=== PATIENT | female | born 1945 | race Caucasian/White ===

== ENCOUNTER → 2016-04-29 | Outpatient (CLI) | payer BC ==
[~2016-04-29] MED LIST: ACETTAB19 PO; ALBU18002 PO; AMPH10CA3 PO; BUPRTAB51 PO; CALC500C3 PO; CETI10TA10 PO; CLB/200 PO; CYAN10005 PO; CYM20 PO; ECON0.05 TD; FERR325T5 PO; GLUCOSE PO; LEVO88TA PO; MAXAIR INH; MECL1TAB40 PO; METH10CA PO; OMEP20CA9 PO; OMEP20TA PO; PRED-301 PO; VALA500T60 PO; [UNRECOGNIZED DRUG - CODE] PO; [UNRECOGNIZED DRUG - CODE] VAGRING; [UNRECOGNIZED DRUG - OTHER] PO; [UNRECOGNIZED DRUG - OTHER] PO; tumeric PO
[2016-04-29 15:01] LABS: URINE APPEARANCE CLEAR (CLEAR); URINE BILIRUBIN NEG (NEG); URINE COLOR YELLOW; URINE NITRITE NEG (NEG); URINE SPECIFIC GRAVITY 1.006 (1.000-1.030); UROBILINOGEN NEG (NEG)
[2016-04-29 15:09] LABS: MANUAL MICROSCOPIC REQUIRED? NO; REVIEW REQ? NO
== END | disposition home or self-care (01) ==
LOC: C.LABSPEC 13:49
PROVIDERS: ATTEND Obstetrics & Gynecology
DX: R39.9 Unspecified symptoms and signs involving the genitourinary system (principal)

== ENCOUNTER 2016-05-13 06:34 | Emergency (ER) | payer BC ==
[~2016-05-13] VITALS: Ht 152.4 cm; Wt 62.4 kg
[~2016-05-13 06:34] MED LIST changes: -ACETTAB19 PO; -ALBU18002 PO; -CLB/200 PO; -CYAN10005 PO; -CYM20 PO; -FERR325T5 PO; -MECL1TAB40 PO; -OMEP20CA9 PO; -[UNRECOGNIZED DRUG - CODE] PO; -[UNRECOGNIZED DRUG - CODE] VAGRING; -[UNRECOGNIZED DRUG - OTHER] PO; -tumeric PO
[2016-05-13 06:41] VITALS: TEMP 36.4; O2SAT 98; Ht 152.4 cm; Wt 62.4 kg
[2016-05-13] MEDS ORDERED: SODIUM CHLORIDE 0.9% 1000ML 1,000 ML IV STA (07:12)
--- NOTE | 2016-05-13 07:28 | EMERGENCY ROOM VISIT NOTE ---
History Report prepared by Brissa: Soniya Gray Under the Supervision of: Dr. Radha Reagan M.D. First contact with patient: 07:03 Chief Complaint: SYNCOPE Stated Complaint: SYNCOPE/ANXIETY Nursing Triage Summary: pt was at [facility]. pt became frustrated when she couldn't find her ticket to board. and sat down. upon exiting the airport pt was climbing the stairs to board her plane when she became winded and then next thing she remembers is waking up in a seat with something cold on her face. pt is blind, has a service dog and is a seasoned traveler. she lives in [place] and has a home in [facility] where she was traveling to. 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 rates 7-9 normally. pt states she has no hx of anxiety. and did not eat this morning. which may have caused her episode. pt states she feels her normal self, except for "a little winded". pt did have flu over [place]. History of Present Illness The patient is a 71 year old female who presents to the Emergency Room with complaints of a sudden syncopal episode that occurred just prior to arrival. She currently rates her discomfort as a 7/10 in severity. The patient states that this morning she was getting ready to fly to [place] for the rest of winter. She states that while at the airport she misplaced her boarding pass and ID card. The patient states that she typically has numbness in her hands and additionally does not see very well. She states that with all of this she became very anxious and flustered. The patient states that she became short of breath when she walked up the stairs to the airplane and additionally noted heart palpitations. She states that she remembers sitting down in a seat on the airplane and then was asked to sit in the seat behind her. The patient states that she came around and someone was calling EMS. She states that she ate one piece of toast this morning because she is prediabetic. 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 She notes a family history of strokes, but denies any weakness to either side today. Source of History: patient Onset: prior to arrival Position: other (global) Symptom Intensity: 7/10 Quality: other (syncopal episode) Timing: other (sudden) Associated Symptoms: + SOB, + numbness (hands), No weakness Note: Associated Symptoms: heart palpitations, anxious, flustered Review of Systems See HPI for pertinent positives & negatives. A total of 10 systems reviewed and were otherwise negative. Past Medical & Surgical Medical Problems: (1) Polycythemia vera Family History Stroke Social History Smoking Status: Never Smoker Marital Status: Housing Status: lives alone Occupation Status: retired Current/Historical Medications Scheduled Bupropion (Wellbutrin-Xl), 300 MG PO QAM Calcium Carbonate (Tums), 1 T PO prn Cetirizine Hcl (Zyrtec), 10 MG PO DAILY Ferrous Sulfate (Ferrous Sulfate), 325 MG PO DAILY Levothyroxine Sodium (Synthroid), 88 MCG PO DAILY Methyltestosterone (Android), 1 CAPSULE PO DAILY Omeprazole (Omeprazole), 40 MG PO QPM Omeprazole (Prilosec), 20 MG PO QAM Prednisone (Prednisone), 5 MG PO DAILY [Citrimax], 1 TAB PO DAILY Scheduled PRN Amphetamine-Dextroamphetamine 10MG (Adderall Xr 10MG), 10 MG PO DAILY PRN for Documentation Glucose-Vitamin C (Glucose Instant Energy 4-6 gm-mg), 1 TAB PO for LOW BLOODSUGAR Valacyclovir (Valtrex), 500 MG PO BID PRN for prn Miscellaneous Medications Albuterol Sulfate (Proair Respiclick) Allergies Coded Allergies: Shellfish (Verified Allergy, Severe, VERY SICK FOR SEVERAL DAYS/HIVES IN HER MOUTH, 05/13/16) Nickel (Verified Allergy, Intermediate, RASH, 05/13/16) PT STATES Cephalexin (Verified Allergy, Unknown, UNKNOWN, 05/13/16) Pineapple (Verified Allergy, Unknown, HIVES IN HER MOUTH, 05/13/16) Prochlorperazine (Verified Allergy, Unknown, MOTOR SEIZURES-ARMS SPASTIC, 05/13/16) ALL "ZINES' PER PT Soy Protein (Verified Allergy, Unknown, "SOY" ALLERGY, 05/13/16) Klemme (Verified Allergy, Unknown, HIVES IN HER MOUTH, 05/13/16) Tomato (Verified Allergy, Unknown, HIVES IN MOUTH, 05/13/16) [place] (Verified Allergy, Unknown, HIVES IN HER MOUTH, 05/13/16) Physical Exam Vital Signs Date Time Temp Pulse Resp B/P Pulse Ox O2 Delivery O2 Flow Rate FiO2 05/13/16 09:45 82 16 159/86 94 05/13/16 08:15 85 16 145/79 89 172/92 92 177/97 05/13/16 07:30 89 16 158/89 94 Room Air 05/13/16 06:46 87 05/13/16 06:41 36.4 85 24 178/67 97 Room Air 05/13/16 06:41 98 Room Air Physical Exam Vital signs reviewed. General: Well-appearing female, in no significant distress. Sunglasses on HEENT: No scleral icterus, PERRLA, neck supple. Atraumatic. Cardiovascular: Regular rate and rhythm, no extra sounds. Pulmonary: Clear to auscultation bilaterally, normal work of breathing. Abdomen: Soft, nontender, nondistended, positive bowel sounds. Musculoskeletal: Chronic deformity of her feet bilaterally, no peripheral edema. Neurologic: Patient awake alert and oriented x 3, full strength in all 4 extremities. Cranial nerves 2 through 12 grossly intact. Skin: Warm, dry, no rash Medical Decision & Procedures ER Provider Diagnostic Interpretation: X-ray results as stated below per my interpretation and radiologist interpretation. Other radiology results as stated below per my review and radiologist interpretation: HEAD CT NONCONTRAST CT DOSE: 537.48 mGy.cm HISTORY: FARLEY, syncope TECHNIQUE: Multiaxial CT images of the head were performed without the use of intravenous contrast. Comparison: None. Findings: The paranasal sinuses and mastoid air cells are clear. The calvarium and skull base are intact. The ventricles and sulci are within normal limits. There is no mass, hematoma, midline shift, or acute infarct. Impression: No acute intracranial abnormality. Electronically signed by: Emmanuel Borrego M.D. 05/13/2016 7:59 AM Dictated Date/Time: 05/13/2016 7:53 AM CHEST ONE VIEW PORTABLE CLINICAL HISTORY: Syncope dyspnea COMPARISON STUDY: 03/11/2016 FINDINGS: The bones soft tissues and hemidiaphragms are normal. The cardiomediastinal silhouette is normal. The lungs are clear. The pulmonary vasculature is normal. IMPRESSION: Negative chest. Electronically signed by: Emmanuel Borrego M.D. 05/13/2016 7:50 AM Dictated Date/Time: 05/13/2016 7:[address] ANGIOGRAM OF THE CHEST CLINICAL HISTORY: Syncope. Anxiety. Positive d-dimer. Possible acute pulmonary embolism. COMPARISON STUDY: Chest CT dated 12-26 TECHNIQUE: Following the IV administration of mL of Optiray-320, CT angiogram of the thorax was performed from the thoracic inlet to the lung bases utilizing the pulmonary embolus protocol. Images are reviewed in the axial, sagittal, and coronal planes. IV contrast was administered without complication. MIP imaging was performed. CT DOSE: 175.82 mGy.cm FINDINGS: There is stable right lobe hepatic hypodensities. No pathologically enlarged axillary mediastinal or hilar lymph nodes were visualized. There is no evidence of thoracic aortic dilatation. There is a 90+ percent stenosis involving the proximal left subclavian artery. There were no pulmonary artery filling defects to indicate acute pulmonary embolism. No pleural effusions are visualized. There are bibasal or dependent atelectatic changes. There is no lobar consolidation. IMPRESSION: 1. No CT evidence of acute pulmonary embolism 2. No evidence of pathologic adenopathy 3. Dependent atelectatic changes 4. High-grade stenosis involving the left subclavian artery Electronically signed by: Allen Gonsalez M.D. 05/13/2016 8:46 AM Dictated Date/Time: 05/13/2016 8:39 AM Laboratory Results 05/13/16 07:25 Red Blood Count 5.67, Mean Corpuscular Volume 82.2, Mean Corpuscular Hemoglobin 27.2, Mean Corpuscular Hemoglobin Concent 33.0, Mean Platelet Volume 10.2, Neutrophils (%) (Auto) 89.8, Lymphocytes (%) (Auto) 5.0, Monocytes (%) (Auto) 4.3, Eosinophils (%) (Auto) 0.2, Basophils (%) (Auto) 0.2, Neutrophils # (Auto) 10.13, Lymphocytes # (Auto) 0.56, Monocytes # (Auto) 0.48, Eosinophils # (Auto) 0.02, Basophils # (Auto) 0.02 05/13/16 07:25 Test 05/13/16 07:25 05/13/16 07:33 White Blood Count 11.27 K/uL (4.8-10.8) Red Blood Count 5.67 M/uL (4.2-5.4) Hemoglobin 15.4 g/dL (12.0-16.0) Hematocrit 46.6 % (37-47) Mean Corpuscular Volume 82.2 fL (80-100) Mean Corpuscular Hemoglobin 27.2 pg (25-34) Mean Corpuscular Hemoglobin Concent 33.0 g/dl (32-36) Platelet Count 221 K/uL (130-400) Mean Platelet Volume 10.2 fL (7.4-10.4) Neutrophils (%) (Auto) 89.8 % Lymphocytes (%) (Auto) 5.0 % Monocytes (%) (Auto) 4.3 % Eosinophils (%) (Auto) 0.2 % Basophils (%) (Auto) 0.2 % Neutrophils # (Auto) 10.13 K/uL (1.4-6.5) Lymphocytes # (Auto) 0.56 K/uL (1.2-3.4) Monocytes # (Auto) 0.48 K/uL (0.11-0.59) Eosinophils # (Auto) 0.02 K/uL (0-0.5) Basophils # (Auto) 0.02 K/uL (0-0.2) RDW Standard Deviation 66.3 fL (36.4-46.3) RDW Coefficient of Variation 22.8 % (11.5-14.5) Immature Granulocyte % (Auto) 0.5 % Immature Granulocyte # (Auto) 0.06 K/uL (0.00-0.02) Hyposegmented Neutrophils 1+ Anisocytosis PRESENT Prothrombin Time 10.5 SECONDS (9.0-12.0) Prothromb Time International Ratio 1.0 (0.9-1.1) Activated Partial Thromboplast Time 26.3 SECONDS (21.0-31.0) Partial Thromboplastin Ratio 1.0 Anion Gap 12.0 mmol/L (3-11) Est Creatinine Clear Calc Drug Dose 81.1 ml/min Estimated GFR () 110.6 Estimated GFR (Non- 95.4 BUN/Creatinine Ratio 52.9 (10-20) Calcium Level 9.0 mg/dl (8.5-10.1) Magnesium Level 1.9 mg/dl (1.8-2.4) Total Bilirubin 0.4 mg/dl (0.2-1) Direct Bilirubin < 0.1 mg/dl (0-0.2) Aspartate Amino Transf (AST/SGOT) 22 U/L (15-37) Alanine Aminotransferase (ALT/SGPT) 33 U/L (12-78) Alkaline Phosphatase 53 U/L (45-117) Total Protein 7.6 gm/dl (6.4-8.2) Albumin 4.0 gm/dl (3.4-5.0) Bedside D-Dimer > 450 ng/mlFEU (0-450) Bedside Troponin I 0.020 ng/ml (0-0.045) Laboratory results per my review. Medications Administered Medications (Trade) Dose Ordered Sig/Sun Route Start Time Stop Time Status Last Admin Dose Admin Sodium Chloride (Nss 1000ml) 1,000 ml @ 150 mls/hr [id number] STAT IV 05/13/16 07:12 05/13/16 10:08 DC 05/13/16 08:57 150 MLS/HR ECG Indication: syncope Rate (beats per minute): 92 Rhythm: sinus rhythm Findings: LBBB (incomplete), PAC, PVC, other (Biatrial enlargement, poor quality baseline) ED Course 0709: Past medical records reviewed. The patient was evaluated in room A10. A complete history and physical examination was performed. 0712: Ordered Sodium Chloride 1000 ml @ 150 mls/hr IV. 0814: I reevaluated the patient and she is resting comfortably at this time. 0902: I reevaluated the patient and she is resting comfortably. I discussed the exam findings with her and I discussed the treatment plan. She verbalized complete understanding and agreement. She is ready to go home. Medical Decision Differential diagnosis: Etiologies such as vasovagal event, infection, hypoglycemia, electrolyte abnormalities, cardiac sources, intracerebral event, toxicologic, neurologic, as well as others were entertained. This patient was evaluated and appeared to be in no significant distress. IV access was obtained and laboratory work was drawn. Patient was placed on the surveillance system monitor and found to be in a normal sinus rhythm. EKG reveals PAC and PVCs. Patient has a left bundle branch block. Laboratory work reveals no significant abnormalities. D-dimer is elevated. CT scan of the chest was performed and reveals no evidence of PE. Patient does have a subclavian stenosis of the left side. I do not believe that this contributed to the patient's symptoms. Patient was informed of the findings. She will be evaluated by her primary care physician within the next several days. She will return to the ER for worsening of symptoms or any medical concerns. Impression Primary Impression: Syncope Additional Impression: Stenosis of left subclavian artery Scribe Attestation The scribe's documentation has been prepared under my direction and personally reviewed by me in its entirety. I confirm that the note above accurately reflects all work, treatment, procedures, and medical decision making performed by me. Departure Information Dispostion Home / Self-Care Referrals Angel Mills M.D. (PCP) Forms HOME CARE DOCUMENTATION FORM, IMPORTANT VISIT INFORMATION Patient Instructions My [facility] Additional Instructions Diagnosis: Syncope Drink plenty of clear fluids. Continue medications as prescribed. Follow-up with your physician this week for reevaluation. Return to the ER for worsening of symptoms or any medical concerns. Problem Qualifiers Primary Impression: Syncope Encounter type: initial encounter
[2016-05-13 07:35] LABS: BASO % 0.2 %; BASO ABS # 0.02 K/uL (0-0.2); EOS % 0.2 %; HEMATOCRIT 46.6 % (37-47); IG% 0.5 %; LYMPH ABS # 0.56 K/uL (1.2-3.4); MEAN CELL VOLUME 82.2 fL (80-100); MEAN CORPUSCULAR HEMOGLOBIN 27.2 pg (25-34); MEAN PLATELET VOLUME 10.2 fL (7.4-10.4); MONO % 4.3 %; NEUT % 89.8 %; PLATELET COUNT 221 K/uL (130-400); RED BLOOD COUNT 5.67 M/uL (4.2-5.4); WHITE BLOOD COUNT 11.27 K/uL (4.8-10.8)
[2016-05-13 07:43] LABS: PROTHROMBIN TIME (PATIENT) 10.5 SECONDS (9.0-12.0)
[2016-05-13 07:50] LABS: BLOOD UREA NITROGEN 27 mg/dl (7-18); BUN/CREATININE RATIO 52.9 (10-20); CARBON DIOXIDE 23 mmol/L (21-32); CHLORIDE 107 mmol/L (98-107); CREATININE 0.51 mg/dl (0.60-1.20); GLUCOSE 114 mg/dl (70-99); MAGNESIUM 1.9 mg/dl (1.8-2.4); POTASSIUM 3.7 mmol/L (3.5-5.1); SODIUM 142 mmol/L (136-145)
--- NOTE | 2016-05-13 07:51 | DIAGNOSTIC IMAGING REPORT ---
CHEST ONE VIEW PORTABLE CLINICAL HISTORY: Syncope dyspnea COMPARISON STUDY: 03/11/2016 FINDINGS: The bones soft tissues and hemidiaphragms are normal. The cardiomediastinal silhouette is normal. The lungs are clear. The pulmonary vasculature is normal. IMPRESSION: Negative chest. Electronically signed by: Emmanuel Borrego M.D. 05/13/2016 7:50 AM Dictated Date/Time: 05/13/2016 7:46 AM
[2016-05-13 07:54] LABS: ALKALINE PHOSPHATASE 53 U/L (45-117); ALT/SGPT 33 U/L (12-78); AST/SGOT 22 U/L (15-37)
[2016-05-13 07:59] LABS: ANISOCYTOSIS PRESENT; COMPLETE YES; HYPOSEGMENTED POLYS 1+
--- NOTE | 2016-05-13 08:01 | DIAGNOSTIC IMAGING REPORT ---
HEAD CT NONCONTRAST CT DOSE: 537.48 mGy.cm HISTORY: FARLEY, syncope TECHNIQUE: Multiaxial CT images of the head were performed without the use of intravenous contrast. Comparison: None. Findings: The paranasal sinuses and mastoid air cells are clear. The calvarium and skull base are intact. The ventricles and sulci are within normal limits. There is no mass, hematoma, midline shift, or acute infarct. Impression: No acute intracranial abnormality. Electronically signed by: Emmanuel Borrego M.D. 05/13/2016 7:59 AM Dictated Date/Time: 05/13/2016 7:53 AM
[2016-05-13] MEDS ORDERED: [UNRECOGNIZED DRUG - OTHER] PO (08:08)
[2016-05-13] MEDS ORDERED: ALBU18002 PO (08:08)
[2016-05-13] MEDS ORDERED: [UNRECOGNIZED DRUG - CODE] PO (08:08)
[2016-05-13] MEDS ORDERED: OMEP20CA9 PO (08:08)
[2016-05-13] MEDS ORDERED: FERR325T5 PO (08:08)
[2016-05-13] MEDS ORDERED: OPTIRAY 320 IV PRN (08:15)
--- NOTE | 2016-05-13 08:48 | DIAGNOSTIC IMAGING REPORT ---
CT ANGIOGRAM OF THE CHEST CLINICAL HISTORY: Syncope. Anxiety. Positive d-dimer. Possible acute pulmonary embolism. COMPARISON STUDY: Chest CT dated 12-26 TECHNIQUE: Following the IV administration of mL of Optiray-320, CT angiogram of the thorax was performed from the thoracic inlet to the lung bases utilizing the pulmonary embolus protocol. Images are reviewed in the axial, sagittal, and coronal planes. IV contrast was administered without complication. MIP imaging was performed. CT DOSE: 175.82 mGy.cm FINDINGS: There is stable right lobe hepatic hypodensities. No pathologically enlarged axillary mediastinal or hilar lymph nodes were visualized. There is no evidence of thoracic aortic dilatation. There is a 90+ percent stenosis involving the proximal left subclavian artery. There were no pulmonary artery filling defects to indicate acute pulmonary embolism. No pleural effusions are visualized. There are bibasal or dependent atelectatic changes. There is no lobar consolidation. IMPRESSION: 1. No CT evidence of acute pulmonary embolism 2. No evidence of pathologic adenopathy 3. Dependent atelectatic changes 4. High-grade stenosis involving the left subclavian artery Electronically signed by: Allen Gonsalez M.D. 05/13/2016 8:46 AM Dictated Date/Time: 05/13/2016 8:39 AM
[2016-05-13 09:45] VITALS: BP 159/86; PULSE 82; O2SAT 94
[2016-09-12] MEDS ORDERED: CYAN10005 PO (11:09)
[2016-09-12] MEDS ORDERED: MECL1TAB40 PO (11:09)
[2016-09-12] MEDS ORDERED: tumeric PO (11:09)
[2016-09-12] MEDS ORDERED: CLB/200 PO (11:09)
[2016-09-12] MEDS ORDERED: ACETTAB19 PO (11:09)
[2016-09-12] MEDS ORDERED: [UNRECOGNIZED DRUG - CODE] VAGRING (11:11)
== END 2016-05-13 09:45 | disposition home or self-care (01) ==
LOC: EDBD 06:34 → C.EDB 06:36
DX: R55 Syncope and collapse (principal); I77.1 Stricture of artery; Z82.3 Family history of stroke

== ENCOUNTER → 2016-08-22 | Outpatient (CLI) | payer BC ==
[~2016-08-22] MED LIST changes: +ACETTAB19 PO; +ALBU18002 PO; +BUPR-83 PO; +CALC500C70 PO; +CLB/200 PO; +CYAN10005 PO; +CYM20 PO; +DMX250 PO; +DULO60CA44 PO; -ECON0.05 TD; +FERR1TAB13 PO; +FERR325T5 PO; -GLUCOSE PO; +Juice Plus; +LYSI1TAB12 PO; -MAXAIR INH; +MECL1TAB40 PO; +MOME0.1O TOP; +MULT1CHW63; +MULT1PAK42; +OMEP20CA9 PO; +Vitamin B; +[UNRECOGNIZED DRUG - CODE] PO; +[UNRECOGNIZED DRUG - CODE] VAGRING; +[UNRECOGNIZED DRUG - OTHER] PO; -[UNRECOGNIZED DRUG - OTHER] PO; +tumeric PO
[2016-08-22 12:40] LABS: BASO % 0.2 %; BASO ABS # 0.02 K/uL (0-0.2); COMPLETE YES; HEMATOCRIT 46.3 % (37-47); IG% 1.2 %; LYMPH % 11.1 %; MEAN CELL VOLUME 96.1 fL (80-100); MEAN CORPUSCULAR HEMOGLOBIN 32.6 pg (25-34); MEAN CORPUSCULAR HGB CONC 33.9 g/dl (32-36); MEAN PLATELET VOLUME 11.1 fL (7.4-10.4); MONO % 8.7 %; NEUT % 76.8 %; PLATELET COUNT 202 K/uL (130-400); RED BLOOD COUNT 4.82 M/uL (4.2-5.4); WHITE BLOOD COUNT 8.14 K/uL (4.8-10.8)
[2016-08-22 16:10] LABS: ALT/SGPT 31 U/L (12-78); AST/SGOT 20 U/L (15-37); BLOOD UREA NITROGEN 22 mg/dl (7-18); BUN/CREATININE RATIO 40.6 (10-20); CALCIUM 8.7 mg/dl (8.5-10.1); CARBON DIOXIDE 31 mmol/L (21-32); CHLORIDE 106 mmol/L (98-107); CREATININE 0.54 mg/dl (0.60-1.20); GLUCOSE 79 mg/dl (70-99); POTASSIUM 4.1 mmol/L (3.5-5.1); SODIUM 141 mmol/L (136-145)
[2016-08-22 16:21] LABS: ALB/GLOB RATIO 1.2 (0.9-2); ALKALINE PHOSPHATASE 42 U/L (45-117); THYROID STIMULATING HORMONE 0.392 uIu/ml (0.300-4.500)
--- NOTE | 2016-08-28 08:03 | CODING QUERY MEDICAL NECESSITY ---
CQSUPPORTING DIAGNOSIS NEEDED A supporting diagnosis is required for the test/procedure performed on this patient in order for us to be reimbursed by the patient's insurance. Please provide a supporting diagnosis for the following test/procedure listed below next to the test name along with your signature. *If there is no additional diagnosis for this patient that would support the following test/procedure please document that below next to the test/procedure. Test(s)/Procedure(s) that require a supporting diagnosis: DOS 08/22/16 COMPLETE BLOOD COUNTS Provider Signature: Date: Thank you Pricilla Buchanan [facility] Information Management Once completed, please kindly fax back to [phone] For questions please call [phone]
== END | disposition home or self-care (01) ==
LOC: C.LAB1850 10:50
PROVIDERS: ATTEND Internal Medicine Pulmonary Disease
DX: I73.9 Peripheral vascular disease, unspecified (principal); M35.9 Systemic involvement of connective tissue, unspecified

== ENCOUNTER → 2016-10-16 | Outpatient (CLI) | payer BC ==
[~2016-10-16] MED LIST changes: -BUPR-83 PO; -CALC500C70 PO; -DMX250 PO; -DULO60CA44 PO; -FERR1TAB13 PO; -FERR325T5 PO; -Juice Plus; -LYSI1TAB12 PO; -MOME0.1O TOP; -MULT1CHW63; -MULT1PAK42; -Vitamin B
== END | disposition home or self-care (01) ==
LOC: C.PAPS 11:38
PROVIDERS: ATTEND Obstetrics & Gynecology
DX: Z01.419 Encounter for gynecological examination (general) (routine) without abnormal findings (principal)

== ENCOUNTER 2017-01-05 18:55 | Observation (INO) | payer BC ==
[~2017-01-05] VITALS: Ht 152.4 cm; Wt 58.6 kg
[~2017-01-05 18:55] MED LIST changes: -CYM20 PO
[2017-01-05] MEDS ORDERED: ONDANSETRON INJ 2 MG/ML 2 ML VIAL IV STA (19:01)
[2017-01-05] MEDS ORDERED: SODIUM CHLORIDE 0.9% 1000ML 1,000 ML IV STA (19:01)
[2017-01-05] MEDS ORDERED: CYM20 PO (19:02)
--- NOTE | 2017-01-05 19:16 | EMERGENCY ROOM VISIT NOTE ---
History Report prepared by Brissa: Carlton Newsome Under the Supervision of: Dr. Jose Wynn D.O. First contact with patient: 18:52 Stated Complaint: SVT, UNRESPONSIVE History of Present Illness The patient is a 71 year old female who presents to the Emergency Room with complaints of syncope that that occurred 1 hour ago. Per the patient's friend, 1 hour ago she was outside relaxing on her porch with her friends when she became very diaphoretic. She was not drinking alcohol. They asked it her if she was okay and she slowly became "out of it." She then passed out for 3 minutes. During this time, they called EMS. When EMS arrived she was awake and alert. En route, the patient was found to be in SVT of a rate over 200. She was given Adenosine to no effect, so she needed to be cardioverted. She received 5 mg of Versed and is now in sinus rhythm. However, she is currently still "out of it." She denies any chest pain, shortness of breath, or abdominal pain. She is still diaphoretic. Source of History: patient Onset: 1 hour ago Position: other (Global) Symptom Intensity: 3 minutes Quality: other (Syncope) Timing: resolved Associated Symptoms: + diaphoresis, No chest pain, No SOB, No abdominal pain Note: She was in SVT that resolved to SR after Cardioversion. Review of Systems See HPI for pertinent positives & negatives. A total of 10 systems reviewed and were otherwise negative. Past Medical & Surgical Medical Problems: (1) Polycythemia vera Family History Stroke Social History Smoking Status: Never Smoker Marital Status: Housing Status: lives alone Occupation Status: retired Current/Historical Medications Scheduled Acetaminophen-Aspirin Buffered (Excedrin Back & Body), 2 TABS PO Q4 Bupropion (Wellbutrin-Xl), 300 MG PO QAM Calcium Carbonate (Tums), 1 T PO prn Celecoxib (CeleBREX), 200 MG PO DAILY Cetirizine Hcl (Zyrtec), 10 MG PO DAILY Cyanocobalamin (Vitamin B-12), 1,000 MCG PO DAILY Duloxetine HCl (Duloxetine HCl), 20 MG PO TID Estradiol Acetate Vaginal (Femring), 1 APPLN VAGRING UD Levothyroxine Sodium (Synthroid), 88 MCG PO DAILY Meclizine HCl (Meclizine HCl), 1 TAB PO TID Methyltestosterone (Android), 1 CAPSULE PO DAILY Omeprazole (Omeprazole), 40 MG PO QPM Omeprazole (Prilosec), 20 MG PO QAM Prednisone (Prednisone), 5 MG PO DAILY [Citrimax], 1 TAB PO DAILY [tumeric], 1 CAP PO DAILY Scheduled PRN Amphetamine-Dextroamphetamine 10MG (Adderall Xr 10MG), 10 MG PO DAILY PRN for Documentation Glucose-Vitamin C (Glucose Instant Energy 4-6 gm-mg), 1 TAB PO for LOW BLOODSUGAR Valacyclovir (Valtrex), 500 MG PO BID PRN for prn Miscellaneous Medications Albuterol Sulfate (Proair Respiclick) Allergies Coded Allergies: Shellfish (Verified Allergy, Severe, VERY SICK FOR SEVERAL DAYS/HIVES IN HER MOUTH, 01/05/17) Nickel (Verified Allergy, Intermediate, RASH, 01/05/17) PT STATES Cephalexin (Verified Allergy, Unknown, UNKNOWN, 01/05/17) Chlorpromazine (Unverified Allergy, Unknown, JAW LOCKS, 01/05/17) Pineapple (Verified Allergy, Unknown, HIVES IN HER MOUTH, 01/05/17) Prochlorperazine (Verified Allergy, Unknown, MOTOR SEIZURES-ARMS SPASTIC, 01/05/17) ALL "ZINES' PER PT Soy Protein (Verified Allergy, Unknown, "SOY" ALLERGY, 01/05/17) [place] (Verified Allergy, Unknown, HIVES IN HER MOUTH, 01/05/17) Tomato (Verified Allergy, Unknown, HIVES IN MOUTH, 01/05/17) [place] (Verified Allergy, Unknown, HIVES IN HER MOUTH, 01/05/17) Physical Exam Vital Signs Date Time Temp Pulse Resp B/P (MAP) Pulse Ox O2 Delivery O2 Flow Rate FiO2 01/05/17 20:05 86 24 99 Room Air 01/05/17 20:01 122/86 01/05/17 19:55 91 16 100 01/05/17 19:52 123/65 01/05/17 19:45 89 14 100 01/05/17 19:41 121/73 01/05/17 19:39 120/69 01/05/17 19:35 85 25 97 01/05/17 19:31 131/75 01/05/17 19:25 90 21 93 01/05/17 19:22 116/74 01/05/17 19:10 90 01/05/17 19:05 94 18 94 Room Air 01/05/17 19:01 115/77 01/05/17 19:00 37.1 85 17 121/68 95 Room Air Physical Exam GENERAL: Patient is awake, but somewhat listless. Slow to respond to questions. Follows commands. EYES: The conjunctivae are clear. The pupils are round and reactive. EARS, NOSE, MOUTH AND THROAT: The nose is without any evidence of any deformity. Mucous membranes are moist tongue is midline NECK: The neck is nontender and supple. RESPIRATORY: Normal respiratory effort is noted there is no evidence of wheezing rhonchi or rales CARDIOVASCULAR: Regular rate with an irregular rhythm. Ectopy noted to auscultation. No murmurs appreciated. GASTROINTESTINAL: The abdomen is soft. Bowel sounds are present in all quadrants. Abdomen is nontender MUSCULOSKELETAL/EXTREMITIES: There is no evidence of gross deformity full range of motion is noted in the hips and shoulders SKIN: Cool and diaphoretic. No pedal edema. NEUROLOGIC: Oriented x3, no pronator drift. Medical Decision & Procedures ER Provider Diagnostic Interpretation: Radiology results as stated below per my review and radiologist interpretation: CHEST ONE VIEW PORTABLE CLINICAL HISTORY: EVALUATE RESPIRATORY DISTRESS.DYSPNEA COMPARISON STUDY: 05/13/2016 FINDINGS: The cardiac and mediastinal contours are normal. There is no evidence of focal pulmonary consolidation. There is no evidence of failure. No pleural effusions are visualized.[ There is a thoracolumbar scoliosis. Postsurgical changes involve the left shoulder. IMPRESSION: No active disease in the chest. Electronically signed by: Allen Gonsalez M.D. 01/05/2017 7:25 PM Dictated Date/Time: 01/05/2017 7:24 PM HEAD WITHOUT CONTRAST (CT) CT DOSE: 537.48 mGy.cm HISTORY: Altered mental status altered TECHNIQUE: Multiaxial CT images of the head were performed without the use of intravenous contrast. A dose lowering technique was utilized adhering to the principles of ALARA. Comparison: 05/13/2016 Findings: The paranasal sinuses and mastoid air cells are clear. The calvarium and skull base are intact. The ventricles and sulci are within normal limits. There is no mass, hematoma, midline shift, or acute infarct. Impression: No acute intracranial abnormality. The above report was generated using voice recognition software. It may contain grammatical, syntax or spelling errors. Electronically signed by: Emmanuel Borrego M.D. 01/05/2017 7:18 PM Dictated Date/Time: 01/05/2017 7:16 PM Laboratory Results 01/05/17 19:26 Red Blood Count 5.36, Mean Corpuscular Volume 95.3, Mean Corpuscular Hemoglobin 33.4, Mean Corpuscular Hemoglobin Concent 35.0, Mean Platelet Volume 9.8, Neutrophils (%) (Auto) 69.7, Lymphocytes (%) (Auto) 15.6, Monocytes (%) (Auto) 12.5, Eosinophils (%) (Auto) 1.3, Basophils (%) (Auto) 0.2, Neutrophils # (Auto ) 5.69, Lymphocytes # (Auto) 1.28, Monocytes # (Auto) 1.02, Eosinophils # (Auto ) 0.11, Basophils # (Auto) 0.02 01/05/17 19:26 Test 01/05/17 19:01 01/05/17 19:26 01/05/17 19:50 01/05/17 20:19 White Blood Count 8.18 K/uL (4.8-10.8) Red Blood Count 5.36 M/uL (4.2-5.4) Hemoglobin 17.9 g/dL (12.0-16.0) Hematocrit 51.1 % (37-47) Mean Corpuscular Volume 95.3 fL (80-100) Mean Corpuscular Hemoglobin 33.4 pg (25-34) Mean Corpuscular Hemoglobin Concent 35.0 g/dl (32-36) Platelet Count 208 K/uL (130-400) Mean Platelet Volume 9.8 fL (7.4-10.4) Neutrophils (%) (Auto) 69.7 % Lymphocytes (%) (Auto) 15.6 % Monocytes (%) (Auto) 12.5 % Eosinophils (%) (Auto) 1.3 % Basophils (%) (Auto) 0.2 % Neutrophils # (Auto) 5.69 K/uL (1.4-6.5) Lymphocytes # (Auto) 1.28 K/uL (1.2-3.4) Monocytes # (Auto) 1.02 K/uL (0.11-0.59) Eosinophils # (Auto) 0.11 K/uL (0-0.5) Basophils # (Auto) 0.02 K/uL (0-0.2) RDW Standard Deviation 42.1 fL (36.4-46.3) RDW Coefficient of Variation 12.1 % (11.5-14.5) Immature Granulocyte % (Auto) 0.7 % Immature Granulocyte # (Auto) 0.06 K/uL (0.00-0.02) Prothrombin Time 10.7 SECONDS (9.0-12.0) Prothromb Time International Ratio 1.0 (0.9-1.1) Activated Partial Thromboplast Time 28.5 SECONDS (21.0-31.0) Partial Thromboplastin Ratio 1.1 Venous Blood pH 7.43 (7.36-7.41) Venous Blood Partial Pressure CO2 42 mmHg (38.0-50.0) Venous Blood Partial Pressure O2 32 mmHg Venous Blood HCO3 27 mmol/L Venous Blood Oxygen Saturation 60.0 % Venous Blood Base Excess 2.0 mEq/L Anion Gap 10.0 mmol/L (3-11) Est Creatinine Clear Calc Drug Dose 57.1 ml/min Estimated GFR () 94.7 Estimated GFR (Non- 81.7 BUN/Creatinine Ratio 40.5 (10-20) Calcium Level 9.4 mg/dl (8.5-10.1) Total Bilirubin 0.7 mg/dl (0.2-1) Alanine Aminotransferase (ALT/SGPT) 54 U/L (12-78) Alkaline Phosphatase 64 U/L (45-117) Creatine Kinase MB 2.1 ng/ml (0.5-3.6) Creatine Kinase MB Ratio (0-3.0) Troponin I 0.051 ng/ml (0-0.045) Pro-B-Type Natriuretic Peptide 1021 pg/ml (0-900) Total Protein 7.8 gm/dl (6.4-8.2) Albumin 3.9 gm/dl (3.4-5.0) Globulin 3.9 gm/dl (2.5-4.0) Albumin/Globulin Ratio 1.0 (0.9-2) Ethyl Alcohol mg/dL < 3.0 mg/dl (0-3) Urine Color YELLOW Urine Appearance CLEAR (CLEAR) Urine pH 7.0 (4.5-7.5) Urine Specific Luana 1.010 (1.000-1.030) Urine Protein 1+ (NEG) Urine Glucose (UA) NEG (NEG) Urine Ketones TRACE (NEG) Urine Occult Blood NEG (NEG) Urine Nitrite NEG (NEG) Urine Bilirubin NEG (NEG) Urine Urobilinogen NEG (NEG) Urine Leukocyte Esterase NEG (NEG) Urine WBC (Auto) 1-5 /hpf (0-5) Urine RBC (Auto) 0-4 /hpf (0-4) Urine Hyaline Casts (Auto) 0 /lpf (0-5) Urine Epithelial Cells (Auto) 20-30 /lpf (0-5) Urine Bacteria (Auto) NEG (NEG) Laboratory results per my review. Medications Administered Medications (Trade) Dose Ordered Sig/Sun Route Start Time Stop Time Status Last Admin Dose Admin Sodium Chloride 1,000 ml @ 999 mls/hr Q1H1M STAT IV 01/05/17 19:01 01/05/17 20:01 DC 01/05/17 20:04 999 MLS/HR Ondansetron HCl (Zofran Inj) 4 mg NOW STAT IV 01/05/17 19:01 01/05/17 19:03 DC 01/05/17 20:08 4 MG ECG Indication: syncope Rate (beats per minute): 86 Rhythm: sinus rhythm Findings: PVC, ST depression (inferior and lateral) Comparison ECG Date: 13 May 2016 Change: no significant change ED Course 1852: The patient was evaluated in room A1. A complete history and physical examination were performed. 1900: Ordered Zofran Inj 4 mg IV, NSS 1,000 ml @ 999 mls/hr IV 1906: I spoke with Dr. Gerber of Cardiology at this time. We discussed the patient's case. We will continue to evaluate the patient in the ER and try a Beta Emma if she can tolerate it. 2018: Upon reevaluation, the patient looks great. She is feeling better. 2030: Upon reevaluation, the patient is resting. I discussed results and treatment plan with her. She verbalizes agreement and understanding. I spoke with Dr. Mcgee of the [facility]. The patient will be evaluated for further management and care. Medical Decision Differential diagnosis: Etiologies such as vasovagal event, infection, hypoglycemia, electrolyte abnormalities, cardiac sources, intracerebral event, toxicologic, neurologic, as well as others were entertained. Nursing notes reviewed. Additional history is obtained from the patient's friends. Additional history is obtained from the prehospital personnel. The patient is a 71-year-old female who presented to the emergency department after having a syncopal episode. The patient had a syncopal episode while she was talking with friends. She was very diaphoretic. The patient was found have a narrow complex tachycardia and hypotension. She was treated with Adenosine for 2 doses but did not resolve the neural complex tachycardia. Because of her ongoing symptoms and her hypotension she was treated with Versed and then electrocardioversion. This resolved the neural, looks tachycardia. She was treated with IV fluids in the emergency department. Initially she was somewhat confused but this slowly improved I think this was secondary to the Versed. The patient was reevaluated multiple times. I discussed her condition with the on- call [facility] groover and striper operator as well as the on-call [facility] hospitalist. She may require further studies to determine the next course of action. The patient was feeling much better on subsequent reevaluation. I did receive a medical command phone call on this patient. Medication Reconcilliation Current Medication List: was personally reviewed by me Blood Pressure Screening Patient's blood pressure: Normal blood pressure Blood pressure disposition: Did not require urgent referral Consults Time Called: 1904 Consulting Physician: Dr. Gerber - Cardiology Returned Call: 1906 We discussed the patient's case. He recommended evaluating the patient further in the ER and trying a Beta Emma if she can tolerate it. Additional Consults: Time Called: 2024 Consulted Physician: Dr. Mcgee - [facility] Returned Call: [phone] Additional Comments: I discussed the patient's case with him. The patient will be evaluated for further management. Impression Primary Impression: Syncope Additional Impressions: SVT (supraventricular tachycardia) Hypotension Abnormal ECG Scribe Attestation The scribe's documentation has been prepared under my direction and personally reviewed by me in its entirety. I confirm that the note above accurately reflects all work, treatment, procedures, and medical decision making performed by me. Departure Information Dispostion Being Evaluated By Hospitalist Referrals Angel Mills M.D. (PCP) Problem Qualifiers Primary Impression: Syncope Syncope type: unspecified Qualified Codes: R55 - Syncope and collapse Additional Impressions: Hypotension Hypotension type: unspecified hypotension type Qualified Codes: I95.9 - Hypotension, unspecified
--- NOTE | 2017-01-05 19:19 | DIAGNOSTIC IMAGING REPORT ---
HEAD WITHOUT CONTRAST (CT) CT DOSE: 537.48 mGy.cm HISTORY: Altered mental status altered TECHNIQUE: Multiaxial CT images of the head were performed without the use of intravenous contrast. A dose lowering technique was utilized adhering to the principles of ALARA. Comparison: 05/13/2016 Findings: The paranasal sinuses and mastoid air cells are clear. The calvarium and skull base are intact. The ventricles and sulci are within normal limits. There is no mass, hematoma, midline shift, or acute infarct. Impression: No acute intracranial abnormality. The above report was generated using voice recognition software. It may contain grammatical, syntax or spelling errors. Electronically signed by: Emmanuel Borrego M.D. 01/05/2017 7:18 PM Dictated Date/Time: 01/05/2017 7:16 PM
--- NOTE | 2017-01-05 19:26 | DIAGNOSTIC IMAGING REPORT ---
CHEST ONE VIEW PORTABLE CLINICAL HISTORY: EVALUATE RESPIRATORY DISTRESS.DYSPNEA COMPARISON STUDY: 05/13/2016 FINDINGS: The cardiac and mediastinal contours are normal. There is no evidence of focal pulmonary consolidation. There is no evidence of failure. No pleural effusions are visualized.[ There is a thoracolumbar scoliosis. Postsurgical changes involve the left shoulder. IMPRESSION: No active disease in the chest. Electronically signed by: Allen Gonsalez M.D. 01/05/2017 7:25 PM Dictated Date/Time: 01/05/2017 7:24 PM
[2017-01-05 19:41] LABS: BASO % 0.2 %; BASO ABS # 0.02 K/uL (0-0.2); COMPLETE YES; EOS % 1.3 %; HEMATOCRIT 51.1 % (37-47); IG% 0.7 %; LYMPH % 15.6 %; LYMPH ABS # 1.28 K/uL (1.2-3.4); MEAN CELL VOLUME 95.3 fL (80-100); MEAN CORPUSCULAR HEMOGLOBIN 33.4 pg (25-34); MEAN PLATELET VOLUME 9.8 fL (7.4-10.4); MONO % 12.5 %; NEUT % 69.7 %; PLATELET COUNT 208 K/uL (130-400); RED BLOOD COUNT 5.36 M/uL (4.2-5.4); WHITE BLOOD COUNT 8.18 K/uL (4.8-10.8)
[2017-01-05 19:50] LABS: PARTIAL THROMBOPLASTIN RATIO 1.1; PROTHROMBIN TIME (PATIENT) 10.7 SECONDS (9.0-12.0)
[2017-01-05 20:07] LABS: URINE APPEARANCE CLEAR (CLEAR); URINE BILIRUBIN NEG (NEG); URINE COLOR YELLOW; URINE EPITHELIAL CELL AUTO 20-30 /lpf (0-5); URINE NITRITE NEG (NEG); UROBILINOGEN NEG (NEG)
[2017-01-05 20:08] LABS: MANUAL MICROSCOPIC REQUIRED? NO; REVIEW REQ? YES
[2017-01-05 20:16] LABS: ALKALINE PHOSPHATASE 64 U/L (45-117); ALT/SGPT 54 U/L (12-78); BLOOD UREA NITROGEN 30 mg/dl (7-18); BUN/CREATININE RATIO 40.5 (10-20); CALCIUM 9.4 mg/dl (8.5-10.1); CARBON DIOXIDE 24 mmol/L (21-32); CHLORIDE 103 mmol/L (98-107); CREATININE 0.73 mg/dl (0.60-1.20); GLUCOSE 150 mg/dl (70-99); SODIUM 137 mmol/L (136-145)
[2017-01-05] MEDS ORDERED: MoRPHine SULFATE 2 MG/ML CARP IV PRN (20:30)
[2017-01-05] MEDS ORDERED: ALUMINUM/MAGNESIUM/SIMETH (MAALOX MAX) 30 ML UDC PO PRN (20:30)
[2017-01-05] MEDS ORDERED: MAGNESIUM HYDROXIDE SUSP 30 ML UDC PO PRN (20:30)
[2017-01-05] MEDS ORDERED: POLYETHYLENE (MIRALAX) 17 GM PACK PO PRN (20:30)
[2017-01-05 20:55] VITALS: O2SAT 97
[2017-01-05 20:56] LABS: POTASSIUM 3.7 mmol/L (3.5-5.1)
--- NOTE | 2017-01-05 21:13 | History and Physical ---
History & Physical Date & Time of Service: Jan 05, 2017 at 20:47 Chief Complaint: Svt, Unresponsive Primary Care Physician: Angel Mills M.D. History of Present Illness Source: patient 71 y/o F Hx MCTD - CREST syndrome, PCV, peripheral vascular disease, legally blind. Pt was out to dinner and became lightheaded. She stopped responding to friends and then suffered a syncopal episode. She regained consciousness 3 minutes later although she remained lightheaded. EMS were summoned. A rhythm monitor revealed a narrow complex tachycardia at > 200. She was provided with 2 doses of Adenosine which did not slow her heart rate down. Five mg of Versed were administered and she was shocked with 100j. She reverted to a sinus rhythm but was initially unresponsive for a few minutes. The pt was diaphoretic and hypotensive on arrival to the ER. She responded well to a fluid bolus, gradually regained her orientation and is asymptomatic at the time of admission. Initial EKG in the ER shows a sinus rhythm with PVCs and a prolonged QT. 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 - the pt takes Adderall occasionally as this helps her focus her vision 5) Peripheral vascular disease - B/L lower extremity stents Surgical 1) Hysterectomy 2) Appendectomy 3) Lower extremity stenting Family History Stroke CAD, HTN, DM, CVA Social History Occasional ETOH Smoking Status: Never Smoker Marital Status: Occupational Status: retired Immunizations History of Influenza Vaccine: Yes History of Tetanus Vaccine?: Unknown History of Pneumococcal: Yes History of Hepatitis B Vaccine: No Multi-Drug Resistant Organisms History of MDRO: No Allergies Coded Allergies: Shellfish (Verified Allergy, Severe, VERY SICK FOR SEVERAL DAYS/HIVES IN HER MOUTH, 05/13/16) Nickel (Verified Allergy, Intermediate, RASH, 05/13/16) PT STATES Cephalexin (Verified Allergy, Unknown, UNKNOWN, 05/13/16) Pineapple (Verified Allergy, Unknown, HIVES IN HER MOUTH, 05/13/16) Prochlorperazine (Verified Allergy, Unknown, MOTOR SEIZURES-ARMS SPASTIC, 05/13/16) ALL "ZINES' PER PT Soy Protein (Verified Allergy, Unknown, "SOY" ALLERGY, 05/13/16) Combs (Verified Allergy, Unknown, HIVES IN HER MOUTH, 05/13/16) Tomato (Verified Allergy, Unknown, HIVES IN MOUTH, 05/13/16) [place] (Verified Allergy, Unknown, HIVES IN HER MOUTH, 05/13/16) Home Medications Scheduled Bupropion (Wellbutrin-Xl), 300 MG PO QAM Calcium Carbonate (Tums), 1 T PO prn Cetirizine Hcl (Zyrtec), 10 MG PO DAILY Cyanocobalamin (Vitamin B-12), 1,000 MCG PO DAILY Duloxetine HCl (Duloxetine HCl), 20 MG PO TID Estradiol Acetate Vaginal (Femring), 1 APPLN VAGRING UD Levothyroxine Sodium (Synthroid), 88 MCG PO DAILY Methyltestosterone (Android), 1 CAPSULE PO DAILY Omeprazole (Prilosec), 20 MG PO QAM Prednisone (Prednisone), 5 MG PO DAILY Scheduled PRN Albuterol Sulfate (Proair Respiclick), 2 PUFFS PO DAILY PRN for Shortness of Breath Amphetamine-Dextroamphetamine 10MG (Adderall Xr 10MG), 10 MG PO DAILY PRN for Documentation Glucose-Vitamin C (Glucose Instant Energy 4-6 gm-mg), 1 TAB PO for LOW BLOODSUGAR Meclizine HCl (Meclizine HCl), 1 TAB PO TID PRN for Dizziness or Vertigo Valacyclovir (Valtrex), 500 MG PO BID PRN for prn Review of Systems Constitutional: + sweats, No fever, No chills Eyes: + problem reported (Legally blind), No worsening of vision ENT: No hearing loss, No nasal symptoms Respiratory: No cough, No sputum, No wheezing Cardiovascular: No chest pain, No orthopnea, No PND Abdomen: No pain, No nausea, No vomiting Musculoskeletal: No joint pain Genitourinary - Female: No dysuria, No urinary frequency, No urinary urgency Neurologic: + problem reported (Syncope - unresponsive episode as above), No memory loss, No paralysis, No weakness Psychiatric: No depression symptoms Endocrine: No fatigue Hematologic / Lymphatic: No abnormal bleeding/bruising Integumentary: No rash Allergic / Immunologic: No environmental allergies Physical Exam Vital Signs Date Time Temp Pulse Resp B/P (MAP) Pulse Ox O2 Delivery O2 Flow Rate FiO2 01/05/17 20:05 86 24 99 Room Air 01/05/17 20:01 122/86 01/05/17 19:55 91 16 100 01/05/17 19:52 123/65 01/05/17 19:45 89 14 100 01/05/17 19:41 121/73 01/05/17 19:39 120/69 01/05/17 19:35 85 25 97 01/05/17 19:31 131/75 01/05/17 19:25 90 21 93 01/05/17 19:22 116/74 01/05/17 19:10 90 01/05/17 19:05 94 18 94 Room Air 01/05/17 19:01 115/77 01/05/17 19:00 37.1 85 17 121/68 95 Room Air General Appearance: WD/WN, no apparent distress Head: normocephalic Eyes: normal inspection ENT: normal ENT inspection, pharynx normal Neck: supple, no JVD Respiratory/Chest: chest non-tender, lungs clear, normal breath sounds Cardiovascular: regular rate, rhythm, no edema, no gallop Abdomen/GI: normal bowel sounds, non tender, soft Back: normal inspection, no CVA tenderness Extremities/Musculoskelatal: no calf tenderness, normal capillary refill, + pertinent finding (L foot deformity ) Neurologic/Psych: exam proctor II-XII nml as tested, no motor/sensory deficits, alert, normal mood/affect, oriented x 3 Skin: normal color, warm/dry Diagnostics Laboratory Results Results Past 24 Hours Test 01/05/17 19:01 01/05/17 19:26 01/05/17 19:50 01/05/17 20:37 Range/Units White Blood Count 8.18 4.8-10.8 K/uL Red Blood Count 5.36 4.2-5.4 M/uL Hemoglobin 17.9 12.0-16.0 g/dL Hematocrit 51.1 37-47 % Mean Corpuscular Volume 95.3 80-100 fL Mean Corpuscular Hemoglobin 33.4 25-34 pg Mean Corpuscular Hemoglobin Concent 35.0 32-36 g/dl Platelet Count 208 130-400 K/uL Mean Platelet Volume 9.8 7.4-10.4 fL Neutrophils (%) (Auto) 69.7 % Lymphocytes (%) (Auto) 15.6 % Monocytes (%) (Auto) 12.5 % Eosinophils (%) (Auto) 1.3 % Basophils (%) (Auto) 0.2 % Neutrophils # (Auto) 5.69 1.4-6.5 K/uL Lymphocytes # (Auto) 1.28 1.2-3.4 K/uL Monocytes # (Auto) 1.02 0.11-0.59 K/uL Eosinophils # (Auto) 0.11 0-0.5 K/uL Basophils # (Auto) 0.02 0-0.2 K/uL RDW Standard Deviation 42.1 36.4-46.3 fL RDW Coefficient of Variation 12.1 11.5-14.5 % Immature Granulocyte % (Auto) 0.7 % Immature Granulocyte # (Auto) 0.06 0.00-0.02 K/uL Prothrombin Time 10.7 9.0-12.0 SECONDS Prothromb Time International Ratio 1.0 0.9-1.1 Activated Partial Thromboplast Time 28.5 21.0-31.0 SECONDS Partial Thromboplastin Ratio 1.1 Venous Blood pH 7.43 7.36-7.41 Venous Blood Partial Pressure CO2 42 38.0-50.0 mmHg Venous Blood Partial Pressure O2 32 mmHg Venous Blood HCO3 27 mmol/L Venous Blood Oxygen Saturation 60.0 % Venous Blood Base Excess 2.0 mEq/L Sodium Level 137 136-145 mmol/L Potassium Level 3.5-5.1 mmol/L Chloride Level 103 98-107 mmol/L Carbon Dioxide Level 24 21-32 mmol/L Anion Gap 10.0 3-11 mmol/L Blood Urea Nitrogen 30 7-18 mg/dl Creatinine 0.73 0.60-1.20 mg/dl Est Creatinine Clear Calc Drug Dose 57.1 ml/min Estimated GFR () 94.7 Estimated GFR (Non- 81.7 BUN/Creatinine Ratio 40.5 10-20 Random Glucose 150 70-99 mg/dl Calcium Level 9.4 8.5-10.1 mg/dl Total Bilirubin 0.7 0.2-1 mg/dl Aspartate Amino Transf (AST/SGOT) 15-37 U/L Alanine Aminotransferase (ALT/SGPT) 54 12-78 U/L Alkaline Phosphatase 64 45-117 U/L Total Creatine Kinase 26-192 U/L Creatine Kinase MB 2.1 0.5-3.6 ng/ml Creatine Kinase MB Ratio 0-3.0 Troponin I 0.051 0-0.045 ng/ml Pro-B-Type Natriuretic Peptide 1021 0-900 pg/ml Total Protein 7.8 6.4-8.2 gm/dl Albumin 3.9 3.4-5.0 gm/dl Globulin 3.9 2.5-4.0 gm/dl Albumin/Globulin Ratio 1.0 0.9-2 Ethyl Alcohol mg/dL < 3.0 0-3 mg/dl Urine Color YELLOW Urine Appearance CLEAR CLEAR Urine pH 7.0 4.5-7.5 Urine Specific [place] 1.010 1.000-1.030 Urine Protein 1+ NEG Urine Glucose (UA) NEG NEG Urine Ketones TRACE NEG Urine Occult Blood NEG NEG Urine Nitrite NEG NEG Urine Bilirubin NEG NEG Urine Urobilinogen NEG NEG Urine Leukocyte Esterase NEG NEG Urine WBC (Auto) 1-5 0-5 /hpf Urine RBC (Auto) 0-4 0-4 /hpf Urine Hyaline Casts (Auto) 0 0-5 /lpf Urine Epithelial Cells (Auto) 20-30 0-5 /lpf Urine Bacteria (Auto) NEG NEG EKG Sinus , PVCs, QT prolongation Impression Assessment and Plan 71 y/o F Hx MCTD - CREST syndrome, PCV, peripheral vascular disease, hypothyroidism, legally blind. Pt was out to dinner and became lightheaded. She stopped responding to friends and then suffered a syncopal episode. She regained consciousness 3 minutes later although she remained lightheaded. EMS were summoned. A rhythm monitor revealed a narrow complex tachycardia at > 200. She was provided with 2 doses of Adenosine which did not slow her heart rate down. Five mg of Versed were administered and she was shocked with 100j. She reverted to a sinus rhythm but was initially unresponsive for a few minutes. The pt was diaphoretic and hypotensive on arrival to the ER. She responded well to a fluid bolus, gradually regained her orientation and is asymptomatic at the time of admission. Initial EKG in the ER shows a sinus rhythm with PVCs and a prolonged QT. 1) Syncope - tachyarrhythmia - The pt has no reported cardiovascular history or history of arrhythmias. She takes Adderall occasionally and did take one earlier in the day. She recently increased her dose of Duloxetine which may cause tachycardia but does not mention SVT as a side effect. Of her regular medication, Bupropion and Cetirizine can lead to a prolonged QT and will both be held. It is unclear why she was unresponsive and diaphoretic after being shocked as she was reportedly in a sinus rhythm. It is possible that this was due to having received 5mg of versed prior. Her labs and initial BP are consistent with volume depletion. We will monitor on telemetry overnight and consult cardiology as she may require EPS evaluation. Her troponin is elevated and will be trended although this is likely due to the shock. We will reduce her Duloxetine dose and would recommend that she avoid Adderall until further evaluation. 2) MCTD/CREST - Cont Prednisone - can f/u as outpt 3) Hypothyroidism - cont Synthroid Full code - Heparin prophylaxis Total time for this admit including review of labs, meds, imaging - discussion with pt and ER attending - 38 min Level of Care Telemetry Resuscitation Status FULL RESUSCITATION VTE Prophylaxis VTE Risk Assessment Done? Y/N: Yes Risk Level: Moderate Given or contraindicated: Unfractionated heparin SQ
[2017-01-05] MEDS ORDERED: IV FLUIDS COMPLETED PRN (21:45)
[2017-01-05] MEDS ORDERED: SODIUM CHLORIDE 0.9% 1000ML 1,000 ML IV SCH (22:00)
[2017-01-05 22:43] VITALS: BP 142/83; PULSE 72; TEMP 37; Ht 152.4 cm; Wt 58.6 kg
[2017-01-05] MEDS: HEPARIN SOD 5000 UNIT/0.5 ML CARP SQ SCH (22:57)
[2017-01-05] MEDS: MECLIZINE HCL 12.5 MG TAB PO SCH (22:58)
[2017-01-05] MEDS: DULOXETINE HCL 20 MG CAP PO SCH (22:59)
[2017-01-05] MEDS: PANTOprazole SOD 40 MG TAB PO SCH (22:59)
[2017-01-05] MEDS: ACETAMINOPHEN 325 MG TAB PO PRN (23:08)
[2017-01-05 23:20] VITALS: BP 127/82; PULSE 60; TEMP 36.7; O2SAT 96
[2017-01-05] MEDS ORDERED: NSS + 20MEQ KCL 1000ML 1,000 ML IV SCH (23:30)
[2017-01-05] MEDS ORDERED: MAGNESIUM SULFATE 1GM / D5W 1 GM in PREMIXED IN D5W 100 ML IV SCH (23:30)
[2017-01-05 23:39] LABS: BENZODIAZEPINE, URINE POS (NEG); COCAINE,URINE NEG (NEG); PHENCYCLIDINE, URINE NEG (NEG)
[2017-01-06 03:40] VITALS: BP 108/58; PULSE 56; TEMP 36.4; O2SAT 96
[2017-01-06] MEDS: HEPARIN SOD 5000 UNIT/0.5 ML CARP SQ SCH ×2 (05:23→14:43)
[2017-01-06] MEDS: ACETAMINOPHEN 325 MG TAB PO PRN (05:25)
[2017-01-06 06:27] LABS: CALCIUM 8.2 mg/dl (8.5-10.1); CREATININE 0.49 mg/dl (0.60-1.20); POTASSIUM 4.1 mmol/L (3.5-5.1)
[2017-01-06] MEDS ORDERED: LEVOTHYROXINE 88 MCG TAB PO SCH (06:30)
[2017-01-06 07:53] VITALS: BP 120/57; PULSE 54; TEMP 36.4; O2SAT 98
[2017-01-06] MEDS ORDERED: INFLUENZA ADMINISTRATION CHARGE ONE (08:00)
[2017-01-06] MEDS ORDERED: INFLUENZA VACCINE HIGH DOSE 65+ 0.5 ML SYR IM. ONE (08:00)
[2017-01-06] MEDS: PANTOprazole SOD 40 MG TAB PO SCH (08:05)
[2017-01-06] MEDS: DULOXETINE HCL 20 MG CAP PO SCH (08:05)
[2017-01-06] MEDS: MECLIZINE HCL 12.5 MG TAB PO SCH ×2 (08:05→13:59)
[2017-01-06] MEDS ORDERED: BuPROPion XL 300 MG TABCR PO SCH (09:00)
[2017-01-06] MEDS ORDERED: NON-FORMULARY MEDICATION (Omeprazole (Prilosec) 20 MG) PO SCH (09:00)
--- NOTE | 2017-01-06 09:46 | ECHOCARDIOGRAM REPORT ---
*NOTICE TO RECEIVING [employer] This information is strictly Confidential and protected under [place] law. [place] law prohibits you from making any further disclosure of this information unless further disclosure is expressly permitted by the written consent of the person to whom it pertains or is authorized by law. A general authorization for the release of medical or other information is not sufficient for this purpose. Hospital accepts no responsibility if the information is made available to any other person, INCLUDING THE PATIENT. Interpretation Summary * Name: PERCY RODRÍGUEZ Study Date: 01/06/2017 07:08 AM BP: 108/58 mmHg * Patient Location: [facility]\S\N280\S\1 HR: 53 * : 1945 (M/d/yyyy) Gender: Female Height: 60 in * Age: 71 yrs Ethnicity: [place] Weight: 139 lb * Ordering Physician: Joseph Mcgee * Referring Physician: Self, Referred * Performed By: Yudelka Garcia RCS * * Reason For Study: SVT / SYNCOPE * BSA: 1.6 m2 * -- Conclusions -- * Left ventricular systolic function is normal. * No regional wall motion abnormalities noted. * Ejection Fraction = 55-60%. * There is mild concentric left ventricular hypertrophy. * There is mild mitral regurgitation. * There is mild tricuspid regurgitation. Procedure Details * A complete two-dimensional transthoracic echocardiogram was performed (2D, M-mode, Doppler and color flow Doppler). Left Ventricle * The left ventricle is normal in size. * There is mild concentric left ventricular hypertrophy. * Left ventricular systolic function is normal. * Ejection Fraction = 55-60%. * No regional wall motion abnormalities noted. Right Ventricle * The right ventricle is grossly normal size. * The right ventricular systolic function is normal as assessed by tricuspid annular plane systolic excursion (TAPSE) (normal >1.5 cm). Atria * The left atrium is mildly dilated. * Right atrial size is normal. * No ASD detected; PFO is not assessed. Mitral Valve * The mitral valve leaflets appear thickened, but open well. * There is no evidence of mitral valve prolapse. * There is no mitral valve stenosis. * There is mild mitral regurgitation. Tricuspid Valve * The tricuspid valve is not well visualized, but is grossly normal. * Tricuspid stenosis is absent. * There is mild tricuspid regurgitation. Aortic Valve * The aortic valve is normal in structure and function. * No hemodynamically significant valvular aortic stenosis. * No aortic regurgitation is present. Pulmonic Valve * The pulmonary valve is not well seen, but the Doppler examination is normal without significant regurgitation or stenosis. * Mild pulmonic valvular regurgitation. Great Vessels * The aortic root is normal size. * The pulmonary is not well visualized. Pericardium/Pleural * There is no pericardial effusion. Great Vessels * Normal inferior vena cava size and collapsability with sniff indicates a normal right atrial pressure of 3 mmHg MMode 2D Measurements and Calculations IVSd 1.2 cm IVSs 1.7 cm LVIDd 3.9 cm LVIDs 3.1 cm LVPWd 1.3 cm LVPWs 1.1 cm IVS/LVPW 0.91 FS 21.2 % EDV(Teich) 67.8 ml ESV(Teich) 38.2 ml EF(Teich) 43.6 % EDV(cubed) 61.4 ml ESV(cubed) 30.1 ml EF(cubed) 51.0 % % IVS thick 40.6 % % LVPW thick -16.17 % LV mass(C)d 169.0 grams LV mass(C)dI 105.7 grams/m\S\2 LV mass(C)s 142.0 grams LV mass(C)sI 88.8 grams/m\S\2 SV(Teich) 29.6 ml SI(Teich) 18.5 ml/m\S\2 SV(cubed) 31.4 ml SI(cubed) 19.6 ml/m\S\2 Ao root diam 2.5 cm Ao root area 4.9 cm\S\2 ACS 2.1 cm LA dimension 3.6 cm LA/Ao 1.5 LVOT diam 2.1 cm LVOT area 3.3 cm\S\2 LVAd ap4 34.0 cm\S\2 LVLd ap4 7.7 cm EDV(MOD-sp4) 120.3 ml EDV(sp4-el) 126.6 ml LVAs ap4 21.7 cm\S\2 LVLs ap4 6.7 cm ESV(MOD-sp4) 59.8 ml ESV(sp4-el) 60.2 ml EF(MOD-sp4) 50.3 % EF(sp4-el) 52.4 % LVAd ap2 30.4 cm\S\2 LVLd ap2 8.0 cm EDV(MOD-sp2) 96.5 ml EDV(sp2-el) 98.5 ml LVAs ap2 22.5 cm\S\2 LVLs ap2 7.5 cm ESV(MOD-sp2) 56.3 ml ESV(sp2-el) 57.6 ml EF(MOD-sp2) 41.7 % EF(sp2-el) 41.5 % LVLd %diff 3.1 % EDV(MOD-bp) 110.0 ml LVLs %diff 11.0 % ESV(MOD-bp) 60.8 ml EF(MOD-bp) 44.7 % SV(MOD-sp4) 60.5 ml SI(MOD-sp4) 37.9 ml/m\S\2 SV(MOD-sp2) 40.3 ml SI(MOD-sp2) 25.2 ml/m\S\2 SV(MOD-bp) 49.2 ml SI(MOD-bp) 30.8 ml/m\S\2 SV(sp4-el) 66.4 ml SI(sp4-el) 41.5 ml/m\S\2 SV(sp2-el) 40.8 ml SI(sp2-el) 25.5 ml/m\S\2 Doppler Measurements and Calculations MV E max khloe 67.4 cm/sec MV A max khloe 67.4 cm/sec MV E/A 1.0 MV P1/2t max khloe 84.6 cm/sec MV P1/2t 75.3 msec MVA(P1/2t) 2.9 cm\S\2 MV dec slope 328.7 cm/sec\S\2 MV dec time 0.32 sec Ao V2 max 110.4 cm/sec Ao max PG 4.9 mmHg Ao max PG (full) 2.2 mmHg GWYN(V,A) 2.5 cm\S\2 GWYN(V,D) 2.5 cm\S\2 LV V1 max PG 2.7 mmHg LV V1 max 82.5 cm/sec PA V2 max 70.7 cm/sec PA max PG 2.0 mmHg PI max khloe 183.8 cm/sec PI max PG 13.5 mmHg PI dec slope 146.9 cm/sec\S\2 PI P1/2t 366.5 msec TR max khloe 231.7 cm/sec
--- NOTE | 2017-01-06 10:53 | Cardiology Consultation ---
Cardiology Consultation Date of Consultation: Jan 06, 2017. Requesting Physician: Dr. Mcgee Attending Physician: Dr. Hubbard Reason for Consultation: SVT Pt evaluation today including: conversation w/ patient, physical exam, chart review, lab review, review of studies, review of inpatient medication list, conversation w/ attending History of Present Illness Mrs. 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 She was admitted to [facility] on 01/05/17 after a syncopal event at home. The patient has no history of coronary artery disease. She has been evaluated in the cardiology clinic int he past for exertional dyspnea and atypical chest pain. She underwent pharmacologic nuclear stress test on 04/25/16 which demonstrated no evidence of myocardial infarction or stress induced ischemia, normal wall motion and normal LV systolic function (EF 51%). Yesterday around 6 pm she was sitting on her patio eating dinner with two friends. She suddenly developed tachypalpitations which she describes as her heart "racing." She had associated lightheadedness, diaphoresis and dyspnea. She says her left shoulder/arm was somewhat painful but that is not uncommon for her and she attributes it to her arthritis. She had no chest pain. According to her friends she lost consciousness for a period of 3-5 minutes. Her friends called 911 and in the ambulance she was noted to be in a supraventricular tachycardia with a rate >200 bpm. She was given adenosine 6 mg followed by 12 mg without conversion. She was then successfully cardioverted with 100J. Upon arrival to the emergency department she was in sinus rhythm and was hypotensive. She was confused. She was given fluids and eventually became oriented. She did not have evidence of any further arrhythmias. Her troponin I was elevated on admission and peaked at 1.340 before trending down. She was seen at the bedside today. She is currently feeling well and has no acute complains aside from her chronic arthritis pain. She denies any further episodes of tachycardia, dyspnea, presyncope or syncope. She reports having a similar syncopal episode in April 2016. She was getting on an airplane when she suddenly developed tachypalpitations, lightheadedness, and dyspnea. She recalls sitting in her airplane seat and then she apparently lost consciousness for a few minute period. Until yesterday she did not have any recurrent syncopal episodes. She has had 3-4 episodes in which she has tachypalpitations and presyncope. These symptoms occur at random, often when she is walking around her home. She typically squats down or lies down and her symptoms resolve spontaneously within 10-15 minutes. She has no history of arrhythmia and has never undergone a workup for these symptoms in the past. She is legally blind but is able to live fairly independently with assistance and a guide dog. She exercises with a physical meteorologist at [employer] on a regular basis and also enjoys walking. She denies exertional chest pain or dyspnea. She denies orthopnea, PND or peripheral edema. She denies abnormal bleeding including melena, hematochezia or hematuria. The remainder of her review of systems is unremarkable. Past Medical/Surgical History Poor vision, blindness Allergic rhinitis Asthma Cystocele Hyperlipidemia Gastroesophageal reflux Hypertension Hypothyroidism Peripheral vascular disease with claudication Mixed connective tissue disease Pyelonephritis Retinopathy Surgical history Appendectomy Cataract Hysterectomy Left shoulder arthroplasty Family History Stroke Father with MS at 58. Mother with stroke in 80s. Social History Smoking Status: Never Smoker History of Alcohol Use: No She lives alone and has assistance. She is a . She has two sons. She is retired, previously worked at the [employer]. No history of tobacco use. Occasional alcohol use. No illegal drug use. Review of Systems Constitutional: + see HPI Respiratory: + see HPI Cardiac: + see HPI Abdomen: + see HPI Female : + see HPI Neurologic: + see HPI Heme: + see HPI Endo: + see HPI Skin: + see HPI She has been having more overall pain since discontinuing her anti- inflammatories and being started on Cymbalta. This was performed in order to facilitate her knee injections. All Other Systems: Reviewed and Negative Allergies Coded Allergies: Shellfish (Verified Allergy, Severe, VERY SICK FOR SEVERAL DAYS/HIVES IN HER MOUTH, 01/05/17) Nickel (Verified Allergy, Intermediate, RASH, 01/05/17) PT STATES Cephalexin (Verified Allergy, Unknown, UNKNOWN, 01/05/17) Chlorpromazine (Unverified Allergy, Unknown, JAW LOCKS, 01/05/17) Pineapple (Verified Allergy, Unknown, HIVES IN HER MOUTH, 01/05/17) Prochlorperazine (Verified Allergy, Unknown, MOTOR SEIZURES-ARMS SPASTIC, 01/05/17) ALL "ZINES' PER PT Soy Protein (Verified Allergy, Unknown, "SOY" ALLERGY, 01/05/17) [place] (Verified Allergy, Unknown, HIVES IN HER MOUTH, 01/05/17) Tomato (Verified Allergy, Unknown, HIVES IN MOUTH, 01/05/17) [place] (Verified Allergy, Unknown, HIVES IN HER MOUTH, 01/05/17) Medications Current Inpatient Medications Medications (Trade) Dose Ordered Sig/Sun Route Start Time Stop Time Status Last Admin Dose Admin Bupropion HCl (Wellbutrin-Xl Tab) 300 mg QAM PO 01/06/17 09:00 02/05/17 08:59 01/06/17 08:05 300 MG Duloxetine HCl (Cymbalta Cap) 20 mg TID PO 01/05/17 21:00 02/04/17 20:59 01/06/17 08:05 20 MG Levothyroxine Sodium (Synthroid Tab) 88 mcg DAILYBB PO 01/06/17 06:30 02/05/17 06:59 01/06/17 05:26 88 MCG Prednisone (PredniSONE TAB) 5 mg DAILY PO 01/06/17 09:00 02/05/17 08:59 01/06/17 08:05 5 MG Valacyclovir HCl (Valtrex Tab) 500 mg BID PRN PO 01/05/17 20:30 01/15/17 20:29 Meclizine HCl (Antivert Tab) 12.5 mg TID PO 01/05/17 21:00 02/04/17 20:59 01/06/17 08:05 12.5 MG Pantoprazole Sodium (Protonix Tab) 40 mg BID PO 01/05/17 21:00 02/04/17 20:59 01/06/17 08:05 40 MG Heparin Sodium (Porcine) (Heparin Sq 5000 Unit/0.5ml) 5,000 unit Q8 SQ 01/05/17 22:00 02/04/17 21:59 01/06/17 05:23 5,000 UNIT Acetaminophen (Tylenol Tab) 650 mg Q4H PRN PO 01/05/17 20:30 02/04/17 20:29 01/06/17 05:25 650 MG Al Hydrox/Mg Hydrox/Simethicone (Maalox Max Susp) 15 ml Q4H PRN PO 01/05/17 20:30 02/04/17 20:29 Magnesium Hydroxide (Milk Of Magnesia Susp) 30 ml Q12H PRN PO 01/05/17 20:30 02/04/17 20:29 Morphine Sulfate (MoRPHine SULFATE INJ) 2 mg Q30M PRN IV 01/05/17 20:30 01/19/17 20:29 Polyethylene (Miralax Powder Packet) 17 gm DAILY PRN PO 01/05/17 20:30 02/04/17 20:29 Miscellaneous (Iv Fluids Completed) 1 ea PRN PRN N/A 01/05/17 21:45 01/05/18 21:44 Physical Exam Vital Signs Past 12 Hours Date Time Temp Pulse Resp B/P (MAP) Pulse Ox O2 Delivery O2 Flow Rate FiO2 01/06/17 07:53 36.4 54 18 120/57 (78) 98 Room Air 01/06/17 04:00 Room Air 01/06/17 03:40 36.4 56 16 108/58 (75) 96 Room Air 01/06/17 00:00 Room Air 01/05/17 23:20 36.7 60 18 127/82 (97) 96 Room Air 01/05/17 22:43 37.0 72 16 142/83 Room Air General: No acute distress. Alert and oriented. HEENT: Head is normal. Decreased vision. Sclera anicteric. Ears, nose and throat unremarkable. Neck: Supple without JVD or carotid bruit. Lungs: Clear to auscultation bilaterally without rales, rhonchi or wheezes. Cardiac: Regular rhythm with bradycardic rate. S1 and S2 normal. No appreciable murmur, gallop or rub. Abdomen: Soft and nontender. Bowel sounds present. No mass. No abdominal bruit. Extremities: Without cyanosis or clubbing. Changes of chronic venous stasis lower extremities. Skin: No rash. Normal turgor. Neurologic: No focal deficits. Psychiatric: Affect seems appropriate. Data Laboratory Results: Last 24 Hours Test 01/05/17 19:26 01/05/17 19:50 01/05/17 20:37 01/05/17 23:09 White Blood Count 8.18 K/uL Red Blood Count 5.36 M/uL Hemoglobin 17.9 g/dL Hematocrit 51.1 % Mean Corpuscular Volume 95.3 fL Mean Corpuscular Hemoglobin 33.4 pg Mean Corpuscular Hemoglobin Concent 35.0 g/dl Platelet Count 208 K/uL Mean Platelet Volume 9.8 fL Neutrophils (%) (Auto) 69.7 % Lymphocytes (%) (Auto) 15.6 % Monocytes (%) (Auto) 12.5 % Eosinophils (%) (Auto) 1.3 % Basophils (%) (Auto) 0.2 % Neutrophils # (Auto) 5.69 K/uL Lymphocytes # (Auto) 1.28 K/uL Monocytes # (Auto) 1.02 K/uL Eosinophils # (Auto) 0.11 K/uL Basophils # (Auto) 0.02 K/uL RDW Standard Deviation 42.1 fL RDW Coefficient of Variation 12.1 % Immature Granulocyte % (Auto) 0.7 % Immature Granulocyte # (Auto) 0.06 K/uL Prothrombin Time 10.7 SECONDS Prothromb Time International Ratio 1.0 Activated Partial Thromboplast Time 28.5 SECONDS Partial Thromboplastin Ratio 1.1 Venous Blood pH 7.43 Venous Blood Partial Pressure CO2 42 mmHg Venous Blood Partial Pressure O2 32 mmHg Venous Blood HCO3 27 mmol/L Venous Blood Oxygen Saturation 60.0 % Venous Blood Base Excess 2.0 mEq/L Sodium Level 137 mmol/L Potassium Level mmol/L 3.7 mmol/L Chloride Level 103 mmol/L Carbon Dioxide Level 24 mmol/L Anion Gap 10.0 mmol/L Blood Urea Nitrogen 30 mg/dl Creatinine 0.73 mg/dl Est Creatinine Clear Calc Drug Dose 57.1 ml/min Estimated GFR () 94.7 Estimated GFR (Non- 81.7 BUN/Creatinine Ratio 40.5 Random Glucose 150 mg/dl Calcium Level 9.4 mg/dl Total Bilirubin 0.7 mg/dl Aspartate Amino Transf (AST/SGOT) U/L 27 U/L Alanine Aminotransferase (ALT/SGPT) 54 U/L Alkaline Phosphatase 64 U/L Total Creatine Kinase U/L 50 U/L Creatine Kinase MB 2.1 ng/ml Creatine Kinase MB Ratio Troponin I 0.051 ng/ml 1.340 ng/ml Pro-B-Type Natriuretic Peptide 1021 pg/ml Total Protein 7.8 gm/dl Albumin 3.9 gm/dl Globulin 3.9 gm/dl Albumin/Globulin Ratio 1.0 Ethyl Alcohol mg/dL < 3.0 mg/dl Urine Color YELLOW Urine Appearance CLEAR Urine pH 7.0 Urine Specific [place] 1.010 Urine Protein 1+ Urine Glucose (UA) NEG Urine Ketones TRACE Urine Occult Blood NEG Urine Nitrite NEG Urine Bilirubin NEG Urine Urobilinogen NEG Urine Leukocyte Esterase NEG Urine WBC (Auto) 1-5 /hpf Urine RBC (Auto) 0-4 /hpf Urine Hyaline Casts (Auto) 0 /lpf Urine Epithelial Cells (Auto) 20-30 /lpf Urine Bacteria (Auto) NEG Urine Opiates Screen NEG Urine Methadone, Qualitative NEG Urine Barbiturates NEG Urine Phencyclidine (PCP) Level NEG Ur Amphetamine/Methamphetamine NEG MDMA (Ecstasy) Screen POS Urine Benzodiazepines Screen POS Urine Cocaine Metabolite NEG Urine Marijuana (THC) NEG Magnesium Level 1.6 mg/dl Test 01/06/17 05:35 Sodium Level 141 mmol/L Potassium Level 4.1 mmol/L Chloride Level 107 mmol/L Carbon Dioxide Level 28 mmol/L Anion Gap 6.0 mmol/L Blood Urea Nitrogen 19 mg/dl Creatinine 0.49 mg/dl Est Creatinine Clear Calc Drug Dose 81.9 ml/min Estimated GFR () 112.0 Estimated GFR (Non- 96.7 BUN/Creatinine Ratio 38.0 Random Glucose 74 mg/dl Calcium Level 8.2 mg/dl Troponin I 1.050 ng/ml Chest xray 01/05/17: No active disease in the chest. Head CT 01/05/17: No acute intracranial abnormality. ECG 01/05/17: Sinus rhythm with PVCS and fusion complexes at 86 bpm. Right atrial enlargement. Non specific intraventricular conduction delay. Non specific ST/T wave abnormality. ECG 01/06/17: Sinus bradycardia at 56 bpm Telemetry shows sinus bradycardia with PACs, no arrhythmia. Echocardiogram: Mild concentric LVH. Normal LV systolic function (EF 55-60%). No wall motion abnormalities. Mild MR. Mild TR. Assessment & Plan Patient was discussed with Dr. Hubbard. 1. Supraventricular tachycardia: Patient had a syncopal episode yesterday evening and was found to be in SVT with a rate >200 by EMS. She was given 2 doses of adenosine without conversion. She was then successfully cardioverted to sinus rhythm. Review of rhythm strip from the event demonstrates a narrow complex tachycardia, likely a reentry tachycardia. She has no prior history of SVT but did have a previous episode of syncope in April 2016 and 3-4 episodes of tachypalpitations and presyncope since. Her echocardiogram demonstrates normal LV systolic function and normal wall motion. The patient could be treated with beta liliya therapy in an attempt to decrease the frequency of her symptoms. However, given her episodes of syncope we recommend electrophysiology study with possible ablation which can be done as an outpatient. 2. Elevated troponin: No history of coronary artery disease and no anginal type symptoms. A nuclear stress test in April 2016 was negative for ischemia and echo during this admission shows normal LV systolic function and normal wall motion. Her troponin peaked at 1.340 and is trending down. This was likely secondary to her tachycardia. No further ischemic evaluation indicated at this time. Attending note: I saw and examined Mrs. mike Dobson with the house staff. I agree with history and physical exam as listed above. Briefly, she had an episode of what appears to be a narrow complex tachycardia yesterday resulting in syncope. This is likely due to the high heart rate. She had a similar episode in April also likely related to the same arrhythmia. She does have brief and self-limited episodes at other times. These are also infrequent. She has a structurally normal heart on echocardiogram and no evidence of coronary disease based on her perfusion study performed in April. As such, this is likely a benign phenomenon which may produce additional episodes of syncope but is not life threatening. We discussed options for treatment including medical therapy. She has a relative contraindication of resting bradycardia. I did not recommend use of antiarrhythmic medications for an otherwise benign phenomenon. I did suggest catheter based therapy. She seems willing to undergo electrophysiologic testing and possible ablation but had some concerns regarding the timing of her procedure. She is advised to refrain from anti inflammatories for period of time and is concerned about having a flare of her connective tissue disease after any procedure. I agree to check with her orthopedic surgeon to find an appropriate time frame with which we can accomplish her EP study and ablation.
[2017-01-06 11:22] VITALS: BP 160/69; PULSE 59; TEMP 36.5; O2SAT 99
--- NOTE | 2017-01-06 14:40 | Discharge Instructions ---
Discharge Instructions Date of Service Jan 06, 2017. Admission Reason for Admission: Svt,Syncope Discharge Discharge Diagnosis / Problem: SVT Discharge Goals Goal(s): Improve function Activity Recommendations Activity Limitations: resume your previous activity . Instructions / Follow-Up Instructions / Follow-Up F/U with Dr. Hubbard for outpatient Ablation Hold off NSAIDs for a total of 8-10 weeks due to PRP knee injections. Current Hospital Diet Patient's current hospital diet: Regular Diet Discharge Diet Recommended Diet: Regular Diet Pending Studies Studies pending at discharge: no Medical Emergencies . Who to Call and When: Medical Emergencies: If at any time you feel your situation is an emergency, please call 911 immediately. . Non-Emergent Contact Non-Emergency issues call your: Primary Care Provider Call Non-Emergent contact if: you have any medication questions (If patient feels lightheaded, or has palpitations) . . "Provider Documentation" section prepared by Vinh Dillon. . VTE Core Measure Inpt VTE Proph given/why not?: Unfractionated heparin SQ
--- NOTE | 2017-01-06 14:45 | Discharge Summary ---
Discharge Summary Date of Service Jan 06, 2017. Discharge Summary Admission Date: Jan 05, 2017 at 20:32 Discharge Date: Jan 06, 2017 Discharge Disposition: Home with services Principal Diagnosis: Narrow complex tachycardia resulting in syncope Immunizations: Have You Had Influenza Vaccine: Yes History of Tetanus Vaccine?: Unknown History of Pneumococcal: Yes History of Hepatitis B Vaccine: No Consultations: Cardiology Consultation Date of Consultation: Jan 06, 2017. Requesting Physician: Dr. Mcgee Attending Physician: Dr. Hubbard Reason for Consultation: SVT Pt evaluation today including: conversation w/ patient, physical exam, chart review, lab review, review of studies, review of inpatient medication list, conversation w/ attending History of Present Illness Mrs. 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 She was admitted to [facility] on 01/05/17 after a syncopal event at home. The patient has no history of coronary artery disease. She has been evaluated in the cardiology clinic int he past for exertional dyspnea and atypical chest pain. She underwent pharmacologic nuclear stress test on 04/25/16 which demonstrated no evidence of myocardial infarction or stress induced ischemia, normal wall motion and normal LV systolic function (EF 51%). Yesterday around 6 pm she was sitting on her patio eating dinner with two friends. She suddenly developed tachypalpitations which she describes as her heart "racing." She had associated lightheadedness, diaphoresis and dyspnea. She says her left shoulder/arm was somewhat painful but that is not uncommon for her and she attributes it to her arthritis. She had no chest pain. According to her friends she lost consciousness for a period of 3-5 minutes. Her friends called 911 and in the ambulance she was noted to be in a supraventricular tachycardia with a rate >200 bpm. She was given adenosine 6 mg followed by 12 mg without conversion. She was then successfully cardioverted with 100J. Upon arrival to the emergency department she was in sinus rhythm and was hypotensive. She was confused. She was given fluids and eventually became oriented. She did not have evidence of any further arrhythmias. Her troponin I was elevated on admission and peaked at 1.340 before trending down. She was seen at the bedside today. She is currently feeling well and has no acute complains aside from her chronic arthritis pain. She denies any further episodes of tachycardia, dyspnea, presyncope or syncope. She reports having a similar syncopal episode in April 2016. She was getting on an airplane when she suddenly developed tachypalpitations, lightheadedness, and dyspnea. She recalls sitting in her airplane seat and then she apparently lost consciousness for a few minute period. Until yesterday she did not have any recurrent syncopal episodes. She has had 3-4 episodes in which she has tachypalpitations and presyncope. These symptoms occur at random, often when she is walking around her home. She typically squats down or lies down and her symptoms resolve spontaneously within 10-15 minutes. She has no history of arrhythmia and has never undergone a workup for these symptoms in the past. She is legally blind but is able to live fairly independently with assistance and a guide dog. 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 She denies exertional chest pain or dyspnea. She denies orthopnea, PND or peripheral edema. She denies abnormal bleeding including melena, hematochezia or hematuria. The remainder of her review of systems is unremarkable. Past Medical/Surgical History Poor vision, blindness Allergic rhinitis Asthma Cystocele Hyperlipidemia Gastroesophageal reflux Hypertension Hypothyroidism Peripheral vascular disease with claudication Mixed connective tissue disease Pyelonephritis Retinopathy Surgical history Appendectomy Cataract Hysterectomy Left shoulder arthroplasty Family History Stroke Father with [place] at 58. Mother with stroke in 80s. Social History Smoking Status: Never Smoker History of Alcohol Use: No She lives alone and has assistance. She is a . She has two sons. She is retired, previously worked at the [employer] loss [employer]. No history of tobacco use. Occasional alcohol use. No illegal drug use. Review of Systems Constitutional: + see HPI Respiratory: + see HPI Cardiac: + see HPI Abdomen: + see HPI Female : + see HPI Neurologic: + see HPI Heme: + see HPI Endo: + see HPI Skin: + see HPI She has been having more overall pain since discontinuing her anti- inflammatories and being started on Cymbalta. This was performed in order to facilitate her knee injections. All Other Systems: Reviewed and Negative Allergies Coded Allergies: Shellfish (Verified Allergy, Severe, VERY SICK FOR SEVERAL DAYS/HIVES IN HER MOUTH, 9/25/17) Nickel (Verified Allergy, Intermediate, RASH, 01/05/17) PT STATES Cephalexin (Verified Allergy, Unknown, UNKNOWN, 01/05/17) Chlorpromazine (Unverified Allergy, Unknown, JAW LOCKS, 01/05/17) Pineapple (Verified Allergy, Unknown, HIVES IN HER MOUTH, 01/05/17) Prochlorperazine (Verified Allergy, Unknown, MOTOR SEIZURES-ARMS SPASTIC, 01/05/17) ALL "ZINES' PER PT Soy Protein (Verified Allergy, Unknown, "SOY" ALLERGY, 01/05/17) [place] (Verified Allergy, Unknown, HIVES IN HER MOUTH, 01/05/17) Tomato (Verified Allergy, Unknown, HIVES IN MOUTH, 01/05/17) [place] (Verified Allergy, Unknown, HIVES IN HER MOUTH, 01/05/17) Medications Current Inpatient Medications Medications (Trade) Dose Ordered Sig/Sun Route Start Time Stop Time Status Last Admin Dose Admin Bupropion HCl (Wellbutrin-Xl Tab) 300 mg QAM PO 01/06/17 09:00 02/05/17 08:59 01/06/17 08:05 300 MG Duloxetine HCl (Cymbalta Cap) 20 mg TID PO 01/05/17 21:00 02/04/17 20:59 01/06/17 08:05 20 MG Levothyroxine Sodium (Synthroid Tab) 88 mcg DAILYBB PO 01/06/17 06:30 02/05/17 06:59 01/06/17 05:26 88 MCG Prednisone (PredniSONE TAB) 5 mg DAILY PO 01/06/17 09:00 02/05/17 08:59 01/06/17 08:05 5 MG Valacyclovir HCl (Valtrex Tab) 500 mg BID PRN PO 01/05/17 20:30 01/15/17 20:29 Meclizine HCl (Antivert Tab) 12.5 mg TID PO 01/05/17 21:00 02/04/17 20:59 01/06/17 08:05 12.5 MG Pantoprazole Sodium (Protonix Tab) 40 mg BID PO 01/05/17 21:00 02/04/17 20:59 01/06/17 08:05 40 MG Heparin Sodium (Porcine) (Heparin Sq 5000 Unit/0.5ml) 5,000 unit Q8 SQ 01/05/17 22:00 02/04/17 21:59 01/06/17 05:23 5,000 UNIT Acetaminophen (Tylenol Tab) 650 mg Q4H PRN PO 01/05/17 20:30 02/04/17 20:29 01/06/17 05:25 650 MG Al Hydrox/Mg Hydrox/Simethicone (Maalox Max Susp) 15 ml Q4H PRN PO 01/05/17 20:30 02/04/17 20:29 Magnesium Hydroxide (Milk Of Magnesia Susp) 30 ml Q12H PRN PO 01/05/17 20:30 02/04/17 20:29 Morphine Sulfate (MoRPHine SULFATE INJ) 2 mg Q30M PRN IV 01/05/17 20:30 01/19/17 20:29 Polyethylene (Miralax Powder Packet) 17 gm DAILY PRN PO 01/05/17 20:30 02/04/17 20:29 Miscellaneous (Iv Fluids Completed) 1 ea PRN PRN N/A 01/05/17 21:45 01/05/18 21:44 Physical Exam Vital Signs Past 12 Hours Date Time Temp Pulse Resp B/P (MAP) Pulse Ox O2 Delivery O2 Flow Rate FiO2 01/06/17 07:53 36.4 54 18 120/57 (78) 98 Room Air 01/06/17 04:00 Room Air 01/06/17 03:40 36.4 56 16 108/58 (75) 96 Room Air 01/06/17 00:00 Room Air 01/05/17 23:20 36.7 60 18 127/82 (97) 96 Room Air 01/05/17 22:43 37.0 72 16 142/83 Room Air General: No acute distress. Alert and oriented. HEENT: Head is normal. Decreased vision. Sclera anicteric. Ears, nose and throat unremarkable. Neck: Supple without JVD or carotid bruit. Lungs: Clear to auscultation bilaterally without rales, rhonchi or wheezes. Cardiac: Regular rhythm with bradycardic rate. S1 and S2 normal. No appreciable murmur, gallop or rub. Abdomen: Soft and nontender. Bowel sounds present. No mass. No abdominal bruit. Extremities: Without cyanosis or clubbing. Changes of chronic venous stasis lower extremities. Skin: No rash. Normal turgor. Neurologic: No focal deficits. Psychiatric: Affect seems appropriate. Data Laboratory Results: Last 24 Hours Test 01/05/17 19:26 01/05/17 19:50 01/05/17 20:37 01/05/17 23:09 White Blood Count 8.18 K/uL Red Blood Count 5.36 M/uL Hemoglobin 17.9 g/dL Hematocrit 51.1 % Mean Corpuscular Volume 95.3 fL Mean Corpuscular Hemoglobin 33.4 pg Mean Corpuscular Hemoglobin Concent 35.0 g/dl Platelet Count 208 K/uL Mean Platelet Volume 9.8 fL Neutrophils (%) (Auto) 69.7 % Lymphocytes (%) (Auto) 15.6 % Monocytes (%) (Auto) 12.5 % Eosinophils (%) (Auto) 1.3 % Basophils (%) (Auto) 0.2 % Neutrophils # (Auto) 5.69 K/uL Lymphocytes # (Auto) 1.28 K/uL Monocytes # (Auto) 1.02 K/uL Eosinophils # (Auto) 0.11 K/uL Basophils # (Auto) 0.02 K/uL RDW Standard Deviation 42.1 fL RDW Coefficient of Variation 12.1 % Immature Granulocyte % (Auto) 0.7 % Immature Granulocyte # (Auto) 0.06 K/uL Prothrombin Time 10.7 SECONDS Prothromb Time International Ratio 1.0 Activated Partial Thromboplast Time 28.5 SECONDS Partial Thromboplastin Ratio 1.1 Venous Blood pH 7.43 Venous Blood Partial Pressure CO2 42 mmHg Venous Blood Partial Pressure O2 32 mmHg Venous Blood HCO3 27 mmol/L Venous Blood Oxygen Saturation 60.0 % Venous Blood Base Excess 2.0 mEq/L Sodium Level 137 mmol/L Potassium Level mmol/L 3.7 mmol/L Chloride Level 103 mmol/L Carbon Dioxide Level 24 mmol/L Anion Gap 10.0 mmol/L Blood Urea Nitrogen 30 mg/dl Creatinine 0.73 mg/dl Est Creatinine Clear Calc Drug Dose 57.1 ml/min Estimated GFR () 94.7 Estimated GFR (Non- 81.7 BUN/Creatinine Ratio 40.5 Random Glucose 150 mg/dl Calcium Level 9.4 mg/dl Total Bilirubin 0.7 mg/dl Aspartate Amino Transf (AST/SGOT) U/L 27 U/L Alanine Aminotransferase (ALT/SGPT) 54 U/L Alkaline Phosphatase 64 U/L Total Creatine Kinase U/L 50 U/L Creatine Kinase MB 2.1 ng/ml Creatine Kinase MB Ratio Troponin I 0.051 ng/ml 1.340 ng/ml Pro-B-Type Natriuretic Peptide 1021 pg/ml Total Protein 7.8 gm/dl Albumin 3.9 gm/dl Globulin 3.9 gm/dl Albumin/Globulin Ratio 1.0 Ethyl Alcohol mg/dL < 3.0 mg/dl Urine Color YELLOW Urine Appearance CLEAR Urine pH 7.0 Urine Specific [place] 1.010 Urine Protein 1+ Urine Glucose (UA) NEG Urine Ketones TRACE Urine Occult Blood NEG Urine Nitrite NEG Urine Bilirubin NEG Urine Urobilinogen NEG Urine Leukocyte Esterase NEG Urine WBC (Auto) 1-5 /hpf Urine RBC (Auto) 0-4 /hpf Urine Hyaline Casts (Auto) 0 /lpf Urine Epithelial Cells (Auto) 20-30 /lpf Urine Bacteria (Auto) NEG Urine Opiates Screen NEG Urine Methadone, Qualitative NEG Urine Barbiturates NEG Urine Phencyclidine (PCP) Level NEG Ur Amphetamine/Methamphetamine NEG MDMA (Ecstasy) Screen POS Urine Benzodiazepines Screen POS Urine Cocaine Metabolite NEG Urine Marijuana (THC) NEG Magnesium Level 1.6 mg/dl Test 01/06/17 05:35 Sodium Level 141 mmol/L Potassium Level 4.1 mmol/L Chloride Level 107 mmol/L Carbon Dioxide Level 28 mmol/L Anion Gap 6.0 mmol/L Blood Urea Nitrogen 19 mg/dl Creatinine 0.49 mg/dl Est Creatinine Clear Calc Drug Dose 81.9 ml/min Estimated GFR () 112.0 Estimated GFR (Non- 96.7 BUN/Creatinine Ratio 38.0 Random Glucose 74 mg/dl Calcium Level 8.2 mg/dl Troponin I 1.050 ng/ml Chest xray 01/05/17: No active disease in the chest. Head CT 01/05/17: No acute intracranial abnormality. ECG 01/05/17: Sinus rhythm with PVCS and fusion complexes at 86 bpm. Right atrial enlargement. Non specific intraventricular conduction delay. Non specific ST/T wave abnormality. ECG 01/06/17: Sinus bradycardia at 56 bpm Telemetry shows sinus bradycardia with PACs, no arrhythmia. Echocardiogram: Mild concentric LVH. Normal LV systolic function (EF 55-60%). No wall motion abnormalities. Mild MR. Mild TR. Assessment & Plan Patient was discussed with Dr. Hubbard. 1. Supraventricular tachycardia: Patient had a syncopal episode yesterday evening and was found to be in SVT with a rate >200 by EMS. She was given 2 doses of adenosine without conversion. She was then successfully cardioverted to sinus rhythm. Review of rhythm strip from the event demonstrates a narrow complex tachycardia, likely a reentry tachycardia. She has no prior history of SVT but did have a previous episode of syncope in April 2016 and 3-4 episodes of tachypalpitations and presyncope since. Her echocardiogram demonstrates normal LV systolic function and normal wall motion. The patient could be treated with beta liliya therapy in an attempt to decrease the frequency of her symptoms. However, given her episodes of syncope we recommend electrophysiology study with possible ablation which can be done as an outpatient. 2. Elevated troponin: No history of coronary artery disease and no anginal type symptoms. A nuclear stress test in April 2016 was negative for ischemia and echo during this admission shows normal LV systolic function and normal wall motion. Her troponin peaked at 1.340 and is trending down. This was likely secondary to her tachycardia. No further ischemic evaluation indicated at this time. Attending note: I saw and examined Mrs. mike Dobson with the house staff. I agree with history and physical exam as listed above. Briefly, she had an episode of what appears to be a narrow complex tachycardia yesterday resulting in syncope. This is likely due to the high heart rate. She had a similar episode in April also likely related to the same arrhythmia. She does have brief and self-limited episodes at other times. These are also infrequent. She has a structurally normal heart on echocardiogram and no evidence of coronary disease based on her perfusion study performed in April. As such, this is likely a benign phenomenon which may produce additional episodes of syncope but is not life threatening. We discussed options for treatment including medical therapy. She has a relative contraindication of resting bradycardia. I did not recommend use of antiarrhythmic medications for an otherwise benign phenomenon. I did suggest catheter based therapy. She seems willing to undergo electrophysiologic testing and possible ablation but had some concerns regarding the timing of her procedure. She is advised to refrain from anti inflammatories for period of time and is concerned about having a flare of her connective tissue disease after any procedure. I agree to check with her orthopedic surgeon to find an appropriate time frame with which we can accomplish her EP study and ablation. Medication Reconciliation Continued Medications: Albuterol Sulfate (Proair Respiclick) 108 Mcg/Act Aer 2 PUFFS PO DAILY PRN for Shortness of Breath Amphetamine-Dextroamphetamine 10MG (Adderall Xr 10MG) 1 Cap Cap 10 MG PO DAILY PRN for Documentation, CAP Bupropion (Wellbutrin-Xl) 300 Mg Tabcr 300 MG PO QAM, TAB Calcium Carbonate (Tums) 500 Mg Chew 1 T PO prn Cetirizine Hcl (Zyrtec) 10 Mg Tab 10 MG PO DAILY, TAB Cyanocobalamin (Vitamin B-12) 1,000 Mcg Tab 1000 MCG PO DAILY, TAB Duloxetine HCl (Duloxetine HCl) 20 Mg Cap 20 MG PO TID Estradiol Acetate Vaginal (Femring) 0.1 Mg/24 Hr Mis 1 APPLN VAGRING UD Glucose-Vitamin C (Glucose Instant Energy 4-6 gm-mg) 1 Chw Chw 1 TAB PO PRN for LOW BLOODSUGAR Levothyroxine Sodium (Synthroid) 88 Mcg Tab 88 MCG PO DAILY, TAB Meclizine HCl (Meclizine HCl) 12.5 Mg Tab 1 TAB PO TID PRN for Dizziness or Vertigo for 10 Days, #30 TAB Methyltestosterone (Android) 10 Mg Cap 1 CAPSULE PO DAILY Omeprazole (Prilosec) 20 Mg Cap 20 MG PO QAM Prednisone (Prednisone) 5 Mg Tab 5 MG PO DAILY, TAB Valacyclovir (Valtrex) 500 Mg Tab 500 MG PO BID PRN for prn, TAB Discharge Exam Review of Systems: Constitutional: No fever, No chills Eyes: No discharge ENT: No nasal symptoms, No sore throat, No tinnitus Respiratory: No shortness of breath, No dyspnea on exertion, No dyspnea at rest Cardiovascular: No edema, No claudication Abdomen: No pain, No nausea, No vomiting Psychiatric: No depression symptoms, No anhedonism Integumentary: No rash, No itch Physical Exam: General Appearance: WD/WN, no apparent distress Eyes: normal inspection, EOMI ENT: normal ENT inspection, hearing grossly normal Neck: supple, no adenopathy, thyroid normal, no JVD Respiratory/Chest: chest non-tender, lungs clear, normal breath sounds, no respiratory distress Cardiovascular: regular rate, rhythm, no edema, no gallop, no JVD Abdomen / GI: normal bowel sounds, non tender, soft Extremities: + pertinent finding (chronic venous changes) Skin: no rash Lymphatic: no adenopathy Hospital Course 71 y/o F Hx MCTD - CREST syndrome, PCV, peripheral vascular disease, hypothyroidism, legally blind. Pt was out to dinner and became lightheaded. She stopped responding to friends and then suffered a syncopal episode. She regained consciousness 3 minutes later although she remained lightheaded. EMS were summoned. A rhythm monitor revealed a narrow complex tachycardia at > 200. She was provided with 2 doses of Adenosine which did not slow her heart rate down. Five mg of Versed were administered and she was shocked with 100j. She reverted to a sinus rhythm but was initially unresponsive for a few minutes. The pt was diaphoretic and hypotensive on arrival to the ER. She responded well to a fluid bolus, gradually regained her orientation and is asymptomatic at the time of admission. Initial EKG in the ER shows a sinus rhythm with PVCs and a prolonged QT. 1) Syncope - tachyarrhythmia - The pt has no reported cardiovascular history or history of arrhythmias. She takes Adderall occasionally and did take one earlier in the day. She recently increased her dose of Duloxetine which may cause tachycardia but does not mention SVT as a side effect. Of her regular medication, Bupropion and Cetirizine can lead to a prolonged QT and will both be held. It is unclear why she was unresponsive and diaphoretic after being shocked as she was reportedly in a sinus rhythm. It is possible that this was due to having received 5mg of versed prior. Her labs and initial BP are consistent with volume depletion. We will monitor on telemetry overnight and consult cardiology as she may require EPS evaluation. Her troponin is elevated and will be trended although this is likely due to the shock. We will reduce her Duloxetine dose and would recommend that she avoid Adderall until further evaluation. Hospital Course. Mayito was admitted in the hospital for one overnight stay. Cardiology was consulted and it was deemed patient likely had a narrow complex SVT. Patient will need to f/u with Cardio as an outpatient for an ablation as noted in their consult (copied above on this note). Patient though will talk with ortho as she had a recent procedure done, to see if ortho allows the ablation. Patient will be discharged home as she already has home services. Total Time Spent: Greater than 30 minutes This includes examination of the patient, discharge planning, medication reconciliation, and communication with other providers. Discharge Instructions Please refer to the electronic Patient Visit Report (Discharge Instructions) for additional information. Follow-Up Will f/u with cardio as an outpatient for an ablation. Additional Copies To Angel Mills M.D.
[2017-01-06 15:05] VITALS: BP 160/69; PULSE 59; TEMP 36.5; O2SAT 99
[2017-01-11 11:40] LABS: HYDROXYETHYLFLURAZEPAM CONF NEGATIVE NG/ML (CUTOFF=50); HYDROXYMIDAZOLAM 1310 NG/ML (CUTOFF=50); HYDROXYTRIAZOLAM CONF NEGATIVE NG/ML (CUTOFF=50); TEMAZEPAM CONF NEGATIVE NG/ML (CUTOFF=50)
== END 2017-01-06 16:08 | disposition home or self-care (01) ==
LOC: EDBD 18:55 → C.EDA 18:58 → C.MED 20:32 → ENRESERV 20:59
PROVIDERS: ADMIT Internal Medicine; ATTEND Internal Medicine Sports Medicine
DX: R55 Syncope and collapse (principal); I95.9 Hypotension, unspecified; D45 Polycythemia vera; E03.9 Hypothyroidism, unspecified; I73.9 Peripheral vascular disease, unspecified; H54.8 Legal blindness, as defined in USA; M34.1 CR(E)ST syndrome; Z90.710 Acquired absence of both cervix and uterus; Z90.89 Acquired absence of other organs; Z79.899 Other long term (current) drug therapy; Z82.49 Family history of ischemic heart disease and other diseases of the circulatory system; Z83.3 Family history of diabetes mellitus; Z82.3 Family history of stroke

== ENCOUNTER → 2017-03-12 | Day surgery (SDC) | payer BC ==
[2017-03-02 15:37] LABS: HEMATOCRIT 49.3 % (37-47); MEAN CELL VOLUME 96.5 fL (80-100); MEAN CORPUSCULAR HEMOGLOBIN 33.9 pg (25-34); MEAN CORPUSCULAR HGB CONC 35.1 g/dl (32-36); MEAN PLATELET VOLUME 10.7 fL (7.4-10.4); PLATELET COUNT 244 K/uL (130-400); RED BLOOD COUNT 5.11 M/uL (4.2-5.4); WHITE BLOOD COUNT 10.14 K/uL (4.8-10.8)
[2017-03-02 15:43] LABS: PARTIAL THROMBOPLASTIN RATIO 1.1; PROTHROMBIN TIME (PATIENT) 10.5 SECONDS (9.0-12.0)
[2017-03-02 16:40] LABS: BLOOD UREA NITROGEN 27 mg/dl (7-18); BUN/CREATININE RATIO 47.6 (10-20); CALCIUM 8.7 mg/dl (8.5-10.1); CARBON DIOXIDE 28 mmol/L (21-32); CHLORIDE 102 mmol/L (98-107); CREATININE 0.57 mg/dl (0.60-1.20); GLUCOSE 88 mg/dl (70-99); POTASSIUM 3.7 mmol/L (3.5-5.1); SODIUM 140 mmol/L (136-145)
[~2017-03-12] VITALS: Ht 152.4 cm; Wt 55.0 kg
[~2017-03-12] MED LIST changes: -ACETTAB19 PO; +BUPR-83 PO; +CALC500C70 PO; +CYM20 PO; +DMX250 PO; +DULO60CA44 PO; +FERR1TAB13 PO; +Juice Plus; +LIDOCAINE HCL 2% 2 ML VIAL (20MG/ML) ONE; +LYSI1TAB12 PO; +MOME0.1O TOP; +MULT1CHW63; +MULT1PAK42; -OMEP20TA PO; +PROPOFOL IV EMULSION 10 MG/ML 20 ML VIAL IV ONE; +Vitamin B; -[UNRECOGNIZED DRUG - OTHER] PO; -tumeric PO
[2017-03-12 07:10] VITALS: BP 163/119; PULSE 145; TEMP 36.8; O2SAT 97; Ht 152.4 cm; Wt 55.0 kg
--- NOTE | 2017-03-12 08:16 | History & Physical Bridge Note ---
H&P Re-Evaluation Bridge Note: I have examined the patient, reviewed the History & Physical and in the interval since the performance of the History & Physical I have noted the following changes of clinical significance:Patient presented in atrial fibrillation. Discussed options and decided on MADELINE and cardioversion as an alternative to EPS and ablation
== END | disposition home or self-care (01) ==
LOC: C.EP 06:28
PROVIDERS: ATTEND Internal Medicine Clinical Cardiac Electrophysiology
DX: I48.91 Unspecified atrial fibrillation (principal); D75.1 Secondary polycythemia; J30.9 Allergic rhinitis, unspecified; J45.909 Unspecified asthma, uncomplicated; R07.89 Other chest pain; N81.11 Cystocele, midline; E78.5 Hyperlipidemia, unspecified; R70.0 Elevated erythrocyte sedimentation rate; H54.8 Legal blindness, as defined in USA; Z79.52 Long term (current) use of systemic steroids; R42 Dizziness and giddiness; R55 Syncope and collapse; I73.00 Raynaud's syndrome without gangrene; I73.9 Peripheral vascular disease, unspecified; M85.80 Other specified disorders of bone density and structure, unspecified site; Z79.899 Other long term (current) drug therapy; Z83.3 Family history of diabetes mellitus; Z82.49 Family history of ischemic heart disease and other diseases of the circulatory system; Z83.6 Family history of other diseases of the respiratory system

== ENCOUNTER → 2017-03-31 | Outpatient (CLI) | payer BC ==
[~2017-03-31] MED LIST changes: -ALBU18002 PO; -AMPH10CA3 PO; -BUPRTAB51 PO; -CALC500C3 PO; -CETI10TA10 PO; -CLB/200 PO; -CYAN10005 PO; -CYM20 PO; -DMX250 PO; -DULO60CA44 PO; -FERR1TAB13 PO; -LIDOCAINE HCL 2% 2 ML VIAL (20MG/ML) ONE; -LYSI1TAB12 PO; -MECL1TAB40 PO; -MOME0.1O TOP; -PROPOFOL IV EMULSION 10 MG/ML 20 ML VIAL IV ONE; -VALA500T60 PO; -[UNRECOGNIZED DRUG - CODE] PO; -[UNRECOGNIZED DRUG - CODE] VAGRING
== END | disposition home or self-care (01) ==
LOC: C.LAB1850 09:58
PROVIDERS: ATTEND Internal Medicine
DX: M35.1 Other overlap syndromes (principal); I73.00 Raynaud's syndrome without gangrene

== ENCOUNTER 2017-04-28 06:27 | Inpatient (IN) | payer BC, OTHER ==
[2017-04-08 11:09] VITALS: BMI 24.0
--- NOTE | 2017-04-08 12:05 | PAT Medication Instructions ---
Service Date Apr 08, 2017. Current Home Medication List Acetaminophen/Diphenhydramine (Tylenol Pm), 2 TAB PO HS Albuterol Sulfate (Proair Respiclick), 2 PUFFS INH PRN Amphetamine-Dextroamphetamine 10MG (Adderall 10MG), 5-10 MG PO UD PRN for RN Ebrfbpa-Gqwzjbholvbxi-Cognjrls (Excedrin Extra Strength), 4-8 TAB PO DAILY Budesonide/Formoterol Fumarate (Symbicort 80/4.5 Inhaler), 2 PUFFS INH PRN Bupropion (Wellbutrin), 300 MG PO QAM Calcium Carbonate (Tums), 2 TAB PO PRN Celecoxib (CeleBREX), 200 MG PO PRN Cetirizine (Zyrtec), 10 MG PO HS Cyanocobalamin (Vitamin B12), 1,000 MCG PO QAM Diphenhydramine Hcl (Benadryl Allergy), 1 CAP PO PRN Econazole Nitrate (Econazole Nitrate Crm 1% 30 Gm), 1 DOSE TOP PRN Estradiol Acetate Vaginal (Femring), 1 DOSE VAGRING UD Levothyroxine Sodium (Synthroid), 88 MCG PO QAM Lysine (Lysine), 500 MG PO QAM Meclizine HCl (Meclizine HCl), 1 TAB PO TID PRN for PRN Methyltestosterone (Methyltestosterone), 2.5 MG PO QAM Mometasone Furoate (Elocon), 1 APPLN TOP PRN Multiple Vitamins W/ Minerals (Emergen-C Immune), 1 DOSE PO QAM Multiple Vitamins W/ Minerals (Airborne Immune System), 1 DOSE PO QAM Omeprazole (Prilosec), 20 MG PO QAM Prednisone (Prednisone), 10 MG PO QAM Valacyclovir (Valtrex), 500 MG PO BID PRN for PRN [Citramax], 1 TAB PO QAM [Juice Plus], 12 TAB PO DAILY Medication Instructions For Your Scheduled Surgery - Hold the following medications 2 weeks prior to surgery: [Juice Plus], 12 TAB PO DAILY - Continue as directed: Estradiol Acetate Vaginal (Femring), 1 DOSE VAGRING UD - Instructions 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 surgeon 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: Oypsuff-Fltdnoedqjuna-Daekztes (Excedrin Extra Strength), 4-8 TAB PO DAILY (at least to hold 24 hours prior to surgery) Celecoxib (CeleBREX), 200 MG PO PRN - Hold the following medications 24 hours prior to surgery: Mometasone Furoate (Elocon), 1 APPLN TOP PRN Econazole Nitrate (Econazole Nitrate Crm 1% 30 Gm), 1 DOSE TOP PRN - Hold the following medications the morning of surgery: Calcium Carbonate (Tums), 2 TAB PO PRN Cyanocobalamin (Vitamin B12), 1,000 MCG PO QAM Diphenhydramine Hcl (Benadryl Allergy), 1 CAP PO PRN [Citramax], 1 TAB PO QAM Amphetamine-Dextroamphetamine 10MG (Adderall 10MG), 5-10 MG PO UD PRN Multiple Vitamins W/ Minerals (Emergen-C Immune), 1 DOSE PO QAM Multiple Vitamins W/ Minerals (Airborne Immune System), 1 DOSE PO QAM Lysine (Lysine), 500 MG PO QAM - Take the following medications the morning of surgery with a sip of water OTHERWISE NOTHING TO EAT OR DRINK AFTER MIDNIGHT: Bupropion (Wellbutrin), 300 MG PO QAM Valacyclovir (Valtrex), 500 MG PO BID PRN for PRN Prednisone (Prednisone) Omeprazole (Prilosec), 20 MG PO QAM Albuterol Sulfate (Proair Respiclick), 2 PUFFS INH PRN (use if needed; BRING TO HOSPITAL) Budesonide/Formoterol Fumarate (Symbicort 80/4.5 Inhaler), 2 PUFFS INH PRN Levothyroxine Sodium (Synthroid), 88 MCG PO QAM Methyltestosterone (Methyltestosterone), 2.5 MG PO QAM Meclizine HCl (Meclizine HCl), 1 TAB PO TID PRN for PRN - Take the following medications as scheduled the night before surgery: Acetaminophen/Diphenhydramine (Tylenol Pm), 2 TAB PO HS Cetirizine (Zyrtec), 10 MG PO HS Valacyclovir (Valtrex), 500 MG PO BID PRN for PRN Albuterol Sulfate (Proair Respiclick), 2 PUFFS INH PRN Budesonide/Formoterol Fumarate (Symbicort 80/4.5 Inhaler), 2 PUFFS INH PRN Meclizine HCl (Meclizine HCl), 1 TAB PO TID PRN for PRN If you have any questions please call us at [phone] or [phone] or [phone]
[2017-04-08 12:42] LABS: BASO % 0.4 %; BASO ABS # 0.03 K/uL (0-0.2); EOS % 0.6 %; EOS ABS # 0.05 K/uL (0-0.5); HEMATOCRIT 47.4 % (37-47); HEMOGLOBIN 16.4 g/dL (12.0-16.0); IG# 0.09 K/uL (0.00-0.02); LYMPH % 9.3 %; LYMPH ABS # 0.76 K/uL (1.2-3.4); MEAN CELL VOLUME 96.3 fL (80-100); MEAN CORPUSCULAR HEMOGLOBIN 33.3 pg (25-34); MEAN CORPUSCULAR HGB CONC 34.6 g/dl (32-36); MEAN PLATELET VOLUME 10.1 fL (7.4-10.4); MONO % 6.8 %; MONO ABS # 0.56 K/uL (0.11-0.59); NEUT % 81.8 %; NEUT ABS # 6.71 K/uL (1.4-6.5); PLATELET COUNT 215 K/uL (130-400); RED CELL DISTRIBUTION WIDTH CV 12.8 % (11.5-14.5); RED CELL DISTRIBUTION WIDTH SD 44.4 fL (36.4-46.3)
[2017-04-08 12:51] LABS: PTT PATIENT 27.1 SECONDS (21.0-31.0)
[2017-04-08 13:13] LABS: HEMOGLOBIN A1C 5.8 % (4.5-5.6)
--- NOTE | 2017-04-08 13:15 | DIAGNOSTIC IMAGING REPORT ---
CHEST 2 VIEWS ROUTINE CLINICAL HISTORY: PAT preoperative evaluation COMPARISON STUDY: 01/05/2017 FINDINGS: Mild emphysematous change. No focal infiltrate. Scoliosis of the thoracic spine. Prior left shoulder arthroplasty. IMPRESSION: Chronic change. No acute process. The above report was generated using voice recognition software. It may contain grammatical, syntax or spelling errors. Electronically signed by: Emmanuel Borrego M.D. 04/08/2017 1:14 PM Dictated Date/Time: 04/08/2017 1:12 PM
[2017-04-08 14:20] LABS: ALBUMIN 3.8 gm/dl (3.4-5.0); CREATININE 0.59 mg/dl (0.60-1.20)
--- NOTE | 2017-04-16 12:43 | HISTORY & PHYSICAL EXAMINATION ---
DATE OF ADMISSION: 04/28/2017 CHIEF COMPLAINT: Bilateral knee pain. HISTORY OF PRESENT ILLNESS: Ms. Dobson is a 71-year-old female with a 1-year history of bilateral knee pain. She rates her pain at 9/10. She has pain with her daily activities. She has limited standing and walking tolerance. Pain is worse with weightbearing. The patient has had injections, home exercise program, and NSAIDS without relief. She has failed conservative treatment and is scheduled for bilateral total knee arthroplasty. PAST MEDICAL HISTORY: Questionable history of AFib, prediabetes, legally blind, CREST syndrome, mixed connective tissue disorder, and Raynaud's disease. She denies heart disease or DVT. PAST SURGICAL HISTORY: Femoral artery stent placement and scleral buccal. SOCIAL HISTORY: The patient rarely drinks alcohol. She denies tobacco use. She lives in a split-level home. She is and retired. FAMILY HISTORY: Negative for DVT. Positive for cerebral hemorrhaging. MEDICATIONS: Wellbutrin 300 mg q.i.d., Synthroid 88 mcg q.i.d., valacyclovir p.r.n., prednisone 5 mg q.i.d., Zithromax, Excedrin, vitamin C, vitamin B, and vitamin D. ALLERGIES: KEFLEX AND COMPAZINE. REVIEW OF SYSTEMS: See HPI. Ten other systems reviewed, all negative. PHYSICAL EXAMINATION: VITAL SIGNS: Height 5 feet 0 inch, weight 130 pounds, and BMI 25. GENERAL: This is a well-developed and well-nourished female, who is alert and oriented x3. Mood and affect are appropriate. HEENT: Normocephalic and atraumatic. Mucous membranes are moist and intact. NECK: Supple without lymphadenopathy. HEART: Regular rate and rhythm without murmurs, rubs or gallops. LUNGS: Clear to auscultation without wheezes or rhonchi. ABDOMEN: Soft and nontender. Bowel sounds are equal and active. EXTREMITIES: No ecchymosis, redness or warmth. She has neutral alignment. Range of motion is from 3-115 degrees with +1 to 2 laxity on the right. She has noted scleroderma on her lower extremities. She has open skin tear on the left side that is healing nicely. Left knee shows neutral alignment. Range of motion is from 3-115 degrees with +1 to 2 laxity. She is neurovascularly intact. X-RAY EXAMINATION: AP and lateral views show joint space narrowing and osteophyte formation. IMPRESSION: Degenerative joint disease, bilateral knees. PLAN: The patient will be admitted for a bilateral total knee arthroplasty. She is going to Dr. Evans for an Excedrin weaning protocol. The patient will require steroid prep and is requesting to be a first case. She is likely going to go to [facility] upon discharge and then outpatient physical therapy. PCP is Dr. Mills at [facility].
[~2017-04-28] VITALS: Ht 152.4 cm; Wt 56.8 kg
[2017-04-28] VITALS (9 sets, daily range): BP systolic 114–190; BP diastolic 65–86; PULSE 63–75; TEMP 35.6–36.7; O2SAT 95–99; Ht 152.4 cm; Wt 56.8 kg
[~2017-04-28 06:27] MED LIST changes: +ACETAMINOPHEN 500 MG TAB PO SCH; +ALBU18002 INH; +AMPH10TA2 PO; +ASPI-391 PO; +CALC500C3 PO; -CALC500C70 PO; +CETI10TA84 PO; +CLB/200 PO; +CLINDAMYCIN 600 MG/54 ML D5W 54 ML IV SCH; +CYAN100020 PO; +CeleBREX 200 MG CAP PO SCH; +DEXAMETHASONE 4 MG TAB PO SCH; +DIPH-437 PO; +DIPH25CA65 PO; +ESTR0.056 VAGRING; +FAMOTIDINE 20 MG TAB PO SCH; +GABAPENTIN 300 MG CAP PO SCH; -Juice Plus; +Juice Plus PO; +LACTATED RINGER'S 1000ML 1,000 ML IV SCH; +LACTATED RINGER'S 1000ML 500 ML IV SCH; +LYSI500C2 PO; +MECL1TAB40 PO; -METH10CA PO; +METH1CAP34 PO; +METOCLOPRAMIDE HCL 10 MG TAB PO SCH; +MOME0.1O TOP; -MULT1CHW63; +MULT1CHW63 PO; -MULT1PAK42; +MULT1PAK42 PO; +ROPIVACAINE 5MG/ML 30 ML 150 MG, BUPIVACAINE 0.5% MPF INJ 30 ML, EpINEphrine HCL INJ 0.... INFIL SCH; +SPCCR30 TOP; +SYMIN/8045 INH; +VALA500T60 PO; -Vitamin B; +[UNRECOGNIZED DRUG - OTHER] PO
[2017-04-28] MEDS ORDERED: BUPIVACAINE 0.5 % 5 MG/1 ML PF 10ML VIAL ONE (06:28)
[2017-04-28] MEDS ORDERED: BUPIVACAINE 0.25% 30 ML VIAL ONE (06:28)
[2017-04-28] MEDS ORDERED: MIDAZOLAM HCL 1 MG/ML 2ML VIAL ONE (07:05)
[2017-04-28] MEDS ORDERED: ORTHO JOINT ANESTHETIC ONE (07:13)
[2017-04-28] MEDS ORDERED: POVIDONE-IODINE OP SOLN 30 ML BTL ONE (07:14)
[2017-04-28] MEDS ORDERED: BACITRACIN 50000 UNIT VIAL ONE (07:14)
--- NOTE | 2017-04-28 07:15 | History & Physical Bridge Note ---
H&P Re-Evaluation Bridge Note: I have examined the patient, reviewed the History & Physical and in the interval since the performance of the History & Physical I have noted the following changes of clinical significance: plan to do left total knee only
[2017-04-28] MEDS ORDERED: CARB0.5D OPB (07:31)
[2017-04-28] MEDS: TRANEXAMIC ACID INJ 1,000 MG in SYRINGE 0 ML IV SCH ×2 (08:17→11:56)
[2017-04-28] MEDS ORDERED: PROPOFOL IV EMULSION 10 MG/ML 20 ML VIAL IV ONE (09:05)
[2017-04-28] MEDS ORDERED: HYDROCORTISONE SOD SUCCINATE 100 MG/2 ML VIAL ONE (09:05)
[2017-04-28] MEDS ORDERED: ATROPINE SULFATE 0.1 MG/ML 5ML SYR IV PRN (09:15)
[2017-04-28] MEDS ORDERED: KETOROLAC TROMETHAMINE 30 MG/ML VIAL IV. PRN (09:15)
[2017-04-28] MEDS ORDERED: HYDROmorphone INJ 2 MG/ML SYR/VIAL IV PRN (09:15)
[2017-04-28] MEDS ORDERED: ONDANSETRON INJ 2 MG/ML 2 ML VIAL IV PRN (09:15)
[2017-04-28] MEDS ORDERED: PHENYLEPHRINE 100MCG/ML 5ML SYR IV PRN (09:15)
[2017-04-28] MEDS ORDERED: EpHEDrine SULFATE INJ 50 MG/ML AMP IV PRN (09:15)
--- NOTE | 2017-04-28 09:43 | [facility] Operative Report ---
Operative Report Operative Date Apr 28, 2017. Pre-Operative Diagnosis Degenerative Joint Disease, Left Knee Post-Operative Diagnosis Degenerative Joint Disease, Left Knee Procedure(s) Performed Left Total Knee Arthroplasty utilizing [employer]hew journey 2 patient matched total knee arthroplasty size 4 femur to tibia Poly-[address] Cherry American Studies Professor Surgeon(s) Michael Landers PA-C Estimated Blood Loss 30 cc Findings Patient presents with severe end-stage DJD patellofemoral DJD [id number] the bone changes sclerosis of subchondral sclerotic changes marginal osteophytes and cystic changes she's been arthroscopy conservative therapy including physical therapy anti-inflammatories relative rest activity modification injections and presents a for left total knee arthroplasty patient has placed stent in the lower thigh area preoperatively this was reviewed with Dr. Squires personally the decision was made we will placed a tourniquet but it was not used to for the surgery Specimens A: Left knee bone and tissue Complication(s) None Disposition Recovery Room / PACU Indications Patient presents with severe end-stage DJD left knee for left total knee arthroplasty she's failed attempts at conservative management including injections anti-inflammatories relative rest activity modifications injections presents for a left total knee arthroplasty Description of Procedure After proper prepping and draping of the left lower extremity anterior midline incision was made over the region of the extensor extensor mechanism after meticulous hemostasis was obtained and maintained in subcutaneous tissues a medial parapatellar incision was made The patella was subluxed lateralward the medial lateral gutter were cleaned from any hypertrophic synovitis and scar tissue of the distal femoral block was placed and the distal femoral osteotomy cut was made subsequently the chamfers anterior and posterior osteotomy cuts were made utilizing the 4-in-1 block the tibia was subsequently subluxed anteriorward medial and ateral meniscal remnants were excised in their entirety remnants of the anterior and posterior cruciate ligaments were excised in their entirety excellent exposure of the proximal tibia was obtained the tibial osteotomy guide was placed on the proximal tibial osteotomy cut was made once again the knee was irrigated with copious amounts of sterile saline solution the patella was subsequently everted lateralward thickened scar tissue around the patella was removed the patella was subsequently cut utilizing a freehand technique and was drilled prepared for final preparation and placement of patella socially flexion-extension gaps were checked and the equal and symmetric trials were placed to the appropriate femoral and tibial trials with poly-spacer being placed for equal flexion and extension gaps and full range of motion including extension to 0 and flexion to 140 the trial components after having been taken to recovery range of motion was subsequently removed meticulous hemostasis was obtained and maintained subsequently a knee block injection of joint cocktail including ropivacaine 0.5% 150 mg. Bupivacaine 0.5 % epinephrine 1-200,030 mL's toradol 30 mg dexamethasone 4 mg ketamine 10 mg clonidine 100 micrograms normal saline solution 30 mg was infiltrated into the soft tissues of the posterior knee medial lateral gutters and periosteal synovium special attention was paid to protect neurovascular structures at all times subsequently trial components having been removed the knee was irrigated with sterile saline solution. debris was removed the proximal tibia was subsequently prepared and was made ready for the placement of the tibial component tibial component was also cemented and tamped into position the femoral component was subsequently placed and cemented in the position the patellar component was subsequently cemented in position because hemostasis once again obtained and maintained wound having been thoroughly irrigated with debridement and debridement lavage was performed as well as a medial parapatellar incision closed with #1 Vicryl in interrupted fashion subcutaneous was closed with #2 Vicryl skin was closed with skin clips. PA-C was necessary for prepping and drapping as well as wound closure of deep fascia Sub cutaneous tissue and skin and was necessary for the case. A sterile compressive dressing was placed patient was taken to recovery in stable condition of report dictated by Dilip please note no tourniquet was used during the course of the procedure I attest to the content of the Intraoperative Record and any orders documented therein. Any exceptions are noted below. I attest to the content of the Intraoperative Record and any orders documented therein. Any exceptions are noted below.
[2017-04-28] MEDS ORDERED: ESTRADIOL ACETATE VAGRING SCH (10:30)
[2017-04-28] MEDS ORDERED: MoRPHine SULFATE 2 MG/ML CARP IV PRN (10:30)
[2017-04-28] MEDS ORDERED: ALBUTEROL HFA 8 GM INHALER INH PRN (10:30)
[2017-04-28] MEDS ORDERED: MAGNESIUM HYDROXIDE SUSP 30 ML UDC PO PRN (10:30)
[2017-04-28] MEDS ORDERED: ALUMINUM/MAGNESIUM/SIMETH (MAALOX MAX) 30 ML UDC PO PRN (10:30)
[2017-04-28] MEDS ORDERED: MoRPHine SULFATE 4 MG/ML 1 ML CARP\\VIAL IV PRN (10:30)
[2017-04-28] MEDS ORDERED: BUDESONIDE/FORMOTEROL FUMARATE 80/4.5 60 PUFFS/INHALER INH PRN (10:30)
--- NOTE | 2017-04-28 11:10 | DIAGNOSTIC IMAGING REPORT ---
LEFT KNEE 2 VIEWS History: Left total knee arthroplasty. Degenerative arthritis. Postop. FINDINGS: The patient is status post a left total knee arthroplasty. The hardware is intact. No fracture or dislocation. Skin ugo and surgical drains are in place. A femoral arterial stent is noted. IMPRESSION: Left total knee arthroplasty. No evidence for hardware complication. Electronically signed by: Issac Moreno M.D. 04/28/2017 11:09 AM Dictated Date/Time: 04/28/2017 11:08 AM
--- NOTE | 2017-04-28 11:28 | Anesthesiology Progress Note ---
Anesthesia Post Op Note Date & Time Apr 28, 2017 at 11:28 Vital Signs Pain Intensity: 0 Vital Signs Past 12 Hours Date Time Temp Pulse Resp B/P (MAP) Pulse Ox O2 Delivery O2 Flow Rate FiO2 04/28/17 11:00 63 16 116/61 99 Nasal Cannula 3 04/28/17 10:45 36.3 63 16 135/63 99 Nasal Cannula 3 04/28/17 10:35 61 16 129/66 100 Nasal Cannula 3 04/28/17 10:25 60 16 133/67 100 Oxymask 3 04/28/17 10:16 36.0 63 16 136/61 100 Oxymask 5 04/28/17 06:50 36.7 63 20 190/86 Notes Mental Status: alert / awake / arousable, participated in evaluation Pt Amnestic to Procedure: Yes Nausea / Vomiting: adequately controlled Pain: adequately controlled Airway Patency, RR, SpO2: stable & adequate BP & HR: stable & adequate Hydration State: stable & adequate Anesthetic Complications: no major complications apparent
[2017-04-28] MEDS: D5W AND 1/2NSS + 20MEQ KCL 1,000 ML IV SCH ×2 (11:56→21:06)
[2017-04-28] MEDS: FERROUS GLUCONATE 324 MG TAB PO SCH ×2 (13:29→17:37)
[2017-04-28] MEDS: ARTIFICIAL TEARS OP SOLN OPB SCH ×3 (13:31→21:00)
[2017-04-28] MEDS ORDERED: GLUCAGON FOR INJ 1 MG VIAL SQ PRN (16:15)
[2017-04-28] MEDS ORDERED: DEXTROSE 50% 50 ML SYR IV PRN (16:15)
[2017-04-28] MEDS ORDERED: GLUCOSE 40% GEL 15 GM TUBE PO PRN (16:15)
[2017-04-28] MEDS ORDERED: GLUCOSE 10 TABS/TUBE PO PRN (16:15)
--- NOTE | 2017-04-28 16:34 | Medical Consult ---
Consultation Date of Consultation: Apr 28, 2017. Attending Physician: Avinash Cherry D.O. Reason for Consultation: Medical management History of Present Illness This is a 72 y/o female with a history of HTN, HLD, h/o SVT, polycythemia, prediabetes, CREST syndrome, Raynaud's, mixed connective tissue disorder, legally blind, asthma, hypothyroidism, vertigo and GERD who presents s/p left TKA with Dr. Cherry on 04/28 for medical management. The patient reports feeling well postoperatively. She states surgery often causes flares of her connective tissue disorder, but she is feeling well now. She is eating without issue. She states she she has been incontinent of urine postop, but this is her baseline. She has not yet passed gas or had a bowel movement. She still has numbness/tingling in her lower extremities, L>R, but this is improving. She denies knee pain. The patient denies fevers, chills, sweats, chest pain, palpitations, claudication, cough, wheezing, shortness of breath, nausea, vomiting, abdominal pain, dysuria, hematuria, urinary retention, paralysis, weakness. Past Medical/Surgical History Medical Problems: (1) Abnormal ECG Status: Acute (2) Hypotension Status: Acute (3) SVT (supraventricular tachycardia) Status: Acute (4) Syncope Status: Acute HTN HLD Polycythemia Prediabetes CREST Raynaud's Mixed connective tissue disorder Hypothyroidism Asthma Vertigo GERD Family History Acute myocardial infarction Coronary artery disease Diabetes mellitus Stroke Social History Smoking Status: Never Smoker Smokeless Tobacco Use: No Alcohol Use: occasionally (twice/month) Marital Status: Housing Status: lives alone (with home health) Occupation Status: retired Allergies Coded Allergies: Shellfish (Verified Allergy, Severe, VERY SICK FOR SEVERAL DAYS/HIVES IN HER MOUTH, 04/08/17) WAS PREMED WITH STEROIDS BEFORE IODINATED DYES USED IN THE PAST NO PROBLEMS Nickel (Verified Allergy, Intermediate, RASH, 04/08/17) PT STATES Cephalexin (Verified Allergy, Unknown, NAUSEA AND VOMITING, 04/08/17) Chlorpromazine (Unverified Allergy, Unknown, JAW LOCKS, 04/08/17) Pineapple (Verified Allergy, Unknown, HIVES IN HER MOUTH, 04/08/17) Procaine (Verified Allergy, Unknown, 'makes muscle weakness worse', ) Prochlorperazine (Verified Allergy, Unknown, MOTOR SEIZURES-ARMS SPASTIC, 04/08/17) ALL "ZINES' PER PT Soy Protein (Verified Allergy, Unknown, "SOY" ALLERGY-GI UPSET ABD PAIN, 04/08/17) Nancy (Verified Allergy, Unknown, HIVES IN HER MOUTH, 04/08/17) Tomato (Verified Allergy, Unknown, HIVES IN MOUTH, 04/08/17) Mcallen (Verified Allergy, Unknown, HIVES IN HER MOUTH, 04/08/17) Current Inpatient Medications Current Inpatient Medications Medications (Trade) Dose Ordered Sig/Sun Route Start Time Stop Time Status Last Admin Dose Admin Lactated Ringer's 1,000 ml @ 60 mls/hr [id number] IV 04/28/17 06:00 04/28/17 22:39 Clindamycin Phosphate 54 ml @ 100 mls/hr PREOP IV 04/28/17 06:00 04/28/17 18:00 04/28/17 08:52 100 MLS/HR Acetaminophen (Tylenol Tab) 1,000 mg PREOP PO 04/28/17 06:00 04/28/17 18:00 04/28/17 07:36 1,000 MG Celecoxib (CeleBREX CAP) 200 mg PREOP PO 04/28/17 06:00 04/28/17 18:00 04/28/17 07:33 200 MG Dexamethasone (Decadron Tab) 8 mg PREOP PO 04/28/17 06:00 04/28/17 18:00 04/28/17 07:34 8 MG Famotidine (Pepcid Tab) 20 mg PREOP PO 04/28/17 06:00 04/28/17 18:00 04/28/17 07:35 20 MG Gabapentin (Neurontin Cap) 300 mg PREOP PO 04/28/17 06:00 04/28/17 18:00 04/28/17 07:34 300 MG Metoclopramide HCl (Reglan Tab) 10 mg PREOP PO 04/28/17 06:00 04/28/17 18:00 04/28/17 07:36 10 MG Budesonide/ Formoterol Fumarate (Symbicort 80/ 4.5 Inh) 2 puffs DAILY PRN INH 04/28/17 10:30 05/28/17 10:29 Bupropion HCl (Wellbutrin-Xl Tab) 300 mg QAM PO 04/29/17 09:00 05/29/17 08:59 Cetirizine HCl (zyrTEC TAB) 10 mg HS PO 04/28/17 21:00 05/28/17 20:59 Levothyroxine Sodium (Synthroid Tab) 88 mcg DAILYBB PO 04/29/17 06:00 05/29/17 05:59 Prednisone (PredniSONE TAB) 10 mg QAM PO 04/29/17 09:00 05/29/17 08:59 Albuterol (Ventolin Hfa Inhaler) 2 puffs DAILY PRN INH 04/28/17 10:30 05/28/17 10:29 Artificial Tears (Artificial Tears) 1 drops QID OPB 04/28/17 13:00 05/28/17 12:59 Non-Formulary Medication (Estradiol Acetate Vaginal (Femring)) 1 dose UD VAGRING 04/28/17 10:30 05/28/17 10:29 Miscellaneous Information (Order Awaiting Action) 1 ea QS N/A 04/28/17 13:00 05/28/17 12:59 Morphine Sulfate (MoRPHine SULFATE INJ) 2 mg Q4HWA PRN IV 04/28/17 10:30 05/12/17 10:29 Morphine Sulfate (MoRPHine SULFATE INJ) 4 mg Q4HWA PRN IV 04/28/17 10:30 05/12/17 10:29 Potassium Chloride/Dextrose/ Sod Cl 1,000 ml @ 100 mls/hr Q10H IV 04/28/17 11:30 04/29/17 11:29 04/28/17 11:56 100 MLS/HR Clindamycin Phosphate 600 mg/ Dextrose 54 ml @ 100 mls/hr Q8H IV 04/28/17 16:00 04/29/17 00:33 Celecoxib (CeleBREX CAP) 200 mg BID PO 04/28/17 21:00 05/28/17 20:59 Oxycodone HCl (Roxicodone Immediate Rel Tab) 1 TABLET FOR PAIN RATING... Q4H PRN PO 04/28/17 10:30 05/12/17 10:29 Acetaminophen (Tylenol Tab) 1,000 mg Q8 PO 04/28/17 22:00 05/28/17 21:59 Magnesium Hydroxide (Milk Of Magnesia Susp) 30 ml Q6H PRN PO 04/28/17 10:30 05/28/17 10:29 Senna (Senokot Tab) 17.2 mg HS PO 04/28/17 21:00 05/28/17 20:59 Docusate Sodium (coLACE CAP) 100 mg BID PO 04/28/17 21:00 05/28/17 20:59 Al Hydrox/Mg Hydrox/Simethicone (Maalox Max Susp) 15 ml Q4H PRN PO 04/28/17 10:30 05/28/17 10:29 Multivitamins (Multivitamin Tab) 1 tab QAM PO 04/29/17 09:00 05/29/17 08:59 Ferrous Gluconate (Ferrous Gluconate Tab) 324 mg TIDM PO 04/28/17 12:30 05/28/17 12:29 04/28/17 13:29 324 MG Pantoprazole Sodium (Protonix Tab) 40 mg QAM PO 04/29/17 09:00 05/29/17 08:59 Tramadol HCl (Ultram Tab) 1 tablet for pain rating... Q4H PRN PO 04/28/17 10:30 05/28/17 10:29 Aspirin (Ecotrin Tab) 81 mg BID PO 04/28/17 21:00 05/28/17 20:59 Review of Systems See HPI for pertinent positives and negatives. All other systems reviewed and negative. Physical Exam Date Time Temp Pulse Resp B/P (MAP) Pulse Ox O2 Delivery O2 Flow Rate FiO2 04/28/17 16:11 36.4 75 16 133/76 (95) 96 Room Air 04/28/17 14:15 68 18 118/65 (82) 97 Room Air 04/28/17 13:10 68 15 114/65 (81) 96 Room Air 04/28/17 12:28 67 16 125/72 (89) 96 Room Air 04/28/17 11:40 64 16 115/70 (85) 99 2.0 04/28/17 11:25 Nasal Cannula 04/28/17 11:15 36.4 67 16 131/72 (91) 95 Nasal Cannula 04/28/17 11:00 63 16 116/61 99 Nasal Cannula 3 04/28/17 10:45 36.3 63 16 135/63 99 Nasal Cannula 3 04/28/17 10:35 61 16 129/66 100 Nasal Cannula 3 04/28/17 10:25 60 16 133/67 100 Oxymask 3 04/28/17 10:16 36.0 63 16 136/61 100 Oxymask 5 04/28/17 06:50 36.7 63 20 190/86 General appearance: Well-developed, well-nourished, no apparent distress Head: Normocephalic, atraumatic Eyes: Normal inspection, PERRL, EOMI ENT: Normal ENT inspection, hearing grossly normal, pharynx normal Neck: Supple, no JVD, trachea midline Respiratory/Chest: Lungs clear to auscultation, normal breath sounds, no respiratory distress Cardiovascular: Regular rate & rhythm, no gallop, no murmur Abdomen/GI: +Mildly distended. Normal bowel sounds, non-tender Extremities/Musculoskeletal: +LLE wrapped in zechariah bandage, drain in place. Decreased sensation in LLE compared to RLE. No calf tenderness, no pedal edema Neurological/Psych: Alert, normal mood/affect, oriented x 3 Skin: Normal color, warm/dry, no rash Laboratory Results Last 24 Hours Test 04/28/17 07:10 04/28/17 10:24 Bedside Glucose 100 mg/dl 117 mg/dl Assessment & Plan 72 y/o female with a history of HTN, HLD, h/o SVT, polycythemia, prediabetes, CREST syndrome, Raynaud's, mixed connective tissue disorder, legally blind, asthma, hypothyroidism, vertigo and GERD who presents s/p left TKA with Dr. Cherry on 04/28 for medical management. S/p L TKA--POD #0 -Pain management, DVT prophylaxis, and PT/OT as per primary team -No pain, AVSS HTN, HLD, h/o SVT--stable, NSR -Per outpt records recent h/o symptomatic SVT w/syncope with questionable paroxysmal a-fib vs benign micro reentrant rhythm. Not on anticoagulation, to discuss this with cardiology in 1 month outpt -Not currently on medications for HTN, HLD Prediabetes--HgbA1c 5.8 on 04/08/17 -Insulin sliding scale due to intraoperative steroids, chronic steroid use -Check BSGs q ac and qhs Mixed connective tissue disorder -Continue Prednisone 10 mg PO qd -Received Solu-Cortef 100 mg IV intraoperatively. Hold off on stress dose steroids for now, but continue to monitor BP, etc. May need more hydrocortisone but BP currently stable Asthma, allergies -Continue Zyrtec, albuterol and Symbicort prn (pt states hasn't used in months) Hypothyroidism -Continue Synthroid 88 mcg PO qd Vertigo -Meclizine prn GERD -Prilosec converted to Protonix Thank you for this consultation. We will continue to follow. Reviewed: Pt Seen/Exam by Me History Physician President [employer] Supervision Note: I interviewed and examined the patient. Discussed with DAILY Denise and agree with findings and plan as documented in the note. Any exceptions or clarifications are listed here: Doing well post-op L TKA. No palpitations, no CP. Does feel like her usual aches and pains from her MCTD are flaring up this evening. Vitals reviewed NAD RRR no mgr, occasional extra beats CTAB no wcr Abd +BS soft NT ND Ext no calf tenderness, LLE in ZECHARIAH wrap 72 yo female with MCTD, chronic steroid use, GERD, SVT with syncope, hypothyroidism, CREST, Raynaud's, prediabetes, here with Left TKA -continue SSI, ADA diet for hyperglycemia related to steroids in setting of preexisting prediabetes -pain control ASA bid for DVT proph -no evidence of SVT on exam -continue prednisone usual daily dose but pt reports she can increase to 15mg daily if her pain increases -pt requests a prn dose of PPI in the evening just in case GERD symptoms worsen Documented By: Shania Farr
[2017-04-28] MEDS: CLINDAMYCIN IV 600 MG in DEXTROSE 5% 50ML 50 ML IV SCH ×2 (16:35→23:32)
[2017-04-28] MEDS ORDERED: MECLIZINE HCL 12.5 MG TAB PO PRN (16:45)
[2017-04-28 16:52] LABS: HEMATOCRIT 44.3 % (37-47); HEMOGLOBIN 15.4 g/dL (12.0-16.0); MEAN CELL VOLUME 95.9 fL (80-100); MEAN CORPUSCULAR HEMOGLOBIN 33.3 pg (25-34); MEAN CORPUSCULAR HGB CONC 34.8 g/dl (32-36); MEAN PLATELET VOLUME 9.9 fL (7.4-10.4); PLATELET COUNT 192 K/uL (130-400); RED CELL DISTRIBUTION WIDTH CV 12.6 % (11.5-14.5); RED CELL DISTRIBUTION WIDTH SD 43.8 fL (36.4-46.3); WHITE BLOOD COUNT 6.84 K/uL (4.8-10.8)
[2017-04-28 17:09] LABS: CALCIUM 8.8 mg/dl (8.5-10.1); CREATININE 0.59 mg/dl (0.60-1.20); POTASSIUM 3.8 mmol/L (3.5-5.1)
[2017-04-28] MEDS: TRAMADOL HCL 50 MG TAB PO PRN ×2 (17:37→21:46)
[2017-04-28] MEDS: INSULIN ASPART 100 UNITS/ML 3 ML PEN SC SCH ×2 (18:00→21:10)
[2017-04-28] MEDS: DOCUSATE SODIUM 100 MG CAP PO SCH (21:02)
[2017-04-28] MEDS: SENNA 8.6 MG TAB PO SCH (21:02)
[2017-04-28] MEDS: ASPIRIN 81 MG ECTAB PO SCH (21:03)
[2017-04-28] MEDS: CeleBREX 200 MG CAP PO SCH (21:04)
[2017-04-28] MEDS: CETIRIZINE HCL 10 MG TAB PO SCH (21:05)
[2017-04-28] MEDS: ACETAMINOPHEN 500 MG TAB PO SCH (21:45)
[2017-04-29] VITALS (7 sets, daily range): BP systolic 127–151; BP diastolic 70–81; PULSE 55–65; TEMP 36.4–36.9; O2SAT 95–97
[2017-04-29] MEDS: TRAMADOL HCL 50 MG TAB PO PRN ×5 (04:05→21:31)
[2017-04-29] MEDS: LEVOTHYROXINE 88 MCG TAB PO SCH (06:09)
[2017-04-29] MEDS: ACETAMINOPHEN 500 MG TAB PO SCH ×3 (06:10→21:32)
[2017-04-29] MEDS: D5W AND 1/2NSS + 20MEQ KCL 1,000 ML IV SCH (06:33)
[2017-04-29 07:11] LABS: HEMATOCRIT 40.6 % (37-47); MEAN CELL VOLUME 96.2 fL (80-100); MEAN CORPUSCULAR HEMOGLOBIN 33.2 pg (25-34); MEAN CORPUSCULAR HGB CONC 34.5 g/dl (32-36); MEAN PLATELET VOLUME 10.2 fL (7.4-10.4); PLATELET COUNT 196 K/uL (130-400); RED CELL DISTRIBUTION WIDTH CV 12.8 % (11.5-14.5); RED CELL DISTRIBUTION WIDTH SD 44.5 fL (36.4-46.3); WHITE BLOOD COUNT 13.83 K/uL (4.8-10.8)
[2017-04-29 07:48] LABS: CALCIUM 8.4 mg/dl (8.5-10.1); CREATININE 0.55 mg/dl (0.60-1.20); POTASSIUM 3.8 mmol/L (3.5-5.1)
--- NOTE | 2017-04-29 07:56 | Orthopedic Progress Note ---
Orthopedic Progress Note Date of Service Apr 29, 2017. Subjective Post OP Day: 1 Reports: feeling well, Denies: complaints Objective calves soft nontender, N/V intact, dressing C/D/I, A&O x3, toes mobile, hemovac drainage (55ml latest shift) Date Time Temp Pulse Resp B/P (MAP) Pulse Ox O2 Delivery O2 Flow Rate FiO2 04/29/17 07:45 36.4 55 16 145/70 (95) 97 Room Air 04/29/17 03:46 36.4 58 16 147/76 (99) 96 Room Air 04/29/17 00:04 36.4 58 16 127/73 (91) 96 Room Air 04/28/17 23:51 Room Air 04/28/17 19:24 35.6 74 16 160/80 (106) 97 Room Air 04/28/17 16:11 36.4 75 16 133/76 (95) 96 Room Air 04/28/17 14:15 68 18 118/65 (82) 97 Room Air 04/28/17 13:10 68 15 114/65 (81) 96 Room Air 04/28/17 12:28 67 16 125/72 (89) 96 Room Air 04/28/17 11:40 64 16 115/70 (85) 99 2.0 04/28/17 11:25 Nasal Cannula 04/28/17 11:20 Nasal Cannula 04/28/17 11:15 36.4 67 16 131/72 (91) 95 Nasal Cannula 04/28/17 11:00 63 16 116/61 99 Nasal Cannula 3 04/28/17 10:45 36.3 63 16 135/63 99 Nasal Cannula 3 04/28/17 10:35 61 16 129/66 100 Nasal Cannula 3 04/28/17 10:25 60 16 133/67 100 Oxymask 3 04/28/17 10:16 36.0 63 16 136/61 100 Oxymask 5 Laboratory Results 24 Hours: Test 04/28/17 16:38 04/29/17 06:35 Hematocrit 44.3 % 40.6 % Hemoglobin 15.4 g/dL 14.0 g/dL Assessment & Plan Assessment: POD 1 s/p Left TKA Plan: PT/OT today Inhouse Planning Pain Management: Celebrex, Ultram, Morphine, PO Tylenol, Oxy IR DVT Prophylaxis: TEDs, SCDs, ASA
[2017-04-29] MEDS: INSULIN ASPART 100 UNITS/ML 3 ML PEN SC SCH (08:00)
--- NOTE | 2017-04-29 08:22 | Anesthesiology Progress Note ---
Anesthesia Post Op Note Date & Time Apr 29, 2017 at 08:21 Vital Signs Pain Intensity: 8.0 Vital Signs Past 12 Hours Date Time Temp Pulse Resp B/P (MAP) Pulse Ox O2 Delivery O2 Flow Rate FiO2 04/29/17 07:45 36.4 55 16 145/70 (95) 97 Room Air 04/29/17 03:46 36.4 58 16 147/76 (99) 96 Room Air 04/29/17 00:04 36.4 58 16 127/73 (91) 96 Room Air 04/28/17 23:51 Room Air Notes Mental Status: alert / awake / arousable, participated in evaluation Pt Amnestic to Procedure: Yes Nausea / Vomiting: adequately controlled Pain: improving with treatment Airway Patency, RR, SpO2: stable & adequate BP & HR: stable & adequate Hydration State: stable & adequate Neuraxial Anesthesia: sensory block resolved Anesthetic Complications: no major complications apparent
[2017-04-29] MEDS: FERROUS GLUCONATE 324 MG TAB PO SCH ×3 (08:58→17:33)
[2017-04-29] MEDS: CeleBREX 200 MG CAP PO SCH ×2 (08:59→20:29)
[2017-04-29] MEDS: ASPIRIN 81 MG ECTAB PO SCH ×2 (08:59→20:28)
[2017-04-29] MEDS: ARTIFICIAL TEARS OP SOLN OPB SCH ×4 (08:59→20:26)
[2017-04-29] MEDS: DOCUSATE SODIUM 100 MG CAP PO SCH ×2 (08:59→20:28)
[2017-04-29] MEDS: MULTIVITAMIN TAB PO SCH (09:00)
[2017-04-29] MEDS: PANTOprazole SOD 40 MG TAB PO SCH (09:00)
[2017-04-29] MEDS: BuPROPion XL 300 MG TABCR PO SCH (09:01)
--- NOTE | 2017-04-29 11:50 | Hospitalist Progress Note ---
Hospitalist Progress Note Date of Service Apr 29, 2017. (Galilea Lewis ., PA-C) Subjective Pt evaluation today including: conversation w/ patient, conversation w/ family , physical exam, lab review, review of studies, review of inpatient medication list Voiding: no voiding problems Patient sitting in bedside chair. Eating and drinking OK. +flatus postop, no BM. Pain is well controlled. Did well w/ PT this AM. Hoping to be discharged home when stable. Patient questioning need to insulin. Hyperglycemic likely secondary to IV steroids- will discontinue BSGs and ISS. Patient denies any fever, chills, sweats, lightheadedness, dizziness, vision changes, CP, palpitations, edema, SOB, wheezing, cough, abdominal pain, nausea, vomiting, diarrhea, urinary symptoms, melena, numbness/tingling, weakness, muscle/joint pain, anxiety/depression, active bleeding, or new skin discoloration/changes. (Galilea Lewis ., PA-C) Medications Current Inpatient Medications Medications (Trade) Dose Ordered Sig/Sun Route Start Time Stop Time Status Last Admin Dose Admin Budesonide/ Formoterol Fumarate (Symbicort 80/ 4.5 Inh) 2 puffs DAILY PRN INH 04/28/17 10:30 05/28/17 10:29 Bupropion HCl (Wellbutrin-Xl Tab) 300 mg QAM PO 04/29/17 09:00 05/29/17 08:59 04/29/17 09:01 300 MG Cetirizine HCl (zyrTEC TAB) 10 mg HS PO 04/28/17 21:00 05/28/17 20:59 04/28/17 21:05 10 MG Levothyroxine Sodium (Synthroid Tab) 88 mcg DAILYBB PO 04/29/17 06:00 05/29/17 05:59 04/29/17 06:09 88 MCG Prednisone (PredniSONE TAB) 10 mg QAM PO 04/29/17 09:00 05/29/17 08:59 04/29/17 09:00 10 MG Albuterol (Ventolin Hfa Inhaler) 2 puffs DAILY PRN INH 04/28/17 10:30 05/28/17 10:29 Artificial Tears (Artificial Tears) 1 drops QID OPB 04/28/17 13:00 05/28/17 12:59 Non-Formulary Medication (Estradiol Acetate Vaginal (Femring)) 1 dose UD VAGRING 04/28/17 10:30 05/28/17 10:29 Morphine Sulfate (MoRPHine SULFATE INJ) 2 mg Q4HWA PRN IV 04/28/17 10:30 05/12/17 10:29 Morphine Sulfate (MoRPHine SULFATE INJ) 4 mg Q4HWA PRN IV 04/28/17 10:30 05/12/17 10:29 Celecoxib (CeleBREX CAP) 200 mg BID PO 04/28/17 21:00 05/28/17 20:59 04/29/17 08:59 200 MG Oxycodone HCl (Roxicodone Immediate Rel Tab) 1 TABLET FOR PAIN RATING... Q4H PRN PO 04/28/17 10:30 05/12/17 10:29 Acetaminophen (Tylenol Tab) 1,000 mg Q8 PO 04/28/17 22:00 05/28/17 21:59 04/29/17 06:10 1,000 MG Magnesium Hydroxide (Milk Of Magnesia Susp) 30 ml Q6H PRN PO 04/28/17 10:30 05/28/17 10:29 Senna (Senokot Tab) 17.2 mg HS PO 04/28/17 21:00 05/28/17 20:59 04/28/17 21:02 17.2 MG Docusate Sodium (coLACE CAP) 100 mg BID PO 04/28/17 21:00 05/28/17 20:59 04/29/17 08:59 100 MG Al Hydrox/Mg Hydrox/Simethicone (Maalox Max Susp) 15 ml Q4H PRN PO 04/28/17 10:30 05/28/17 10:29 Multivitamins (Multivitamin Tab) 1 tab QAM PO 04/29/17 09:00 05/29/17 08:59 04/29/17 09:00 1 TAB Ferrous Gluconate (Ferrous Gluconate Tab) 324 mg TIDM PO 04/28/17 12:30 05/28/17 12:29 04/29/17 08:58 324 MG Pantoprazole Sodium (Protonix Tab) 40 mg QAM PO 04/29/17 09:00 05/29/17 08:59 04/29/17 09:00 40 MG Tramadol HCl (Ultram Tab) 1 tablet for pain rating... Q4H PRN PO 04/28/17 10:30 05/28/17 10:29 04/29/17 09:04 100 MG Aspirin (Ecotrin Tab) 81 mg BID PO 04/28/17 21:00 05/28/17 20:59 04/29/17 08:59 81 MG Glucose (Glucose 40% Gel) 15-30 GRAMS 15 GRAMS... UD PRN PO 04/28/17 16:15 05/28/17 16:14 Glucose (Glucose Chew Tab) 4-8 Tablets 4 Tabl... UD PRN PO 04/28/17 16:15 05/28/17 16:14 Dextrose (Dextrose 50% 50ML Syringe) 25-50ML OF 50% DW IV FOR... UD PRN IV 04/28/17 16:15 05/28/17 16:14 Glucagon (Glucagon Inj) 1 mg UD PRN SQ 04/28/17 16:15 05/28/17 16:14 Meclizine HCl (Antivert Tab) 12.5 mg TID PRN PO 04/28/17 16:45 05/28/17 16:44 Non-Formulary Medication (Non-Formulary Patient'S Own Med) 1 ea DAILY PO 04/30/17 09:00 05/30/17 08:59 UNV (Galilea Lewis, JAGC) Objective Vital Signs Date Time Temp Pulse Resp B/P (MAP) Pulse Ox O2 Delivery O2 Flow Rate FiO2 04/29/17 09:16 97 Room Air 04/29/17 08:00 Room Air 04/29/17 07:45 36.4 55 16 145/70 (95) 97 Room Air 04/29/17 03:46 36.4 58 16 147/76 (99) 96 Room Air 04/29/17 00:04 36.4 58 16 127/73 (91) 96 Room Air 04/28/17 23:51 Room Air 04/28/17 19:24 35.6 74 16 160/80 (106) 97 Room Air 04/28/17 16:11 36.4 75 16 133/76 (95) 96 Room Air 04/28/17 14:15 68 18 118/65 (82) 97 Room Air 04/28/17 13:10 68 15 114/65 (81) 96 Room Air 04/28/17 12:28 67 16 125/72 (89) 96 Room Air (Galilea Lewis PA-C) Physical Exam General Appearance: no apparent distress Eyes: normal inspection, PERRL ENT: hearing grossly normal Neck: supple Respiratory/Chest: lungs clear, no respiratory distress, no accessory muscle use Cardiovascular: regular rate, rhythm Abdomen: normal bowel sounds, non tender, soft Extremities: no pedal edema, no calf tenderness, + pertinent finding (LLE in ZECHARIAH wrap; hemovac w/ bloody output ) Neurologic/Psychiatric: alert, normal mood/affect, oriented x 3 Skin: normal color, warm/dry, no rash (Galilea Lewis PA-C) Laboratory Results Last 24 Hours Test 04/28/17 16:38 04/28/17 17:26 04/28/17 20:48 04/29/17 06:35 White Blood Count 6.84 K/uL 13.83 K/uL Red Blood Count 4.62 M/uL 4.22 M/uL Hemoglobin 15.4 g/dL 14.0 g/dL Hematocrit 44.3 % 40.6 % Mean Corpuscular Volume 95.9 fL 96.2 fL Mean Corpuscular Hemoglobin 33.3 pg 33.2 pg Mean Corpuscular Hemoglobin Concent 34.8 g/dl 34.5 g/dl RDW Standard Deviation 43.8 fL 44.5 fL RDW Coefficient of Variation 12.6 % 12.8 % Platelet Count 192 K/uL 196 K/uL Mean Platelet Volume 9.9 fL 10.2 fL Sodium Level 139 mmol/L 139 mmol/L Potassium Level 3.8 mmol/L 3.8 mmol/L Chloride Level 105 mmol/L 108 mmol/L Carbon Dioxide Level 26 mmol/L 25 mmol/L Anion Gap 8.0 mmol/L 6.0 mmol/L Blood Urea Nitrogen 18 mg/dl 13 mg/dl Creatinine 0.59 mg/dl 0.55 mg/dl Est Creatinine Clear Calc Drug Dose 66.1 ml/min 70.9 ml/min Estimated GFR () 104.6 107.1 Estimated GFR (Non- 90.3 92.4 BUN/Creatinine Ratio 30.9 22.7 Random Glucose 214 mg/dl 152 mg/dl Calcium Level 8.8 mg/dl 8.4 mg/dl Bedside Glucose 202 mg/dl 209 mg/dl Test 04/29/17 08:01 Bedside Glucose 131 mg/dl (Galilea Lewis PA-C) Assessment and Plan 72 y/o female with a history of HTN, HLD, h/o SVT, polycythemia, prediabetes, CREST syndrome, Raynaud's, mixed connective tissue disorder, legally blind, asthma, hypothyroidism, vertigo and GERD who presents s/p left TKA with Dr. Cherry on 04/28 for medical management. s/p L TKA by Dr. Cherry on 04/28: - Surgical management, pain management, DVT prophylaxis, and PT/OT as per primary team - Bowel regimen ordered - Encouraged incentive spirometer - CBC and PRP- STABLE HTN, HLD, h/o symptomatic SVT, ?paroxysmal a.fib- STABLE: - Outpatient f/u w/ cardiology in 1 month to discuss anticoagulation - Not currently on medications for HTN, HLD- BPs are STABLE Prediabetes- HgbA1c 5.8% on 04/08/17: Hyperglycemic, secondary to IV steroids- BSG ACHS and ISS- will discontinue today Mixed connective tissue disorder: Continue Prednisone 10 mg PO qd Asthma, allergies: Continue Zyrtec, albuterol and Symbicort PRN Hypothyroidism: Continue Synthroid 88 mcg daily Vertigo: Meclizine PRN GERD: Prilosec converted to Protonix while inpatient DVT prophylaxis: ASA 81 mg BID as per surgical team Code Status: LEVEL I, FULL Dispo: As per primary team (Galilea Lewis PA-C) Supervising Note Dr. Dillon I performed a history and physical examination on the patient. I reviewed above note and agree with it. I discussed plan with APC and patient. During my face to face encounter with the patient, I answered all of the patient's questions. (Vinh Dillon M.D.)
[2017-04-29] MEDS: CETIRIZINE HCL 10 MG TAB PO SCH (20:29)
[2017-04-29] MEDS: SENNA 8.6 MG TAB PO SCH (20:29)
[2017-04-30] MEDS: TRAMADOL HCL 50 MG TAB PO PRN ×3 (01:13→08:51)
[2017-04-30] MEDS: LEVOTHYROXINE 88 MCG TAB PO SCH (05:20)
[2017-04-30] MEDS: ACETAMINOPHEN 500 MG TAB PO SCH ×3 (05:20→22:34)
[2017-04-30 06:49] LABS: HEMATOCRIT 38.7 % (37-47); MEAN CELL VOLUME 98.2 fL (80-100); MEAN CORPUSCULAR HGB CONC 33.6 g/dl (32-36); MEAN PLATELET VOLUME 10.2 fL (7.4-10.4); PLATELET COUNT 197 K/uL (130-400); RED CELL DISTRIBUTION WIDTH CV 13.1 % (11.5-14.5); WHITE BLOOD COUNT 9.27 K/uL (4.8-10.8)
[2017-04-30 06:58] VITALS: BP 162/78; PULSE 58; TEMP 36.4; O2SAT 98
--- NOTE | 2017-04-30 06:59 | Orthopedic Progress Note ---
Orthopedic Progress Note Date of Service Apr 30, 2017. Subjective Post OP Day: 2 Reports: feeling well, pain controlled w PO medications, Denies: complaints, chest pain, SOB, nausea / vomiting, light headedness, calf pain Objective calves soft nontender, N/V intact, capillary refill less than 2 sec., incision C /D/I, A&O x3, toes mobile Date Time Temp Pulse Resp B/P (MAP) Pulse Ox O2 Delivery O2 Flow Rate FiO2 04/29/17 23:43 36.4 58 15 151/81 (104) 95 Room Air 04/29/17 23:42 Room Air 04/29/17 16:40 Room Air 04/29/17 15:28 36.9 65 16 135/73 (93) 96 Room Air 04/29/17 12:37 36.9 62 16 144/80 (101) 97 Room Air 04/29/17 09:16 97 Room Air 04/29/17 08:00 Room Air 04/29/17 07:45 36.4 55 16 145/70 (95) 97 Room Air Laboratory Results 24 Hours: Test 04/30/17 06:17 Hematocrit 38.7 % Hemoglobin 13.0 g/dL Assessment & Plan Assessment: POD 2 s/p Left TKA Plan: PT/OT today awaiting placement, requesting [facility] legally blind Discharge Planning Discharge Planning: uncertain DVT Prophylaxis: TEDs, SCDs, ASA
[2017-04-30 07:15] VITALS: BP 135/77; PULSE 63; TEMP 36.3; O2SAT 97
[2017-04-30] MEDS: CeleBREX 200 MG CAP PO SCH ×2 (08:51→20:52)
[2017-04-30] MEDS: ASPIRIN 81 MG ECTAB PO SCH ×2 (08:51→20:53)
[2017-04-30] MEDS: BuPROPion XL 300 MG TABCR PO SCH (08:51)
[2017-04-30] MEDS: DOCUSATE SODIUM 100 MG CAP PO SCH ×2 (08:52→20:53)
[2017-04-30] MEDS: PANTOprazole SOD 40 MG TAB PO SCH (08:52)
[2017-04-30] MEDS: FERROUS GLUCONATE 324 MG TAB PO SCH ×3 (08:52→18:32)
[2017-04-30] MEDS: METHYLTESTOSTERONE PO SCH (08:53)
[2017-04-30] MEDS: MULTIVITAMIN TAB PO SCH (08:54)
[2017-04-30] MEDS: ARTIFICIAL TEARS OP SOLN OPB SCH ×4 (08:56→20:53)
[2017-04-30] MEDS ORDERED: MULTIVITAMIN TAB PO SCH (09:00)
[2017-04-30] MEDS ORDERED: OXYCODONE HCL 10 MG TABCR (OXYCONTIN) PO SCH (09:00)
--- NOTE | 2017-04-30 10:54 | Hospitalist Progress Note ---
Hospitalist Progress Note Date of Service Apr 30, 2017. (Galilea Lewis ., PA-C) Subjective Pt evaluation today including: conversation w/ patient, conversation w/ family (son at bedside ), physical exam, lab review, review of inpatient medication list Voiding: no voiding problems Patient sitting in bedside chair. Eating and drinking OK. +BM postop. Diffuse pain postop due to connective tissue disorder- requesting 15 mg x3 days , then resume 10 mg daily. L knee pain is well controlled. Hoping for rehab at discharge. Patient denies any fever, chills, sweats, lightheadedness, dizziness, vision changes, CP, palpitations, edema, SOB, wheezing, cough, abdominal pain, nausea, vomiting, diarrhea, urinary symptoms, melena, numbness/tingling, weakness, anxiety/depression, active bleeding, or new skin discoloration/changes. (Galilea Lewis ., PA-C) Medications Current Inpatient Medications Medications (Trade) Dose Ordered Sig/Sun Route Start Time Stop Time Status Last Admin Dose Admin Budesonide/ Formoterol Fumarate (Symbicort 80/ 4.5 Inh) 2 puffs DAILY PRN INH 04/28/17 10:30 05/28/17 10:29 Bupropion HCl (Wellbutrin-Xl Tab) 300 mg QAM PO 04/29/17 09:00 05/29/17 08:59 04/30/17 08:51 300 MG Cetirizine HCl (zyrTEC TAB) 10 mg HS PO 04/28/17 21:00 05/28/17 20:59 04/29/17 20:29 10 MG Levothyroxine Sodium (Synthroid Tab) 88 mcg DAILYBB PO 04/29/17 06:00 05/29/17 05:59 04/30/17 05:20 88 MCG Prednisone (PredniSONE TAB) 10 mg QAM PO 04/29/17 09:00 05/29/17 08:59 04/30/17 08:52 10 MG Albuterol (Ventolin Hfa Inhaler) 2 puffs DAILY PRN INH 04/28/17 10:30 05/28/17 10:29 Artificial Tears (Artificial Tears) 1 drops QID OPB 04/28/17 13:00 05/28/17 12:59 Non-Formulary Medication (Estradiol Acetate Vaginal (Femring)) 1 dose UD VAGRING 04/28/17 10:30 05/28/17 10:29 Morphine Sulfate (MoRPHine SULFATE INJ) 2 mg Q4HWA PRN IV 04/28/17 10:30 05/12/17 10:29 Morphine Sulfate (MoRPHine SULFATE INJ) 4 mg Q4HWA PRN IV 04/28/17 10:30 05/12/17 10:29 Celecoxib (CeleBREX CAP) 200 mg BID PO 04/28/17 21:00 05/28/17 20:59 04/30/17 08:51 200 MG Oxycodone HCl (Roxicodone Immediate Rel Tab) 1 TABLET FOR PAIN RATING... Q4H PRN PO 04/28/17 10:30 05/12/17 10:29 Acetaminophen (Tylenol Tab) 1,000 mg Q8 PO 04/28/17 22:00 05/28/17 21:59 04/30/17 05:20 1,000 MG Magnesium Hydroxide (Milk Of Magnesia Susp) 30 ml Q6H PRN PO 04/28/17 10:30 05/28/17 10:29 Senna (Senokot Tab) 17.2 mg HS PO 04/28/17 21:00 05/28/17 20:59 04/29/17 20:29 17.2 MG Docusate Sodium (coLACE CAP) 100 mg BID PO 04/28/17 21:00 05/28/17 20:59 04/30/17 08:52 100 MG Al Hydrox/Mg Hydrox/Simethicone (Maalox Max Susp) 15 ml Q4H PRN PO 04/28/17 10:30 05/28/17 10:29 Multivitamins (Multivitamin Tab) 1 tab QAM PO 04/29/17 09:00 05/29/17 08:59 04/30/17 08:54 1 TAB Ferrous Gluconate (Ferrous Gluconate Tab) 324 mg TIDM PO 04/28/17 12:30 05/28/17 12:29 04/30/17 08:52 324 MG Pantoprazole Sodium (Protonix Tab) 40 mg QAM PO 04/29/17 09:00 05/29/17 08:59 04/30/17 08:52 40 MG Tramadol HCl (Ultram Tab) 1 tablet for pain rating... Q4H PRN PO 04/28/17 10:30 05/28/17 10:29 04/30/17 08:51 100 MG Aspirin (Ecotrin Tab) 81 mg BID PO 04/28/17 21:00 05/28/17 20:59 04/30/17 08:51 81 MG Glucose (Glucose 40% Gel) 15-30 GRAMS 15 GRAMS... UD PRN PO 04/28/17 16:15 05/28/17 16:14 Glucose (Glucose Chew Tab) 4-8 Tablets 4 Tabl... UD PRN PO 04/28/17 16:15 05/28/17 16:14 Dextrose (Dextrose 50% 50ML Syringe) 25-50ML OF 50% DW IV FOR... UD PRN IV 04/28/17 16:15 05/28/17 16:14 Glucagon (Glucagon Inj) 1 mg UD PRN SQ 04/28/17 16:15 05/28/17 16:14 Meclizine HCl (Antivert Tab) 12.5 mg TID PRN PO 04/28/17 16:45 05/28/17 16:44 Non-Formulary Medication (Non-Formulary Patient'S Own Med) 1 ea DAILY PO 04/30/17 09:00 05/30/17 08:59 04/30/17 08:53 1 EA (Galilea Lewis PA-C) Objective Vital Signs Date Time Temp Pulse Resp B/P (MAP) Pulse Ox O2 Delivery O2 Flow Rate FiO2 04/30/17 08:21 Room Air 04/30/17 07:15 36.3 63 15 135/77 (96) 97 Room Air 04/30/17 06:58 36.4 58 14 162/78 (106) 98 Room Air 04/29/17 23:43 36.4 58 15 151/81 (104) 95 Room Air 04/29/17 23:42 Room Air 04/29/17 16:40 Room Air 04/29/17 15:28 36.9 65 16 135/73 (93) 96 Room Air 04/29/17 12:37 36.9 62 16 144/80 (101) 97 Room Air 04/29/17 09:16 97 Room Air (Galilea Lewis PA-C) Physical Exam General Appearance: no apparent distress Eyes: normal inspection, PERRL ENT: hearing grossly normal Neck: supple Respiratory/Chest: lungs clear, no respiratory distress, no accessory muscle use Cardiovascular: regular rate, rhythm Abdomen: normal bowel sounds, non tender, soft Extremities: no pedal edema, no calf tenderness Neurologic/Psychiatric: alert, normal mood/affect, oriented x 3 Skin: normal color, warm/dry, no rash (Galilea Lewis ., PA-C) Laboratory Results Last 24 Hours Test 04/29/17 12:12 04/29/17 17:13 04/30/17 06:17 04/30/17 06:31 Bedside Glucose 124 mg/dl 131 mg/dl 80 mg/dl White Blood Count 9.27 K/uL Red Blood Count 3.94 M/uL Hemoglobin 13.0 g/dL Hematocrit 38.7 % Mean Corpuscular Volume 98.2 fL Mean Corpuscular Hemoglobin 33.0 pg Mean Corpuscular Hemoglobin Concent 33.6 g/dl RDW Standard Deviation 47.0 fL RDW Coefficient of Variation 13.1 % Platelet Count 197 K/uL Mean Platelet Volume 10.2 fL (Galilea Lewis ., PA-C) Assessment and Plan 72 y/o female with a history of HTN, HLD, h/o SVT, polycythemia, prediabetes, CREST syndrome, Raynaud's, mixed connective tissue disorder, legally blind, asthma, hypothyroidism, vertigo and GERD who presents s/p left TKA with Dr. Cherry on 04/28 for medical management. s/p L TKA by Dr. Cherry on 04/28: - Surgical management, pain management, DVT prophylaxis, and PT/OT as per primary team - Bowel regimen ordered - Encouraged incentive spirometer - CBC and PRP- STABLE HTN, HLD, h/o symptomatic SVT, ?paroxysmal a.fib- STABLE: - Outpatient f/u w/ cardiology in 1 month to discuss anticoagulation - Not currently on medications for HTN, HLD- BPs are STABLE Prediabetes- HgbA1c 5.8% on 04/08/17: Hyperglycemic, secondary to IV steroids- treated w/ BSG ACHS and ISS Mixed connective tissue disorder: - Prednisone 10 mg PO qd- increase to 15 mg x3 days (04/30, 05/01, 05/02) due to diffuse pain postop, then resume 10 mg daily on 05/03 Asthma, allergies: Continue Zyrtec, albuterol and Symbicort PRN Hypothyroidism: Continue Synthroid 88 mcg daily Vertigo: Meclizine PRN GERD: Prilosec converted to Protonix while inpatient DVT prophylaxis: ASA 81 mg BID as per surgical team Code Status: LEVEL I, FULL Dispo: As per primary team - Patient is medically stable for discharge, medical team will sign-off. Please feel free to contact w/ any new questions/concerns. (Galilea Lewis, PA-C) Supervising Note Dr. Dillon I performed a history and physical examination on the patient. I reviewed above note and agree with it. I discussed plan with APC and patient. During my face to face encounter with the patient, I answered all of the patient's questions. Will sign off case. (Vinh Dillon M.D.)
[2017-04-30] MEDS: OXYCODONE HCL IR 5 MG TAB (IMMEDIATE RELEASE) PO PRN ×5 (13:22→23:09)
[2017-04-30] MEDS ORDERED: NURSING VERBAL MED ORDER ONE (14:30)
[2017-04-30] MEDS ORDERED: CLB/200 PO (14:38)
[2017-04-30] MEDS ORDERED: ASPEC81 PO (14:38)
[2017-04-30] MEDS ORDERED: CLC100 PO (14:38)
[2017-04-30] MEDS ORDERED: RXC5 PO (14:38)
[2017-04-30] MEDS ORDERED: SENN-61 PO (14:38)
[2017-04-30] MEDS ORDERED: ACET-24 PO (14:38)
--- NOTE | 2017-04-30 14:44 | Discharge Instructions ---
Discharge Instructions Date of Service Apr 30, 2017. Admission Reason for Admission: Bilateral Knee Osteoarthritis Discharge Discharge Diagnosis / Problem: Left Knee Djd Discharge Goals Goal(s): Decrease discomfort, Improve function, Increase independence Activity Recommendations Activity Level: Assistance Required Therapies: Physical Therapy (TKA Protocol), Occupational Therapy (ADL's and transfers) Weightbearing Status: Left weightbearing (as tolerated) . Additional Information Patient informed of condition: Yes Advance Directives: Yes DNR: No Level of Care: Skilled Communicable Disease: No Prognosis: Stable Parsons Catheter: No Instructions / Follow-Up Instructions / Follow-Up ACTIVITY RECOMMENDATIONS: SELF CARE INSTRUCTIONS AFTER TOTAL KNEE REPLACEMENT A. You may need to continue a physical therapy program after discharge from the hospital. There are several options available to you. Your doctor will assist you in selecting the best one for you. 1. An out-patient facility 2 to 3 times a week for therapy or home therapy. 2. Continue working on all exercises taught to you in the hospital. Your goals should be to increase bending of your knee to 90 degrees and beyond and to fully straighten your knee. B. You may progress at your own pace from walking with a walker or crutches to a cane; then to no assistive devices. C. Make walking a part of your daily routine. Be up as much as comfortable with rest periods throughout the day. Rest with leg elevation is very important. Use the ice wrap frequently for the first 3-4 weeks. D. There are no restrictions on activities. You may ride in a car, shop, participate in commander internal affairs and all social activities. E. Wear the long elastic stockings (DARÍO hose) 20 hours a day for 2 weeks after surgery. They can be removed several times a day for laundering and for a bath. F. You may shower, no tub baths until cleared by your doctor. SPECIAL CARE INSTRUCTIONS: VERY IMPORTANT TO READ AND REVIEW A. There are a few signs you need to watch for after you are home. Call [facility] if you notice any of the followin. Increased severe knee pain. Some pain is expected especially when you exercise. 2. Increased swelling in your leg or knee; pain or swelling of the calf muscle in either lower leg. 3. Any fluid drainage from the incision. 4. Shortness of breath or chest pain. B. Please call [facility] at if you have any concerns or questions about your operation or recovery. The doctor or his nurse will return your call promptly. C. You must take antibiotics before dental work, bladder, bowel or other surgery. Your doctor will provide you with a permanent care to carry describing this precaution. IMPORTANT: * REMEMBER TO TAKE ASPIRIN, 81 MG, TWICE DAILY FOR 4 WEEKS UNLESS OTHERWISE DIRECTED. THIS IS YOUR BLOOD THINNER. * HIGH RISK PATIENTS MAY BE PRESCRIBED A STRONGER BLOOD THINNER. THIS WILL BE PROVIDED AT DISCHARGE. * CALL IF INCREASED PAIN, REDNESS, DRAINAGE OR FEVER GREATER THAT 101. * WEAR DARÍO HOSE 20 HOURS PER DAY FOR 2 WEEKS. * CHANGE DRESSING DAILY. USE ZECHARIAH WRAP ONLY TO COVER DRESSING. NO TAPE PLEASE. IF WOUND REMAINS DRY, YOU MAY CHANGE THE DRESSING EVERY OTHER DAY. . FOLLOW UP VISIT: If appointment is not already scheduled: FOLLOW UP WITH DR FERRER OR STEPHAN MORENO PA-C ON 05/04/17 AT 2:30PM FOR A WOUND CHECK. IF YOU HAVE ANY QUESTIONS, YOU MAY CALL THE OFFICE AT [phone] Current Hospital Diet Patient's current hospital diet: AHA Diet (Heart Healthy), Diabetes Type 2 Diet Discharge Diet Recommended Diet: AHA Diet (Heart Healthy), Diabetes Type 2 Diet Procedures Procedures Performed: Left Total Knee Arthroplasty utilizing [employer] journey 2 patient matched total knee arthroplasty size 4 femur to tibia Poly-29 oval patella Pending Studies Studies pending at discharge: no Physician Orders On Transfer Dressing Changes: DAILY. SEE INSTRUCTIONS ABOVE Vital Signs: ROUTINE Laboratory Results Hemoglobin A1c Test 04/08/17 12:01 Range/Units Estimated Average Glucose 120 mg/dl Hemoglobin A1c 5.8 H 4.5-5.6 % Medical Emergencies . Who to Call and When: Medical Emergencies: If at any time you feel your situation is an emergency, please call 911 immediately. . Non-Emergent Contact Non-Emergency issues call your: Surgeon Call Non-Emergent contact if: temperature is above 101.5, your pain is not controlled, your pain is worsening, wound has increased drainage, wound has increased redness . . "Provider Documentation" section prepared by Michael Landers. . Core Measure Problem Core Measures: None [place] Drug Monitoring Program Search Results: patient reviewed within database, no issues identified
[2017-04-30 16:04] VITALS: BP 119/68; PULSE 68; TEMP 36.7; O2SAT 95
[2017-04-30] MEDS: ONDANSETRON 4 MG TAB PO PRN (16:24)
[2017-04-30] MEDS: CETIRIZINE HCL 10 MG TAB PO SCH (20:53)
[2017-04-30] MEDS: SENNA 8.6 MG TAB PO SCH (20:54)
[2017-04-30 23:21] VITALS: BP 152/77; PULSE 57; TEMP 36.5; O2SAT 99
[2017-05-01] MEDS: OXYCODONE HCL IR 5 MG TAB (IMMEDIATE RELEASE) PO PRN ×3 (03:32→11:20)
[2017-05-01] MEDS: LEVOTHYROXINE 88 MCG TAB PO SCH (05:30)
[2017-05-01] MEDS: ACETAMINOPHEN 500 MG TAB PO SCH ×2 (05:31→14:49)
[2017-05-01 05:44] LABS: HEMATOCRIT 36.2 % (37-47); HEMOGLOBIN 12.5 g/dL (12.0-16.0); MEAN CELL VOLUME 98.9 fL (80-100); MEAN CORPUSCULAR HEMOGLOBIN 34.2 pg (25-34); MEAN CORPUSCULAR HGB CONC 34.5 g/dl (32-36); MEAN PLATELET VOLUME 10.1 fL (7.4-10.4); PLATELET COUNT 186 K/uL (130-400); RED CELL DISTRIBUTION WIDTH CV 13.1 % (11.5-14.5); RED CELL DISTRIBUTION WIDTH SD 47.3 fL (36.4-46.3); WHITE BLOOD COUNT 9.19 K/uL (4.8-10.8)
[2017-05-01 06:30] VITALS: BP 157/79; PULSE 61; TEMP 36.4; O2SAT 100
[2017-05-01] MEDS: ONDANSETRON 4 MG TAB PO PRN (07:28)
[2017-05-01] MEDS ORDERED: ULT50X PO (08:28)
--- NOTE | 2017-05-01 08:39 | Orthopedic Progress Note ---
Orthopedic Progress Note Date of Service May 01, 2017. Subjective Post OP Day: 3 Reports: feeling well, complaints (having some pain in the knee this AM), Denies : chest pain, SOB, nausea / vomiting, light headedness, calf pain Objective calves soft nontender, N/V intact, incision C/D/I, A&O x3, toes mobile Mild erythema around the knee but NT to palpation. Having some skin irritation from the tape. Bruising noted. Pt has very sensitive skin likely due to Prednisone use. Date Time Temp Pulse Resp B/P (MAP) Pulse Ox O2 Delivery O2 Flow Rate FiO2 05/01/17 06:30 36.4 61 14 157/79 (105) 100 Room Air 04/30/17 23:21 36.5 57 16 152/77 (102) 99 Room Air 04/30/17 19:15 Room Air 04/30/17 16:04 36.7 68 17 119/68 (85) 95 Room Air Laboratory Results 24 Hours: Test 05/01/17 05:17 Hematocrit 36.2 % Hemoglobin 12.5 g/dL Assessment & Plan Assessment: POD 3 s/p Left TKA Plan: PT/OT today awaiting [facility] Discussed with nursing to use carmel wrap instead of paper tape to cover dressings Inhouse Planning Pain Management: Celebrex, Ultram, Morphine, PO Tylenol, Oxy IR DVT Prophylaxis: TEDs, SCDs, ASA Discharge Planning Discharge Planning: uncertain DVT Prophylaxis: TEDs, SCDs, ASA
[2017-05-01] MEDS: ARTIFICIAL TEARS OP SOLN OPB SCH ×2 (09:00→12:21)
[2017-05-01] MEDS: CeleBREX 200 MG CAP PO SCH (09:12)
[2017-05-01] MEDS: ASPIRIN 81 MG ECTAB PO SCH (09:12)
[2017-05-01] MEDS: DOCUSATE SODIUM 100 MG CAP PO SCH (09:12)
[2017-05-01] MEDS: MULTIVITAMIN TAB PO SCH (09:12)
[2017-05-01] MEDS: FERROUS GLUCONATE 324 MG TAB PO SCH ×2 (09:12→12:21)
[2017-05-01] MEDS: BuPROPion XL 300 MG TABCR PO SCH (09:13)
[2017-05-01] MEDS: PANTOprazole SOD 40 MG TAB PO SCH (09:13)
[2017-05-01] MEDS: METHYLTESTOSTERONE PO SCH (09:14)
[2017-05-01 12:40] VITALS: BP 157/79; PULSE 61; TEMP 36.4; O2SAT 100
[2017-05-01] MEDS ORDERED: ZFR4 PO (14:37)
[2017-05-01] MEDS: TRAMADOL HCL 50 MG TAB PO PRN (14:50)
--- NOTE | 2017-05-04 19:40 | DISCHARGE SUMMARY ---
DISCHARGE DIAGNOSIS: Degenerative joint disease left knee. SECONDARY DIAGNOSES: Questionable history of atrial fibrillation in the past, prediabetes, history of being legally blind, CREST syndrome, mixed connective tissue disorder, Raynaud's disease. CONSULTS: Yoli Denise PA-C/Shania Farr MD. COMPLICATIONS: None. PROCEDURES: Left total knee arthroplasty performed by Dr. Cherry on 04/28/2017. BRIEF HISTORY: As dictated in the history and physical. HOSPITAL SUMMARY: The patient was admitted on the above-noted date and had the above-noted surgery performed which she tolerated well. On her first postoperative day, she was feeling well and had no complaints. Calves were soft and nontender, neurovascularly intact. Dressings clean, dry and intact. Toes were mobile. Vital signs were stable. She was afebrile. Hemoglobin was 14.0 and she was started on physical therapy protocol and continued on DVT prophylaxis and pain management. By her second postoperative day, she was feeling well and had no complaints. Calves were soft and nontender, neurovascularly intact. Incision was clean, dry and intact. Toes were mobile. Vital signs were stable. She was afebrile. Hemoglobin was 13.0 and the patient was requesting [facility] which case management was consulted and we are awaiting authorization. She was remaining medically stable as well and was continued to be seen by [facility] hospitalist service. By her third postoperative day, she was having some pain in the knee that morning and she had no other complaints. Calves were soft and nontender, neurovascularly intact. Incision was clean, dry and intact. Toes were mobile. She had some mild erythema around the knee but was nontender on palpation and having some skin irritation from the tape and bruising was noted. Her skin was very sensitive due to prednisone use over the years. Hemoglobin was 12.5. Vital signs were stable. Her request to be at [facility] was denied by insurance and the [facility] was approved. She was otherwise remaining stable medically and orthopedically and was transferred to the [facility] on 05/01/2017 for further physical therapy and care. For further review, please see chart. LABORATORY AND X-RAY DATA: As per chart. DISCHARGE INSTRUCTIONS: The patient was discharged to the [facility] on 05/01/2017. DIET: Heart healthy and diabetic. ACTIVITY: Weightbearing as tolerated left lower extremity, TKA protocol for physical therapy and occupational therapy, ADLs and transfers. Follow TK instructions and special care instructions as noted and follow up with Dr. Cherry or DAILY [place], on 05/04/2017 at 2:30 p.m. for wound check. DISCHARGE MEDICATIONS: Acetaminophen 1000 mg p.o. q. 8 hours for 21 days, aspirin 81 mg p.o. b.i.d. for 30 days, docusate sodium 100 mg p.o. b.i.d., Zofran 4 mg p.o. q. 8 hours p.r.n. nausea, oxycodone 5-10 mg p.o. q. 4 hours p.r.n., Senokot 17.2 mg p.o. at bedtime, tramadol 50-100 mg p.o. q. 4 hours p.r.n. Resume home meds as listed. Change Celebrex to 200 mg p.o. b.i.d. for 30 days and stop taking Tylenol PM and Excedrin extra strength.
== END 2017-05-01 15:11 | DRG 470 ==
LOC: C.ACU 06:27 → C.3E 10:26 → ENRESERV 10:44
PROVIDERS: ADMIT Orthopaedic Surgery; ATTEND Orthopaedic Surgery
PROC: 0SRD0J9 Replacement of Left Knee Joint with Synthetic Substitute, Cemented, Open Approach (ICD-10-PCS; principal; 2017-04-28 08:30)
DX: M17.12 Unilateral primary osteoarthritis, left knee (principal); M35.1 Other overlap syndromes; M34.1 CR(E)ST syndrome; R73.03 Prediabetes; R73.9 Hyperglycemia, unspecified; T38.0X5A Adverse effect of glucocorticoids and synthetic analogues, initial encounter; I10 Essential (primary) hypertension; E78.5 Hyperlipidemia, unspecified; I48.0 Paroxysmal atrial fibrillation; J45.909 Unspecified asthma, uncomplicated; E03.9 Hypothyroidism, unspecified; R42 Dizziness and giddiness; K21.9 Gastro-esophageal reflux disease without esophagitis; H54.8 Legal blindness, as defined in USA; Z86.79 Personal history of other diseases of the circulatory system; Z95.820 Peripheral vascular angioplasty status with implants and grafts; Z79.1 Long term (current) use of non-steroidal anti-inflammatories (NSAID); Z79.52 Long term (current) use of systemic steroids; Z79.890 Hormone replacement therapy; Z79.899 Other long term (current) drug therapy; Z88.1 Allergy status to other antibiotic agents; Z82.49 Family history of ischemic heart disease and other diseases of the circulatory system; Z83.3 Family history of diabetes mellitus

== ENCOUNTER 2017-05-18 11:54 | Inpatient (IN) | payer BC, OTHER ==
[~2017-05-18] VITALS: Ht 152.4 cm; Wt 56.0 kg
[~2017-05-18 11:54] MED LIST changes: +ACET-24 PO; -ACETAMINOPHEN 500 MG TAB PO SCH; +ASPEC81 PO; -ASPI-391 PO; +CARB0.5D OPB; +CLC100 PO; -CLINDAMYCIN 600 MG/54 ML D5W 54 ML IV SCH; -CeleBREX 200 MG CAP PO SCH; -DEXAMETHASONE 4 MG TAB PO SCH; -DIPH-437 PO; -FAMOTIDINE 20 MG TAB PO SCH; -GABAPENTIN 300 MG CAP PO SCH; -LACTATED RINGER'S 1000ML 1,000 ML IV SCH; -LACTATED RINGER'S 1000ML 500 ML IV SCH; -METOCLOPRAMIDE HCL 10 MG TAB PO SCH; -ROPIVACAINE 5MG/ML 30 ML 150 MG, BUPIVACAINE 0.5% MPF INJ 30 ML, EpINEphrine HCL INJ 0.... INFIL SCH; +RXC5 PO; +SENN-61 PO; +ULT50X PO; +ZFR4 PO
[2017-05-18] MEDS ORDERED: FENTANYL CITRATE INJ 50 MCG/1 ML 2 ML VIAL ONE (12:01)
[2017-05-18] MEDS ORDERED: ONDANSETRON INJ 2 MG/ML 2 ML VIAL ONE (12:03)
[2017-05-18] MEDS: AMIODARONE / D5W 200 ML IV SCH ×2 (12:17→18:18)
--- NOTE | 2017-05-18 12:22 | EMERGENCY ROOM VISIT NOTE ---
History Report prepared by Brissa: Carlton Newsome Under the Supervision of: Dr. Anastasiia Estrella D.O. First contact with patient: 11:54 Stated Complaint: TACHYCARDIA History of Present Illness The patient is a 72 year old female who presents to the Emergency Room with complaints of tachycardia that began about 2 and a half hours ago. She has a past medical history of atrial fibrillation requiring cardioversion. The last time this occurred was December 2016. This morning, the patient was getting fluid taken off of her knee when she suddenly began to feel a flutter in her chest with a pain down her left arm. She then became very nauseated. Upon EMS arrival, she was found to be in a rapid rate. She was given Zofran 4 mg and Adenosine 6 mg. This did not change her symptoms so she was given Adenosine 12 mg with a small decrease to her rate, but not significant. She is diaphoretic. She denies any fevers or vomiting. After cardioversion, the patient was able to give us more history. She notes that she had her knee replaced three weeks ago and was getting her ugo out today. However, they would not do it because of the swelling and fluid to her knee. She has been intermittently taking Percocet for her pain. Source of History: patient Onset: 2 and a half hours ago Position: other (Heart) Symptom Intensity: severe Quality: other (Tachycardia) Timing: constant Associated Symptoms: + diaphoresis, + nausea, No fevers, No vomiting Review of Systems See HPI for pertinent positives & negatives. A total of 10 systems reviewed and were otherwise negative. Past Medical & Surgical Medical Problems: (1) Left knee DJD (2) Polycythemia vera (3) SVT (supraventricular tachycardia) Family History Omitted secondary to the patient's age. Social History Smoking Status: Never Smoker Smokeless Tobacco Use: No Marital Status: Housing Status: lives alone Occupation Status: retired Current/Historical Medications Scheduled Acetaminophen (Sb Non-Aspirin Extra Stre), 1,000 MG PO Q8 Albuterol Sulfate (Proair Respiclick), 2 PUFFS INH PRN Aspirin (Aspirin EC Low Dose), 81 MG PO BID Budesonide/Formoterol Fumarate (Symbicort 80/4.5 Inhaler), 2 PUFFS INH PRN Bupropion (Wellbutrin), 300 MG PO QAM Calcium Carbonate (Tums), 2 TAB PO PRN Carboxymethylcellulose Sodium (Refresh Plus), 1 DROP OPB QID Celecoxib (CeleBREX), 200 MG PO BID Cetirizine (Zyrtec), 10 MG PO HS Cyanocobalamin (Vitamin B12), 1,000 MCG PO QAM Diphenhydramine Hcl (Benadryl Allergy), 1 CAP PO PRN Estradiol Acetate Vaginal (Femring), 1 DOSE VAGRING UD Levothyroxine Sodium (Synthroid), 88 MCG PO QAM Lysine (Lysine), 500 MG PO QAM Methyltestosterone (Methyltestosterone), 2.5 MG PO QAM Multiple Vitamins W/ Minerals (Emergen-C Immune), 1 DOSE PO QAM Multiple Vitamins W/ Minerals (Airborne Immune System), 1 DOSE PO QAM Omeprazole (Prilosec), 20 MG PO QAM Prednisone (Prednisone), 10 MG PO QAM Senna (Senokot), 17.2 MG PO HS [Citramax], 1 TAB PO QAM [Juice Plus], 12 TAB PO DAILY Scheduled PRN Amphetamine-Dextroamphetamine 10MG (Adderall 10MG), 5-10 MG PO UD PRN for RN Meclizine HCl (Meclizine HCl), 1 TAB PO TID PRN for PRN Ondansetron (Ondansetron HCl), 4 MG PO Q8H PRN for NAUSEA Tramadol HCl (Tramadol HCl), 50-100 MG PO Q4H PRN for Pain Valacyclovir (Valtrex), 500 MG PO BID PRN for PRN Allergies Coded Allergies: Shellfish (Verified Allergy, Severe, VERY SICK FOR SEVERAL DAYS/HIVES IN HER MOUTH, 05/18/17) WAS PREMED WITH STEROIDS BEFORE IODINATED DYES USED IN THE PAST NO PROBLEMS Nickel (Verified Allergy, Intermediate, RASH, 05/18/17) PT STATES Cephalexin (Verified Allergy, Unknown, NAUSEA AND VOMITING, 05/18/17) Chlorpromazine (Unverified Allergy, Unknown, JAW LOCKS, 05/18/17) Pineapple (Verified Allergy, Unknown, HIVES IN HER MOUTH, 05/18/17) Procaine (Verified Allergy, Unknown, 'makes muscle weakness worse', 05/18/17 ) Prochlorperazine (Verified Allergy, Unknown, MOTOR SEIZURES-ARMS SPASTIC, 05/18/17) ALL "ZINES' PER PT Soy Protein (Verified Allergy, Unknown, "SOY" ALLERGY-GI UPSET ABD PAIN, ) [place] (Verified Allergy, Unknown, HIVES IN HER MOUTH, 05/18/17) Tomato (Verified Allergy, Unknown, HIVES IN MOUTH, 05/18/17) [place] (Verified Allergy, Unknown, HIVES IN HER MOUTH, 05/18/17) Physical Exam Vital Signs Date Time Temp Pulse Resp B/P (MAP) Pulse Ox O2 Delivery O2 Flow Rate FiO2 05/18/17 13:31 69 16 140/82 05/18/17 13:02 67 16 124/73 05/18/17 12:32 64 16 122/74 96 Room Air 05/18/17 12:21 67 05/18/17 12:06 63 20 124/57 96 Room Air 05/18/17 12:04 68 05/18/17 12:04 196 05/18/17 11:58 197 05/18/17 11:55 36.8 197 20 76/62 96 Room Air Physical Exam HEENT: Head - normocephalic and atraumatic Pupils are equal, round, and reactive to light. Extraocular eye muscles are intact, and sclera are anicteric. Nose - moist nasal mucosa without discharge. Mouth - moist buccal mucosa. Oropharynx is nonerythematous and there is no tonsillar exudate or edema noted. Neck: Supple; no JVD, nuchal rigidity, cervical lymphadenopathy. Heart: Tachycardic rate with a regular rhythm. There is a normal S1 and S2 with no murmurs, clicks, or gallops appreciated. Lungs: Diminished breath sounds to all lung dumont. Abdomen: Soft, completely nontender, nondistended, with good bowel sounds. There are no palpable pulsatile masses or hepatosplenomegaly. There is no guarding, rigidity, or rebound noted. Extremities: The left knee is erythematous and tender. S/p surgery. No evidence of cyanosis or clubbing. There are easily palpable peripheral pulses. Skin: pale and diaphoretic with good turgor and no rashes. Medical Decision & Procedures ER Provider Diagnostic Interpretation: Radiology results as stated below per my review and the radiologist's interpretation: CHEST ONE VIEW PORTABLE HISTORY: 72 years-old Female v=tach acute ventricular tachycardia COMPARISON: Chest radiographs 04/08/2017 TECHNIQUE: Portable AP view of the chest FINDINGS: Cardiac mediastinal and hilar silhouettes are within normal limits. Atherosclerosis of the aorta. Increased lucency with hyperinflation of the lungs suggests emphysema. No pneumothorax, pleural effusion, focal airspace consolidation or overt pulmonary edema. Reverse left shoulder arthroplasty noted. Sigmoidal scoliosis of the thoracolumbar spine. Right cervical rib is noted. IMPRESSION: No acute process. The above report was generated using voice recognition software. It may contain grammatical, syntax or spelling errors. Electronically signed by: Shawn García M.D. 05/18/2017 12:41 PM Dictated Date/Time: 05/18/2017 12:39 PM Laboratory Results 05/18/17 11:57 Red Blood Count 4.17, Mean Corpuscular Volume 101.0, Mean Corpuscular Hemoglobin 33.3, Mean Corpuscular Hemoglobin Concent 33.0, Mean Platelet Volume 10.2, Neutrophils (%) (Auto) 86.2, Lymphocytes (%) (Auto) 7.5, Monocytes (%) ( Auto) 4.6, Eosinophils (%) (Auto) 0.5, Basophils (%) (Auto) 0.2, Neutrophils # ( Auto) 9.85, Lymphocytes # (Auto) 0.86, Monocytes # (Auto) 0.53, Eosinophils # ( Auto) 0.06, Basophils # (Auto) 0.02 05/18/17 11:57 Test 05/18/17 11:57 05/18/17 12:05 05/18/17 12:15 White Blood Count 11.44 K/uL (4.8-10.8) Red Blood Count 4.17 M/uL (4.2-5.4) Hemoglobin 13.9 g/dL (12.0-16.0) Hematocrit 42.1 % (37-47) Mean Corpuscular Volume 101.0 fL (80-100) Mean Corpuscular Hemoglobin 33.3 pg (25-34) Mean Corpuscular Hemoglobin Concent 33.0 g/dl (32-36) Platelet Count 334 K/uL (130-400) Mean Platelet Volume 10.2 fL (7.4-10.4) Neutrophils (%) (Auto) 86.2 % Lymphocytes (%) (Auto) 7.5 % Monocytes (%) (Auto) 4.6 % Eosinophils (%) (Auto) 0.5 % Basophils (%) (Auto) 0.2 % Neutrophils # (Auto) 9.85 K/uL (1.4-6.5) Lymphocytes # (Auto) 0.86 K/uL (1.2-3.4) Monocytes # (Auto) 0.53 K/uL (0.11-0.59) Eosinophils # (Auto) 0.06 K/uL (0-0.5) Basophils # (Auto) 0.02 K/uL (0-0.2) RDW Standard Deviation 51.1 fL (36.4-46.3) RDW Coefficient of Variation 13.8 % (11.5-14.5) Immature Granulocyte % (Auto) 1.0 % Immature Granulocyte # (Auto) 0.12 K/uL (0.00-0.02) Anion Gap 11.0 mmol/L (3-11) Est Creatinine Clear Calc Drug Dose 46.0 ml/min Estimated GFR () 74.0 Estimated GFR (Non- 63.8 BUN/Creatinine Ratio 33.5 (10-20) Calcium Level 9.3 mg/dl (8.5-10.1) Total Bilirubin 0.6 mg/dl (0.2-1) Alanine Aminotransferase (ALT/SGPT) 32 U/L (12-78) Alkaline Phosphatase 51 U/L (45-117) Creatine Kinase MB 1.6 ng/ml (0.5-3.6) Pro-B-Type Natriuretic Peptide 1343 pg/ml (0-900) Total Protein 7.4 gm/dl (6.4-8.2) Albumin 3.3 gm/dl (3.4-5.0) Thyroid Stimulating Hormone (TSH) 0.988 uIu/ml (0.300-4.500) Prothrombin Time 10.4 SECONDS (9.0-12.0) Prothromb Time International Ratio 1.0 (0.9-1.1) Activated Partial Thromboplast Time 26.9 SECONDS (21.0-31.0) Partial Thromboplastin Ratio 1.0 Creatine Kinase MB Ratio (0-3.0) Laboratory results per my review. Medications Administered Medications (Trade) Dose Ordered Sig/Sun Route Start Time Stop Time Status Last Admin Dose Admin Fentanyl Citrate (Fentanyl Inj) 100 mcg STK-MED ONCE .ROUTE 05/18/17 12:01 05/18/17 12:02 DC 05/18/17 12:02 50 MCG Ondansetron HCl (Zofran Inj) 4 mg STK-MED ONCE .ROUTE 05/18/17 12:03 05/18/17 12:04 DC 05/18/17 12:02 4 MG Amiodarone HCL/ Dextrose 200 ml @ 33.3 mls/hr Q6H1M IV 05/18/17 12:15 06/17/17 12:14 05/18/17 18:18 33.3 MLS/HR Morphine Sulfate (MoRPHine SULFATE INJ) 2 mg NOW STAT IV 05/18/17 12:40 05/18/17 12:42 DC 05/18/17 12:51 2 MG Procedure Fentanyl - 50mcg IV Amiodarone drip Synchronized cardioversion Indication: Unstable tachycardia Written consent was not obtained as this was an emergent procedure for hypotension. At this time, the risks of the procedure are less than the risks of NOT performing the procedure. A time out was taken and the correct patient and procedure identified. Suction, airway equipment, medications, respiratory equipment, ACLS cart, and appropriate personnel were prepared prior to the initiation of the procedure. The patient was quickly given 50 mcg of Fentanyl. The biphasic defibrillator was set to 100 joules of energy and synched. After confirmation of sedation and "all clear" safety check the synchronized shock was delivered. This resulted in successful conversion of the dysrhythmia back into sinus rhythm. See nursing notes for dosages and times. There were no complications and the patient recovered uneventfully from the procedure. ECG Indication: tachycardia Rate (beats per minute): 197 Rhythm: v-tach Change: 2nd ECG Findings post cardioversion: NSR 65, ST depressions concerning for ischemic change V-Tach was replaced by NSR. ED Course 1154: Past medical records reviewed. The patient was evaluated emergently in room A1. A twelve-lead EKG was obtained. A complete history and physical exam was performed. Patient's ECG interpreted by me. A second IV lock was initiated. 1202: The patient became hypotensive. She was given 50 g of IV fentanyl I performed a cardioversion procedure at this time. Please see the procedure note for more information. 1240: Ordered Morphine Sulfate 2 mg IV for the patient's knee pain. 1305: Upon reevaluation, I discussed findings and results with that patient. She verbalized agreement of the treatment plan. I spoke with Gypsy Handy PA-C of the [place] [facility]ist Service. The patient will be evaluated for further management and care. Medical Decision The patient is a 72 year old female who presents to the ED with tachycardia. Differential diagnosis includes cardiac dysrhythmia, palpitations, and CHF. Laboratory Results: White Blood Cell count 11.4, stable H&H, normal TSH, negative cardiac enzymes, BNP 1343, glucose 200, BUN 30, creatinine 0.8, normal coagulation studies This is a 72-year-old female patient with history of previous cardiac dysrhythmia who presents to the emergency department with an unstable wide complex tachycardia and hypotension. She received emergency room at cardioversion which put her back into a sinus rhythm. I then started an IV amiodarone drip. The patient remained hemodynamically stable. She was given a dose of morphine for the left knee pain status post knee replacement. Medication Reconcilliation Current Medication List: was personally reviewed by me Blood Pressure Screening Patient's blood pressure: Elevated blood pressure Referred to the hospitalist. Consults Time Called: 1300 Consulting Physician: Gypsy Griffin PA-C - [facility] [place] Returned Call: [phone] Discussed the patient's case. The patient will be evaluated for further management. Impression Primary Impression: Wide-complex tachycardia Additional Impression: Hyperglycemia Critical Care I have personally spent greater than 45 minutes of critical care time in the direct management of this patient. This includes bedside care, interpretation of diagnostic studies, and testing, discussion with consultants, patient, and family members, and other required patient management activities. This 45 minutes is in excess of all separately billable procedures. Scribe Attestation The scribe's documentation has been prepared under my direction and personally reviewed by me in its entirety. I confirm that the note above accurately reflects all work, treatment, procedures, and medical decision making performed by me. Departure Information Dispostion Being Evaluated By Hospitalist Referrals Angel Mills M.D. (PCP) Problem Qualifiers
[2017-05-18] MEDS ORDERED: MoRPHine SULFATE 4 MG/ML 1 ML CARP\\VIAL IV STA (12:40)
--- NOTE | 2017-05-18 12:42 | DIAGNOSTIC IMAGING REPORT ---
CHEST ONE VIEW PORTABLE HISTORY: 72 years-old Female v=tach acute ventricular tachycardia COMPARISON: Chest radiographs 04/08/2017 TECHNIQUE: Portable AP view of the chest FINDINGS: Cardiac mediastinal and hilar silhouettes are within normal limits. Atherosclerosis of the aorta. Increased lucency with hyperinflation of the lungs suggests emphysema. No pneumothorax, pleural effusion, focal airspace consolidation or overt pulmonary edema. Reverse left shoulder arthroplasty noted. Sigmoidal scoliosis of the thoracolumbar spine. Right cervical rib is noted. IMPRESSION: No acute process. The above report was generated using voice recognition software. It may contain grammatical, syntax or spelling errors. Electronically signed by: Shawn García M.D. 05/18/2017 12:41 PM Dictated Date/Time: 05/18/2017 12:39 PM
[2017-05-18 12:43] LABS: BASO % 0.2 %; BASO ABS # 0.02 K/uL (0-0.2); EOS % 0.5 %; EOS ABS # 0.06 K/uL (0-0.5); HEMATOCRIT 42.1 % (37-47); HEMOGLOBIN 13.9 g/dL (12.0-16.0); IG# 0.12 K/uL (0.00-0.02); LYMPH % 7.5 %; LYMPH ABS # 0.86 K/uL (1.2-3.4); MEAN CORPUSCULAR HEMOGLOBIN 33.3 pg (25-34); MEAN PLATELET VOLUME 10.2 fL (7.4-10.4); MONO % 4.6 %; MONO ABS # 0.53 K/uL (0.11-0.59); NEUT % 86.2 %; NEUT ABS # 9.85 K/uL (1.4-6.5); PLATELET COUNT 334 K/uL (130-400); RED CELL DISTRIBUTION WIDTH CV 13.8 % (11.5-14.5); RED CELL DISTRIBUTION WIDTH SD 51.1 fL (36.4-46.3); WHITE BLOOD COUNT 11.44 K/uL (4.8-10.8)
[2017-05-18 12:55] LABS: PTT PATIENT 26.9 SECONDS (21.0-31.0)
[2017-05-18 13:22] LABS: BLOOD UREA NITROGEN 30 mg/dl (7-18); CREATININE 0.89 mg/dl (0.60-1.20); GLUCOSE 200 mg/dl (70-99)
[2017-05-18 13:23] LABS: ALBUMIN 3.3 gm/dl (3.4-5.0); ALKALINE PHOSPHATASE 51 U/L (45-117); ALT/SGPT 32 U/L (12-78); CALCIUM 9.3 mg/dl (8.5-10.1); CARBON DIOXIDE 23 mmol/L (21-32); CKMB 1.6 ng/ml (0.5-3.6); SODIUM 135 mmol/L (136-145); TOTAL PROTEIN 7.4 gm/dl (6.4-8.2)
[2017-05-18] MEDS ORDERED: POLYETHYLENE (MIRALAX) 17 GM PACK PO PRN (14:00)
[2017-05-18] MEDS ORDERED: MAGNESIUM HYDROXIDE SUSP 30 ML UDC PO PRN (14:00)
[2017-05-18] MEDS ORDERED: ALUMINUM/MAGNESIUM/SIMETH (MAALOX MAX) 30 ML UDC PO PRN (14:00)
[2017-05-18] MEDS ORDERED: ONDANSETRON INJ 2 MG/ML 2 ML VIAL IV PRN (14:00)
[2017-05-18] MEDS ORDERED: MECLIZINE HCL 12.5 MG TAB PO PRN (14:00)
[2017-05-18] MEDS ORDERED: ACETAMINOPHEN 325 MG TAB PO PRN (14:00)
--- NOTE | 2017-05-18 14:28 | History and Physical ---
History & Physical Date & Time of Service: May 18, 2017 at 14:02 Chief Complaint: Tachycardia Primary Care Physician: Angel Mills M.D. History of Present Illness Source: patient, family Ms. Dobson is a 72 y/o female with PMHx of Paroxysmal Atrial Fibrillation S/P Cardioversion (December 2016), SVT, Benign Micro Re-Entrant Rhythm, HTN, HLD, Polycythemia, CREST Syndrome, Mixed Connective Tissue D/O, PAD S/P Stent, Asthma , Hypothyroidism, and Legally Blind who presents to the ED due to tachycardia. Patient was at [facility] to have fluid drained from her L knee she just had replaced approx. 3 weeks ago. She states she was feeling her normal self prior to this visit. She states she felt like she was getting anxious about the procedure and felt fluttering of her chest, the feeling of someone sitting on her chest with radiation into her neck, L arm pain, and severe nausea. She states she was able to get the procedure done before she was fully symptomatic. She also reports associated dizziness/lightheadedness and SOB. She denies LOC or falls. She states she had a similar occurrence and was told she had A Fib and was cardioverted because her HR were in the 200s then. She follows with Dr. Hubbard and the plan is ultimately to do ablation but she has post-poned this due to her recent knee surgery. She also states she was advised that she should be on a blood thinner but she states she has a strong family history of cerebral hemorrhage and does not want anticoagulation at this time. Pre-Hospital, rhythm monitoring suggested SVT and she was given Adenosine 6 mg and then 12 mg that was not successful. Upon arrival to ED, pressures were dropping into 60-70s systolically. She was successfully cardioverted with 100J and is in a NSR. EKGs on chart appear to have a wide complex rhythm in some leads with others with possible P and T waves somewhat visible in the QRS complex. Vital signs are stable at this time and patient is mentating appropriately. Past Medical/Surgical History Medical Problems: (1) Polycythemia vera Status: Chronic Family History Acute myocardial infarction Coronary artery disease Diabetes mellitus Stroke Social History Smoking Status: Never Smoker Smokeless Tobacco Use: No Alcohol Use: none Drug Use: none Marital Status: Occupational Status: retired Immunizations History of Influenza Vaccine: Yes History of Tetanus Vaccine?: Unknown History of Pneumococcal: Yes History of Hepatitis B Vaccine: No Multi-Drug Resistant Organisms History of MDRO: No Allergies Coded Allergies: Shellfish (Verified Allergy, Severe, VERY SICK FOR SEVERAL DAYS/HIVES IN HER MOUTH, 05/18/17) WAS PREMED WITH STEROIDS BEFORE IODINATED DYES USED IN THE PAST NO PROBLEMS Nickel (Verified Allergy, Intermediate, RASH, 05/18/17) PT STATES Cephalexin (Verified Allergy, Unknown, NAUSEA AND VOMITING, 05/18/17) Chlorpromazine (Unverified Allergy, Unknown, JAW LOCKS, 05/18/17) Pineapple (Verified Allergy, Unknown, HIVES IN HER MOUTH, 05/18/17) Procaine (Verified Allergy, Unknown, 'makes muscle weakness worse', 05/18/17 ) Prochlorperazine (Verified Allergy, Unknown, MOTOR SEIZURES-ARMS SPASTIC, 05/18/17) ALL "ZINES' PER PT Soy Protein (Verified Allergy, Unknown, "SOY" ALLERGY-GI UPSET ABD PAIN, ) Mooers (Verified Allergy, Unknown, HIVES IN HER MOUTH, 05/18/17) Tomato (Verified Allergy, Unknown, HIVES IN MOUTH, 05/18/17) Otho (Verified Allergy, Unknown, HIVES IN HER MOUTH, 05/18/17) Home Medications Scheduled Acetaminophen (Sb Non-Aspirin Extra Stre), 1,000 MG PO Q8 Albuterol Sulfate (Proair Respiclick), 2 PUFFS INH PRN Aspirin (Aspirin EC Low Dose), 81 MG PO BID Budesonide/Formoterol Fumarate (Symbicort 80/4.5 Inhaler), 2 PUFFS INH PRN Bupropion (Wellbutrin), 300 MG PO QAM Calcium Carbonate (Tums), 2 TAB PO PRN Carboxymethylcellulose Sodium (Refresh Plus), 1 DROP OPB QID Celecoxib (CeleBREX), 200 MG PO BID Cetirizine (Zyrtec), 10 MG PO HS Cyanocobalamin (Vitamin B12), 1,000 MCG PO QAM Diphenhydramine Hcl (Benadryl Allergy), 1 CAP PO PRN Estradiol Acetate Vaginal (Femring), 1 DOSE VAGRING UD Levothyroxine Sodium (Synthroid), 88 MCG PO QAM Lysine (Lysine), 500 MG PO QAM Methyltestosterone (Methyltestosterone), 2.5 MG PO QAM Multiple Vitamins W/ Minerals (Emergen-C Immune), 1 DOSE PO QAM Multiple Vitamins W/ Minerals (Airborne Immune System), 1 DOSE PO QAM Omeprazole (Prilosec), 20 MG PO QAM Prednisone (Prednisone), 10 MG PO QAM Senna (Senokot), 17.2 MG PO HS [Citramax], 1 TAB PO QAM [Juice Plus], 12 TAB PO DAILY Scheduled PRN Amphetamine-Dextroamphetamine 10MG (Adderall 10MG), 5-10 MG PO UD PRN for RN Meclizine HCl (Meclizine HCl), 1 TAB PO TID PRN for PRN Ondansetron (Ondansetron HCl), 4 MG PO Q8H PRN for NAUSEA Tramadol HCl (Tramadol HCl), 50-100 MG PO Q4H PRN for Pain Valacyclovir (Valtrex), 500 MG PO BID PRN for PRN Review of Systems ROS General/Constitutional: Denies fever/chills, fatigue, weakness ENT: + chronic visual deficits (legally blind); Denies visual changes, nasal drainage, hearing loss, sore throat, trouble swallowing Cardiovascular: + chest pressure (resolved), + fluttering (resolved) Respiratory: + cough, + SOB (resolved); Denies sputum, wheezing, orthopnea GI: + nausea; Denies vomiting, abdominal pain, constipation, diarrhea, melena/ hematochezia : Denies dysuria Musculoskeletal: + L knee pain Neurologic: + dizziness/lightheadedness (resolved) Hematologic/Lymphatic: Denies bleeding/clotting abnormalities Skin: Denies rash Physical Exam Vital Signs Date Time Temp Pulse Resp B/P (MAP) Pulse Ox O2 Delivery O2 Flow Rate FiO2 05/18/17 12:21 67 05/18/17 12:06 63 20 124/57 96 Room Air 05/18/17 12:04 68 05/18/17 12:04 196 05/18/17 11:58 197 05/18/17 11:55 36.8 197 20 76/62 96 Room Air General Appearance: WDWN in NAD who is A&O x 3 HEENT: Head is normocephalic/atraumatic; Hearing grossly intact; Mucous membranes moist; Pharynx negative for exudate/lesions Neck: Supple; Trachea midline; Neg JVD; Neg lymphadenopathy Heart: RRR with no M/G/R Lungs: CTA in all lung dumont bilaterally; Respirations unlabored; Neg accessory muscle use Abdomen: Soft, non-tender, non-distended; Positive BS x 4 quadrants; Neg organomegaly Extremities: Neg cyanosis or edema; L knee with ugo intake with minimal ecchymosis without erythema or drainage Neurological: Speech clear; Gross motor/sensory function intact; Neg focal neurologic deficits Psychiatric: Appropriate mood/affect Skin: Normal Color; Warm/Dry Diagnostics Laboratory Results Results Past 24 Hours Test 05/18/17 11:57 05/18/17 12:05 05/18/17 12:15 05/18/17 13:23 Range/Units White Blood Count 11.44 4.8-10.8 K/uL Red Blood Count 4.17 4.2-5.4 M/uL Hemoglobin 13.9 12.0-16.0 g/dL Hematocrit 42.1 37-47 % Mean Corpuscular Volume 101.0 80-100 fL Mean Corpuscular Hemoglobin 33.3 25-34 pg Mean Corpuscular Hemoglobin Concent 33.0 32-36 g/dl Platelet Count 334 130-400 K/uL Mean Platelet Volume 10.2 7.4-10.4 fL Neutrophils (%) (Auto) 86.2 % Lymphocytes (%) (Auto) 7.5 % Monocytes (%) (Auto) 4.6 % Eosinophils (%) (Auto) 0.5 % Basophils (%) (Auto) 0.2 % Neutrophils # (Auto) 9.85 1.4-6.5 K/uL Lymphocytes # (Auto) 0.86 1.2-3.4 K/uL Monocytes # (Auto) 0.53 0.11-0.59 K/uL Eosinophils # (Auto) 0.06 0-0.5 K/uL Basophils # (Auto) 0.02 0-0.2 K/uL RDW Standard Deviation 51.1 36.4-46.3 fL RDW Coefficient of Variation 13.8 11.5-14.5 % Immature Granulocyte % (Auto) 1.0 % Immature Granulocyte # (Auto) 0.12 0.00-0.02 K/uL Sodium Level 135 136-145 mmol/L Potassium Level 3.5-5.1 mmol/L Chloride Level 101 98-107 mmol/L Carbon Dioxide Level 23 21-32 mmol/L Anion Gap 11.0 3-11 mmol/L Blood Urea Nitrogen 30 7-18 mg/dl Creatinine 0.89 0.60-1.20 mg/dl Est Creatinine Clear Calc Drug Dose 46.0 ml/min Estimated GFR () 74.0 Estimated GFR (Non- 63.8 BUN/Creatinine Ratio 33.5 10-20 Random Glucose 200 70-99 mg/dl Calcium Level 9.3 8.5-10.1 mg/dl Magnesium Level 1.8-2.4 mg/dl Total Bilirubin 0.6 0.2-1 mg/dl Direct Bilirubin 0-0.2 mg/dl Aspartate Amino Transf (AST/SGOT) 15-37 U/L Alanine Aminotransferase (ALT/SGPT) 32 12-78 U/L Alkaline Phosphatase 51 45-117 U/L Total Creatine Kinase 26-192 U/L Creatine Kinase MB 1.6 0.5-3.6 ng/ml Troponin I < 0.015 0-0.045 ng/ml Pro-B-Type Natriuretic Peptide 1343 0-900 pg/ml Total Protein 7.4 6.4-8.2 gm/dl Albumin 3.3 3.4-5.0 gm/dl Thyroid Stimulating Hormone (TSH) 0.988 0.300-4.500 uIu/ml Prothrombin Time 10.4 9.0-12.0 SECONDS Prothromb Time International Ratio 1.0 0.9-1.1 Activated Partial Thromboplast Time 26.9 21.0-31.0 SECONDS Partial Thromboplastin Ratio 1.0 Creatine Kinase MB Ratio 0-3.0 Diagnostic Radiology CHEST ONE VIEW PORTABLE FINDINGS: Cardiac mediastinal and hilar silhouettes are within normal limits. Atherosclerosis of the aorta. Increased lucency with hyperinflation of the lungs suggests emphysema. No pneumothorax, pleural effusion, focal airspace consolidation or overt pulmonary edema. Reverse left shoulder arthroplasty noted. Sigmoidal scoliosis of the thoracolumbar spine. Right cervical rib is noted. IMPRESSION: No acute process. EKG Poor data quality, interpretation may be adversely affected Wide QRS tachycardia Non-specific intra-ventricular conduction block Abnormal ECG When compared with ECG of 08-APR-2017 11:56, Wide QRS tachycardia has replaced Sinus rhythm Vent. rate has increased BY 128 BPM Confirmed by RIVERA KWONG ([id number]) on 05/18/2017 2:18:30 PM Impression Assessment and Plan Ms. Dobson is a 72 y/o female with PMHx of Paroxysmal Atrial Fibrillation S/P Cardioversion (December 2016), SVT, Benign Micro Re-Entrant Rhythm, HTN, HLD, Polycythemia, CREST Syndrome, Mixed Connective Tissue D/O, PAD S/P Stent, Asthma , Hypothyroidism, and Legally Blind who presents to the ED due to tachycardia. Wide Complex Tachycardia - Suspect SVT S/P Cardioversion: NSR Currently - Reviewed EKGs from Mar 2017 without evidence of LBBB but current EKGs showing what appears to be a LBBB which may be from her rates; EKG shows wide complex but appears to have P and T waves superimposed in QRS - No response to Adenosine 6 mg and 12 mg pre-hospital; Successful cardioversion with 100 J; vitals stable - Admit to telemetry for rhythm monitoring and serial cardiac enzymes - Continue amiodarone gtt at this time - Consult cardiology - follows with Dr. Hubbard - appreciate recommendations Paroxysmal Atrial Fibrillation and H/O SVT and Re-Entrant Rhythm: - Per patient consideration for ablation has been discussed but she has held this off given her orthopedic procedure - Does not want AC at this time given significant FHMx of Cerebral hemorrhage - No on rate control medications at this time Mixed Connective Tissue D/O and CREST: - Prednisone 10 mg daily Asthma without Exacerbation: - Patient reporting since cardioversion she has a cough but non-productive; no wheezing - Continue inhalers and Zyrtec 10 mg HS Hypothyroidism: Compensated - Synthroid 88 mcg daily Pre-DM: - BSG on admission 200 - will use T2DM diet and check BSGs - cover with SSI as needed DVT Prophylaxis: - Hold ASA tonight given aspiration of knee today then resume ASA BID tomorrow Code Status: FULL RESUSCITATION PA Physician Supervision Note: I interviewed and examined the patient. Discussed with Gypsy SCHULTZ and agree with findings and plan as documented in the note. Any exceptions or clarifications are listed here: None Patient presented from orthopedic office with a rapid cardiac rhythm she is a history of paroxysmal atrial fib in the past she has been cardioverted she said with cardioversion in the past. She follows Dr. Hubbard. Patient was being unstable in the ER and she was successfully cardioverted. Patient is current on amiodarone drip she spoken to Dr. Reed in the past but anticoagulation is been against it due to family history of intercerebral hemorrhage she currently is resting comfortably maintaining a sinus rhythm and good blood pressure Her exam shows her to be of difficult site which is her history her cardiac exam sounds to be regular to me her lungs are clear without signs of heart failure there is no JVD Tachycardic rhythm with cardiovascular instability status post cardioversion and amiodarone drip Patiently placed in telemetry continue her amiodarone drip she'll have an evaluation bilateral physiology with Dr. Reed show CT for PE will resume her DVT prevention as per orthopedics wishes in the morning of aspirin 81 twice a day unless the CT shows a clot then we may consider formal full anticoagulation after discussion given the patient's hesitancy to use this in the past Documented By: Avinash Barnett Level of Care Telemetry Advanced Directives Existing Advance Directive: Yes Resuscitation Status FULL RESUSCITATION VTE Prophylaxis VTE Risk Assessment Done? Y/N: Yes Risk Level: Moderate Given or contraindicated: SCD's
[2017-05-18] MEDS ORDERED: GLUCOSE 40% GEL 15 GM TUBE PO PRN (14:30)
[2017-05-18] MEDS ORDERED: GLUCOSE 10 TABS/TUBE PO PRN (14:30)
[2017-05-18] MEDS ORDERED: DEXTROSE 50% 50 ML SYR IV PRN (14:30)
[2017-05-18] MEDS ORDERED: GLUCAGON FOR INJ 1 MG VIAL SQ PRN (14:30)
[2017-05-18] MEDS ORDERED: OPTIRAY 320 IV PRN (15:30)
--- NOTE | 2017-05-18 16:06 | DIAGNOSTIC IMAGING REPORT ---
(CHEST FOR PE) ANGIO WITH CLINICAL HISTORY: 72 years-old Female presenting with ^eval with recent knee surgery and svt. TECHNIQUE: Multidetector CT angiography of the chest was performed after administration of intravenous contrast. 3-D volumetric and/or maximum intensity projection (MIP) images were subsequently reconstructed for review. IV contrast: 83 mL of Optiray 320. A dose lowering technique was used consistent with the principles of ALARA (as low as reasonably achievable). COMPARISON: None. CT DOSE (mGy.cm): The estimated cumulative dose is 204.03 mGy.cm. FINDINGS: Manager Primary Care topogram: Scoliotic curvature of the spine. Reverse left total shoulder arthroplasty. Pulmonary vasculature: The study is suboptimal for the assessment of the pulmonary vascular tree secondary to respiratory motion artifact. Allowing for limited image quality, no central filling defect to suggest pulmonary embolus. Main pulmonary artery is not enlarged. No flattening of the interventricular septum. No intracardiac filling defect. No reflux of contrast into the hepatic veins. Remaining chest: On soft tissue windows, thyroid poorly visualized secondary to regional streak artifact. Normal breast parenchyma. No axillary, supraclavicular, hilar, or mediastinal lymphadenopathy. Atherosclerosis of the aorta with persistent high-grade stenosis of the origin of the left subclavian artery (greater than 90% stenosis, unchanged). Multichamber enlargement of the heart. Several hypodensities noted scattered throughout the liver as on prior exam. The esophagus is distended with debris. Mild esophageal wall thickening may be present. On lung windows, respiratory motion degrades evaluation of lung parenchyma. Within this limitation, dependent changes likely atelectasis. No other infiltrate or focal nodule. Central airways patent. On bone windows, reversal total shoulder arthroplasty on the left. Scoliotic curvature of the spine. IMPRESSION: 1. Allowing for suboptimal image quality, no evidence of pulmonary embolus. 2. Bibasilar atelectasis. Otherwise no acute intrathoracic pathology. Electronically signed by: Alexey Ceja M.D. 05/18/2017 4:05 PM Dictated Date/Time: 05/18/2017 3:59 PM
[2017-05-18] MEDS: TRAMADOL HCL 50 MG TAB PO PRN (16:26)
[2017-05-18 17:40] VITALS: BP 152/81; PULSE 62; TEMP 36.5; O2SAT 96; Ht 152.4 cm; Wt 56.0 kg
[2017-05-18] MEDS: INSULIN ASPART 100 UNITS/ML 3 ML PEN SC SCH ×2 (18:00→21:00)
[2017-05-18] MEDS ORDERED: CALCIUM CARBONATE 500 MG CHEWABLE PO PRN (19:00)
[2017-05-18] MEDS ORDERED: ALBUTEROL HFA 8 GM INHALER INH PRN (19:00)
[2017-05-18] MEDS: MAGNESIUM SULFATE 1GM / D5W 1 GM in PREMIXED IN D5W 100 ML IV SCH ×2 (19:09→20:42)
[2017-05-18 19:35] VITALS: BP 133/77; PULSE 62; TEMP 36.5; O2SAT 98
[2017-05-18 20:00] VITALS: O2SAT 98
[2017-05-18] MEDS: SENNA 8.6 MG TAB PO SCH (20:02)
--- NOTE | 2017-05-18 20:02 | Progress Note ---
Progress Note Date of Service May 18, 2017. Progress Note Patient's troponin increased to 2.4. Expected finding after cardioversion. She is asymptomatic from a cardiac standpoint and vitals signs remain stable. EKG after cardioversion with significant ST depressions which is likely normal variant after cardioversion. Will obtain new EKG to assess for any further changes. Will order echo for tomorrow to further evaluate for any wall abnormalities or changes from previous echocardiogram.
[2017-05-18] MEDS: DOCUSATE SODIUM 100 MG CAP PO SCH (20:03)
[2017-05-18] MEDS: OXYCODONE HCL IR 5 MG TAB (IMMEDIATE RELEASE) PO PRN (20:03)
[2017-05-18] MEDS: CETIRIZINE HCL 10 MG TAB PO SCH (20:03)
--- NOTE | 2017-05-18 23:43 | Progress Note ---
Progress Note Date of Service May 18, 2017. Progress Note Amio drip reduced to 0.5 mg/min due to HR in low 50s Resident Tracking Resident Involvement: Resident Care Provided Care Provided: Adult Hospital Medicine
[2017-05-19] VITALS (11 sets, daily range): BP systolic 135–170; BP diastolic 61–80; PULSE 51–80; TEMP 36.2–37.5; O2SAT 95–100
[2017-05-19] MEDS: OXYCODONE HCL IR 5 MG TAB (IMMEDIATE RELEASE) PO PRN ×5 (00:11→20:50)
[2017-05-19] MEDS: AMIODARONE / D5W 200 ML IV SCH ×2 (00:12→12:40)
[2017-05-19] MEDS: TRAMADOL HCL 50 MG TAB PO PRN (03:38)
[2017-05-19] MEDS: LEVOTHYROXINE 88 MCG TAB PO SCH (06:20)
[2017-05-19] MEDS: INSULIN ASPART 100 UNITS/ML 3 ML PEN SC SCH ×4 (07:00→20:50)
[2017-05-19 07:44] LABS: HEMATOCRIT 39.7 % (37-47); HEMOGLOBIN 12.6 g/dL (12.0-16.0); MEAN CELL VOLUME 101.3 fL (80-100); MEAN CORPUSCULAR HEMOGLOBIN 32.1 pg (25-34); MEAN CORPUSCULAR HGB CONC 31.7 g/dl (32-36); MEAN PLATELET VOLUME 9.5 fL (7.4-10.4); PLATELET COUNT 263 K/uL (130-400); WHITE BLOOD COUNT 7.91 K/uL (4.8-10.8)
[2017-05-19] MEDS: DOCUSATE SODIUM 100 MG CAP PO SCH ×2 (08:03→20:51)
[2017-05-19] MEDS: ASPIRIN 81 MG ECTAB PO SCH ×2 (08:03→20:51)
[2017-05-19] MEDS: CYANOCOBALAMIN 500 MCG TAB (VIT B-12) PO SCH (08:03)
[2017-05-19] MEDS: BuPROPion XL 300 MG TABCR PO SCH (08:03)
[2017-05-19] MEDS: PANTOprazole SOD 40 MG TAB PO SCH (08:04)
[2017-05-19 08:18] LABS: CALCIUM 8.2 mg/dl (8.5-10.1); CREATININE 0.64 mg/dl (0.60-1.20); POTASSIUM 3.4 mmol/L (3.5-5.1)
[2017-05-19] MEDS ORDERED: POTASSIUM CHLORIDE 10 MEQ TABCR PO STA (08:21)
--- NOTE | 2017-05-19 09:12 | Clinical Documentation Query ---
CEASAR Cook : CLINICAL DOCUMENTATION QUERY Patient is a 72 year old male admitted s/p cardioversion for WCT, suspected SVT. New, possibly rate related LBBB on EKG prior to cardioversion with heart rates to 200 beats/minute. Serum troponin to 2.5 ng/ml. He was treated with cardioversion, is on an Amiodarone infusion on telemetry, and seen on consultation by cardiology In your clinical opinion is this patient being managed for: ( ) Myocardial infarction type 2 ( ) Not Agree ( x ) Other explanation of clinical findings (Please Explain) see progress notes and written response to same query ( ) Unable to determine (Please Define) ( ) Need to Discuss The medical record reflects the following clinical findings, treatment, and risk factors. Clinical Indicators: As above Treatment: Cardioversion, telemetry, Amiodarone infusion, cardiology consultation Risk Factors: WCT/SVT Please clarify and document your clinical opinion in the progress notes and discharge summary. Terms such as "probable", "suspected", "likely", "questionable", "possible", or "still to be ruled out" are acceptable. IF IN AGREEMENT, YOU MUST DOCUMENT ABOVE DIAGNOSTIC STATEMENT IN DAILY PROGRESS NOTES AND DISCHARGE SUMMARY. This document is not part of the patient's record. Thank You, Faheem Franz, WILLIAM [phone]
[2017-05-19] MEDS: MAGNESIUM OXIDE 400 MG TAB PO SCH ×2 (09:13→20:52)
[2017-05-19] MEDS ORDERED: POTASSIUM CHLORIDE 20 MEQ TABCR PO ONE (12:30)
--- NOTE | 2017-05-19 14:55 | Cardiology Consultation ---
Cardiology Consultation Date of Consultation: May 19, 2017. Requesting Physician: Ericka Reason for Consultation: Tachycardia Pt evaluation today including: conversation w/ patient, conversation w/ family , physical exam, chart review, lab review, review of studies, review of inpatient medication list, conversation w/ attending History of Present Illness The patient is a 72-year-old woman with a history of SVT who experienced an episode of tachycardia yesterday. She recently underwent a left knee replacement. She was at the orthopedist office for staple removal and needed to undergo drainage of the knee. She is very anxious that she felt the development of fluttering at that time. When she returned home the fluttering continue knee she also began to experience symptoms of diaphoresis and nausea. There was some associated chest and left arm discomfort as well. Due to the persistent nature of the symptoms she contacted EMS who noticed any arrhythmia. This was initially describes his SVT and she was treated with 2 doses of adenosine. This did not terminate her arrhythmia. She was brought to [facility] Past Medical/Surgical History Mixed connective tissue disorder crest syndrome Atrial fibrillation Asthma Hyperlipidemia Polycythemia Gastroesophageal reflux disease Hypertension Hypothyroidism Peripheral vascular disease S2 arthritis Raynaud syndrome Vision loss, legally blind Past surgical history: Percutaneous intervention involving both lower extremities Appendectomy cataract surgery Left shoulder replacement Hysterectomy Left total knee arthroplasty Family History Acute myocardial infarction Coronary artery disease Diabetes mellitus Stroke Noncontributory given her advanced age Social History Smoking Status: Never Smoker History of Alcohol Use: Yes ([facility]) Currently lives independently Review of Systems Respiratory: + see HPI Cardiac: + see HPI Per HPI. Patient also has some discomfort in the left knee which was recently replaced. She has had some swelling at that site. All Other Systems: Reviewed and Negative Allergies Coded Allergies: Shellfish (Verified Allergy, Severe, VERY SICK FOR SEVERAL DAYS/HIVES IN HER MOUTH, 05/18/17) WAS PREMED WITH STEROIDS BEFORE IODINATED DYES USED IN THE PAST NO PROBLEMS Nickel (Verified Allergy, Intermediate, RASH, 05/18/17) PT STATES Cephalexin (Verified Allergy, Unknown, NAUSEA AND VOMITING, 05/18/17) Chlorpromazine (Unverified Allergy, Unknown, JAW LOCKS, 05/18/17) Pineapple (Verified Allergy, Unknown, HIVES IN HER MOUTH, 05/18/17) Procaine (Verified Allergy, Unknown, 'makes muscle weakness worse', 05/18/17 ) Prochlorperazine (Verified Allergy, Unknown, MOTOR SEIZURES-ARMS SPASTIC, 05/18/17) ALL "ZINES' PER PT Soy Protein (Verified Allergy, Unknown, "SOY" ALLERGY-GI UPSET ABD PAIN, ) [place] (Verified Allergy, Unknown, HIVES IN HER MOUTH, 05/18/17) Tomato (Verified Allergy, Unknown, HIVES IN MOUTH, 05/18/17) [place] (Verified Allergy, Unknown, HIVES IN HER MOUTH, 05/18/17) Medications Current Inpatient Medications Medications (Trade) Dose Ordered Sig/Sun Route Start Time Stop Time Status Last Admin Dose Admin Amiodarone HCL/ Dextrose 200 ml @ 16.7 mls/hr [id number] IV 05/18/17 12:15 06/17/17 12:14 05/19/17 12:40 16.7 MLS/HR Acetaminophen (Tylenol Tab) 650 mg Q4H PRN PO 05/18/17 14:00 06/17/17 13:59 Al Hydrox/Mg Hydrox/Simethicone (Maalox Max Susp) 15 ml Q4H PRN PO 05/18/17 14:00 06/17/17 13:59 Magnesium Hydroxide (Milk Of Magnesia Susp) 30 ml Q12H PRN PO 05/18/17 14:00 06/17/17 13:59 Ondansetron HCl (Zofran Inj) 4 mg Q6H PRN IV 05/18/17 14:00 06/17/17 13:59 Polyethylene (Miralax Powder Packet) 17 gm DAILY PRN PO 05/18/17 14:00 06/17/17 13:59 Bupropion HCl (Wellbutrin-Xl Tab) 300 mg QAM PO 05/19/17 09:00 06/18/17 08:59 05/19/17 08:03 300 MG Cetirizine HCl (zyrTEC TAB) 10 mg HS PO 05/18/17 21:00 06/17/17 20:59 05/18/17 20:03 10 MG Docusate Sodium (coLACE CAP) 100 mg BID PO 05/18/17 21:00 06/17/17 20:59 05/19/17 08:03 100 MG Levothyroxine Sodium (Synthroid Tab) 88 mcg DAILYBB PO 05/19/17 06:00 06/18/17 06:59 05/19/17 06:20 88 MCG Ondansetron HCl (Zofran Tab) 4 mg Q8H PRN PO 05/18/17 14:00 06/17/17 13:59 Oxycodone HCl (Roxicodone Immediate Rel Tab) 1 tablet for mild-... Q4H PRN PO 05/18/17 14:00 06/01/17 13:59 05/19/17 10:54 10 MG Prednisone (PredniSONE TAB) 10 mg QAM PO 05/19/17 09:00 06/18/17 08:59 05/19/17 08:02 10 MG Senna (Senokot Tab) 17.2 mg HS PO 05/18/17 21:00 06/17/17 20:59 05/18/17 20:02 17.2 MG Tramadol HCl (Ultram Tab) one tablet for mild-... Q4H PRN PO 05/18/17 14:00 06/17/17 13:59 05/19/17 03:38 100 MG Cyanocobalamin (Vitamin B-12 Tab) 1,000 mcg QAM PO 05/19/17 09:00 06/18/17 08:59 05/19/17 08:03 1,000 MCG Meclizine HCl (Antivert Tab) 12.5 mg TID PRN PO 05/18/17 14:00 06/17/17 13:59 Pantoprazole Sodium (Protonix Tab) 40 mg QAM PO 05/19/17 09:00 06/18/17 08:59 05/19/17 08:04 40 MG Insulin Aspart (novoLOG ASPART) SLIDING SCALE If C... ACHS SC 05/18/17 18:00 06/17/17 17:59 Glucose (Glucose 40% Gel) 15-30 GRAMS 15 GRAMS... UD PRN PO 05/18/17 14:30 06/17/17 14:29 Glucose (Glucose Chew Tab) 4-8 Tablets 4 Tabl... UD PRN PO 05/18/17 14:30 06/17/17 14:29 Dextrose (Dextrose 50% 50ML Syringe) 25-50ML OF 50% DW IV FOR... UD PRN IV 05/18/17 14:30 06/17/17 14:29 Glucagon (Glucagon Inj) 1 mg UD PRN SQ 05/18/17 14:30 06/17/17 14:29 Aspirin (Ecotrin Tab) 81 mg BID PO 05/19/17 09:00 06/18/17 08:59 05/19/17 08:03 81 MG Ioversol (Optiray 320) 100 ml UD PRN IV 05/18/17 15:30 05/22/17 15:29 Albuterol (Ventolin Hfa Inhaler) 2 puffs QID PRN INH 05/18/17 19:00 06/17/17 18:59 Diphenhydramine HCl (Benadryl Cap) 50 mg HS PRN PO 05/18/17 21:00 06/17/17 20:59 05/18/17 22:17 50 MG Calcium Carbonate (Tums Chew Tab) 500 mg QID PRN PO 05/18/17 19:00 06/17/17 18:59 05/19/17 08:03 500 MG Valacyclovir HCl (Valtrex Tab) 500 mg BID PRN PO 05/18/17 19:00 05/28/17 18:59 Magnesium Oxide (Mag-Ox Tab) 400 mg BID PO 05/19/17 09:00 06/18/17 08:59 05/19/17 09:13 400 MG Physical Exam Vital Signs Past 12 Hours Date Time Temp Pulse Resp B/P (MAP) Pulse Ox O2 Delivery O2 Flow Rate FiO2 05/19/17 12:00 96 Room Air 05/19/17 11:51 36.7 60 18 149/78 (101) 05/19/17 08:00 96 Room Air 05/19/17 07:31 36.7 60 18 160/74 (102) 96 Room Air 05/19/17 04:01 98 Room Air 05/19/17 03:43 36.5 52 20 135/75 (95) 98 Room Air The patient is alert and oriented. Mood and affect appeared normal. He answered all questions appropriately. HEENT: Pupils are equal and reactive to light and accommodation. Extraocular movements are intact. The sclerae are anicteric. Neuro: Cranial nerves intact Neck: Patient's neck is supple. He has palpable carotid pulses bilaterally without bruits on auscultation. There is no evidence of jugular venous distention. The thyroid is not enlarged. Lungs: Clear to auscultation bilaterally. He has good air movement without use of accessory muscles. No rales wheezes or rhonchi. Cardiac: Heart demonstrates a regular rate and rhythm. Normal S1 and S2. No murmurs on examination. Pulses: The patient has palpable radial pulses bilaterally that are equal in intensity but somewhat diminished Extremities: There was no evidence of hypoperfusion. There is no cyanosis or clubbing. There is no edema. The left knee is bandaged and mildly swollen versus the right Skin: I did not appreciate any rashes on examination today. Data Laboratory Results: Last 24 Hours Test 05/18/17 15:08 05/18/17 18:11 05/18/17 18:24 05/18/17 20:53 Potassium Level 4.0 mmol/L Magnesium Level 1.7 mg/dl Direct Bilirubin 0.1 mg/dl Aspartate Amino Transf (AST/SGOT) 25 U/L Total Creatine Kinase 72 U/L Troponin I 2.440 ng/ml Bedside Glucose 135 mg/dl 107 mg/dl Test 05/19/17 00:11 05/19/17 07:09 05/19/17 11:01 Troponin I 2.500 ng/ml White Blood Count 7.91 K/uL Red Blood Count 3.92 M/uL Hemoglobin 12.6 g/dL Hematocrit 39.7 % Mean Corpuscular Volume 101.3 fL Mean Corpuscular Hemoglobin 32.1 pg Mean Corpuscular Hemoglobin Concent 31.7 g/dl RDW Standard Deviation 52.0 fL RDW Coefficient of Variation 14.0 % Platelet Count 263 K/uL Mean Platelet Volume 9.5 fL Sodium Level 136 mmol/L Potassium Level 3.4 mmol/L Chloride Level 100 mmol/L Carbon Dioxide Level 29 mmol/L Anion Gap 7.0 mmol/L Blood Urea Nitrogen 15 mg/dl Creatinine 0.64 mg/dl Est Creatinine Clear Calc Drug Dose 62.5 ml/min Estimated GFR () 101.9 Estimated GFR (Non- 87.9 BUN/Creatinine Ratio 23.8 Random Glucose 88 mg/dl Calcium Level 8.2 mg/dl Magnesium Level 1.8 mg/dl Bedside Glucose 155 mg/dl Imaging: Chest x-ray did not demonstrate any acute abnormality. CT PE protocol did not demonstrate any evidence of thrombus EKG: Initial EKG demonstrated wide complex tachycardia consistent with ventricular tachycardia. Repeat EKGs demonstrated sinus bradycardia Telemetry reviewed: Sinus bradycardia with competing junctional rhythm Echocardiogram performed January 06, 2017: Preserved LV systolic function. No wall motion abnormalities. Mild mitral regurgitation. Assessment & Plan 1. Ventricular tachycardia: I think this is the most accurate description of the presenting rhythm. He he EKGs obtained by EMS at her residence also were wide complex. There is a remote possibility that she had an SVT which degenerated into ventricular tachycardia. However there is also possibility that her original arrhythmia in February was misdiagnosed as SVT based on a single her monitor strip from EMS. I think this is a more sinister arrhythmia. I agree with the amiodarone currently. However, she did require cardioversion or and therefore will require a defibrillator in the absence of a obvious reversible cause. She did not have a market electrolyte abnormality. While she did have slight elevation in her cardiac biomarkers he the relatively minor considering her period of tachycardia. I think we can perform some evaluation for ischemia in order to make sure no intervention is required in that regard. I did discuss with her the options for both invasive and noninvasive study. She would prefer noninvasive and I think that is reasonable given her normal perfusion study 1 year ago. This is also true given the relatively low elevation in her biomarkers. In the absence of obvious ischemia I will recommend defibrillator implant. I would suggest a dual-chamber device is this will also provide some rate support given her resting bradycardia and need for additional medical therapy. 2. SVT: On the 2 occasions with the patient presented with tachycardia he adenosine was ineffective. This would suggest the rhythm was either not an SVT or certainly not reentrant involving the AV node. She was initially scheduled for EP study and possible ablation but presented in atrial fibrillation. I think any therapy we provide for suppressing VT will likely also suppress any occult SVT if it exists. 3. Atrial fibrillation: Patient did have atrial fibrillation upon presentation for EP study. Whether this is happening frequently is unknown. Whether this was secondary to occult SVT is also unknown. It is very likely that are treatment for VT will suppress additional episodes of atrial fibrillation. If she proceeds to a device implant will also be able to monitor any arrhythmias with her device over time. We did discuss anticoagulation previously and she wishes to avoid systemic anticoagulation given her family history of intercerebral hemorrhage. 4. Valvular heart disease: Mild mitral regurgitation.
--- NOTE | 2017-05-19 18:03 | Progress Note ---
Subjective Date of Service: May 19, 2017. Subjective Pt evaluation today including: conversation w/ patient, conversation w/ family , physical exam, chart review, lab review, review of studies, conversation w/ sap pp consultant, review of inpatient medication list feeling better - no cardiac sx. main concern now is just shoulder pain - notes she has mixed connective tissue disorder and often things will flare - shoulder was a problem for a while recently then was getting better but since last night bad again has never tried topical diclofenac d/w cardiology input greatly appreciated Problem List Medical Problems: (1) Abnormal ECG Status: Acute (2) Hyperglycemia Status: Acute (3) Hypotension Status: Acute (4) SVT (supraventricular tachycardia) Status: Acute (5) Syncope Status: Acute (6) Ventricular tachycardia Status: Acute (7) Wide-complex tachycardia Status: Acute Review of Systems all other ROS otherwise negative except for as above Objective Vital Signs Date Time Temp Pulse Resp B/P (MAP) Pulse Ox O2 Delivery O2 Flow Rate FiO2 05/19/17 16:10 37.5 80 20 170/80 (110) 100 Room Air 05/19/17 16:00 96 Room Air 05/19/17 16:00 36.7 62 20 137/72 (93) 96 Room Air 05/19/17 12:00 96 Room Air 05/19/17 11:51 36.7 60 18 149/78 (101) 05/19/17 08:00 96 Room Air 05/19/17 07:31 36.7 60 18 160/74 (102) 96 Room Air 05/19/17 04:01 98 Room Air 05/19/17 03:43 36.5 52 20 135/75 (95) 98 Room Air 05/19/17 00:01 95 Room Air 05/19/17 00:01 36.2 51 16 145/61 (89) 95 Room Air 05/18/17 20:00 98 Room Air 05/18/17 19:35 36.5 62 18 133/77 (95) 98 Room Air Physical Exam General Appearance: no apparent distress Eyes: EOMI ENT: hearing grossly normal Neck: trachea midline Respiratory/Chest: no respiratory distress, no accessory muscle use Extremities: + pertinent finding (stiff and limited ROM R shoulder, difficult to truly test rotator cuff etc due to pain) 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, alert, normal mood/affect, oriented x 3 Skin: normal color, warm/dry Laboratory Results Last 24 Hours Test 05/18/17 18:11 05/18/17 18:24 05/18/17 20:53 05/19/17 00:11 Troponin I 2.440 ng/ml 2.500 ng/ml Bedside Glucose 135 mg/dl 107 mg/dl Test 05/19/17 07:09 05/19/17 11:01 05/19/17 16:25 White Blood Count 7.91 K/uL Red Blood Count 3.92 M/uL Hemoglobin 12.6 g/dL Hematocrit 39.7 % Mean Corpuscular Volume 101.3 fL Mean Corpuscular Hemoglobin 32.1 pg Mean Corpuscular Hemoglobin Concent 31.7 g/dl RDW Standard Deviation 52.0 fL RDW Coefficient of Variation 14.0 % Platelet Count 263 K/uL Mean Platelet Volume 9.5 fL Sodium Level 136 mmol/L Potassium Level 3.4 mmol/L Chloride Level 100 mmol/L Carbon Dioxide Level 29 mmol/L Anion Gap 7.0 mmol/L Blood Urea Nitrogen 15 mg/dl Creatinine 0.64 mg/dl Est Creatinine Clear Calc Drug Dose 62.5 ml/min Estimated GFR () 101.9 Estimated GFR (Non- 87.9 BUN/Creatinine Ratio 23.8 Random Glucose 88 mg/dl Calcium Level 8.2 mg/dl Magnesium Level 1.8 mg/dl Bedside Glucose 155 mg/dl 116 mg/dl Assessment and Plan Wide Complex Tachycardia - concerning for VT - now NSR post cardioversion - agree w dr peterson's plan - eval for ischemic focus for VT, if none, then still have to manage as potentially life threatening rhythm w ICD - stable now - on amiodarone hypokalemia/relative hypomagnesemia - replace, w vtach will target K of 4, mag of 2 elevated troponin - could represent demand ischemia from rate of vtach, but has no other CAD sx. w cardioversion, also not unexpected - given overall milieu of circumstances - stable Paroxysmal Atrial Fibrillation and H/O SVT and Re-Entrant Rhythm: - currently nsr - Does not want AC at this time given significant FHMx of Cerebral hemorrhage Mixed Connective Tissue D/O and CREST: - Prednisone 10 mg daily shoulder pain -suspect rotator cuff strain + mixed connective tissue disorder -voltaren gel -gentle mobilization Asthma without Exacerbation: - no sx today - Continue inhalers and Zyrtec 10 mg HS Hypothyroidism: Compensated - Synthroid 88 mcg daily Pre-DM: - BSG on admission 200 - will use T2DM diet and check BSGs - cover with SSI as needed DVT Prophylaxis: - aspirin BID as per ortho s/p knee Code Status: FULL RESUSCITATION
[2017-05-19] MEDS ORDERED: DICLOFENAC SOD 1% GEL 100 GM TUBE EXT ONE (18:30)
[2017-05-19] MEDS: DICLOFENAC SOD 1% GEL 100 GM TUBE EXT SCH (20:51)
[2017-05-19] MEDS: SENNA 8.6 MG TAB PO SCH (20:52)
[2017-05-19] MEDS: CETIRIZINE HCL 10 MG TAB PO SCH (20:52)
[2017-05-20] VITALS (9 sets, daily range): BP systolic 124–179; BP diastolic 61–105; PULSE 49–68; TEMP 36.4–37.1; O2SAT 91–100
[2017-05-20] MEDS: TRAMADOL HCL 50 MG TAB PO PRN ×3 (00:09→21:18)
[2017-05-20] MEDS: AMIODARONE / D5W 200 ML IV SCH ×2 (00:10→15:31)
[2017-05-20] MEDS: OXYCODONE HCL IR 5 MG TAB (IMMEDIATE RELEASE) PO PRN ×3 (03:21→19:24)
[2017-05-20] MEDS: LEVOTHYROXINE 88 MCG TAB PO SCH (05:18)
[2017-05-20] MEDS: INSULIN ASPART 100 UNITS/ML 3 ML PEN SC SCH ×4 (07:00→21:00)
[2017-05-20 07:13] LABS: HEMATOCRIT 41.6 % (37-47); HEMOGLOBIN 13.6 g/dL (12.0-16.0); MEAN CELL VOLUME 100.5 fL (80-100); MEAN CORPUSCULAR HEMOGLOBIN 32.9 pg (25-34); MEAN CORPUSCULAR HGB CONC 32.7 g/dl (32-36); MEAN PLATELET VOLUME 9.8 fL (7.4-10.4); PLATELET COUNT 244 K/uL (130-400); RED CELL DISTRIBUTION WIDTH CV 13.5 % (11.5-14.5); RED CELL DISTRIBUTION WIDTH SD 49.5 fL (36.4-46.3); WHITE BLOOD COUNT 6.46 K/uL (4.8-10.8)
[2017-05-20] MEDS: DICLOFENAC SOD 1% GEL 100 GM TUBE EXT SCH ×4 (07:50→21:19)
[2017-05-20] MEDS: BuPROPion XL 300 MG TABCR PO SCH (07:51)
[2017-05-20] MEDS: PANTOprazole SOD 40 MG TAB PO SCH (07:51)
[2017-05-20] MEDS: DOCUSATE SODIUM 100 MG CAP PO SCH ×2 (07:51→21:19)
[2017-05-20] MEDS: MAGNESIUM OXIDE 400 MG TAB PO SCH ×2 (07:51→21:20)
[2017-05-20] MEDS: ASPIRIN 81 MG ECTAB PO SCH ×2 (07:52→21:19)
[2017-05-20] MEDS: CYANOCOBALAMIN 500 MCG TAB (VIT B-12) PO SCH (07:52)
[2017-05-20 07:53] LABS: CALCIUM 8.6 mg/dl (8.5-10.1); CREATININE 0.63 mg/dl (0.60-1.20); POTASSIUM 4.1 mmol/L (3.5-5.1)
[2017-05-20] MEDS ORDERED: REGADENOSON 0.4 MG/5 ML SYR ONE (10:00)
--- NOTE | 2017-05-20 16:53 | Progress Note ---
Subjective Date of Service: May 20, 2017. Subjective Pt evaluation today including: conversation w/ patient, physical exam, chart review, lab review, review of inpatient medication list worried about knee but notes that ortho wanted ugo in for another week or so worried about ICD pacer placement with mixed connective tissue disorder voltaren gel helped no other new complaints Problem List Medical Problems: (1) Abnormal ECG Status: Acute (2) Hyperglycemia Status: Acute (3) Hypotension Status: Acute (4) SVT (supraventricular tachycardia) Status: Acute (5) Syncope Status: Acute (6) Ventricular tachycardia Status: Acute (7) Wide-complex tachycardia Status: Acute Review of Systems all other ROS otherwise negative except for as above Objective Vital Signs Date Time Temp Pulse Resp B/P (MAP) Pulse Ox O2 Delivery O2 Flow Rate FiO2 05/20/17 15:10 36.4 57 19 146/72 (96) 100 Room Air 05/20/17 11:37 36.8 68 20 179/105 (129) 97 Room Air 05/20/17 08:00 96 Room Air 05/20/17 07:49 37.1 49 20 154/86 (108) 98 Room Air 05/20/17 05:00 163/77 (105) 05/20/17 04:00 Room Air 05/20/17 03:38 36.8 57 17 174/72 (106) 96 Room Air 05/20/17 01:12 57 150/81 (104) 05/19/17 23:59 Room Air 05/19/17 23:38 37.0 60 17 169/70 (103) 96 Room Air 05/19/17 20:00 Room Air 05/19/17 19:26 37.3 61 21 160/78 (105) 95 Room Air Physical Exam General Appearance: no apparent distress Eyes: EOMI ENT: hearing grossly normal Neck: trachea midline Respiratory/Chest: no respiratory distress, no accessory muscle use Extremities: normal range of motion 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, alert, + pertinent finding ( pleasantly anxious) Skin: normal color, warm/dry Laboratory Results Last 24 Hours Test 05/19/17 20:38 05/20/17 06:39 05/20/17 06:48 05/20/17 11:36 Bedside Glucose 144 mg/dl 91 mg/dl 117 mg/dl White Blood Count 6.46 K/uL Red Blood Count 4.14 M/uL Hemoglobin 13.6 g/dL Hematocrit 41.6 % Mean Corpuscular Volume 100.5 fL Mean Corpuscular Hemoglobin 32.9 pg Mean Corpuscular Hemoglobin Concent 32.7 g/dl RDW Standard Deviation 49.5 fL RDW Coefficient of Variation 13.5 % Platelet Count 244 K/uL Mean Platelet Volume 9.8 fL Sodium Level 134 mmol/L Potassium Level 4.1 mmol/L Chloride Level 99 mmol/L Carbon Dioxide Level 31 mmol/L Anion Gap 4.0 mmol/L Blood Urea Nitrogen 18 mg/dl Creatinine 0.63 mg/dl Est Creatinine Clear Calc Drug Dose 63.4 ml/min Estimated GFR () 102.4 Estimated GFR (Non- 88.4 BUN/Creatinine Ratio 28.4 Random Glucose 86 mg/dl Calcium Level 8.6 mg/dl Magnesium Level 1.9 mg/dl Chemistry Specimen Hemolysis Test 05/20/17 16:20 Bedside Glucose 145 mg/dl Assessment and Plan Wide Complex Tachycardia - concerning for VT - now NSR post cardioversion - agree w dr peterson's plan - eval for ischemic focus for VT (lexiscan today), if none, then still have to manage as potentially life threatening rhythm w ICD - stable now no recurrence - on amiodarone hypokalemia/relative hypomagnesemia - replace, w vtach will target K of 4 (@ goal), mag of 2 (needs ongoing replacement) elevated troponin - theoretically could represent demand ischemia from rate of vtach, but has no other CAD sx. w cardioversion, also not unexpected - given overall milieu of circumstances Paroxysmal Atrial Fibrillation and H/O SVT and Re-Entrant Rhythm: - currently nsr - Does not want AC at this time given significant FHMx of Cerebral hemorrhage Mixed Connective Tissue D/O and CREST: - Prednisone 10 mg daily shoulder pain -suspect rotator cuff strain + mixed connective tissue disorder -voltaren gel has helped -gentle mobilization Asthma without Exacerbation: - no sx today - Continue inhalers and Zyrtec 10 mg HS Hypothyroidism: Compensated - Synthroid 88 mcg daily Pre-DM: - BSG on admission 200 - will use T2DM diet and check BSGs - cover with SSI as needed DVT Prophylaxis: - aspirin BID as per ortho s/p knee Code Status: FULL RESUSCITATION
[2017-05-20] MEDS: CETIRIZINE HCL 10 MG TAB PO SCH (21:19)
[2017-05-20] MEDS: SENNA 8.6 MG TAB PO SCH (21:20)
[2017-05-21] VITALS (9 sets, daily range): BP systolic 131–160; BP diastolic 69–90; PULSE 48–64; TEMP 36.5–36.8; O2SAT 92–99
[2017-05-21] MEDS: AMIODARONE / D5W 200 ML IV SCH ×2 (02:22→13:02)
[2017-05-21] MEDS: TRAMADOL HCL 50 MG TAB PO PRN ×4 (03:35→23:17)
[2017-05-21] MEDS: LEVOTHYROXINE 88 MCG TAB PO SCH (06:32)
[2017-05-21] MEDS: INSULIN ASPART 100 UNITS/ML 3 ML PEN SC SCH ×4 (07:00→21:56)
[2017-05-21 08:05] LABS: HEMATOCRIT 40.5 % (37-47); MEAN CELL VOLUME 99.8 fL (80-100); MEAN CORPUSCULAR HEMOGLOBIN 34.5 pg (25-34); MEAN CORPUSCULAR HGB CONC 34.6 g/dl (32-36); MEAN PLATELET VOLUME 9.9 fL (7.4-10.4); PLATELET COUNT 257 K/uL (130-400); RED CELL DISTRIBUTION WIDTH CV 13.4 % (11.5-14.5); RED CELL DISTRIBUTION WIDTH SD 48.9 fL (36.4-46.3); WHITE BLOOD COUNT 7.03 K/uL (4.8-10.8)
[2017-05-21] MEDS: BuPROPion XL 300 MG TABCR PO SCH (08:09)
[2017-05-21] MEDS: ASPIRIN 81 MG ECTAB PO SCH ×2 (08:09→21:55)
[2017-05-21] MEDS: MAGNESIUM OXIDE 400 MG TAB PO SCH ×2 (08:10→21:54)
[2017-05-21] MEDS: DOCUSATE SODIUM 100 MG CAP PO SCH ×2 (08:10→21:55)
[2017-05-21] MEDS: PANTOprazole SOD 40 MG TAB PO SCH (08:10)
[2017-05-21] MEDS: CYANOCOBALAMIN 500 MCG TAB (VIT B-12) PO SCH (08:10)
[2017-05-21] MEDS: DICLOFENAC SOD 1% GEL 100 GM TUBE EXT SCH ×4 (08:11→21:54)
[2017-05-21] MEDS: OXYCODONE HCL IR 5 MG TAB (IMMEDIATE RELEASE) PO PRN ×2 (08:13→15:52)
[2017-05-21 08:39] LABS: CALCIUM 8.9 mg/dl (8.5-10.1); CREATININE 0.57 mg/dl (0.60-1.20); POTASSIUM 3.4 mmol/L (3.5-5.1)
--- NOTE | 2017-05-21 10:18 | MYOCARDIAL PERFUSION SCAN ---
ONE-DAY NUCLEAR MEDICINE TECHNETIUM-99M CARDIOLITE MYOCARDIAL PERFUSION SCAN CLINICAL HISTORY: This stress test is being performed because of a chest pain syndrome and a ventricular dysrhythmia. COMPARISON: 04/25/2016. TECHNIQUE: TECHNIQUE: For the stress portion of the study, 30.6 mCi of Technetium 99 m Cardiolite IV was injected at 1:45 p.m. on 05/20/2017. Thirty minutes following the injection, imaging of the heart was performed in multiple projections. For the rest portion of the study, 10.4 mCi of Technetium 99 m Cardiolite was injected IV at 12:05 p.m. One hour following the injection, imaging of the heart was performed in the same projections. For the stress portion of the study, 0.4 mg of Lexiscan was injected intravenously as per protocol. The patient did not experience chest pain. There were no EKG changes. Following the study, patient was hemodynamically stable without complaints. FINDINGS: The short axis, vertical long axis, and horizontal long axis images were reviewed in detail. There is normal tracer uptake at both stress and rest. This excludes a prior myocardial infarction and evidence of stress induced myocardial ischemia. Left ventricular systolic function could not be reliably assessed. There was a large amount of GI uptake making the gated images difficult to fully evaluate. IMPRESSION: 1. No scintigraphic evidence of a prior myocardial infarction or stress induced myocardial ischemia. 2. No Lexiscan induced chest pain. 3. No Lexiscan induced echocardiogram change. 4. When compared with study dated 04/25/2016, no significant change.
[2017-05-21] MEDS: ONDANSETRON 4 MG TAB PO PRN (10:33)
--- NOTE | 2017-05-21 14:43 | Cardiology Follow-Up ---
Subjective Date of Service: May 21, 2017. Pt evaluation today including: conversation w/ patient, conversation w/ family , physical exam, chart review, lab review, review of studies, review of inpatient medication list, conversation w/ attending History of Present Illness This morning the patient claims to be feeling well. She denies any sense of dyspnea. She is mostly concerned with the ugo in the left knee. She has been minimally ambulatory but did have some higher heart rates with ambulation. I have no sense of palpitation. No chest pain. Social History Smoking Status: Never Smoker History of Alcohol Use: Yes (OCC SOCIAL) Review of Systems Respiratory: + see HPI Cardiac: + see HPI Per HPI. Patient also has some discomfort in the left knee which was recently replaced. She has had some swelling at that site. Objective Vital Signs Past 12 Hours Date Time Temp Pulse Resp B/P (MAP) Pulse Ox O2 Delivery O2 Flow Rate FiO2 05/21/17 12:00 96 Room Air 05/21/17 11:30 36.8 59 20 138/73 (94) 94 Room Air 05/21/17 08:00 96 Room Air 05/21/17 07:46 36.6 64 20 155/90 (111) 99 05/21/17 04:00 Room Air 05/21/17 03:38 36.7 52 17 160/69 (99) 96 Room Air Last Recorded Weight-Kilograms: 56.200 Physical Exam The patient is alert and oriented. Mood and affect appeared normal. He answered all questions appropriately. HEENT: Pupils are equal and reactive to light and accommodation. Extraocular movements are intact. The sclerae are anicteric. Neuro: Cranial nerves intact Neck: Patient's neck is supple. He has palpable carotid pulses bilaterally without bruits on auscultation. There is no evidence of jugular venous distention. The thyroid is not enlarged. Lungs: Clear to auscultation bilaterally. He has good air movement without use of accessory muscles. No rales wheezes or rhonchi. Cardiac: Heart demonstrates a regular rate and rhythm. Normal S1 and S2. No murmurs on examination. Pulses: The patient has palpable radial pulses bilaterally that are equal in intensity but somewhat diminished Extremities: There was no evidence of hypoperfusion. There is no cyanosis or clubbing. There is no edema. The left knee is bandaged and mildly swollen versus the right Skin: I did not appreciate any rashes on examination today. Data Laboratory Results: Last 24 Hours Test 05/20/17 16:20 05/20/17 20:52 05/21/17 06:57 05/21/17 07:09 Bedside Glucose 145 mg/dl 128 mg/dl 145 mg/dl White Blood Count 7.03 K/uL Red Blood Count 4.06 M/uL Hemoglobin 14.0 g/dL Hematocrit 40.5 % Mean Corpuscular Volume 99.8 fL Mean Corpuscular Hemoglobin 34.5 pg Mean Corpuscular Hemoglobin Concent 34.6 g/dl RDW Standard Deviation 48.9 fL RDW Coefficient of Variation 13.4 % Platelet Count 257 K/uL Mean Platelet Volume 9.9 fL Sodium Level 134 mmol/L Potassium Level 3.4 mmol/L Chloride Level 97 mmol/L Carbon Dioxide Level 29 mmol/L Anion Gap 8.0 mmol/L Blood Urea Nitrogen 17 mg/dl Creatinine 0.57 mg/dl Est Creatinine Clear Calc Drug Dose 68.0 ml/min Estimated GFR () 105.8 Estimated GFR (Non- 91.3 BUN/Creatinine Ratio 29.1 Random Glucose 99 mg/dl Calcium Level 8.9 mg/dl Magnesium Level 1.9 mg/dl Test 05/21/17 11:29 Bedside Glucose 133 mg/dl Imaging: Cardiac perfusion study performed yesterday did not demonstrate any areas of fixed or reversible ischemia. Assessment and Plan 1. Ventricular tachycardia: We had an extensive discussion today regarding her options for evaluation and treatment. She is not interested any permanent ICD at this time. She is interested in a possible EP study and VT ablation. I did contact the electrophysiology service at [facility] for their opinion. They felt that it would be reasonable to perform an EP study and possible ablation of VT should be inducible. If they were quite confident that the VT were successfully ablated she may in fact avoid the need for a permanent ICD. This will be managed on an outpatient basis. In the interim I suggested she wear a life vest for sustained ventricular tachycardia and will initiate the ordering process. 2. SVT: On the 2 occasions with the patient presented with tachycardia he adenosine was ineffective. This would suggest the rhythm was either not an SVT or certainly not reentrant involving the AV node. She was initially scheduled for EP study and possible ablation but presented in atrial fibrillation. I think any therapy we provide for suppressing VT will likely also suppress any occult SVT if it exists. 3. Atrial fibrillation: Patient did have atrial fibrillation upon presentation for EP study. Whether this is happening frequently is unknown. Whether this was secondary to occult SVT is also unknown. It is very likely that are treatment for VT will suppress additional episodes of atrial fibrillation. If she proceeds to a device implant will also be able to monitor any arrhythmias with her device over time. We did discuss anticoagulation previously and she wishes to avoid systemic anticoagulation given her family history of intercerebral hemorrhage. 4. Valvular heart disease: Mild mitral regurgitation.
[2017-05-21] MEDS ORDERED: POTASSIUM CHLORIDE 20 MEQ TABCR PO STA (15:29)
[2017-05-21] MEDS ORDERED: MAGNESIUM OXIDE 400 MG TAB PO ONE (15:30)
--- NOTE | 2017-05-21 15:32 | Progress Note ---
Subjective Date of Service: May 21, 2017. Subjective Pt evaluation today including: conversation w/ patient, conversation w/ family , physical exam, chart review, lab review, review of inpatient medication list anxious about knee. feels knee pain caused vtach, feels ugo caused knee pain shoulder - voltaren gel helping worried about getting ICD with mixed connective tissue disorder reviewed ~4yrs of rheumatology notes - appears mostly she suffers biomechanical pain amplified as her syndrome's phenotype. has been on prednisone for years - mostly around 5mg recently 10mg. often self-regulates her dosing. dr kendall going to try to get her over to methotrexate, appearing with goals of better symptom control and ability to wean prednisone willing to have vest, but wants further w/u at [facility] before deciding about ICD Problem List Medical Problems: (1) Abnormal ECG Status: Acute (2) Hyperglycemia Status: Acute (3) Hypotension Status: Acute (4) SVT (supraventricular tachycardia) Status: Acute (5) Syncope Status: Acute (6) Ventricular tachycardia Status: Acute (7) Wide-complex tachycardia Status: Acute Review of Systems all other ROS otherwise negative except for as above Objective Vital Signs Date Time Temp Pulse Resp B/P (MAP) Pulse Ox O2 Delivery O2 Flow Rate FiO2 05/21/17 12:00 96 Room Air 05/21/17 11:30 36.8 59 20 138/73 (94) 94 Room Air 05/21/17 08:00 96 Room Air 05/21/17 07:46 36.6 64 20 155/90 (111) 99 05/21/17 04:00 Room Air 05/21/17 03:38 36.7 52 17 160/69 (99) 96 Room Air 05/20/17 23:59 Room Air 05/20/17 23:38 37.1 54 18 139/72 (94) 94 Room Air 05/20/17 20:00 Room Air 05/20/17 19:45 36.6 56 18 124/61 (82) 91 Room Air 05/20/17 16:00 Room Air Physical Exam General Appearance: no apparent distress Eyes: EOMI ENT: hearing grossly normal Neck: trachea midline Respiratory/Chest: no respiratory distress, no accessory muscle use Extremities: + pertinent finding (L knee incision w ugo no erythema) 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, alert, normal mood/affect Skin: normal color Laboratory Results Last 24 Hours Test 05/20/17 16:20 05/20/17 20:52 05/21/17 06:57 05/21/17 07:09 Bedside Glucose 145 mg/dl 128 mg/dl 145 mg/dl White Blood Count 7.03 K/uL Red Blood Count 4.06 M/uL Hemoglobin 14.0 g/dL Hematocrit 40.5 % Mean Corpuscular Volume 99.8 fL Mean Corpuscular Hemoglobin 34.5 pg Mean Corpuscular Hemoglobin Concent 34.6 g/dl RDW Standard Deviation 48.9 fL RDW Coefficient of Variation 13.4 % Platelet Count 257 K/uL Mean Platelet Volume 9.9 fL Sodium Level 134 mmol/L Potassium Level 3.4 mmol/L Chloride Level 97 mmol/L Carbon Dioxide Level 29 mmol/L Anion Gap 8.0 mmol/L Blood Urea Nitrogen 17 mg/dl Creatinine 0.57 mg/dl Est Creatinine Clear Calc Drug Dose 68.0 ml/min Estimated GFR () 105.8 Estimated GFR (Non- 91.3 BUN/Creatinine Ratio 29.1 Random Glucose 99 mg/dl Calcium Level 8.9 mg/dl Magnesium Level 1.9 mg/dl Test 05/21/17 11:29 Bedside Glucose 133 mg/dl Assessment and Plan Wide Complex Tachycardia - concerning for VT - now NSR post cardioversion - no ischemia on nuc med - pt would prefer more extensive w/u prior to considering ICD - is willing to have vest for safety - this is being set up by cardiology - stable now no recurrence - on amiodarone afib -had burst of afib during PT - apparently felt some sx. now resolved - management to go hand in hand with above hypokalemia/relative hypomagnesemia - ongoing replacement, w vtach will target K of 4, mag of 2 - recheck in AM elevated troponin - theoretically could represent demand ischemia from rate of vtach, but has no other CAD sx. w cardioversion, also not unexpected - given overall milieu of circumstances Paroxysmal Atrial Fibrillation and H/O SVT and Re-Entrant Rhythm: - currently nsr - Does not want AC at this time given significant FHMx of Cerebral hemorrhage Mixed Connective Tissue D/O and CREST: - Prednisone 10 mg daily for now - rheumatology hoping to transition to methotrexate shoulder pain -suspect rotator cuff strain + mixed connective tissue disorder -voltaren gel has helped - woudl discharge with this -gentle mobilization Asthma without Exacerbation: - no sx today - Continue inhalers and Zyrtec 10 mg HS Hypothyroidism: Compensated - Synthroid 88 mcg daily Pre-DM: - BSG on admission 200 - will use T2DM diet and check BSGs - cover with SSI as needed DVT Prophylaxis: - aspirin BID as per ortho s/p knee Code Status: FULL RESUSCITATION dispo - likely home with outpatient eval at [facility] cardiology once vest can be set up
[2017-05-21] MEDS ORDERED: POTASSIUM CHLORIDE 20 MEQ TABCR PO ONE (20:00)
[2017-05-21] MEDS: CETIRIZINE HCL 10 MG TAB PO SCH (21:55)
[2017-05-21] MEDS: SENNA 8.6 MG TAB PO SCH (21:55)
[2017-05-22] MEDS: AMIODARONE / D5W 200 ML IV SCH ×2 (00:49→11:58)
[2017-05-22] MEDS: OXYCODONE HCL IR 5 MG TAB (IMMEDIATE RELEASE) PO PRN ×2 (00:50→08:49)
[2017-05-22] MEDS: ONDANSETRON 4 MG TAB PO PRN (02:27)
[2017-05-22 03:35] VITALS: BP 163/71; PULSE 48; TEMP 36.5; O2SAT 94
[2017-05-22] MEDS: LEVOTHYROXINE 88 MCG TAB PO SCH (05:32)
[2017-05-22] MEDS: TRAMADOL HCL 50 MG TAB PO PRN ×3 (05:49→14:21)
[2017-05-22 07:18] VITALS: BP 132/81; PULSE 54; TEMP 36.6; O2SAT 100
[2017-05-22 08:06] LABS: CALCIUM 8.6 mg/dl (8.5-10.1); CREATININE 0.61 mg/dl (0.60-1.20); POTASSIUM 4.3 mmol/L (3.5-5.1)
--- NOTE | 2017-05-22 09:12 | Orthopedic Progress Note ---
Orthopedic Progress Note Date of Service May 22, 2017. Subjective Reports: feeling well, Denies: chest pain, SOB, nausea / vomiting, light headedness Additional Notes: PATIENT WAS SEEN AT OUR OFFICE A FEW DAYS AGO FOR WOUND ISSUES. SHE HAD A KNEE ASPIRATION AT THAT TIME. PATIENT BECAME SYMPTOMATIC AND WAS ADMITTED FOR SVT. KNEE PAIN IS CONTROLLED. WE WERE CONSULTED FOR WOUND EVAL/STAPLE REMOVAL. PATIENT WAS NOT TOLERATING THE STAPLE REMOVAL BY NURSING AND WE WERE ASKED TO SEE HER TODAY. Objective calves soft nontender, N/V intact, capillary refill less than 2 sec., A&O x3, toes mobile PATIENT HAS A MIDLINE KNEE INCISION. THERE IS CURRENTLY NO ERYTHEMA OR WOUND DRAINAGE. SHE HAS MILD EFFUSION WHICH IS EXPECTED DURING THE POST OPERATIVE PERIOD. PATIENT HAS LOCALIZED ECCHYMOTIC VS NECROTIC AREA OVER THE MIDDLE OF THE INCISION. DISTAL AND PROXIMAL ENDS ARE HEALING WELL. Date Time Temp Pulse Resp B/P (MAP) Pulse Ox O2 Delivery O2 Flow Rate FiO2 05/22/17 08:00 Room Air 05/22/17 07:18 36.6 54 18 132/81 (98) 100 Room Air 05/22/17 04:00 Room Air 05/22/17 03:35 36.5 48 18 163/71 (101) 94 Room Air 05/21/17 23:59 Room Air 05/21/17 23:35 36.8 48 18 145/69 (94) 92 Room Air 05/21/17 20:21 36.6 53 18 131/71 (91) 97 Room Air 05/21/17 20:00 Room Air 05/21/17 16:50 36.5 61 19 143/81 (101) 96 Room Air 05/21/17 16:00 96 Room Air 05/21/17 12:00 96 Room Air 05/21/17 11:30 36.8 59 20 138/73 (94) 94 Room Air Assessment & Plan Assessment: SP LEFT TKA WITH POTENTIAL NECROTIC TISSUE. Plan: PATIENT WAS GIVEN SOME PAIN MEDICATION. I WAS ABLE TO GET THE LALA OUT OF THE DISTAL AND PROXIMAL ENDS OF THE INCISION. PATIENT DID TOLERATE IT. WILL LEAVE THE MIDDLE AREA OF THE INCISION INTACT. WILL HAVE DR. AGUILAR/DR FERRER EXAMINE HER THIS AFTERNOON. IF THEY FEEL THE REMAINDER OF THE LALA CAN SAFELY BE REMOVED WE WILL DO SO. I AM CONCERNED SHE IS GOING TO HAVE SOME NON- HEALING TISSUE IN THIS AREA. MAY CONSIDER WOUND EVAL WITH DR. BILLINGSLEY. IF REMAINING LALA ARE REMOVED, PATIENT REQUESTING IV MORPHINE.
[2017-05-22] MEDS: ASPIRIN 81 MG ECTAB PO SCH (09:17)
[2017-05-22] MEDS: MAGNESIUM OXIDE 400 MG TAB PO SCH (09:18)
[2017-05-22] MEDS: BuPROPion XL 300 MG TABCR PO SCH (09:18)
[2017-05-22] MEDS: PANTOprazole SOD 40 MG TAB PO SCH (09:18)
[2017-05-22] MEDS: DOCUSATE SODIUM 100 MG CAP PO SCH (09:18)
[2017-05-22] MEDS: DICLOFENAC SOD 1% GEL 100 GM TUBE EXT SCH ×2 (09:19→14:22)
[2017-05-22] MEDS: CYANOCOBALAMIN 500 MCG TAB (VIT B-12) PO SCH (09:19)
[2017-05-22] MEDS: INSULIN ASPART 100 UNITS/ML 3 ML PEN SC SCH ×2 (09:19→11:00)
[2017-05-22 11:32] VITALS: BP 138/74; PULSE 59; TEMP 36.6; O2SAT 99
--- NOTE | 2017-05-22 12:02 | Cardiology Follow-Up ---
Subjective Date of Service: May 22, 2017. Pt evaluation today including: conversation w/ patient, physical exam, chart review, lab review, review of studies, review of inpatient medication list History of Present Illness This morning claims to be feeling well. She is somewhat anxious regarding treatment of her left knee and possible removal of ugo later today. She has not any symptoms of chest discomfort. She denies any sense of palpitations. Overall she is anxious to go home.. Social History Smoking Status: Never Smoker History of Alcohol Use: Yes (OCC SOCIAL) Review of Systems Respiratory: + see HPI Cardiac: + see HPI Per HPI. Patient also has some discomfort in the left knee which was recently replaced. She has had some swelling at that site. Objective Vital Signs Past 12 Hours Date Time Temp Pulse Resp B/P (MAP) Pulse Ox O2 Delivery O2 Flow Rate FiO2 05/22/17 11:32 36.6 59 18 138/74 (95) 99 Room Air 05/22/17 08:00 Room Air 05/22/17 07:18 36.6 54 18 132/81 (98) 100 Room Air 05/22/17 04:00 Room Air 05/22/17 03:35 36.5 48 18 163/71 (101) 94 Room Air Last Recorded Weight-Kilograms: 56.000 Physical Exam The patient is alert and oriented. Mood and affect appeared normal. He answered all questions appropriately. HEENT: Pupils are equal and reactive to light and accommodation. Extraocular movements are intact. The sclerae are anicteric. Neuro: Cranial nerves intact Neck: Patient's neck is supple. He has palpable carotid pulses bilaterally without bruits on auscultation. There is no evidence of jugular venous distention. The thyroid is not enlarged. Lungs: Clear to auscultation bilaterally. He has good air movement without use of accessory muscles. No rales wheezes or rhonchi. Cardiac: Heart demonstrates a regular rate and rhythm. Normal S1 and S2. No murmurs on examination. Pulses: The patient has palpable radial pulses bilaterally that are equal in intensity but somewhat diminished Extremities: There was no evidence of hypoperfusion. There is no cyanosis or clubbing. There is no edema. The left knee is bandaged and mildly swollen versus the right Skin: I did not appreciate any rashes on examination today. Data Laboratory Results: Last 24 Hours Test 2/8/18 16:23 05/21/17 20:33 05/22/17 06:51 Bedside Glucose 121 mg/dl 97 mg/dl Sodium Level 137 mmol/L Potassium Level 4.3 mmol/L Chloride Level 101 mmol/L Carbon Dioxide Level 30 mmol/L Anion Gap 7.0 mmol/L Blood Urea Nitrogen 16 mg/dl Creatinine 0.61 mg/dl Est Creatinine Clear Calc Drug Dose 63.5 ml/min Estimated GFR () 103.5 Estimated GFR (Non- 89.3 BUN/Creatinine Ratio 25.8 Random Glucose 98 mg/dl Calcium Level 8.6 mg/dl Magnesium Level 2.1 mg/dl Telemetry reviewed: Sinus rhythm with periods of sinus bradycardia and possible junctional escape. The one brief episode of what appears to be some atrial fibrillation. Assessment and Plan 1. Ventricular tachycardia: We had an extensive discussion yesterday regarding her options for evaluation and treatment. She is not interested any permanent ICD at this time. She is interested in a possible EP study and VT ablation. I did contact the electrophysiology service at [facility] for their opinion. They felt that it would be reasonable to perform an EP study and possible ablation of VT should be inducible. If they were quite confident that the VT were successfully ablated she may in fact avoid the need for a permanent ICD. This will be managed on an outpatient basis. In the interim I suggested she wear a life vest for sustained ventricular tachycardia and will initiate the ordering process. Once a life vest arrive she would be a reasonable candidate for discharge from a cardiac standpoint. I do not think she will tolerate any beta blockade her amiodarone given her bradycardia. 2. SVT: Unclear if she ever had an actual reentrant SVT or whether this was truly VT that appeared narrow on a rhythm strip. 3. Atrial fibrillation: She did appear to have some brief episodes of atrial fibrillation on her telemetry. No symptoms. These were very brief. We discussed anticoagulation in the past and she is not in favor. 4. Valvular heart disease: Mitral regurgitation, mild
--- NOTE | 2017-05-22 14:21 | Discharge Instructions ---
Discharge Instructions Date of Service May 22, 2017. Admission Reason for Admission: Svt (Supraventricular Tachycardia) Discharge Discharge Diagnosis / Problem: ventricular tachycardia Discharge Goals Goal(s): Diagnostic testing, Therapeutic intervention Activity Recommendations Activity Limitations: as noted below Exercise/Sports Limitations: until after follow-up appointment consider using antibiotic ointment on your knee wound twice a day Dr Cherry will take ugo out in office in one week . Instructions / Follow-Up Instructions / Follow-Up Wear life vest as instructed, please follow up with Dr Hubbard Current Hospital Diet Patient's current hospital diet: Diabetes Type 2 Diet, AHA Diet (Heart Healthy) Discharge Diet Recommended Diet: Regular Diet Pending Studies Studies pending at discharge: no Laboratory Results Hemoglobin A1c Test 04/08/17 12:01 Range/Units Estimated Average Glucose 120 mg/dl Hemoglobin A1c 5.8 H 4.5-5.6 % Medical Emergencies . Who to Call and When: Medical Emergencies: If at any time you feel your situation is an emergency, please call 911 immediately. . Non-Emergent Contact Non-Emergency issues call your: Computational Sciences Professor Call Non-Emergent contact if: temperature is above 101, your pain is unusual for you . . "Provider Documentation" section prepared by Avinash Barnett. . VTE Core Measure Inpt VTE Proph given/why not?: SCD's
[2017-05-22] MEDS ORDERED: ANTIBIOTIC EXT (14:32)
[2017-05-22] MEDS ORDERED: RXC5 PO (14:32)
[2017-05-22 15:11] VITALS: BP 138/74; PULSE 59; TEMP 36.6; O2SAT 99
--- NOTE | 2017-05-22 15:37 | Discharge Summary ---
Discharge Summary Date of Service May 22, 2017. Discharge Summary Admission Date: May 18, 2017 at 13:59 Discharge Date: May 22, 2017 Discharge Disposition: Home with services (help with life vest ) Principal Diagnosis: ventricular tachycardia Immunizations: Have You Had Influenza Vaccine: Yes History of Tetanus Vaccine?: Unknown History of Pneumococcal: Yes History of Hepatitis B Vaccine: No Procedures: defibrillation Consultations: DR Hubbard Medication Reconciliation New Medications: Oxycodone HCl (Oxycodone HCl) 5 Mg Tab 5-10 MG PO Q8H, #10 DOSE as needed for knee pain or before staple removal [antibiotic ointment] () 1 INCH EXT BID, #1 TUBE this it over the counter Continued Medications: Acetaminophen (Sb Non-Aspirin Extra Stre) 500 Mg Tab 1000 MG PO Q8 for 21 Days, #126 TAB Albuterol Sulfate (Proair Respiclick) 108 Mcg/Act Aer 2 PUFFS INH PRN Aspirin (Aspirin EC Low Dose) 81 Mg Ectab 81 MG PO BID for 30 Days Budesonide/Formoterol Fumarate (Symbicort 80/4.5 Inhaler) Aero 2 PUFFS INH PRN, INHALER Bupropion (Wellbutrin) 100 Mg Tab 300 MG PO QAM, TAB Calcium Carbonate (Tums) 500 Mg Chew 2 TAB PO PRN Carboxymethylcellulose Sodium (Refresh Plus) 0.5 % Mannie 1 DROP OPB QID Celecoxib (CeleBREX) 200 Mg Cap 200 MG PO BID for 30 Days, #60 CAP Cetirizine (Zyrtec) 10 Mg Tab 10 MG PO HS, TAB Cyanocobalamin (Vitamin B12) 1,000 Mcg Tab 1000 MCG PO QAM Diphenhydramine Hcl (Benadryl Allergy) 25 Mg Cap 1 CAP PO PRN for 30 Days, #30 CAP Estradiol Acetate Vaginal (Femring) 0.05 Mg/24 Hr Mis 1 DOSE VAGRING UD Levothyroxine Sodium (Synthroid) 88 Mcg Tab 88 MCG PO QAM, TAB Lysine (Lysine) 500 Mg Cap 500 MG PO QAM Meclizine HCl (Meclizine HCl) 12.5 Mg Tab 1 TAB PO TID PRN for PRN for 10 Days, #30 TAB Methyltestosterone (Methyltestosterone) 10 Mg Cap 2.5 MG PO QAM Multiple Vitamins W/ Minerals (Emergen-C Immune) 1 Willie Willie 1 DOSE PO QAM Multiple Vitamins W/ Minerals (Airborne Immune System) 1 Chw Chw 1 DOSE PO QAM Omeprazole (Prilosec) 20 Mg Cap 20 MG PO QAM Ondansetron (Ondansetron HCl) 4 Mg Tab 4 MG PO Q8H PRN for NAUSEA for 10 Days, #30 TAB Prednisone (Prednisone) 5 Mg Tab 10 MG PO QAM, TAB Senna (Senokot) 8.6 Mg Tab 17.2 MG PO HS for 10 Days, TAB Hold for loose stools Tramadol HCl (Tramadol HCl) 50 Mg Tab 50-100 MG PO Q4H PRN for Pain, #60 TAB Valacyclovir (Valtrex) 500 Mg Tab 500 MG PO BID PRN for PRN, TAB [Citramax] () 1 TAB PO QAM [Juice Plus] () TAB 12 TAB PO DAILY Discontinued Medications: Amphetamine-Dextroamphetamine 10MG (Adderall 10MG) 1 Tab Tab 5-10 MG PO UD PRN for RN, TAB Discharge Exam Review of Systems: Constitutional: No fever, No chills Respiratory: No cough, No sputum Cardiovascular: No chest pain, No edema Abdomen: No pain, No nausea, No diarrhea, No constipation Musculoskeletal: No joint pain, No muscle pain Psychiatric: No depression symptoms, No anhedonism Physical Exam: General Appearance: WD/WN, no apparent distress Eyes: normal inspection, PERRL, sclerae normal Respiratory/Chest: chest non-tender, lungs clear, normal breath sounds Cardiovascular: regular rate, rhythm, no murmur Abdomen / GI: normal bowel sounds, non tender, soft Neurologic/Psychiatric: alert, oriented x 3 Hospital Course Ms. Dobson is a 72 y/o female with PMHx of Paroxysmal Atrial Fibrillation S/P Cardioversion (December 2016), SVT, Benign Micro Re-Entrant Rhythm, HTN, HLD, Polycythemia, CREST Syndrome, Mixed Connective Tissue D/O, PAD S/P Stent, Asthma , Hypothyroidism, and Legally Blind who presents to the ED due to tachycardia. Wide Complex Tachycardia - Suspect SVT S/P Cardioversion: NSR Currently - Reviewed EKGs from Mar 2017 without evidence of LBBB but current EKGs showing what appears to be a LBBB which may be from her rates; EKG shows wide complex but appears to have P and T waves superimposed in QRS - No response to Adenosine 6 mg and 12 mg pre-hospital; Successful cardioversion with 100 J; vitals stable - Consult cardiology - follows with Dr. Hubbard - recommends life vest but not to continue amiodarone, I advised to stop Adderall Paroxysmal Atrial Fibrillation and H/O SVT and Re-Entrant Rhythm: - Per patient consideration for ablation has been discussed but she has held this off given her orthopedic procedure left TKA - Does not want AC at this time given significant FHMx of Cerebral hemorrhage - No on rate control medications at this time Mixed Connective Tissue D/O and CREST: - Prednisone 10 mg daily, pt will discuss methotrexate with Dr Pittman Asthma without Exacerbation: - Patient reporting since cardioversion she has a cough but non-productive; no wheezing - Continue inhalers and Zyrtec 10 mg HS Hypothyroidism: Compensated - Synthroid 88 mcg daily Pre-DM:continue on T2DM diet and check BSGs - cover with SSI as needed DVT Prophylaxis: resume ASA BID Pt to have remainder of ugo removed in office 05/29 Code Status: FULL RESUSCITATION Total Time Spent: Greater than 30 minutes This includes examination of the patient, discharge planning, medication reconciliation, and communication with other providers. Discharge Instructions Please refer to the electronic Patient Visit Report (Discharge Instructions) for additional information.
== END 2017-05-22 16:21 | disposition home health service (06) | DRG 309 ==
LOC: EDBD 11:54 → C.EDA 11:55 → C.2T 13:59 → ENRESERV 16:55
PROVIDERS: ADMIT Internal Medicine; ATTEND Internal Medicine
DX: I47.2 Ventricular tachycardia (principal); I24.8 Other forms of acute ischemic heart disease; I47.1 Supraventricular tachycardia; I48.0 Paroxysmal atrial fibrillation; Z96.652 Presence of left artificial knee joint; D45 Polycythemia vera; S43.409A Unspecified sprain of unspecified shoulder joint, initial encounter; Z88.1 Allergy status to other antibiotic agents; I10 Essential (primary) hypertension; E78.5 Hyperlipidemia, unspecified; M34.1 CR(E)ST syndrome; I73.9 Peripheral vascular disease, unspecified; Z82.49 Family history of ischemic heart disease and other diseases of the circulatory system; Z83.3 Family history of diabetes mellitus; J45.909 Unspecified asthma, uncomplicated; E03.9 Hypothyroidism, unspecified; K21.9 Gastro-esophageal reflux disease without esophagitis; H54.8 Legal blindness, as defined in USA; Z96.612 Presence of left artificial shoulder joint; E87.6 Hypokalemia; E83.42 Hypomagnesemia; Z79.82 Long term (current) use of aspirin; Z98.890 Other specified postprocedural states; X58.XXXA Exposure to other specified factors, initial encounter; Z88.8 Allergy status to other drugs, medicaments and biological substances; Y92.89 Other specified places as the place of occurrence of the external cause

== ENCOUNTER 2017-06-19 09:57 | Inpatient (IN) | payer BC, OTHER ==
[~2017-06-19] VITALS: Ht 152.4 cm; Wt 63.0 kg
[~2017-06-19 09:57] MED LIST changes: -AMPH10TA2 PO; +ANTIBIOTIC EXT; -CLC100 PO; -MOME0.1O TOP; -SPCCR30 TOP
[2017-06-19] MEDS ORDERED: ONDANSETRON INJ 2 MG/ML 2 ML VIAL IV STA ×2 (10:22→14:55)
[2017-06-19] MEDS ORDERED: MoRPHine SULFATE 4 MG/ML 1 ML CARP\\VIAL IV STA ×2 (10:22→14:55)
[2017-06-19 10:43] LABS: BASO % 0.3 %; BASO ABS # 0.03 K/uL (0-0.2); EOS % 2.5 %; EOS ABS # 0.28 K/uL (0-0.5); HEMATOCRIT 45.2 % (37-47); HEMOGLOBIN 15.1 g/dL (12.0-16.0); IG# 0.07 K/uL (0.00-0.02); LYMPH % 11.6 %; MEAN CELL VOLUME 94.4 fL (80-100); MEAN CORPUSCULAR HEMOGLOBIN 31.5 pg (25-34); MEAN CORPUSCULAR HGB CONC 33.4 g/dl (32-36); MEAN PLATELET VOLUME 9.8 fL (7.4-10.4); MONO % 8.4 %; MONO ABS # 0.94 K/uL (0.11-0.59); NEUT % 76.6 %; NEUT ABS # 8.57 K/uL (1.4-6.5); PLATELET COUNT 266 K/uL (130-400); RED CELL DISTRIBUTION WIDTH CV 12.7 % (11.5-14.5); RED CELL DISTRIBUTION WIDTH SD 44.3 fL (36.4-46.3); WHITE BLOOD COUNT 11.19 K/uL (4.8-10.8)
--- NOTE | 2017-06-19 10:46 | DIAGNOSTIC IMAGING REPORT ---
L KNEE 1 OR 2 VIEWS ROUTINE CLINICAL HISTORY: Knee drainage status post knee replacement COMPARISON: 04/28/2017 DISCUSSION: Total left knee joint replacement. Good contact between prosthetic and underlying bone. No significant joint effusion. No bony destructive process. Vascular stent in position distal thigh. There is no evidence for soft tissue swelling. IMPRESSION: No acute process post total left knee arthroplasty. The above report was generated using voice recognition software. It may contain grammatical, syntax or spelling errors. Electronically signed by: Emmanuel Borrego M.D. 06/19/2017 10:45 AM Dictated Date/Time: 06/19/2017 10:43 AM
[2017-06-19 11:00] LABS: CALCIUM 9.6 mg/dl (8.5-10.1); CREATININE 0.71 mg/dl (0.60-1.20); POTASSIUM 4.1 mmol/L (3.5-5.1)
--- NOTE | 2017-06-19 11:11 | EMERGENCY ROOM VISIT NOTE ---
ED Visit Note First contact with patient: 10:02 I have seen and examined this patient with Cee Borrego and generally agree with the treatment plan as discussed. Problem List Medical Problems: (1) Polycythemia vera Status: Chronic Current/Historical Medications Scheduled Acetaminophen (Sb Non-Aspirin Extra Stre), 1,000 MG PO Q8 Albuterol Sulfate (Proair Respiclick), 2 PUFFS INH PRN Aspirin (Aspirin EC Low Dose), 81 MG PO BID Budesonide/Formoterol Fumarate (Symbicort 80/4.5 Inhaler), 2 PUFFS INH PRN Bupropion (Wellbutrin), 300 MG PO QAM Calcium Carbonate (Tums), 2 TAB PO PRN Carboxymethylcellulose Sodium (Refresh Plus), 1 DROP OPB QID Celecoxib (CeleBREX), 200 MG PO BID Cetirizine (Zyrtec), 10 MG PO HS Cyanocobalamin (Vitamin B12), 1,000 MCG PO QAM Diphenhydramine Hcl (Benadryl Allergy), 1 CAP PO PRN Estradiol Acetate Vaginal (Femring), 1 DOSE VAGRING UD Levothyroxine Sodium (Synthroid), 88 MCG PO QAM Lysine (Lysine), 500 MG PO QAM Methyltestosterone (Methyltestosterone), 2.5 MG PO QAM Multiple Vitamins W/ Minerals (Emergen-C Immune), 1 DOSE PO QAM Multiple Vitamins W/ Minerals (Airborne Immune System), 1 DOSE PO QAM Omeprazole (Prilosec), 20 MG PO QAM Oxycodone HCl (Oxycodone HCl), 5-10 MG PO Q8H Prednisone (Prednisone), 10 MG PO QAM Senna (Senokot), 17.2 MG PO HS [Citramax], 1 TAB PO QAM [Juice Plus], 12 TAB PO DAILY [antibiotic ointment], 1 INCH EXT BID Scheduled PRN Meclizine HCl (Meclizine HCl), 1 TAB PO TID PRN for PRN Ondansetron (Ondansetron HCl), 4 MG PO Q8H PRN for NAUSEA Tramadol HCl (Tramadol HCl), 50-100 MG PO Q4H PRN for Pain Valacyclovir (Valtrex), 500 MG PO BID PRN for PRN Allergies Coded Allergies: Shellfish (Verified Allergy, Severe, VERY SICK FOR SEVERAL DAYS/HIVES IN HER MOUTH, 06/19/17) WAS PREMED WITH STEROIDS BEFORE IODINATED DYES USED IN THE PAST NO PROBLEMS Nickel (Verified Allergy, Intermediate, RASH, 06/19/17) PT STATES Cephalexin (Verified Allergy, Unknown, NAUSEA AND VOMITING, 06/19/17) Chlorpromazine (Unverified Allergy, Unknown, JAW LOCKS, 06/19/17) Pineapple (Verified Allergy, Unknown, HIVES IN HER MOUTH, 06/19/17) Procaine (Verified Allergy, Unknown, 'makes muscle weakness worse', 06/19/17 ) Prochlorperazine (Verified Allergy, Unknown, MOTOR SEIZURES-ARMS SPASTIC, 06/19/17) ALL "ZINES' PER PT Soy Protein (Verified Allergy, Unknown, "SOY" ALLERGY-GI UPSET ABD PAIN, ) [place] (Verified Allergy, Unknown, HIVES IN HER MOUTH, 06/19/17) Tomato (Verified Allergy, Unknown, HIVES IN MOUTH, 06/19/17) [place] (Verified Allergy, Unknown, HIVES IN HER MOUTH, 06/19/17) Vital Signs Date Time Temp Pulse Resp B/P (MAP) Pulse Ox O2 Delivery O2 Flow Rate FiO2 06/19/17 10:07 36.9 59 20 174/79 97 Room Air Laboratory Results 06/19/17 10:30 Red Blood Count 4.79, Mean Corpuscular Volume 94.4, Mean Corpuscular Hemoglobin 31.5, Mean Corpuscular Hemoglobin Concent 33.4, Mean Platelet Volume 9.8, Neutrophils (%) (Auto) 76.6, Lymphocytes (%) (Auto) 11.6, Monocytes (%) (Auto) 8.4, Eosinophils (%) (Auto) 2.5, Basophils (%) (Auto) 0.3, Neutrophils # (Auto) 8.57, Lymphocytes # (Auto) 1.30, Monocytes # (Auto) 0.94, Eosinophils # (Auto) 0.28, Basophils # (Auto) 0.03 06/19/17 10:30 Test 06/19/17 10:30 White Blood Count 11.19 K/uL (4.8-10.8) Red Blood Count 4.79 M/uL (4.2-5.4) Hemoglobin 15.1 g/dL (12.0-16.0) Hematocrit 45.2 % (37-47) Mean Corpuscular Volume 94.4 fL (80-100) Mean Corpuscular Hemoglobin 31.5 pg (25-34) Mean Corpuscular Hemoglobin Concent 33.4 g/dl (32-36) Platelet Count 266 K/uL (130-400) Mean Platelet Volume 9.8 fL (7.4-10.4) Neutrophils (%) (Auto) 76.6 % Lymphocytes (%) (Auto) 11.6 % Monocytes (%) (Auto) 8.4 % Eosinophils (%) (Auto) 2.5 % Basophils (%) (Auto) 0.3 % Neutrophils # (Auto) 8.57 K/uL (1.4-6.5) Lymphocytes # (Auto) 1.30 K/uL (1.2-3.4) Monocytes # (Auto) 0.94 K/uL (0.11-0.59) Eosinophils # (Auto) 0.28 K/uL (0-0.5) Basophils # (Auto) 0.03 K/uL (0-0.2) RDW Standard Deviation 44.3 fL (36.4-46.3) RDW Coefficient of Variation 12.7 % (11.5-14.5) Immature Granulocyte % (Auto) 0.6 % Immature Granulocyte # (Auto) 0.07 K/uL (0.00-0.02) Anion Gap 7.0 mmol/L (3-11) Est Creatinine Clear Calc Drug Dose 54.5 ml/min Estimated GFR () 97.3 Estimated GFR (Non- 83.9 BUN/Creatinine Ratio 35.0 (10-20) Calcium Level 9.6 mg/dl (8.5-10.1) Medications Administered Medications (Trade) Dose Ordered Sig/Sun Route Start Time Stop Time Status Last Admin Dose Admin Morphine Sulfate (MoRPHine SULFATE INJ) 4 mg NOW STAT IV 06/19/17 10:22 06/19/17 10:25 DC 06/19/17 10:43 4 MG Ondansetron HCl (Zofran Inj) 4 mg NOW STAT IV 06/19/17 10:22 06/19/17 10:25 DC 06/19/17 10:43 4 MG Departure Information Referrals Solic, Angel,M.D. (PCP) Patient Instructions My [facility] [address]
[2017-06-19] MEDS ORDERED: CALCIUM CARBONATE 500 MG CHEWABLE PO PRN (14:45)
[2017-06-19] MEDS ORDERED: OXYCODONE HCL IR 5 MG TAB (IMMEDIATE RELEASE) PO SCH (14:45)
[2017-06-19] MEDS ORDERED: BUDESONIDE/FORMOTEROL FUMARATE 80/4.5 60 PUFFS/INHALER INH PRN (14:45)
[2017-06-19] MEDS ORDERED: ESTRADIOL ACETATE VAGRING SCH (14:45)
[2017-06-19] MEDS ORDERED: MoRPHine SULFATE 2 MG/ML CARP IV PRN (14:45)
[2017-06-19] MEDS ORDERED: METOCLOPRAMIDE HCL INJ 5 MG/ML 2 ML VIAL IV PRN (14:45)
[2017-06-19] MEDS ORDERED: ALBUTEROL HFA 8 GM INHALER INH PRN (15:15)
--- NOTE | 2017-06-19 15:18 | EMERGENCY ROOM VISIT NOTE ---
History First contact with patient: 10:02 Chief Complaint: KNEEPAIN Stated Complaint: KNEE REPLACEMENT- LEAKING FLUID, SEND BY [facility] History of Present Illness The patient is a 72 year old female who presents to the Emergency Room with complaints of fluid leaking from her left knee. The patient had a knee replacement performed by Dr. Cherry on April 28, 2017. She states she has been doing very well with therapy. She does admit that she has been having difficulty with the wound healing. She has been going back to on a weekly basis for wound check and replacement of Steri-Strips and bandage. The patient states yesterday when she was at physical therapy they noticed some leaking from the incision she contacted [facility] or through at that time and they gave her an appointment for Thursday since they told her was out of the office.. When she woke up this morning she stated there was more drainage and the knee was more swollen and she was unable to straighten the leg. She then call [facility] again today and she was instructed to come to the emergency room. The patient denies any fever. The patient does admit that she has a connective tissue disorder which they feel is why she is not healing properly. The patient is not on any blood thinners. The patient currently is not on any antibiotics. She took an oxycodone this morning for pain without any relief. Review of Systems 10 system review was performed and was negative unless stated otherwise history of present illness. Past Medical/Surgical History Medical Problems: (1) Left knee DJD (2) Polycythemia vera (3) SVT (supraventricular tachycardia) (4) Wound dehiscence Left knee replacement Family History Acute myocardial infarction Coronary artery disease Diabetes mellitus Stroke Social History Smoking Status: Never Smoker Drug Use: none Marital Status: Housing Status: lives alone Occupation Status: retired Current/Historical Medications Scheduled Acetaminophen (Sb Non-Aspirin Extra Stre), 1,000 MG PO Q8 Albuterol Sulfate (Proair Respiclick), 2 PUFFS INH PRN Aspirin (Aspirin EC Low Dose), 81 MG PO BID Budesonide/Formoterol Fumarate (Symbicort 80/4.5 Inhaler), 2 PUFFS INH PRN Bupropion (Wellbutrin), 300 MG PO QAM Calcium Carbonate (Tums), 2 TAB PO PRN Carboxymethylcellulose Sodium (Refresh Plus), 1 DROP OPB QID Celecoxib (CeleBREX), 200 MG PO BID Cetirizine (Zyrtec), 10 MG PO HS Cyanocobalamin (Vitamin B12), 1,000 MCG PO QAM Diphenhydramine Hcl (Benadryl Allergy), 1 CAP PO PRN Estradiol Acetate Vaginal (Femring), 1 DOSE VAGRING UD Levothyroxine Sodium (Synthroid), 88 MCG PO QAM Lysine (Lysine), 500 MG PO QAM Methyltestosterone (Methyltestosterone), 2.5 MG PO QAM Multiple Vitamins W/ Minerals (Emergen-C Immune), 1 DOSE PO QAM Multiple Vitamins W/ Minerals (Airborne Immune System), 1 DOSE PO QAM Omeprazole (Prilosec), 20 MG PO QAM Oxycodone HCl (Oxycodone HCl), 5-10 MG PO Q8H Prednisone (Prednisone), 10 MG PO QAM Senna (Senokot), 17.2 MG PO HS [Citramax], 1 TAB PO QAM [Juice Plus], 12 TAB PO DAILY [antibiotic ointment], 1 INCH EXT BID Scheduled PRN Meclizine HCl (Meclizine HCl), 1 TAB PO TID PRN for PRN Ondansetron (Ondansetron HCl), 4 MG PO Q8H PRN for NAUSEA Tramadol HCl (Tramadol HCl), 50-100 MG PO Q4H PRN for Pain Valacyclovir (Valtrex), 500 MG PO BID PRN for PRN Physical Exam Vital Signs Date Time Temp Pulse Resp B/P (MAP) Pulse Ox O2 Delivery O2 Flow Rate FiO2 06/19/17 14:54 74 16 158/65 96 Room Air 06/19/17 14:07 72 18 157/78 96 Room Air 06/19/17 14:00 77 06/19/17 11:45 65 16 163/77 95 Room Air 06/19/17 10:07 36.9 59 20 174/79 97 Room Air Physical Exam GENERAL: 72-year-old white female appears in no acute distress. MENTAL Status: Alert and oriented 3. LUNGS: Clear auscultation without wheezes rales or rhonchi. CARDIAC: Regular rate and rhythm without murmur. Pulses is full and equal throughout. LEFT KNEE: Generalized edema noted over the entire knee with palpable fluid. Vertical incision anteriorly located with purulent drainage and some separation of the outer tissue. Surrounding erythema around the incision. No red streaking up the leg. Medical Decision & Procedures ER Provider Diagnostic Interpretation: L KNEE 1 OR 2 VIEWS ROUTINE CLINICAL HISTORY: Knee drainage status post knee replacement COMPARISON: 04/28/2017 DISCUSSION: Total left knee joint replacement. Good contact between prosthetic and underlying bone. No significant joint effusion. No bony destructive process. Vascular stent in position distal thigh. There is no evidence for soft tissue swelling. IMPRESSION: No acute process post total left knee arthroplasty. The above report was generated using voice recognition software. It may contain grammatical, syntax or spelling errors. Electronically signed by: Emmanuel Borrego M.D. 06/19/2017 10:45 AM Laboratory Results Test 06/19/17 10:30 06/19/17 14:44 RDW Standard Deviation 44.3 fL (36.4-46.3) RDW Coefficient of Variation 12.7 % (11.5-14.5) White Blood Count 11.19 K/uL (4.8-10.8) Red Blood Count 4.79 M/uL (4.2-5.4) Hemoglobin 15.1 g/dL (12.0-16.0) Hematocrit 45.2 % (37-47) Mean Corpuscular Volume 94.4 fL (80-100) Mean Corpuscular Hemoglobin 31.5 pg (25-34) Mean Corpuscular Hemoglobin Concent 33.4 g/dl (32-36) Platelet Count 266 K/uL (130-400) Mean Platelet Volume 9.8 fL (7.4-10.4) Neutrophils (%) (Auto) 76.6 % Lymphocytes (%) (Auto) 11.6 % Monocytes (%) (Auto) 8.4 % Eosinophils (%) (Auto) 2.5 % Basophils (%) (Auto) 0.3 % Neutrophils # (Auto) 8.57 K/uL (1.4-6.5) Lymphocytes # (Auto) 1.30 K/uL (1.2-3.4) Monocytes # (Auto) 0.94 K/uL (0.11-0.59) Eosinophils # (Auto) 0.28 K/uL (0-0.5) Basophils # (Auto) 0.03 K/uL (0-0.2) Immature Granulocyte % (Auto) 0.6 % Immature Granulocyte # (Auto) 0.07 K/uL (0.00-0.02) Est Creatinine Clear Calc Drug Dose 54.5 ml/min Medications Administered Medications (Trade) Dose Ordered Sig/Sun Route Start Time Stop Time Status Last Admin Dose Admin Morphine Sulfate (MoRPHine SULFATE INJ) 4 mg NOW STAT IV 06/19/17 10:22 06/19/17 10:25 DC 06/19/17 10:43 4 MG Ondansetron HCl (Zofran Inj) 4 mg NOW STAT IV 06/19/17 10:22 06/19/17 10:25 DC 06/19/17 10:43 4 MG Morphine Sulfate (MoRPHine SULFATE INJ) 4 mg NOW STAT IV 06/19/17 14:55 06/19/17 14:56 DC 06/19/17 15:04 4 MG Ondansetron HCl (Zofran Inj) 4 mg NOW STAT IV 06/19/17 14:55 06/19/17 14:56 DC 06/19/17 15:03 4 MG ED Course The patient was evaluated. The patient's EMR medication list were reviewed. IV access was obtained. CBC and differential and renal profile was ordered. The patient was given morphine 4 mg IV and Zofran 4 mg IV push. X-ray of the left knee was ordered and interpreted by the radiologist as above without any evidence of osteomyelitis. Labs are reviewed. The patient's BUN was elevated otherwise labs are unremarkable. White count was only slightly elevated at 11, 000. I initially consulted Dr. Cano who is in the OR. He stated that I needed to contact Emmanuel Saavedra about the patient. I contacted him and he stated that he would get in contact with Dr. Cano via text and get back to me. He never got back to me therefore I contacted Dr. Cano again who stated that Emmanuel needed to be contacted about the patient. Finally after over 3 hours I got confirmation that someone would be coming to the ER to evaluate the patient for possible admission. They decided to admit the patient for debridement and washout of the incision site. While waiting the patient received an additional 4 mg of morphine IV and Zofran 4 mg IV push for associated nausea. Orthopedics finally came to evaluate the patient and stated they would be admitting her. Medical Decision Differential diagnosis include osteomyelitis, abscess, cellulitis, wound dehiscence [place] Drug Monitoring Program Search Results: patient reviewed within database Medication Reconcilliation Current Medication List: was personally reviewed by me Blood Pressure Screening Patient's blood pressure: Elevated blood pressure Impression Primary Impression: Infected incision Departure Information Dispostion Being Evaluated By Surgeon Condition GOOD Referrals Angel Mills M.D. (PCP) Patient Instructions My [facility] Problem Qualifiers Primary Impression: Infected incision Encounter type: initial encounter Qualified Codes: T81.4XXA - Infection following a procedure, initial encounter
[2017-06-19 16:01] LABS: HEMATOCRIT 41.9 % (37-47); HEMOGLOBIN 14.1 g/dL (12.0-16.0); MEAN CELL VOLUME 93.7 fL (80-100); MEAN CORPUSCULAR HEMOGLOBIN 31.5 pg (25-34); MEAN CORPUSCULAR HGB CONC 33.7 g/dl (32-36); MEAN PLATELET VOLUME 9.6 fL (7.4-10.4); PLATELET COUNT 230 K/uL (130-400); RED CELL DISTRIBUTION WIDTH CV 12.8 % (11.5-14.5); WHITE BLOOD COUNT 10.33 K/uL (4.8-10.8)
[2017-06-19 16:21] LABS: CALCIUM 8.8 mg/dl (8.5-10.1); CREATININE 0.62 mg/dl (0.60-1.20); POTASSIUM 4.2 mmol/L (3.5-5.1)
[2017-06-19 16:30] VITALS: BP 157/65; PULSE 64; TEMP 36.7; BMI 24.1
[2017-06-19 16:53] VITALS: BP 157/65; PULSE 64; TEMP 36.7; O2SAT 98
[2017-06-19] MEDS: ARTIFICIAL TEARS OP SOLN OPB SCH ×2 (17:35→20:56)
[2017-06-19] MEDS: D5W AND 1/2NSS 1,000 ML IV SCH ×2 (17:35→18:56)
[2017-06-19] MEDS: TRAMADOL HCL 50 MG TAB PO PRN ×2 (18:32→22:34)
[2017-06-19] MEDS: MoRPHine SULFATE 10 MG/ML CARP/VIAL IV PRN (19:03)
[2017-06-19] MEDS: CETIRIZINE HCL 10 MG TAB PO SCH (20:56)
[2017-06-19] MEDS: ACETAMINOPHEN 500 MG TAB PO SCH (22:34)
[2017-06-19 22:45] VITALS: BP 145/70; PULSE 67; TEMP 36.8; O2SAT 96
[2017-06-20 03:19] VITALS: BP 124/71; PULSE 97; TEMP 37.5; O2SAT 96
[2017-06-20] MEDS: MoRPHine SULFATE 4 MG/ML 1 ML CARP\\VIAL IV PRN ×2 (03:55→20:33)
[2017-06-20] MEDS: ACETAMINOPHEN 500 MG TAB PO SCH ×3 (05:48→21:32)
[2017-06-20] MEDS: LEVOTHYROXINE 88 MCG TAB PO SCH (05:48)
[2017-06-20] MEDS: D5W AND 1/2NSS 1,000 ML IV SCH ×2 (06:08→19:50)
[2017-06-20 07:20] VITALS: BP 144/73; PULSE 72; TEMP 37.2; O2SAT 91
[2017-06-20] MEDS: MoRPHine SULFATE 10 MG/ML CARP/VIAL IV PRN ×2 (08:40→16:16)
[2017-06-20] MEDS: ARTIFICIAL TEARS OP SOLN OPB SCH ×4 (08:41→19:50)
[2017-06-20] MEDS ORDERED: NON-FORMULARY MEDICATION (Lysine 500 MG) PO SCH (09:00)
[2017-06-20] MEDS ORDERED: MULTIPLE VITAMINS PO SCH (09:00)
[2017-06-20] MEDS ORDERED: MINERALS PO SCH (09:00)
[2017-06-20] MEDS ORDERED: METHYLTESTOSTERONE PO SCH (09:00)
--- NOTE | 2017-06-20 10:47 | Cardiology Consultation ---
Cardiology Consultation Date of Consultation: Jun 20, 2017. Reason for Consultation: Hx WCT Pt evaluation today including: conversation w/ patient, conversation w/ family , physical exam, lab review, review of studies, review of inpatient medication list History of Present Illness This is a 72-year-old woman who has a history of atrial fibrillation ( documented at least twice here) with rapid ventricular response as well as a WCT (likely VT, but possibly SVT with aberrancy) rate around 200 BPM. EP study was planned here, however she was in atrial fibrillation at the time so it was not done. She is scheduled to go to [facility] for EPS and possible ablation next week. She has not had symptomatic recurrence since last admission. A recent stress test was negative for ischemia. She has an issue with her knee incision, she needs surgery this admission. Today she has no CV complaints, only her knee which is causing discomfort. Past Medical/Surgical History (1) Polycythemia vera (2) Wide-complex tachycardia Paroxysmal atrial fibrillation Family History Acute myocardial infarction Coronary artery disease Diabetes mellitus Stroke Social History Smoking Status: Never Smoker History of Alcohol Use: Yes (x2 per mo) Review of Systems Constitutional: No fever, No weight loss, No weakness Respiratory: + see HPI Cardiac: + see HPI Abdomen: No pain, No nausea, No vomiting, No diarrhea, No GI bleeding Female : No problem reported Neurologic: No paralysis, No weakness, No numbness/tingling, No balance problems Heme: No abnormal bleeding/bruising, No clotting problems Endo: No fatigue Skin: No problem reported Knee pain All Other Systems: Reviewed and Negative Allergies Coded Allergies: Shellfish (Verified Allergy, Severe, VERY SICK FOR SEVERAL DAYS/HIVES IN HER MOUTH, 06/19/17) WAS PREMED WITH STEROIDS BEFORE IODINATED DYES USED IN THE PAST NO PROBLEMS Nickel (Verified Allergy, Intermediate, RASH, 06/19/17) PT STATES Cephalexin (Verified Allergy, Unknown, NAUSEA AND VOMITING, 06/19/17) Chlorpromazine (Unverified Allergy, Unknown, JAW LOCKS, 06/19/17) Pineapple (Verified Allergy, Unknown, HIVES IN HER MOUTH, 06/19/17) Procaine (Verified Allergy, Unknown, 'makes muscle weakness worse', 06/19/17 ) Prochlorperazine (Verified Allergy, Unknown, MOTOR SEIZURES-ARMS SPASTIC, 06/19/17) ALL "ZINES' PER PT Soy Protein (Verified Allergy, Unknown, "SOY" ALLERGY-GI UPSET ABD PAIN, ) [place] (Verified Allergy, Unknown, HIVES IN HER MOUTH, 06/19/17) Tomato (Verified Allergy, Unknown, HIVES IN MOUTH, 06/19/17) [place] (Verified Allergy, Unknown, HIVES IN HER MOUTH, 06/19/17) Medications Current Inpatient Medications Medications (Trade) Dose Ordered Sig/Sun Route Start Time Stop Time Status Last Admin Dose Admin Oxycodone/ Acetaminophen (Percocet 5-325mg Tab) `1-2 TABS FOR PAIN `1 TAB... Q4H PRN PO 06/19/17 14:45 07/03/17 14:44 Metoclopramide HCl (Reglan Inj) 10 mg Q6H PRN IV 06/19/17 14:45 07/19/17 14:44 Pantoprazole Sodium (Protonix Tab) 40 mg QAM PO 06/20/17 09:00 07/20/17 08:59 Dextrose/Sodium Chloride 1,000 ml @ 75 mls/hr [id number] IV 06/19/17 16:55 07/19/17 16:54 06/20/17 06:08 75 MLS/HR Acetaminophen (Tylenol Tab) 1,000 mg Q8 PO 06/19/17 22:00 07/19/17 21:59 Budesonide/ Formoterol Fumarate (Symbicort 80/ 4.5 Inh) 2 puffs DAILY PRN INH 06/19/17 14:45 07/19/17 14:44 Bupropion HCl (Wellbutrin-Xl Tab) 300 mg QAM PO 06/20/17 09:00 07/20/17 08:59 Calcium Carbonate (Tums Chew Tab) 1,000 mg Q4H PRN PO 06/19/17 14:45 07/19/17 14:44 Cetirizine HCl (zyrTEC TAB) 10 mg HS PO 06/19/17 21:00 07/19/17 20:59 Diphenhydramine HCl (Benadryl Cap) 25 mg DAILY PRN PO 06/19/17 14:45 07/19/17 14:44 Levothyroxine Sodium (Synthroid Tab) 88 mcg DAILYBB PO 06/20/17 06:00 07/20/17 06:59 Prednisone (PredniSONE TAB) 10 mg QAM PO 06/20/17 09:00 07/20/17 08:59 Tramadol HCl (Ultram Tab) 50 mg Q4H PRN PO 06/19/17 14:45 07/19/17 14:44 06/19/17 22:34 50 MG Albuterol (Ventolin Hfa Inhaler) 2 puffs Q4H PRN INH 06/19/17 15:15 07/19/17 15:14 Artificial Tears (Artificial Tears) 1 drops QID OPB 06/19/17 17:00 07/19/17 16:59 06/20/17 08:41 1 DROPS Cyanocobalamin (Vitamin B-12 Tab) 1,000 mcg QAM PO 06/20/17 09:00 07/20/17 08:59 Multivitamins/ Minerals (Multivitamin W/ Minerals Tab) 1 tab QAM PO 06/20/17 09:00 07/20/17 08:59 Morphine Sulfate (MoRPHine SULFATE INJ) 2 mg Q4HWA PRN IV 06/19/17 14:45 07/03/17 14:44 06/20/17 00:01 2 MG Morphine Sulfate (MoRPHine SULFATE INJ) 4 mg Q4HWA PRN IV 06/19/17 15:30 07/03/17 15:29 06/20/17 03:55 4 MG Morphine Sulfate (MoRPHine SULFATE INJ) 6 mg Q4HWA PRN IV 06/19/17 15:30 07/03/17 15:29 06/20/17 08:40 6 MG Miscellaneous Information (Order Awaiting Action) 1 ea QS N/A 06/20/17 00:00 07/20/17 00:00 Physical Exam Vital Signs Past 12 Hours Date Time Temp Pulse Resp B/P (MAP) Pulse Ox O2 Delivery O2 Flow Rate FiO2 06/20/17 07:20 37.2 72 20 144/73 (96) 91 Room Air 06/20/17 03:20 Room Air 06/20/17 03:19 37.5 97 20 124/71 (88) 96 Room Air 06/20/17 00:01 Room Air 06/19/17 22:45 36.8 67 20 145/70 (95) 96 Room Air Constitutional: Level of Distress: moderate distress Psychiatric: Mental Status: active & alert Head: normocephalic Eyes: EOM: EOMI ENMT: normal ENT inspection, hearing grossly normal Neck: supple, no masses Lungs: Respiratory effort: no dyspnea, good air movement Auscultation: breath sounds normal, no wheezing Cardiovascular: Heart Auscultation: RRR, no murmurs, no rubs, no gallops Peripheral Pulses: Bruits: none appreciated Abdomen: Bowel Sounds: normal Inspection & Palpation: soft, no tenderness, guarding & rebound, no masses Musculoskeletal: normal strength (5/5 throughout) Extremities: no edema Neurologic: Cranial Nerves: grossly intact Sensation: grossly intact Data Laboratory Results: Last 24 Hours Test 06/19/17 10:30 06/19/17 15:53 06/19/17 15:54 06/19/17 21:10 White Blood Count 11.19 K/uL 10.33 K/uL Red Blood Count 4.79 M/uL 4.47 M/uL Hemoglobin 15.1 g/dL 14.1 g/dL Hematocrit 45.2 % 41.9 % Mean Corpuscular Volume 94.4 fL 93.7 fL Mean Corpuscular Hemoglobin 31.5 pg 31.5 pg Mean Corpuscular Hemoglobin Concent 33.4 g/dl 33.7 g/dl Platelet Count 266 K/uL 230 K/uL Mean Platelet Volume 9.8 fL 9.6 fL Neutrophils (%) (Auto) 76.6 % Lymphocytes (%) (Auto) 11.6 % Monocytes (%) (Auto) 8.4 % Eosinophils (%) (Auto) 2.5 % Basophils (%) (Auto) 0.3 % Neutrophils # (Auto) 8.57 K/uL Lymphocytes # (Auto) 1.30 K/uL Monocytes # (Auto) 0.94 K/uL Eosinophils # (Auto) 0.28 K/uL Basophils # (Auto) 0.03 K/uL RDW Standard Deviation 44.3 fL 44.0 fL RDW Coefficient of Variation 12.7 % 12.8 % Immature Granulocyte % (Auto) 0.6 % Immature Granulocyte # (Auto) 0.07 K/uL Sodium Level 139 mmol/L 139 mmol/L Potassium Level 4.1 mmol/L 4.2 mmol/L Chloride Level 106 mmol/L 108 mmol/L Carbon Dioxide Level 26 mmol/L 25 mmol/L Anion Gap 7.0 mmol/L 6.0 mmol/L Blood Urea Nitrogen 25 mg/dl 18 mg/dl Creatinine 0.71 mg/dl 0.62 mg/dl Est Creatinine Clear Calc Drug Dose 54.5 ml/min 62.5 ml/min Estimated GFR () 97.3 103.0 Estimated GFR (Non- 83.9 88.8 BUN/Creatinine Ratio 35.0 29.6 Random Glucose 88 mg/dl 160 mg/dl Calcium Level 9.6 mg/dl 8.8 mg/dl Urine Color YELLOW Urine Appearance CLEAR Urine pH 5.5 Urine Specific [place] 1.013 Urine Protein NEG Urine Glucose (UA) NEG Urine Ketones NEG Urine Occult Blood NEG Urine Nitrite NEG Urine Bilirubin NEG Urine Urobilinogen NEG Urine Leukocyte Esterase NEG Test 06/20/17 06:45 Bedside Glucose 161 mg/dl Telemetry reviewed: SR with a 3 minute episode of AF at a rate of about 140 Assessment & Plan 1. Surgical clearance: From CV standpoint the only issue if her arrhythmia. I would proceed as planned. 2. WCT: Likely VT but not proven, has not responded to adenosine in the past, would likely need cardioversion but if given acutely while sedated adenosine may work better if it is adenosine sensitive. I would try that first, but if not successful would need cardioversion, so I would be prepared with patches and a defibrillator in place. I can be available tomorrow AM early 3. AF: She has AF and had it here, the rate is fast. 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
--- NOTE | 2017-06-20 11:03 | History and Physical ---
History & Physical Date Jun 20, 2017. Chief Complaint left knee wound History of Present Illness The patient is a 72 year old female with complaints of left knee slow healing wound s/p left TKA by Dr. Cherry in April. She has been seeing him in the office weekly for wound checks. Presented to the ER last evening after recommendation from Dr. Cherry office with concern for infection and wound separation. Past Medical/Surgical History Medical Problems: (1) Left knee DJD (2) Polycythemia vera (3) SVT (supraventricular tachycardia) (4) Wound dehiscence Allergies Coded Allergies: Shellfish (Verified Allergy, Severe, VERY SICK FOR SEVERAL DAYS/HIVES IN HER MOUTH, 06/19/17) WAS PREMED WITH STEROIDS BEFORE IODINATED DYES USED IN THE PAST NO PROBLEMS Nickel (Verified Allergy, Intermediate, RASH, 06/19/17) PT STATES Cephalexin (Verified Allergy, Unknown, NAUSEA AND VOMITING, 06/19/17) Chlorpromazine (Unverified Allergy, Unknown, JAW LOCKS, 06/19/17) Pineapple (Verified Allergy, Unknown, HIVES IN HER MOUTH, 06/19/17) Procaine (Verified Allergy, Unknown, 'makes muscle weakness worse', 06/19/17 ) Prochlorperazine (Verified Allergy, Unknown, MOTOR SEIZURES-ARMS SPASTIC, 06/19/17) ALL "ZINES' PER PT Soy Protein (Verified Allergy, Unknown, "SOY" ALLERGY-GI UPSET ABD PAIN, ) [place] (Verified Allergy, Unknown, HIVES IN HER MOUTH, 06/19/17) Tomato (Verified Allergy, Unknown, HIVES IN MOUTH, 06/19/17) [place] (Verified Allergy, Unknown, HIVES IN HER MOUTH, 06/19/17) Home Medications Scheduled Acetaminophen (Sb Non-Aspirin Extra Stre), 1,000 MG PO Q8 Albuterol Sulfate (Proair Respiclick), 2 PUFFS INH PRN Aspirin (Aspirin EC Low Dose), 81 MG PO BID Budesonide/Formoterol Fumarate (Symbicort 80/4.5 Inhaler), 2 PUFFS INH PRN Bupropion (Wellbutrin), 300 MG PO QAM Calcium Carbonate (Tums), 2 TAB PO PRN Carboxymethylcellulose Sodium (Refresh Plus), 1 DROP OPB QID Celecoxib (CeleBREX), 200 MG PO BID Cetirizine (Zyrtec), 10 MG PO HS Cyanocobalamin (Vitamin B12), 1,000 MCG PO QAM Diphenhydramine Hcl (Benadryl Allergy), 1 CAP PO PRN Estradiol Acetate Vaginal (Femring), 1 DOSE VAGRING UD Levothyroxine Sodium (Synthroid), 88 MCG PO QAM Lysine (Lysine), 500 MG PO QAM Methyltestosterone (Methyltestosterone), 2.5 MG PO QAM Multiple Vitamins W/ Minerals (Emergen-C Immune), 1 DOSE PO QAM Multiple Vitamins W/ Minerals (Airborne Immune System), 1 DOSE PO QAM Omeprazole (Prilosec), 20 MG PO QAM Oxycodone HCl (Oxycodone HCl), 5-10 MG PO Q8H Prednisone (Prednisone), 10 MG PO QAM Senna (Senokot), 17.2 MG PO HS [Citramax], 1 TAB PO QAM [Juice Plus], 12 TAB PO DAILY [antibiotic ointment], 1 INCH EXT BID Scheduled PRN Meclizine HCl (Meclizine HCl), 1 TAB PO TID PRN for PRN Ondansetron (Ondansetron HCl), 4 MG PO Q8H PRN for NAUSEA Tramadol HCl (Tramadol HCl), 50-100 MG PO Q4H PRN for Pain Valacyclovir (Valtrex), 500 MG PO BID PRN for PRN Physical Examination Respiratory/Chest: lungs clear Cardiovascular: regular rate, rhythm Extremities: + pertinent finding (left knee generalized swelling. purulent drainage with slight wound separation. soft calves. toes mobile) Plan of Treatment Plan at this time would be for left knee I &D with possible poly exchange. 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 She may have lunch and dinner today and will resume NPO tonight after midnight in anticipation of surgery tomorrow.
[2017-06-20] MEDS: OXYCODONE/ACETAMINOPHEN 5-325 TAB PO PRN ×2 (11:24→23:31)
[2017-06-20] MEDS: BuPROPion XL 300 MG TABCR PO SCH (11:25)
[2017-06-20] MEDS: CEROVITE ADV FORMULA TAB PO SCH (11:26)
[2017-06-20] MEDS: PANTOprazole SOD 40 MG TAB PO SCH (11:26)
[2017-06-20] MEDS: CYANOCOBALAMIN 500 MCG TAB (VIT B-12) PO SCH (11:26)
[2017-06-20 12:00] VITALS: BP 119/71; PULSE 71; TEMP 36.5; O2SAT 95
[2017-06-20 13:21] VITALS: Ht 152.4 cm; Wt 63.0 kg
[2017-06-20 15:28] VITALS: BP 152/81; PULSE 61; TEMP 36.7; O2SAT 90
[2017-06-20 19:18] VITALS: BP 145/73; PULSE 63; TEMP 36.9; O2SAT 97
[2017-06-20] MEDS: CETIRIZINE HCL 10 MG TAB PO SCH (19:50)
[2017-06-20 23:20] VITALS: BP 154/83; PULSE 60; TEMP 36.8; O2SAT 100
[2017-06-21] VITALS (13 sets, daily range): BP systolic 131–167; BP diastolic 61–83; PULSE 56–69; TEMP 36.5–36.8; O2SAT 95–100
[2017-06-21] MEDS: MoRPHine SULFATE 4 MG/ML 1 ML CARP\\VIAL IV PRN ×5 (00:41→22:53)
[2017-06-21] MEDS: LEVOTHYROXINE 88 MCG TAB PO SCH (03:44)
[2017-06-21] MEDS: ACETAMINOPHEN 500 MG TAB PO SCH ×3 (03:44→21:05)
[2017-06-21] MEDS ORDERED: FENTANYL CITRATE INJ 50 MCG/1 ML 2 ML VIAL ONE ×3 (06:50→10:28)
[2017-06-21] MEDS ORDERED: PROPOFOL IV EMULSION 10 MG/ML 20 ML VIAL IV ONE (06:50)
[2017-06-21] MEDS ORDERED: ROCURONIUM BROMIDE 10 MG/ML 5 ML VIAL IV ONE (06:50)
[2017-06-21] MEDS ORDERED: LIDOCAINE HCL 2% 2 ML VIAL (20MG/ML) ONE ×2 (06:50→07:56)
[2017-06-21] MEDS ORDERED: BACITRACIN 50000 UNIT VIAL ONE ×2 (07:20→07:31)
[2017-06-21] MEDS ORDERED: POVIDONE-IODINE OP SOLN 30 ML BTL ONE (07:20)
--- NOTE | 2017-06-21 07:22 | History & Physical Bridge Note ---
H&P Re-Evaluation Bridge Note: I have examined the patient, reviewed the History & Physical and in the interval since the performance of the History & Physical I have noted the following changes of clinical significance: Unable to proceed yesterday due to high cardiac risk for surgery and need for on site Trauma Surgeon today during procedure.
[2017-06-21] MEDS ORDERED: ATROPINE SULFATE 0.1 MG/ML 5ML SYR IV PRN ×2 (07:30→09:45)
[2017-06-21] MEDS ORDERED: EpHEDrine SULFATE INJ 50 MG/ML AMP IV PRN ×2 (07:30→09:45)
[2017-06-21] MEDS ORDERED: HYDROmorphone INJ 1 MG/ML SYR IV PRN (07:30)
[2017-06-21] MEDS ORDERED: BUPIVACAINE 0.5 % 5 MG/1 ML MPF 30ML VIAL ONE (07:30)
[2017-06-21] MEDS ORDERED: FENTANYL CITRATE INJ 50 MCG/1 ML 2 ML VIAL IV PRN (07:30)
[2017-06-21] MEDS ORDERED: ONDANSETRON INJ 2 MG/ML 2 ML VIAL IV PRN ×2 (07:30→09:45)
[2017-06-21] MEDS ORDERED: HYDROCORTISONE SOD SUCCINATE 100 MG/2 ML VIAL ONE ×2 (07:37→07:52)
[2017-06-21] MEDS ORDERED: MIDAZOLAM HCL 1 MG/ML 2ML VIAL ONE (07:38)
[2017-06-21] MEDS ORDERED: SODIUM CHLORIDE 0.9% INJ 10 ML VIAL ONE ×2 (07:44→07:45)
[2017-06-21] MEDS ORDERED: CLINDAMYCIN PHOS 150 MG/ML 2 ML VIAL ONE (07:52)
[2017-06-21] MEDS ORDERED: ONDANSETRON INJ 2 MG/ML 2 ML VIAL ONE (08:08)
[2017-06-21] MEDS ORDERED: GLYCOPYRROLATE INJ 0.2 MG/ML VIAL ONE (08:34)
[2017-06-21] MEDS ORDERED: NEOSTIGMINE METHYLSULFATE 5 MG/5 ML SYR ONE (08:34)
[2017-06-21] MEDS: D5W AND 1/2NSS 1,000 ML IV SCH ×2 (08:55→21:04)
[2017-06-21] MEDS: CYANOCOBALAMIN 500 MCG TAB (VIT B-12) PO SCH (09:00)
[2017-06-21] MEDS: PANTOprazole SOD 40 MG TAB PO SCH (09:00)
[2017-06-21] MEDS: BuPROPion XL 300 MG TABCR PO SCH (09:00)
[2017-06-21] MEDS: CEROVITE ADV FORMULA TAB PO SCH (09:00)
[2017-06-21] MEDS: ARTIFICIAL TEARS OP SOLN OPB SCH ×4 (09:00→21:01)
[2017-06-21] MEDS ORDERED: VANCOMYCIN HCL 1000MG/20ML VIAL ONE (09:02)
--- NOTE | 2017-06-21 09:45 | [facility] Post Operative Brief Note ---
Immediate Operative Summary Operative Date Jun 21, 2017. Pre-Operative Diagnosis Left knee Wound Dehisence, Infected Left Total Knee Arthroplasty Post-Operative Diagnosis 1. Left knee Wound Dehisence, 2. Infected Left Total Knee Arthroplasty 3. Left knee Medial retinacular tear Procedure(s) Performed 1. Irrigation and Debredement left Total knee replacement 2. Polyethylene exchange Total knee w/ Garcia and Nephew Journey 2, Size 2x9mm posterior stabilized polyethylene 3. Left knee medial Retinacular Repair Surgeon Dr Danilo Valdez Regulatory Consultant Surgeon(s) Columba Hendricks PA-C Estimated Blood Loss 150 cc Findings Consistent with Post-Op Diagnosis Specimens 1: Prepatellar Bursa Left Knee 2: Intra-articular Left Knee 3: Left Knee Synovial Tissue Drains HV x 2, Prevena wound drain Anesthesia Type General (with local) Complication(s) none Disposition Accompanied Pt To Recover: no Disposition: Recovery Room / PACU
[2017-06-21] MEDS ORDERED: LABETALOL HCL IV 5 MG/ML 20ML IV ONE ×2 (10:01→10:02)
--- NOTE | 2017-06-21 10:27 | OPERATIVE REPORT ---
DATE OF OPERATION: 06/21/2017 PREOPERATIVE DIAGNOSES: 1. Left anterior total knee arthroplasty wound dehiscence. 2. Infected left total knee arthroplasty. POSTOPERATIVE DIAGNOSES: 1. Left anterior knee total knee arthroplasty dehiscence. 2. Infected left total knee arthroplasty. 3. Medial retinacular tear. PROCEDURES: 1. Left total knee arthroplasty, irrigation and debridement. 2. Polyethylene exchange with a Garcia and Nephew Journey II size 2 x 9 mm posterior stabilized polyethylene. 3. Medial retinacular repair. SURGEON: Dr. Valdez. CEILING INSULATION BLOWER: Martine Hendricks PA-C who was present for patient positioning, sterile prep and drape, management of retractors and instruments. He was present through the critical portions of the case including wound closure, application of sterile dressing and transport of the patient to recovery. ANESTHESIA: General with local. SPECIMENS: 1. Aerobic, anaerobic, Gram stain specimen from the prepatellar bursa. 2. Aerobic, anaerobic, Gram stain from the deep intraarticular left total knee. 3. Synovium for culture and pathology. DRAINS: Hemovac x2 and Prevena superficial wound drain. COMPLICATIONS: None. BLOOD LOSS: 150 mL. PERTINENT HISTORY: This is a 72-year-old female who had a left total knee arthroplasty performed by Dr. Cherry in April 2017. She was in her usual state of health. She did have some issues related to unsustained runs of supraventricular tachycardia, possible ventricular tachycardia. The patient started to develop redness and irritation of the left anterior knee and was seen in multiple office consultations and a consultation for wound care. She then began having signs consistent with some cellulitis anteriorly, placed on antibiotics and also continued the wound care and developed further breakdown of the anterior knee wound with increased pain, swelling, redness and was then admitted to the hospital. She was noted to have anterior knee partial wound dehiscence without any clear evidence of deep infection. The patient was then scheduled for surgery as indicated to explore the anterior incision with possible polyethylene exchange is necessary. All potential risks, benefits, complications, alternatives, rehab, potential for incomplete relief of symptoms, need for additional procedure, DVT, PE, , persistent pain, swelling, scarring, weakness, neurovascular injury, wound complications, hardware failure, nonunion, malunion, component loosening was discussed with the patient. The patient decided to proceed with the procedure as indicated. DESCRIPTION OF PROCEDURE: The patient was taken to the operative suite, placed supine on the table. After reviewing consent and identification of proper operative site, the patient was placed on the operating table, the patient was then sedated. She had an arterial line placed and placed on the operating room table. The patient was then anesthetized and there was no pneumatic tourniquet used on the left lower extremity due to previous arterial bypass in the left lower extremity. The left lower extremity was then sterilely prepped and draped in usual fashion, elevated on bolsters with a bump under the left hip. Next, the 10 blade scalpel was used to make an incision anterior to the site of the wound dehiscence. There was noted to be prepatellar bursal fluid. This was then cultured, aerobic, anaerobic, Gram stain. After soft tissue flaps were carefully elevated medially and laterally, there was noted to be a complete breakdown of the medial retinacular repair with retinacular tear. Next, the Metzenbaum scissors were used to release the remainder of the superior and inferior retinaculum above the level of the implant proximally and also down at the level of the tibial metaphyseal flare distally just distal to the tibial tubercle. Next, the patella was everted and the polyethylene locking mechanism was then removed using a curved osteotome and mallet. This was then followed by sequential debridement of the knee began in the posterior capsule extending medially and laterally in the gutters, deep and then expanding superficially in the gutters medially and laterally, the proximal aspect of the interval between the quadriceps fascia and the subcutaneous fat and then distally. This was performed with a rongeur, any gross hypertrophic synovium of tissue was then resected. This was then followed by pulsatile lavage with 3 liters bacitracin for initial cleansing, this was then followed by use of a Versajet and sequential use of Versajet throughout all soft tissue structures and also bony structures including the patella, femur and tibial component, which were all well fixed. Next, another 3 liters with pulsatile lavage with bacitracin was then performed on all surfaces within the left knee, synovial biopsy have been taken prior to irrigation with a pulsatile lavage for specimen and pathological examination. This was then followed by the change of top gloves and top sheet and instruments. This allowed placement of new polyethylene liner and placement of Hemovac drains 10 Irish x2. Vancomycin powder was applied to the deep soft tissue structures followed by placement of the medial and lateral gutters. The retinaculum was then closed using interrupted #1 Vicryl sutures. Performed approximately 30 degrees of flexion. Next, vancomycin powder, approximately 500 mL, so 1 gram total was placed in the superficial soft tissues. The anterior area of wound dehiscence was then carefully debrided sharply with a 10 blade scalpel and the skin was then closed using buried interrupted 2-0 Vicryl to dermis and superficial skin was closed using interrupted horizontal mattress nylon sutures. The incision was then injected with 0.5% Marcaine plain, approximately 30 mL. Finally, a Prevena drain was then placed to the superficial tissues left knee with adequate seal obtained. Next, a sterile compressive dressing and Ronan wrap was applied from toes to groin. The patient was then awakened and taken to recovery in stable condition. I attest to the content of the Intraoperative Record and any orders documented therein. Any exception s are noted below.
[2017-06-21] MEDS: FENTANYL CITRATE INJ 50 MCG/1 ML 2 ML VIAL IV PRN ×4 (10:28→10:43)
[2017-06-21] MEDS ORDERED: ACETAMINOPHEN 500 MG TAB PO SCH (10:45)
[2017-06-21] MEDS ORDERED: BISACODYL 10 MG SUPP PR PRN (10:45)
[2017-06-21] MEDS ORDERED: SOD PHOSPHATE/SOD BIPHOSPHATE ENEMA 132 ML BTL PR PRN (10:45)
[2017-06-21] MEDS ORDERED: MAGNESIUM HYDROXIDE SUSP 30 ML UDC PO PRN (10:45)
[2017-06-21] MEDS ORDERED: ZOLPIDEM TARTRATE 5 MG TAB PO PRN (10:45)
[2017-06-21] MEDS ORDERED: MoRPHine SULFATE 2 MG/ML CARP IV PRN (10:45)
[2017-06-21] MEDS ORDERED: HYDROmorphone INJ 1 MG/ML SYR ONE ×2 (10:50→11:31)
[2017-06-21] MEDS: HYDROmorphone INJ 1 MG/ML SYR IV PRN ×4 (10:51→11:35)
[2017-06-21] MEDS ORDERED: VANCOMYCIN CONSULT ACTIVE PRN (11:00)
[2017-06-21] MEDS: FERROUS GLUCONATE 324 MG TAB PO SCH ×2 (11:30→16:34)
--- NOTE | 2017-06-21 11:40 | DIAGNOSTIC IMAGING REPORT ---
L KNEE 2 VIEWS ROUTINE CLINICAL HISTORY: Postoperative examination COMPARISON: 06/19/2017 DISCUSSION: There are postsurgical changes of a total left knee arthroplasty and patellar resurfacing. There are no acute fractures. The femoral and tibial components appear well seated. There is air within soft tissues consistent with recent surgery. There is a vascular stent within the distal thigh. IMPRESSION: Postsurgical changes of a total left knee arthroplasty. Air and fluid within the joint, likely postsurgical Electronically signed by: Allen Gonsalez M.D. 06/21/2017 11:38 AM Dictated Date/Time: 06/21/2017 11:37 AM
--- NOTE | 2017-06-21 11:41 | Anesthesiology Progress Note ---
Anesthesia Post Op Note Date & Time Jun 21, 2017 at 11:38 Vital Signs Pain Intensity: 5 Vital Signs Past 12 Hours Date Time Temp Pulse Resp B/P (MAP) Pulse Ox O2 Delivery O2 Flow Rate FiO2 06/21/17 11:30 36.2 65 16 108/85 100 Nasal Cannula 4 06/21/17 11:20 36.2 65 16 160/85 100 Nasal Cannula 4 06/21/17 11:10 63 16 160/85 100 Nasal Cannula 4 06/21/17 11:00 64 16 153/85 100 Nasal Cannula 4 06/21/17 10:50 57 16 136/58 100 Oxymask 10 06/21/17 10:40 51 16 152/73 100 Oxymask 10 06/21/17 10:30 36.2 53 16 130/66 100 Oxymask 10 06/21/17 10:23 36.2 48 16 105/41 100 Oxymask 10 06/21/17 07:05 36.8 61 20 152/77 (102) 98 Room Air 06/21/17 04:15 Room Air 06/21/17 04:13 36.5 56 16 158/83 (108) 99 Room Air Notes Mental Status: alert / awake / arousable, participated in evaluation Pt Amnestic to Procedure: Yes Nausea / Vomiting: adequately controlled Pain: adequately controlled Airway Patency, RR, SpO2: stable & adequate BP & HR: stable & adequate Hydration State: stable & adequate Anesthetic Complications: no major complications apparent The patient did well intraoperatively and in recovery with no issues. The patient will be going back to telemetry for close monitoring. Dr. Monteiro will continue to follow her on the floor. He stated that the defibrillator pads could be removed prior to transfer back to telemetry.
--- NOTE | 2017-06-21 11:49 | Pharmacy Progress Note ---
Pharmacy Abx Dose Short Note Date of Service Jun 21, 2017. Assessment & Plan Assessment 72 year old female ordered empiric vancomycin IV s/p I&D, poly exchange for infected L-TKA. Operative cultures pending. Plan Vancomycin * Loading dose: 1250 mg IV (21 mg/kg) * Maintenance dose: 750 mg (12.7 mg/kg) IV every 12 hours * Goal trough level for infected joint: 15 to 20 mcg/mL * Trough level ordered for: 06/23/17 Pharmacy will continue to follow and will adjust dose/frequency as necessary. Thank you.
[2017-06-21] MEDS ORDERED: VANCOMYCIN IV 1,250 MG in SODIUM CHLORIDE 0.9% 250ML 250 ML IV ONE (12:00)
[2017-06-21] MEDS: OXYCODONE/ACETAMINOPHEN 5-325 TAB PO PRN ×2 (12:15→16:34)
[2017-06-21] MEDS: ONDANSETRON INJ 2 MG/ML 2 ML VIAL IV PRN (12:17)
--- NOTE | 2017-06-21 15:00 | Cardiology Follow-Up ---
Subjective Date of Service: Jun 21, 2017. Pt evaluation today including: conversation w/ patient, conversation w/ family , physical exam, lab review, review of studies, review of inpatient medication list History of Present Illness This is a 72-year-old woman who has a history of atrial fibrillation ( documented at least twice here) with rapid ventricular response as well as a WCT (likely VT, but possibly SVT with aberrancy) rate around 200 BPM. EP study was planned here, however she was in atrial fibrillation at the time so it was not done. She is scheduled to go to [facility] for EPS and possible ablation next week. She has not had symptomatic recurrence since last admission. A recent stress test was negative for ischemia. She has an issue with her knee incision, she underwent surgery this morning which evidently was uneventful from the cardiovascular standpoint. Today she has no CV complaints, only her knee which is causing discomfort. Social History Smoking Status: Never Smoker History of Alcohol Use: Yes (x2 per mo) Review of Systems Respiratory: No shortness of breath Cardiac: No chest pain Knee pain Medications Cardiovascular: Item Value Date Time Aspirin 81 mg 06/21/17 2100 (Ecotrin Tab) BID/PO Objective Vital Signs Past 12 Hours Date Time Temp Pulse Resp B/P (MAP) Pulse Ox O2 Delivery O2 Flow Rate FiO2 06/21/17 13:45 65 159/61 (93) 99 Nasal Cannula 2.0 06/21/17 13:30 61 144/82 (102) 99 Nasal Cannula 2.0 06/21/17 13:00 58 131/75 (93) 100 Nasal Cannula 2.0 06/21/17 12:45 36.7 59 20 134/81 (98) 100 Nasal Cannula 2.0 06/21/17 12:30 57 147/77 (100) 98 Nasal Cannula 2.0 06/21/17 12:15 60 133/67 (89) 100 Nasal Cannula 2.0 06/21/17 12:00 36.5 64 20 145/70 (95) 97 Nasal Cannula 2.0 06/21/17 11:55 36.5 62 22 161/67 (98) 95 Nasal Cannula 4.0 06/21/17 11:40 65 16 108/86 100 Nasal Cannula 4 06/21/17 11:30 36.2 65 16 108/85 100 Nasal Cannula 4 06/21/17 11:20 36.2 65 16 160/85 100 Nasal Cannula 4 06/21/17 11:10 63 16 160/85 100 Nasal Cannula 4 06/21/17 11:00 64 16 153/85 100 Nasal Cannula 4 06/21/17 10:50 57 16 136/58 100 Oxymask 10 06/21/17 10:40 51 16 152/73 100 Oxymask 10 06/21/17 10:30 36.2 53 16 130/66 100 Oxymask 10 06/21/17 10:23 36.2 48 16 105/41 100 Oxymask 10 06/21/17 07:05 36.8 61 20 152/77 (102) 98 Room Air 06/21/17 04:15 Room Air 06/21/17 04:13 36.5 56 16 158/83 (108) 99 Room Air Last Recorded Weight-Kilograms: 59.200 Intake & Output 8-Hour Column 06/21/17 06/21/17 06/22/17 15:59 23:59 07:59 Intake Total 900 ml Output Total 160 ml Balance 740 ml 24-Hour Column 06/22/17 07:59 Intake Total 900 ml Output Total 160 ml Balance 740 ml Physical Exam Constitutional: Level of Distress: moderate distress Lungs: Respiratory effort: no dyspnea, good air movement Auscultation: breath sounds normal, no wheezing Cardiovascular: Heart Auscultation: RRR, no murmurs, no rubs, no gallops Peripheral Pulses: Bruits: none appreciated Extremities: no edema Left leg bandaged Data Laboratory Results: Last 24 Hours Test 06/20/17 16:10 06/21/17 06:45 06/21/17 10:40 06/21/17 12:11 Bedside Glucose 147 mg/dl 92 mg/dl 143 mg/dl 143 mg/dl Telemetry reviewed: 25 minutes for atrial fibrillation last evening, heart rate around 120 bpm. Assessment and Plan 1. Surgical she is a procedure: She did well during her surgery, she had no cardiovascular difficulties (no wide complex tachycardia or atrial fibrillation) . 2. WCT: Likely VT but not proven, has not responded to adenosine in the past, would likely need cardioversion but if given acutely may work better if it is adenosine sensitive. I would try that first, but if not successful would need cardioversion. Keep on telemetry for now. She is scheduled to go down to [facility] this coming Thursday, we will need to evaluate whether that is appropriate given her recent surgery. 3. AF: She has daily episodes of AF here, the rate is fast. 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 While she is on telemetry we can keep track of it I think it is safe to hold anticoagulation for the time being. Thank you for allowing me to participate in her care.
[2017-06-21] MEDS: CETIRIZINE HCL 10 MG TAB PO SCH (21:00)
[2017-06-21] MEDS: ASPIRIN 81 MG ECTAB PO SCH (21:02)
[2017-06-21] MEDS: SENNA 8.6 MG TAB PO SCH (21:02)
[2017-06-21] MEDS: DOCUSATE SODIUM 100 MG CAP PO SCH (21:04)
[2017-06-21] MEDS: TRAMADOL HCL 50 MG TAB PO PRN (21:17)
[2017-06-22] VITALS (8 sets, daily range): BP systolic 119–136; BP diastolic 58–78; PULSE 59–85; TEMP 36.8–37.2; O2SAT 94–98
[2017-06-22] MEDS ORDERED: VANCOMYCIN IV 750 MG in SODIUM CHLORIDE 0.9% 250ML 250 ML IV SCH ×2
[2017-06-22] MEDS: MoRPHine SULFATE 4 MG/ML 1 ML CARP\\VIAL IV PRN ×4 (04:16→17:34)
[2017-06-22] MEDS: LEVOTHYROXINE 88 MCG TAB PO SCH (06:02)
[2017-06-22] MEDS: ACETAMINOPHEN 500 MG TAB PO SCH (06:03)
[2017-06-22 06:04] LABS: HEMOGLOBIN 11.1 g/dL (12.0-16.0); MEAN CELL VOLUME 92.4 fL (80-100); MEAN CORPUSCULAR HEMOGLOBIN 31.1 pg (25-34); MEAN CORPUSCULAR HGB CONC 33.6 g/dl (32-36); MEAN PLATELET VOLUME 9.7 fL (7.4-10.4); PLATELET COUNT 197 K/uL (130-400); RED CELL DISTRIBUTION WIDTH CV 12.8 % (11.5-14.5); RED CELL DISTRIBUTION WIDTH SD 43.3 fL (36.4-46.3); WHITE BLOOD COUNT 9.42 K/uL (4.8-10.8)
[2017-06-22 06:28] LABS: CREATININE 0.37 mg/dl (0.60-1.20)
[2017-06-22] MEDS: ONDANSETRON INJ 2 MG/ML 2 ML VIAL IV PRN (08:51)
[2017-06-22] MEDS: ARTIFICIAL TEARS OP SOLN OPB SCH ×4 (08:58→20:18)
[2017-06-22] MEDS ORDERED: PANTOprazole SOD 40 MG TAB PO SCH (09:00)
--- NOTE | 2017-06-22 09:47 | Clinical Documentation Query ---
CLINICAL DOCUMENTATION QUERY 72 yo female admitted for infection and wound separation of s/p left TKA is currently s/p surgical intervention. Patient's hemovac drainage and EBL = 300ml. Patient's hgb 15.1 trending down >3gm to 11.1. In your clinical opinion is this patient being managed for: (x ) Expected acute blood-loss anemia ( ) Not Agree ( ) Other explanation of clinical findings (Please Explain) ( ) Unable to determine (Please Define) ( ) Need to Discuss The medical record reflects the following clinical findings, treatment, and risk factors. Clinical Indicators: As above Treatment: Serial CBCs, telemetry, IV hydration, I&O Risk Factors: Age, surgical intervention, infection, blood/fluid loss Please clarify and document your clinical opinion in the progress notes and discharge summary. Terms such as "probable", "suspected", "likely", "questionable", "possible", or "still to be ruled out" are acceptable. IF IN AGREEMENT, YOU MUST DOCUMENT ABOVE DIAGNOSTIC STATEMENT IN DAILY PROGRESS NOTES AND DISCHARGE SUMMARY. This document is not part of the patient's record. Thank You, Precious Pena RN [phone]
[2017-06-22] MEDS: PANTOprazole SOD 40 MG TAB PO SCH (10:15)
[2017-06-22] MEDS: CEROVITE ADV FORMULA TAB PO SCH (10:15)
[2017-06-22] MEDS: MULTIVITAMIN TAB PO SCH (10:15)
[2017-06-22] MEDS: ASPIRIN 81 MG ECTAB PO SCH ×2 (10:16→20:20)
[2017-06-22] MEDS: DOCUSATE SODIUM 100 MG CAP PO SCH ×2 (10:16→20:19)
[2017-06-22] MEDS: FERROUS GLUCONATE 324 MG TAB PO SCH ×2 (10:16→16:16)
[2017-06-22] MEDS: CYANOCOBALAMIN 500 MCG TAB (VIT B-12) PO SCH (10:17)
[2017-06-22] MEDS: BuPROPion XL 300 MG TABCR PO SCH (10:17)
[2017-06-22] MEDS: OXYCODONE/ACETAMINOPHEN 5-325 TAB PO PRN ×3 (10:27→20:18)
--- NOTE | 2017-06-22 11:20 | Progress Note ---
Progress Note Date of Service Jun 22, 2017. Progress Note ID Consult Dictated #[id number] A/P: 1. Post op infection -Add Imipenem pending final results -Stop vanco -Will follow, thank you
--- NOTE | 2017-06-22 11:34 | INFECT. DISEASE CONSULTATION ---
DATE OF CONSULTATION: 06/22/2017 HISTORY OF PRESENT ILLNESS: This is a 72-year-old female who was admitted to the hospital secondary to wound dehiscence. She had a left knee replacement done in April and subsequently had increased pain and wound dehiscence. She was taken to the OR over the weekend and underwent a poly exchange with washout. She did have intraoperative cultures; those are growing gram-negative bacteria. She is currently on vancomycin monotherapy empirically. She denies any fevers at home. She did have a mild leukocytosis of 11,000 on admission, which is improved to 9. There is no old micro to review. She states she is having significant pain. She states that morphine does help her pain, but she does not feel that Percocet or oxycodone is helping. She is asking for additional pain medication. She denies any chest pain, wheezing, nausea, vomiting, diarrhea or abdominal pain. Her remaining review of systems is unremarkable. PAST MEDICAL HISTORY: Significant for degenerative joint disease, polycythemia vera, history of supraventricular tachycardia. PAST SURGICAL HISTORY: Significant for a left knee replacement in April with subsequent wound dehiscence and poly exchange on this admission. ALLERGIES: SHE HAS MULTIPLE ALLERGIES INCLUDING SHELLFISH, CEPHALEXIN, AND PROCAINE. CURRENT MEDICATIONS: Include multivitamin, vancomycin, Senokot, Colace, Ecotrin, iron, morphine, Roxicodone, milk of magnesia, Dulcolax, Fleet enema, Ambien, Zofran, Ultram, Protonix, Wellbutrin, prednisone, vitamin D, Synthroid, Tylenol, Zyrtec, Ventolin, Reglan, Percocet, Symbicort, Tums, Benadryl. PHYSICAL EXAMINATION: VITAL SIGNS: She is afebrile, pulse 59, respiratory rate 18, blood pressure 119/58, oxygen saturation is 96% on room air. GENERAL: She is awake, alert and oriented x3. She is in no acute distress. HEENT: Mucous membranes are moist. Extraocular muscles are intact. HEART: Regular. LUNGS: Clear. ABDOMEN: Soft. EXTREMITIES: There is no lower extremity edema. Postoperative dressing is clean, dry and intact. LABORATORY STUDIES: CBC today reveals a white blood cell count of 9.4, hemoglobin 11.1, platelets 197. Chemistry panel reveals a creatinine of 0.3. UA in the ER was unremarkable. All intraoperative cultures are growing gram-negative bacteria, which is yet to be identified. ASSESSMENT AND PLAN: Postoperative infection. She will be placed on imipenem empirically pending the results of her intraoperative cultures. Vancomycin will be discontinued at this time. We will follow along with you. Thank you for this consultation.
--- NOTE | 2017-06-22 11:47 | Orthopedic Progress Note ---
Orthopedic Progress Note Date of Service Jun 22, 2017. Subjective Post OP Day: 1 Reports: feeling well, Denies: chest pain, SOB, nausea / vomiting, light headedness, calf pain Objective calves soft nontender, N/V intact, capillary refill less than 2 sec., dressing C /D/I, A&O x3, toes mobile, hemovac drainage (150/55 CC PER SHIFT) Date Time Temp Pulse Resp B/P (MAP) Pulse Ox O2 Delivery O2 Flow Rate FiO2 06/22/17 10:54 36.8 59 18 119/58 (78) 96 Room Air 06/22/17 08:20 Room Air 06/22/17 07:23 36.9 65 18 136/78 (97) 95 Room Air 06/22/17 04:30 Room Air 06/22/17 03:34 37.2 72 16 129/71 (90) 96 Room Air 06/22/17 00:00 Room Air 06/21/17 23:39 36.5 66 18 131/69 (89) 97 Room Air 06/21/17 21:15 Room Air 06/21/17 17:53 36.7 65 19 167/68 (101) 100 Room Air 06/21/17 16:00 Room Air 06/21/17 15:36 36.6 69 20 156/79 (104) 100 Nasal Cannula 2.0 06/21/17 13:45 65 159/61 (93) 99 Nasal Cannula 2.0 06/21/17 13:30 61 144/82 (102) 99 Nasal Cannula 2.0 06/21/17 13:00 58 131/75 (93) 100 Nasal Cannula 2.0 06/21/17 12:45 36.7 59 20 134/81 (98) 100 Nasal Cannula 2.0 06/21/17 12:30 57 147/77 (100) 98 Nasal Cannula 2.0 06/21/17 12:15 60 133/67 (89) 100 Nasal Cannula 2.0 06/21/17 12:00 Room Air 06/21/17 12:00 36.5 64 20 145/70 (95) 97 Nasal Cannula 2.0 06/21/17 11:55 36.5 62 22 161/67 (98) 95 Nasal Cannula 4.0 06/21/17 11:40 65 16 108/86 100 Nasal Cannula 4 Laboratory Results 24 Hours: Test 06/22/17 05:44 Hematocrit 33.0 % Hemoglobin 11.1 g/dL Additional Notes: GRAM STAIN Final 06/21/17-930 RESULT RARE WBCs SEEN NO ORGANISMS SEEN OR AER/ROBERT CULT Preliminary 06/22/17-0937 Organism 1 GRAM NEGATIVE COCCI QUANITY MODERATE SENS SENSITIVITIES DEPENDENT ON FURTHER IDENTIFICATION Organism 2 GRAM NEGATIVE BACILLI QUANITY MODERATE SENS SENSITIVITY TO FOLLOW Phoned results to DENISA NEWSOME on 06/22/17 at 0936 by Aniket Putnam. Results were verbalized back to DINESH. Assessment & Plan Assessment: POD#1 SP I&D POLY EXCHANGE LEFT TKA WITH PREVENA. Plan: PAIN MANAGEMENT DVT PROPH- ASA 81MG BID MEDICAL MANAGEMENT- CURRENTLY ON TELEMETRY, STABLE CONTINUE TO FOLLOW CULTURES- GROWING DUAL ORGANISMS - APPRECIATE ID INPUT- SWITCHED TO IMIPENEM - WILL NEED PICC LINE DC PLANNING- FIRST CHOICE IS [facility].
[2017-06-22] MEDS: IMIPENEM/CILASTATIN IV 500 MG in DEXTROSE 5% 100ML 100 ML IV SCH ×3 (12:44→23:53)
[2017-06-22] MEDS: D5W AND 1/2NSS 1,000 ML IV SCH (12:44)
[2017-06-22] MEDS ORDERED: NURSING VERBAL MED ORDER ONE (13:15)
[2017-06-22] MEDS: CETIRIZINE HCL 10 MG TAB PO SCH (20:19)
[2017-06-22] MEDS: SENNA 8.6 MG TAB PO SCH (20:20)
[2017-06-23] VITALS (10 sets, daily range): BP systolic 104–160; BP diastolic 53–78; PULSE 60–72; TEMP 36.6–37.4; O2SAT 94–98
[2017-06-23] MEDS: MoRPHine SULFATE 4 MG/ML 1 ML CARP\\VIAL IV PRN ×5 (01:16→20:56)
[2017-06-23] MEDS: D5W AND 1/2NSS 1,000 ML IV SCH ×2 (01:22→16:17)
[2017-06-23 04:56] LABS: CREATININE 0.34 mg/dl (0.60-1.20)
[2017-06-23] MEDS: IMIPENEM/CILASTATIN IV 500 MG in DEXTROSE 5% 100ML 100 ML IV SCH ×3 (05:20→17:53)
[2017-06-23] MEDS: LEVOTHYROXINE 88 MCG TAB PO SCH (05:21)
[2017-06-23] MEDS: OXYCODONE HCL IR 5 MG TAB (IMMEDIATE RELEASE) PO PRN (07:32)
[2017-06-23] MEDS: FERROUS GLUCONATE 324 MG TAB PO SCH ×3 (07:32→16:17)
[2017-06-23] MEDS: ARTIFICIAL TEARS OP SOLN OPB SCH ×4 (07:32→20:50)
[2017-06-23] MEDS: CYANOCOBALAMIN 500 MCG TAB (VIT B-12) PO SCH (07:33)
[2017-06-23] MEDS: MULTIVITAMIN TAB PO SCH (07:33)
[2017-06-23] MEDS: CEROVITE ADV FORMULA TAB PO SCH (07:33)
[2017-06-23] MEDS: BuPROPion XL 300 MG TABCR PO SCH (07:33)
[2017-06-23] MEDS: ASPIRIN 81 MG ECTAB PO SCH ×2 (07:33→20:53)
[2017-06-23] MEDS: PANTOprazole SOD 40 MG TAB PO SCH (07:33)
[2017-06-23] MEDS: DOCUSATE SODIUM 100 MG CAP PO SCH ×2 (07:33→20:52)
--- NOTE | 2017-06-23 09:42 | Orthopedic Progress Note ---
Orthopedic Progress Note Date of Service Jun 23, 2017. Subjective Post OP Day: 2 Reports: feeling well, pain controlled w PO medications, Denies: complaints, chest pain, SOB, nausea / vomiting, light headedness, calf pain Objective calves soft nontender, N/V intact, dressing C/D/I, A&O x3, toes mobile Date Time Temp Pulse Resp B/P (MAP) Pulse Ox O2 Delivery O2 Flow Rate FiO2 06/23/17 08:00 37.4 67 20 153/78 (103) 98 Room Air 06/23/17 04:00 98 Room Air 06/23/17 03:59 36.8 68 18 160/53 (88) 98 Room Air 06/23/17 00:01 94 Room Air 06/22/17 23:48 36.8 70 18 94 Room Air 06/22/17 20:19 36.8 67 20 136/75 (95) 96 Room Air 06/22/17 20:00 98 Room Air 06/22/17 16:00 98 Room Air 06/22/17 15:47 36.8 85 20 123/59 (80) 98 Room Air 06/22/17 12:00 Room Air 06/22/17 10:54 36.8 59 18 119/58 (78) 96 Room Air Assessment & Plan Assessment: POD#2 SP I&D POLY EXCHANGE LEFT TKA WITH PREVENA. Plan: PAIN MANAGEMENT DVT PROPH- ASA 81MG BID MEDICAL MANAGEMENT- CURRENTLY ON TELEMETRY, STABLE ID CONSULTED- AWAITING FINAL C&S, CURRENTLY ON IMIPENEM, VANCO HAS BEEN D/C. PICC PLACED AWAITING AUTH FOR [facility] FOR 72 HOURS POST-OP, CAN D/C TOMORROW Discharge Planning Discharge Planning: uncertain DVT Prophylaxis: TEDs, SCDs, ASA
[2017-06-23] MEDS ORDERED: VANCOMYCIN TROUGH ONE (11:30)
[2017-06-23] MEDS: OXYCODONE/ACETAMINOPHEN 5-325 TAB PO PRN ×2 (13:13→17:53)
--- NOTE | 2017-06-23 15:28 | Progress Note ---
Subjective Date of Service: Jun 23, 2017. Subjective Pt evaluation today including: conversation w/ patient, conversation w/ family , physical exam, chart review, lab review oob to chair, tolerating abx, changed to imipenem yesterday, cultures with Enterobacter and second gnr, final pending. blood cultures pending, s/p picc line. afebrile, less pain today, drain remains in place. no abd pain, no n/v/d. all remaining ros reviewed and are negative. Problem List Medical Problems: (1) Abnormal ECG Status: Acute (2) Hyperglycemia Status: Acute (3) Hypotension Status: Acute (4) Infected incision Status: Acute (5) SVT (supraventricular tachycardia) Status: Acute (6) Syncope Status: Acute (7) Ventricular tachycardia Status: Acute (8) Wide-complex tachycardia Status: Chronic Objective Vital Signs Date Time Temp Pulse Resp B/P (MAP) Pulse Ox O2 Delivery O2 Flow Rate FiO2 06/23/17 12:00 Room Air 06/23/17 12:00 36.8 72 18 121/54 (76) 95 Room Air 06/23/17 08:00 Room Air 06/23/17 08:00 37.4 67 20 153/78 (103) 98 Room Air 06/23/17 04:00 98 Room Air 06/23/17 03:59 36.8 68 18 160/53 (88) 98 Room Air 06/23/17 00:01 94 Room Air 06/22/17 23:48 36.8 70 18 94 Room Air 06/22/17 20:19 36.8 67 20 136/75 (95) 96 Room Air 06/22/17 20:00 98 Room Air 06/22/17 16:00 98 Room Air 06/22/17 15:47 36.8 85 20 123/59 (80) 98 Room Air Physical Exam General Appearance: WD/WN, no apparent distress Eyes: normal inspection, EOMI Neck: supple Respiratory/Chest: lungs clear, normal breath sounds, no respiratory distress Cardiovascular: regular rate, rhythm, no edema Abdomen: soft Extremities: non-tender, no pedal edema Neurologic/Psychiatric: alert, oriented x 3 Skin: normal color Comments: lle brace intact, drain with serosang fluid Laboratory Results Item Value Date Time Gram Stain - Final Resulted 06/21/17827 Drainage-Deep Knee Left Gram Stain - Final Resulted 06/21/17827 Drainage-Deep Knee Left Gram Stain - Final Resulted 06/21/17 0838 Tissue Knee Left Gram Stain - Final Resulted 06/21/17827 Drainage-Deep Knee Left Gram Stain - Final Resulted 06/21/17827 Drainage-Deep Knee Left Gram Stain - Final Resulted 06/21/17837 Tissue Knee Left Last 24 Hours Test 06/23/17 04:20 06/23/17 06:36 06/23/17 11:43 Creatinine 0.34 mg/dl Est Creatinine Clear Calc Drug Dose 117.5 ml/min Estimated GFR () 125.5 Estimated GFR (Non- 108.2 Bedside Glucose 165 mg/dl 162 mg/dl Assessment and Plan (1) Infected prosthetic knee joint Assessment & Plan: continue imipenem for now, await final cultures. will likely need 4-6 weeks abx and weekly cbc,cmp,esr while on abx
[2017-06-23] MEDS: CETIRIZINE HCL 10 MG TAB PO SCH (20:52)
[2017-06-23] MEDS: SENNA 8.6 MG TAB PO SCH (20:53)
[2017-06-24] VITALS (10 sets, daily range): BP systolic 105–134; BP diastolic 58–83; PULSE 59–86; TEMP 36.5–37.2; O2SAT 93–97
[2017-06-24] MEDS: IMIPENEM/CILASTATIN IV 500 MG in DEXTROSE 5% 100ML 100 ML IV SCH ×5 (00:33→23:22)
[2017-06-24] MEDS: TRAMADOL HCL 50 MG TAB PO PRN (00:34)
[2017-06-24] MEDS: MoRPHine SULFATE 4 MG/ML 1 ML CARP\\VIAL IV PRN (02:20)
[2017-06-24] MEDS: ONDANSETRON INJ 2 MG/ML 2 ML VIAL IV PRN ×2 (02:58→12:09)
[2017-06-24 05:02] LABS: CREATININE 0.33 mg/dl (0.60-1.20)
[2017-06-24] MEDS: D5W AND 1/2NSS 1,000 ML IV SCH ×2 (06:04→16:38)
[2017-06-24] MEDS: LEVOTHYROXINE 88 MCG TAB PO SCH (06:04)
[2017-06-24] MEDS: OXYCODONE/ACETAMINOPHEN 5-325 TAB PO PRN ×3 (06:06→20:04)
[2017-06-24] MEDS: ARTIFICIAL TEARS OP SOLN OPB SCH ×4 (07:39→20:04)
[2017-06-24] MEDS: FERROUS GLUCONATE 324 MG TAB PO SCH ×3 (07:39→16:34)
[2017-06-24] MEDS: CYANOCOBALAMIN 500 MCG TAB (VIT B-12) PO SCH (07:40)
[2017-06-24] MEDS: BuPROPion XL 300 MG TABCR PO SCH (07:40)
[2017-06-24] MEDS: DOCUSATE SODIUM 100 MG CAP PO SCH ×2 (07:40→20:04)
[2017-06-24] MEDS: PANTOprazole SOD 40 MG TAB PO SCH (07:40)
[2017-06-24] MEDS: MULTIVITAMIN TAB PO SCH (07:40)
[2017-06-24] MEDS: CEROVITE ADV FORMULA TAB PO SCH (07:40)
[2017-06-24] MEDS: ASPIRIN 81 MG ECTAB PO SCH ×2 (07:40→20:06)
--- NOTE | 2017-06-24 11:34 | Progress Note ---
Subjective Date of Service: Jun 24, 2017. Subjective final culture results pending, remains on imipenem emperically, tolerating well. no f/c. no am labs Problem List Medical Problems: (1) Abnormal ECG Status: Acute (2) Hyperglycemia Status: Acute (3) Hypotension Status: Acute (4) Infected incision Status: Acute (5) SVT (supraventricular tachycardia) Status: Acute (6) Syncope Status: Acute (7) Ventricular tachycardia Status: Acute (8) Wide-complex tachycardia Status: Chronic Objective Vital Signs Date Time Temp Pulse Resp B/P (MAP) Pulse Ox O2 Delivery O2 Flow Rate FiO2 06/24/17 08:04 36.5 74 18 105/72 (83) 96 06/24/17 08:01 95 Room Air 06/24/17 04:00 Room Air 06/24/17 03:36 37.2 86 19 134/75 (94) 95 Room Air 06/23/17 23:59 Room Air 06/23/17 23:40 37.2 60 16 132/71 (91) 97 Room Air 06/23/17 20:01 36.9 72 20 112/73 (86) 97 Room Air 06/23/17 20:00 98 Room Air 06/23/17 16:00 98 Room Air 06/23/17 15:53 36.6 66 20 104/63 (77) 98 Room Air 06/23/17 12:00 Room Air 06/23/17 12:00 36.8 72 18 121/54 (76) 95 Room Air Laboratory Results Item Value Date Time Gram Stain - Final Resulted 06/21/17 0838 Tissue Knee Left Gram Stain - Final Resulted 06/21/17 0828 Drainage-Deep Knee Left Gram Stain - Final Resulted 06/21/17 0828 Drainage-Deep Knee Left Last 24 Hours Test 06/23/17 11:43 06/24/17 04:24 Bedside Glucose 162 mg/dl Creatinine 0.33 mg/dl Est Creatinine Clear Calc Drug Dose 125.1 ml/min Estimated GFR () 126.7 Estimated GFR (Non- 109.3 Assessment and Plan (1) Infected prosthetic knee joint Assessment & Plan: continue imipenem for now, await final cultures. will likely need 4-6 weeks abx and weekly cbc,cmp,esr while on abx
--- NOTE | 2017-06-24 13:05 | Discharge Instructions ---
Discharge Instructions Date of Service Jun 24, 2017. Admission Reason for Admission: Wound Dihiscence Discharge Discharge Diagnosis / Problem: Left TKA Infection; Wound dehiscence Discharge Goals Goal(s): Decrease discomfort, Improve function, Increase independence Activity Recommendations Activity Level: Assistance Required Therapies: Physical Therapy (TKA protocol; gentle ROM), Occupational Therapy ( ADL's and transfers) Weightbearing Status: Left weightbearing (as tolerated) . Additional Information Patient informed of condition: Yes Advance Directives: Yes DNR: No Level of Care: Acute Rehab Communicable Disease: Yes Prognosis: Stable Parsons Catheter: No Instructions / Follow-Up Instructions / Follow-Up ACTIVITY RECOMMENDATIONS: SELF CARE INSTRUCTIONS AFTER TOTAL KNEE REPLACEMENT Use the immobilizer on the left knee if your knee feels weak or has the feeling of buckling. A. You may need to continue a physical therapy program after discharge from the hospital. There are several options available to you. Your doctor will assist you in selecting the best one for you. 1. An out-patient facility 2 to 3 times a week for therapy or home therapy. 2. Continue working on all exercises taught to you in the hospital. Your goals should be to increase bending of your knee to 90 degrees and beyond and to fully straighten your knee. B. You may progress at your own pace from walking with a walker or crutches to a cane; then to no assistive devices. C. Make walking a part of your daily routine. Be up as much as comfortable with rest periods throughout the day. Rest with leg elevation is very important. Use the ice wrap frequently for the first 3-4 weeks. D. There are no restrictions on activities. You may ride in a car, shop, participate in assembler trim and all social activities. E. Wear the long elastic stockings (DARÍO hose) 20 hours a day for 2 weeks after surgery. They can be removed several times a day for laundering and for a bath. F. You may shower, no tub baths until cleared by your doctor. SPECIAL CARE INSTRUCTIONS: VERY IMPORTANT TO READ AND REVIEW A. There are a few signs you need to watch for after you are home. Call [facility] if you notice any of the followin. Increased severe knee pain. Some pain is expected especially when you exercise. 2. Increased swelling in your leg or knee; pain or swelling of the calf muscle in either lower leg. 3. Any fluid drainage from the incision. 4. Shortness of breath or chest pain. B. Please call [facility] at if you have any concerns or questions about your operation or recovery. The doctor or his nurse will return your call promptly. C. You must take antibiotics before dental work, bladder, bowel or other surgery. Your doctor will provide you with a permanent care to carry describing this precaution. IMPORTANT: * REMEMBER TO TAKE ASPIRIN, 81 MG, TWICE DAILY FOR 4 WEEKS UNLESS OTHERWISE DIRECTED. THIS IS YOUR BLOOD THINNER. * HIGH RISK PATIENTS MAY BE PRESCRIBED A STRONGER BLOOD THINNER. THIS WILL BE PROVIDED AT DISCHARGE. * CALL IF INCREASED PAIN, REDNESS, DRAINAGE OR FEVER GREATER THAT 101. * WEAR DARÍO HOSE 20 HOURS PER DAY FOR 2 WEEKS. * Change dressing daily. Please call with any wound changes. . FOLLOW UP VISIT: If appointment is not already scheduled: Please call [facility] to make a follow-up appointment for 2 weeks after your surgery at . Follow up with Dr Baron in 2 weeks. Call for appointment. [phone] Current Hospital Diet Patient's current hospital diet: Diabetes Type 2 Diet Discharge Diet Recommended Diet: Diabetes Type 2 Diet Procedures Procedures Performed: 1. Irrigation and Debredement left Total knee replacement 2. Polyethylene exchange Total knee w/ [employer] 2, Size 2x9mm posterior stabilized polyethylene 3. Left knee medial Retinacular Repair Pending Studies Studies pending at discharge: no Physician Orders On Transfer Dressing Changes: Remove Prevena dressing on 06/28/17. Keep wound covered with gauze dressing thereafter IV Therapy: daily IV antibx Vital Signs: routine Additional Orders: Picc line care; Weekly CBC; BMP; ESR - send results to Dr Baron. Laboratory Results Hemoglobin A1c Test 04/08/17 12:01 Range/Units Estimated Average Glucose 120 mg/dl Hemoglobin A1c 5.8 H 4.5-5.6 % Medical Emergencies . Who to Call and When: Medical Emergencies: If at any time you feel your situation is an emergency, please call 911 immediately. . Non-Emergent Contact Non-Emergency issues call your: Surgeon Call Non-Emergent contact if: temperature is above 101.5, your pain is not controlled, your pain is worsening, wound has increased drainage, wound has increased redness . . "Provider Documentation" section prepared by Michael Landers. . Core Measure Problem Core Measures: None [place] Drug Monitoring Program Search Results: patient reviewed within database, no issues identified
--- NOTE | 2017-06-24 14:38 | Orthopedic Progress Note ---
Orthopedic Progress Note Date of Service Jun 24, 2017. Subjective Post OP Day: 3 Reports: feeling well, pain controlled w PO medications, Denies: complaints, chest pain, SOB, nausea / vomiting, light headedness, calf pain Objective calves soft nontender, N/V intact, capillary refill less than 2 sec., dressing C /D/I, A&O x3, toes mobile Provena in tact. Date Time Temp Pulse Resp B/P (MAP) Pulse Ox O2 Delivery O2 Flow Rate FiO2 06/24/17 12:48 95 Room Air 06/24/17 12:04 36.8 79 16 134/77 (96) 97 06/24/17 08:04 36.5 74 18 105/72 (83) 96 06/24/17 08:01 95 Room Air 06/24/17 04:00 Room Air 06/24/17 03:36 37.2 86 19 134/75 (94) 95 Room Air 06/23/17 23:59 Room Air 06/23/17 23:40 37.2 60 16 132/71 (91) 97 Room Air 06/23/17 20:01 36.9 72 20 112/73 (86) 97 Room Air 06/23/17 20:00 98 Room Air 06/23/17 16:00 98 Room Air 06/23/17 15:53 36.6 66 20 104/63 (77) 98 Room Air Assessment & Plan Assessment: POD#3 SP I&D POLY EXCHANGE LEFT TKA WITH PREVENA. Plan: PAIN MANAGEMENT DVT PROPH- ASA 81MG BID MEDICAL MANAGEMENT- CURRENTLY ON TELEMETRY, STABLE ID CONSULTED- AWAITING FINAL C&S AND ID RECOMMENDATIONS, CURRENTLY ON IMIPENEM, PICC PLACED ACCEPTED [facility] IMMO[facility] FOR 72 HOURS POST-OP Discharge Planning Discharge Planning: uncertain DVT Prophylaxis: TEDs, SCDs, ASA
[2017-06-24] MEDS: OXYCODONE HCL IR 5 MG TAB (IMMEDIATE RELEASE) PO PRN ×2 (16:34→23:22)
[2017-06-24] MEDS: CETIRIZINE HCL 10 MG TAB PO SCH (20:05)
[2017-06-24] MEDS: SENNA 8.6 MG TAB PO SCH (20:06)
[2017-06-25] VITALS (7 sets, daily range): BP systolic 128–138; BP diastolic 69–80; PULSE 59–74; TEMP 36.8–37.4; O2SAT 90–96
[2017-06-25] MEDS: IMIPENEM/CILASTATIN IV 500 MG in DEXTROSE 5% 100ML 100 ML IV SCH ×2 (06:01→11:58)
[2017-06-25] MEDS: D5W AND 1/2NSS 1,000 ML IV SCH ×2 (06:01→21:23)
[2017-06-25] MEDS: LEVOTHYROXINE 88 MCG TAB PO SCH (06:01)
[2017-06-25] MEDS: OXYCODONE/ACETAMINOPHEN 5-325 TAB PO PRN (06:12)
[2017-06-25] MEDS: DOCUSATE SODIUM 100 MG CAP PO SCH ×2 (07:18→21:19)
[2017-06-25] MEDS: ONDANSETRON INJ 2 MG/ML 2 ML VIAL IV PRN ×2 (07:28→19:46)
[2017-06-25] MEDS: ARTIFICIAL TEARS OP SOLN OPB SCH ×4 (07:35→21:22)
[2017-06-25] MEDS: FERROUS GLUCONATE 324 MG TAB PO SCH ×3 (07:35→16:28)
[2017-06-25] MEDS: CEROVITE ADV FORMULA TAB PO SCH (07:35)
[2017-06-25] MEDS: MULTIVITAMIN TAB PO SCH (07:36)
[2017-06-25] MEDS: PANTOprazole SOD 40 MG TAB PO SCH (07:36)
[2017-06-25] MEDS: CYANOCOBALAMIN 500 MCG TAB (VIT B-12) PO SCH (07:37)
[2017-06-25] MEDS: ASPIRIN 81 MG ECTAB PO SCH ×2 (07:37→21:19)
[2017-06-25] MEDS: BuPROPion XL 300 MG TABCR PO SCH (07:37)
[2017-06-25] MEDS: TRAMADOL HCL 50 MG TAB PO PRN ×3 (10:22→19:47)
[2017-06-25] MEDS: OXYCODONE HCL IR 5 MG TAB (IMMEDIATE RELEASE) PO PRN ×3 (11:06→21:18)
--- NOTE | 2017-06-25 14:14 | Progress Note ---
Subjective Date of Service: Jun 25, 2017. Subjective pt tolerating abx. all micro final - Moraxella and Enterobacter - resistant to ctx. remains on imipenem, to go to rehab post d/c. afebrile. wbc nml. Problem List Medical Problems: (1) Abnormal ECG Status: Acute (2) Hyperglycemia Status: Acute (3) Hypotension Status: Acute (4) Infected incision Status: Acute (5) SVT (supraventricular tachycardia) Status: Acute (6) Syncope Status: Acute (7) Ventricular tachycardia Status: Acute (8) Wide-complex tachycardia Status: Chronic Objective Vital Signs Date Time Temp Pulse Resp B/P (MAP) Pulse Ox O2 Delivery O2 Flow Rate FiO2 06/25/17 12:00 Room Air 06/25/17 08:33 37.0 74 18 131/69 (89) 96 06/25/17 08:00 Room Air 06/25/17 04:00 95 Room Air 06/25/17 03:50 37.0 62 17 138/80 (99) 96 Room Air 06/24/17 23:59 95 Room Air 06/24/17 20:29 37.0 59 16 126/58 (80) 93 Room Air 06/24/17 20:00 95 Room Air 06/24/17 16:15 95 Room Air 06/24/17 15:56 36.9 60 16 128/83 (98) 95 Room Air Laboratory Results Item Value Date Time Gram Stain - Final Resulted 06/21/17 0828 Drainage-Deep Knee Left Gram Stain - Final Resulted 06/21/17 0828 Drainage-Deep Knee Left Gram Stain - Final Resulted 06/21/17 0838 Tissue Knee Left Assessment and Plan (1) Infected prosthetic knee joint Assessment & Plan: will change to ertapenem for ease of use, once daily, will likely need 6 weeks abx and weekly cbc,cmp,esr while on abx. Can follow with ID post d/c
[2017-06-25] MEDS: ERTAPENEM IV 1 GM in SODIUM CHLOR 0.9% AD-VAN 50ML 50 ML IV SCH (15:17)
[2017-06-25] MEDS ORDERED: CLC100 PO (15:27)
[2017-06-25] MEDS ORDERED: ERTA1INJ IV (15:27)
[2017-06-25] MEDS ORDERED: RXC5 PO (15:27)
--- NOTE | 2017-06-25 17:07 | Orthopedic Progress Note ---
Orthopedic Progress Note Date of Service Jun 25, 2017. Subjective Post OP Day: 4 Reports: feeling well Additional Notes: Having more pain today which she feels is due to having done more activity. No other complaints. Discussed going to [facility] but essentially refusing to go today. Planning for tomorrow. Objective calves soft nontender, N/V intact, dressing C/D/I (Prevena intact), A&O x3, toes mobile Date Time Temp Pulse Resp B/P (MAP) Pulse Ox O2 Delivery O2 Flow Rate FiO2 06/25/17 16:00 Room Air 06/25/17 15:28 36.8 71 20 128/76 (93) 90 Room Air 06/25/17 12:00 Room Air 06/25/17 11:30 37.1 70 18 128/74 (92) 95 06/25/17 08:33 37.0 74 18 131/69 (89) 96 06/25/17 08:00 Room Air 06/25/17 04:00 95 Room Air 06/25/17 03:50 37.0 62 17 138/80 (99) 96 Room Air 06/24/17 23:59 95 Room Air 06/24/17 20:29 37.0 59 16 126/58 (80) 93 Room Air 06/24/17 20:00 95 Room Air Assessment & Plan Assessment: POD#4 SP I&D POLY EXCHANGE LEFT TKA WITH PREVENA. Plan: PAIN MANAGEMENT DVT PROPH- ASA 81MG BID MEDICAL MANAGEMENT- CURRENTLY ON TELEMETRY, STABLE ID CONSULTED- AWAITING FINAL ID RECOMMENDATIONS: ON ERTAPENEM for 6 weeks PICC PLACED ACCEPTED [facility] FOR 72 HOURS POST-OP Plan for [facility] tomorrow Inhouse Planning Pain Management: Oxy IR DVT Prophylaxis: TEDs, SCDs, ASA Discharge Planning Discharge Planning: rehab hospital DVT Prophylaxis: TEDs, ASA Therapy: Physical Therapy
[2017-06-25] MEDS: CETIRIZINE HCL 10 MG TAB PO SCH (21:00)
[2017-06-25] MEDS: SENNA 8.6 MG TAB PO SCH (21:20)
[2017-06-26] MEDS: TRAMADOL HCL 50 MG TAB PO PRN (00:48)
[2017-06-26] MEDS: OXYCODONE HCL IR 5 MG TAB (IMMEDIATE RELEASE) PO PRN ×3 (01:58→14:46)
[2017-06-26 03:43] VITALS: BP 153/70; PULSE 58; TEMP 36.7; O2SAT 95
[2017-06-26] MEDS: ONDANSETRON INJ 2 MG/ML 2 ML VIAL IV PRN (05:47)
[2017-06-26] MEDS: OXYCODONE/ACETAMINOPHEN 5-325 TAB PO PRN ×2 (05:48→11:38)
[2017-06-26] MEDS: LEVOTHYROXINE 88 MCG TAB PO SCH (05:49)
[2017-06-26 07:40] VITALS: BP 111/66; PULSE 59; TEMP 36.6; O2SAT 97
[2017-06-26] MEDS: PANTOprazole SOD 40 MG TAB PO SCH (08:19)
[2017-06-26] MEDS: FERROUS GLUCONATE 324 MG TAB PO SCH ×2 (08:19→11:38)
[2017-06-26] MEDS: MULTIVITAMIN TAB PO SCH (08:19)
[2017-06-26] MEDS: DOCUSATE SODIUM 100 MG CAP PO SCH (08:19)
[2017-06-26] MEDS: CEROVITE ADV FORMULA TAB PO SCH (08:19)
[2017-06-26] MEDS: BuPROPion XL 300 MG TABCR PO SCH (08:19)
[2017-06-26] MEDS: ASPIRIN 81 MG ECTAB PO SCH (08:20)
[2017-06-26] MEDS: CYANOCOBALAMIN 500 MCG TAB (VIT B-12) PO SCH (08:20)
[2017-06-26] MEDS: D5W AND 1/2NSS 1,000 ML IV SCH (08:20)
[2017-06-26] MEDS: ARTIFICIAL TEARS OP SOLN OPB SCH ×2 (08:21→11:39)
--- NOTE | 2017-06-26 10:14 | Orthopedic Progress Note ---
Orthopedic Progress Note Date of Service Jun 26, 2017. Subjective Post OP Day: 5 Additional Notes: Having a flare up of her arthritis this AM. States she asked the nursing staff for Morphine this AM. Still looking forward to going to [facility] today. No other new complaints. Objective calves soft nontender, N/V intact, dressing C/D/I (Prevena intact), A&O x3, toes mobile Date Time Temp Pulse Resp B/P (MAP) Pulse Ox O2 Delivery O2 Flow Rate FiO2 06/26/17 08:00 Room Air 06/26/17 07:40 36.6 59 20 111/66 (81) 97 Room Air 06/26/17 04:00 Room Air 06/26/17 03:43 36.7 58 18 153/70 (97) 95 Room Air 06/26/17 00:00 Room Air 06/25/17 23:43 37.1 62 16 132/72 (92) 95 Room Air 06/25/17 20:00 Room Air 06/25/17 19:14 37.4 59 18 135/69 (91) 92 Room Air 06/25/17 16:00 Room Air 06/25/17 15:28 36.8 71 20 128/76 (93) 90 Room Air 06/25/17 12:00 Room Air 06/25/17 11:30 37.1 70 18 128/74 (92) 95 Assessment & Plan Assessment: POD#5 SP I&D POLY EXCHANGE LEFT TKA WITH PREVENA. Plan: PAIN MANAGEMENT DVT PROPH- ASA 81MG BID MEDICAL MANAGEMENT- CURRENTLY ON TELEMETRY, STABLE ID CONSULTED- FINAL ID RECOMMENDATIONS: ON ERTAPENEM for 6 weeks PICC PLACED ACCEPTED [facility] FOR 72 HOURS POST-OP Plan for [facility] today Inhouse Planning Pain Management: Oxy IR DVT Prophylaxis: TEDs, SCDs, ASA Discharge Planning Discharge Planning: rehab hospital DVT Prophylaxis: TEDs, ASA Therapy: Physical Therapy
[2017-06-26] MEDS ORDERED: LACT1GRA PO (10:34)
[2017-06-26] MEDS ORDERED: LACTOBACILLUS ACIDOPHILUS 1 GM PACK PO SCH (11:30)
[2017-06-26] MEDS: MoRPHine SULFATE 4 MG/ML 1 ML CARP\\VIAL IV PRN ×2 (11:36→15:48)
[2017-06-26] MEDS: ERTAPENEM IV 1 GM in SODIUM CHLOR 0.9% AD-VAN 50ML 50 ML IV SCH (14:03)
[2017-06-26 14:12] VITALS: BP 111/66; PULSE 59; TEMP 36.6; O2SAT 97
== END 2017-06-26 15:59 | DRG 464 ==
LOC: C.EDB 09:58 → C.MSN 14:59 → ENRESERV 15:36 → C.2T 22:41
PROVIDERS: ADMIT Orthopaedic Surgery Sports Medicine; ATTEND Orthopaedic Surgery Sports Medicine
PROC: 0SPD09Z Removal of Liner from Left Knee Joint, Open Approach (ICD-10-PCS; principal; 2017-06-21 07:15)
PROC: 0KQR0ZZ Repair Left Upper Leg Muscle, Open Approach (ICD-10-PCS; principal; 2017-06-21 07:15)
PROC: 0SUD09Z Supplement Left Knee Joint with Liner, Open Approach (ICD-10-PCS; principal; 2017-06-21 07:15)
PROC: 0MB Bursae and Ligaments, Excision (ICD-10-PCS; principal; 2017-06-21 07:15)
PROC: 02HV33Z Insertion of Infusion Device into Superior Vena Cava, Percutaneous Approach (ICD-10-PCS; 2017-06-22)
DX: T84.54XA Infection and inflammatory reaction due to internal left knee prosthesis, initial encounter (principal); T81.31XA Disruption of external operation (surgical) wound, not elsewhere classified, initial encounter; I47.2 Ventricular tachycardia; I47.1 Supraventricular tachycardia; S86.812A Strain of other muscle(s) and tendon(s) at lower leg level, left leg, initial encounter; I48.0 Paroxysmal atrial fibrillation; Z96.652 Presence of left artificial knee joint; Z79.899 Other long term (current) drug therapy; Z79.82 Long term (current) use of aspirin; Z79.52 Long term (current) use of systemic steroids; Z88.1 Allergy status to other antibiotic agents; Z88.8 Allergy status to other drugs, medicaments and biological substances; Z91.048 Other nonmedicinal substance allergy status; Z91.013 Allergy to seafood; Z91.018 Allergy to other foods; Z82.49 Family history of ischemic heart disease and other diseases of the circulatory system; Z83.3 Family history of diabetes mellitus; Z82.3 Family history of stroke; X58.XXXA Exposure to other specified factors, initial encounter; Y83.1 Surgical operation with implant of artificial internal device as the cause of abnormal reaction of the patient, or of later complication, without mention of misadventure at the time of the procedure

== ENCOUNTER → 2017-07-21 | Outpatient (CLI) | payer BC ==
[~2017-07-21] MED LIST changes: -ASPEC81 PO; +ASPI-320 PO; -CLB/200 PO; +CLC100 PO; +ERTA1INJ IV; +LACT1GRA PO
[2017-07-21 10:23] LABS: BASO % 0.4 %; BASO ABS # 0.04 K/uL (0-0.2); EOS ABS # 0.23 K/uL (0-0.5); HEMATOCRIT 38.1 % (37-47); HEMOGLOBIN 12.5 g/dL (12.0-16.0); IG# 0.14 K/uL (0.00-0.02); LYMPH % 11.7 %; LYMPH ABS # 1.32 K/uL (1.2-3.4); MEAN CELL VOLUME 86.6 fL (80-100); MEAN CORPUSCULAR HEMOGLOBIN 28.4 pg (25-34); MEAN CORPUSCULAR HGB CONC 32.8 g/dl (32-36); MEAN PLATELET VOLUME 10.5 fL (7.4-10.4); MONO % 8.3 %; MONO ABS # 0.93 K/uL (0.11-0.59); NEUT % 76.4 %; NEUT ABS # 8.61 K/uL (1.4-6.5); PLATELET COUNT 328 K/uL (130-400); RED CELL DISTRIBUTION WIDTH CV 15.1 % (11.5-14.5); RED CELL DISTRIBUTION WIDTH SD 48.4 fL (36.4-46.3); WHITE BLOOD COUNT 11.27 K/uL (4.8-10.8)
[2017-07-21 10:30] LABS: ALBUMIN 3.3 gm/dl (3.4-5.0); ALT/SGPT 31 U/L (12-78); AST/SGOT 21 U/L (15-37); BLOOD UREA NITROGEN 15 mg/dl (7-18); CARBON DIOXIDE 24 mmol/L (21-32); CREATININE 0.72 mg/dl (0.60-1.20); GLUCOSE 82 mg/dl (70-99); POTASSIUM 2.9 mmol/L (3.5-5.1); SODIUM 140 mmol/L (136-145)
[2017-07-21 10:32] LABS: ALKALINE PHOSPHATASE 66 U/L (45-117); TOTAL PROTEIN 7.1 gm/dl (6.4-8.2)
--- NOTE | 2017-07-30 08:38 | CODING QUERY NO DIAGNOSIS ---
Valid Physician Order Needed A valid physician order must be submitted in order to properly bill for the service(s) provided, including date of service(s), valid diagnosis, and physician signature. If these tests are done on a recurring basis the original physican order must be submitted in order to code and bill for the service(s) provided. Please fax us the original, signed physician order so that we may expedite billing to [phone] DOS 07/21/17 * CMP * CBC W/ AUTO DIFF * ERYTHROCYTE SEDIMENTATION RATE Thank you Ana Rosa [facility] Information Management
== END | disposition home or self-care (01) ==
LOC: C.LABSPEC 10:05
PROVIDERS: ATTEND Internal Medicine Infectious Disease
DX: T84.54XD Infection and inflammatory reaction due to internal left knee prosthesis, subsequent encounter (principal); Y83.1 Surgical operation with implant of artificial internal device as the cause of abnormal reaction of the patient, or of later complication, without mention of misadventure at the time of the procedure

== ENCOUNTER → 2017-07-23 | Outpatient (CLI) | payer BC | END | disposition home or self-care (01) | LOC: C.LABSPEC 16:39 | PROVIDERS: ATTEND Internal Medicine Infectious Disease | DX: T84.59XA Infection and inflammatory reaction due to other internal joint prosthesis, initial encounter (principal); Y83.1 Surgical operation with implant of artificial internal device as the cause of abnormal reaction of the patient, or of later complication, without mention of misadventure at the time of the procedure ==

== ENCOUNTER → 2017-07-28 | Outpatient (CLI) | payer BC ==
[2017-07-28 12:05] LABS: BASO % 0.1 %; BASO ABS # 0.02 K/uL (0-0.2); EOS % 2.2 %; EOS ABS # 0.33 K/uL (0-0.5); HEMATOCRIT 38.2 % (37-47); HEMOGLOBIN 12.1 g/dL (12.0-16.0); IG# 0.09 K/uL (0.00-0.02); LYMPH ABS # 0.74 K/uL (1.2-3.4); MEAN CELL VOLUME 85.7 fL (80-100); MEAN CORPUSCULAR HEMOGLOBIN 27.1 pg (25-34); MEAN CORPUSCULAR HGB CONC 31.7 g/dl (32-36); MEAN PLATELET VOLUME 10.3 fL (7.4-10.4); MONO % 4.9 %; MONO ABS # 0.73 K/uL (0.11-0.59); NEUT % 87.2 %; NEUT ABS # 13.02 K/uL (1.4-6.5); PLATELET COUNT 336 K/uL (130-400); RED CELL DISTRIBUTION WIDTH CV 15.9 % (11.5-14.5); RED CELL DISTRIBUTION WIDTH SD 50.3 fL (36.4-46.3); WHITE BLOOD COUNT 14.93 K/uL (4.8-10.8)
[2017-07-28 12:47] LABS: ALT/SGPT 41 U/L (12-78); AST/SGOT 27 U/L (15-37); BLOOD UREA NITROGEN 15 mg/dl (7-18); CALCIUM 8.8 mg/dl (8.5-10.1); CARBON DIOXIDE 26 mmol/L (21-32); CREATININE 0.55 mg/dl (0.60-1.20); GLUCOSE 120 mg/dl (70-99); POTASSIUM 3.2 mmol/L (3.5-5.1); SODIUM 141 mmol/L (136-145)
[2017-07-28 12:49] LABS: ALKALINE PHOSPHATASE 60 U/L (45-117); TOTAL PROTEIN 6.5 gm/dl (6.4-8.2)
--- NOTE | 2017-08-05 13:19 | CODING QUERY MEDICAL NECESSITY ---
Valid Physician Order Needed A valid physician order must be submitted in order to properly bill for the service(s) provided, including date of service(s), valid diagnosis, and physician signature. If these tests are done on a recurring basis the original physician order must be submitted in order to code and bill for the service(s) provided. Please fax us the original, signed physician order so that we may expedite billing to [phone] DOS 07/28/2017 *CBC W/AUTO DIFF *CMP *SED RATE AUTOMATED Thank you Elia [facility] Information Management
== END | disposition home or self-care (01) ==
LOC: C.LABSPEC 11:43
PROVIDERS: ATTEND Internal Medicine Infectious Disease
DX: T84.54XD Infection and inflammatory reaction due to internal left knee prosthesis, subsequent encounter (principal); Y83.1 Surgical operation with implant of artificial internal device as the cause of abnormal reaction of the patient, or of later complication, without mention of misadventure at the time of the procedure; Z45.2 Encounter for adjustment and management of vascular access device; M62.81 Muscle weakness (generalized); I48.91 Unspecified atrial fibrillation

== ENCOUNTER → 2017-08-04 | Outpatient (CLI) | payer BC ==
[2017-08-04 13:52] LABS: MEAN CELL VOLUME 83.5 fL (80-100); MEAN CORPUSCULAR HEMOGLOBIN 26.3 pg (25-34); MEAN CORPUSCULAR HGB CONC 31.4 g/dl (32-36); MEAN PLATELET VOLUME 9.8 fL (7.4-10.4); PLATELET COUNT 376 K/uL (130-400); RED CELL DISTRIBUTION WIDTH CV 16.3 % (11.5-14.5); RED CELL DISTRIBUTION WIDTH SD 49.7 fL (36.4-46.3); WHITE BLOOD COUNT 8.49 K/uL (4.8-10.8)
[2017-08-04 14:03] LABS: ALBUMIN 2.8 gm/dl (3.4-5.0); ALT/SGPT 43 U/L (12-78); AST/SGOT 27 U/L (15-37); BLOOD UREA NITROGEN 22 mg/dl (7-18); CALCIUM 8.7 mg/dl (8.5-10.1); CARBON DIOXIDE 27 mmol/L (21-32); CREATININE 0.46 mg/dl (0.60-1.20); GLUCOSE 145 mg/dl (70-99); POTASSIUM 3.8 mmol/L (3.5-5.1); SODIUM 140 mmol/L (136-145)
[2017-08-04 14:05] LABS: ALKALINE PHOSPHATASE 69 U/L (45-117); TOTAL PROTEIN 6.6 gm/dl (6.4-8.2)
== END | disposition home or self-care (01) ==
LOC: C.LABSPEC 13:07
PROVIDERS: ATTEND Internal Medicine
DX: T84.54XA Infection and inflammatory reaction due to internal left knee prosthesis, initial encounter (principal); Y79.2 Prosthetic and other implants, materials and accessory orthopedic devices associated with adverse incidents

== ENCOUNTER → 2017-08-12 | Outpatient (CLI) | payer BC ==
[~2017-08-12] MED LIST changes: -ERTA1INJ IV
[2017-08-12 17:57] LABS: BASO % 0.4 %; BASO ABS # 0.03 K/uL (0-0.2); EOS % 3.3 %; EOS ABS # 0.25 K/uL (0-0.5); HEMATOCRIT 33.6 % (37-47); HEMOGLOBIN 10.6 g/dL (12.0-16.0); IG# 0.03 K/uL (0.00-0.02); LYMPH % 20.6 %; LYMPH ABS # 1.56 K/uL (1.2-3.4); MEAN CELL VOLUME 82.4 fL (80-100); MEAN CORPUSCULAR HGB CONC 31.5 g/dl (32-36); MEAN PLATELET VOLUME 10.1 fL (7.4-10.4); MONO % 11.5 %; MONO ABS # 0.87 K/uL (0.11-0.59); NEUT % 63.8 %; NEUT ABS # 4.84 K/uL (1.4-6.5); PLATELET COUNT 384 K/uL (130-400); RED CELL DISTRIBUTION WIDTH CV 16.8 % (11.5-14.5); WHITE BLOOD COUNT 7.58 K/uL (4.8-10.8)
[2017-08-12 18:20] LABS: ALBUMIN 3.4 gm/dl (3.4-5.0); ALT/SGPT 43 U/L (12-78); AST/SGOT 21 U/L (15-37); BLOOD UREA NITROGEN 24 mg/dl (7-18); CALCIUM 8.3 mg/dl (8.5-10.1); CARBON DIOXIDE 26 mmol/L (21-32); CREATININE 0.49 mg/dl (0.60-1.20); GLUCOSE 93 mg/dl (70-99); POTASSIUM 3.7 mmol/L (3.5-5.1); SODIUM 144 mmol/L (136-145)
[2017-08-12 18:23] LABS: ALKALINE PHOSPHATASE 65 U/L (45-117); TOTAL PROTEIN 6.8 gm/dl (6.4-8.2)
--- NOTE | 2017-08-21 08:05 | CODING QUERY NO DIAGNOSIS ---
: 1945 Valid Physician Order Needed A valid physician order must be submitted in order to properly bill for the service(s) provided, including date of service(s), valid diagnosis, and physician signature. If these tests are done on a recurring basis the original physican order must be submitted in order to code and bill for the service(s) provided. Please fax us the original, signed physician order so that we may expedite billing to [phone] DOS 08/12/2017 * CBC * ERYTHROCYTE SEDIMENTATION RATE * CMP Thank you [facility] Information Management
== END | disposition home or self-care (01) ==
LOC: C.LABSPEC 12:58
PROVIDERS: ATTEND Internal Medicine
DX: T84.54XD Infection and inflammatory reaction due to internal left knee prosthesis, subsequent encounter (principal); X58.XXXD Exposure to other specified factors, subsequent encounter

== ENCOUNTER → 2017-08-19 | Outpatient (CLI) | payer BC ==
[2017-08-19 11:33] LABS: BASO % 0.2 %; BASO ABS # 0.02 K/uL (0-0.2); EOS % 1.3 %; EOS ABS # 0.13 K/uL (0-0.5); HEMATOCRIT 38.3 % (37-47); HEMOGLOBIN 12.1 g/dL (12.0-16.0); IG# 0.04 K/uL (0.00-0.02); LYMPH % 8.4 %; LYMPH ABS # 0.84 K/uL (1.2-3.4); MEAN CELL VOLUME 80.3 fL (80-100); MEAN CORPUSCULAR HEMOGLOBIN 25.4 pg (25-34); MEAN CORPUSCULAR HGB CONC 31.6 g/dl (32-36); MEAN PLATELET VOLUME 9.9 fL (7.4-10.4); MONO % 7.8 %; MONO ABS # 0.78 K/uL (0.11-0.59); NEUT % 81.9 %; NEUT ABS # 8.19 K/uL (1.4-6.5); PLATELET COUNT 380 K/uL (130-400); RED CELL DISTRIBUTION WIDTH CV 16.7 % (11.5-14.5); RED CELL DISTRIBUTION WIDTH SD 49.2 fL (36.4-46.3)
[2017-08-19 11:58] LABS: ALBUMIN 3.9 gm/dl (3.4-5.0); ALT/SGPT 49 U/L (12-78); AST/SGOT 28 U/L (15-37); BLOOD UREA NITROGEN 28 mg/dl (7-18); CALCIUM 9.4 mg/dl (8.5-10.1); CARBON DIOXIDE 25 mmol/L (21-32); CREATININE 0.59 mg/dl (0.60-1.20); GLUCOSE 104 mg/dl (70-99); POTASSIUM 3.8 mmol/L (3.5-5.1); SODIUM 142 mmol/L (136-145)
[2017-08-19 12:01] LABS: ALKALINE PHOSPHATASE 73 U/L (45-117); TOTAL PROTEIN 8.4 gm/dl (6.4-8.2)
== END | disposition home or self-care (01) ==
LOC: C.LABSPEC 11:24
PROVIDERS: ATTEND Internal Medicine Infectious Disease

== ENCOUNTER → 2017-10-30 | Outpatient (CLI) | payer BC ==
[~2017-10-30] MED LIST changes: -ALBU18002 INH; +ANTI-INFLAMMATORY PO; -ANTIBIOTIC EXT; -CLC100 PO; +CRD30 PO; +DFC200 PO; -Juice Plus PO; +MCRK20 PO; +MGNO400 PO; -RXC5 PO; -SENN-61 PO; -SYMIN/8045 INH; +VANC1SUS PO; -[UNRECOGNIZED DRUG - OTHER] PO
[2017-10-30 12:58] LABS: BLOOD UREA NITROGEN 19 mg/dl (7-18); CALCIUM 8.9 mg/dl (8.5-10.1); CARBON DIOXIDE 24 mmol/L (21-32); CREATININE 0.76 mg/dl (0.60-1.20); GLUCOSE 98 mg/dl (70-99); SODIUM 134 mmol/L (136-145)
== END | disposition home or self-care (01) ==
LOC: C.LAB1850 11:19
PROVIDERS: ATTEND Physician Assistant Medical
DX: E87.6 Hypokalemia (principal)

== ENCOUNTER → 2017-11-07 | Outpatient (CLI) | payer BC ==
[2017-11-07 12:58] LABS: BLOOD UREA NITROGEN 18 mg/dl (7-18); CALCIUM 8.6 mg/dl (8.5-10.1); CARBON DIOXIDE 25 mmol/L (21-32); CREATININE 0.49 mg/dl (0.60-1.20); GLUCOSE 88 mg/dl (70-99); POTASSIUM 4.5 mmol/L (3.5-5.1); SODIUM 136 mmol/L (136-145)
== END | disposition home or self-care (01) ==
LOC: C.LAB1850 11:17
PROVIDERS: ATTEND Physician Assistant Medical
DX: R30.0 Dysuria (principal); E87.6 Hypokalemia

== ENCOUNTER → 2017-12-04 | Outpatient (CLI) | payer BC ==
[~2017-12-04] MED LIST changes: +DIPH38TA PO
== END | disposition home or self-care (01) ==
LOC: C.LABSPEC 08:32
PROVIDERS: ATTEND Internal Medicine Infectious Disease
DX: A04.72 Enterocolitis due to Clostridium difficile, not specified as recurrent (principal)

== ENCOUNTER 2019-09-02 16:45 | Inpatient (IN) ==
[2019-09-02] MEDS ORDERED: SODIUM CHLORIDE 0.9% 500 ML IV SCH (17:30)
--- NOTE | 2019-09-02 17:32 | Emergency Department Note ---
Impression & Plan Weakness, Dehydration, Mass of bladder ED Provider Note NAME: PERCY RODRÍGUEZ AGE: 74 SEX: F : 1945 ARRIVES VIA: Ambulance INFORMANT: Patient, ED PROVIDER(S): Renny Santacruz MD Chief Complaint: Abdominal pain HPI: Patient presents from home due to concern for crampy abdominal pain. Patient states it is intermittent. Patient states that worsens with movement. Patient has had some associated nausea. The patient did take a Zofran prior to arrival which did improve it. The patient denies any chest pains or shortness of breath. Patient is legally blind but denies any recent falls. EMS did note that the patient did have some left upper extremity weakness. Nurse did call the patient's caregiver stated that her last known well may have been around 3 PM when she started have difficulty with moving her left side. Patient does have a prior history of a chronic left knee infection as well as a shoulder replacement which may inhibit some of her movement; however, per the caregiver at home the patient is able to lift her arms up off the bed. Patient denies any headache. ROS: See HPI for pertinent positives and negatives. A total of 10 systems were reviewed and otherwise negative. Past medical history: See below Surgical history: See below Social history: See below Physical Exam: GENERAL: NAD, non-toxic. EYE EXAM: Normal conjunctiva. PERRL, no anisocoria and EOM's grossly intact w/o pain. NECK: Supple, no nuchal rigidity, no adenopathy, non-tender. No signs of meningismus. LUNGS: Clear to auscultation. Normal chest wall mechanics. HEART: NSR, no MRG. ABDOMEN: Abdomen soft, non-tender, normo-active bowel sounds, no masses, no rebound or guarding. BACK: No CVA TTP. SKIN: No rashes and no bruising. UPPER EXTREMITIES: Upper extremities are grossly normal. LOWER EXTREMITIES: Grossly normal, no edema. NEURO EXAM: A&O x3, cranial nerves II-XII grossly intact with exception of pos sible difficulty moving left mouth to form grimace, moves right upper and right lower extremity without issue. Difficulty with moving the left upper and left lower extremity. Left lower extremity movement may be limited secondary to chronic knee the patient is unable to light raise her left arm off the bed. Differential diagnoses: Appendicitis, ovarian cyst, ovarian torsion, ectopic , TOA, PID, infections, diverticulitis, UTI, obstruction, mesenteric ischemia, aortic pathology, inflammatory bowel disease, renal colic, PUD, pancreatitis, biliary pathology, hernia, volvulus, constipation, CVA, hypoglycemia, mgiraine as well as other pathologies. Course: Patient was seen and evaluated the bedside. Full history physical exam was performed. EKG: Indication: Stroke work-up Imaging Studies: Radiology results as stated below per my review in the radiologist's interpretation: CT SCAN OF THE BRAIN WITHOUT IV CONTRAST CLINICAL HISTORY: Strokelike symptoms. Left-sided weakness. COMPARISON STUDY: CT of the brain dated 02/25/2018. TECHNIQUE: Unenhanced axial CT scan of the brain is performed from the vertex to the skull base. A dose lowering technique was utilized adhering to the principles of ALARA. FINDINGS: Brain parenchyma: There are age-related involutional changes noting mild subcortical and periventricular microangiopathic change. There is no hemorrhage, mass effect, or evidence of acute territorial ischemia by CT criteria. Goodrich- white matter differentiation is preserved. No extra-axial fluid collection is seen. Ventricles, sulci, cisterns: Prominent secondary to involutional change. Intracranial vasculature: There is atherosclerotic calcification of the cavernous carotid and vertebral arteries. Calvarium: Unremarkable. Sinuses and mastoids: The visualized paranasal sinuses are clear. The mastoid air cells are well pneumatized. Orbits: The bony orbits are grossly intact. The ocular globes are enlarged. There has been banding on the left. There are bilateral ocular lens implants. IMPRESSION: There is no hemorrhage, mass effect, or evidence of acute territorial ischemia by CT criteria. ACT 112: Negative or not required by law. Electronically signed by: Facundo Barillas M.D. 09/02/2019 5:46 PM Dictated: 09/02/191743 Transcribed: 09/02/191743 CT ANGIOGRAM OF THE BRAIN; CT ANGIOGRAM OF THE NECK CLINICAL HISTORY: Left-sided weakness. COMPARISON STUDY: Unenhanced CT of the brain performed concurrently on 09/02/2019. TECHNIQUE: Following the IV administration of 119 of Optiray 320, CT angiogram of the head and neck was performed from the aortic arch to the vertex. Images are reviewed in the axial, sagittal, and coronal planes. 3-D MIPS images are created and assessed. IV contrast was administered without complication. All measurements were calculated based on NASCET criteria. A dose lowering technique was utilized adhering to the principles of ALARA. FINDINGS: Brain parenchyma: There is age-related involutional change noting mild subcortical and periventricular microangiopathic disease. There is no hemorrhage , mass effect, or evidence of acute territorial ischemia by CT criteria. There is no evidence of enhancing mass lesion on the angiogram phase images. The ventricles, sulci, and cisterns are prominent secondary to involutional change. Goodrich-white matter differentiation is preserved. No extra-axial fluid collection is seen. Thoracic aorta: There is atherosclerotic calcification of the thoracic aorta. Visualized portions of the thoracic aorta are normal in caliber. The aortic arch demonstrates bovine variant anatomy. Right carotid arterial system: The right common carotid artery is widely patent, as are the right internal and external carotid arteries. Mild plaque is noted in the carotid bulb. Left carotid arterial system: The left common carotid artery is widely patent, as are the left internal and external carotid arteries. Mild calcified plaque is seen in the carotid bulb. Vertebral arteries: The vertebral arteries are patent and codominant. 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 This is reconstituted at the thoracic outlet. The right subclavian artery is patent. Intracranial vasculature: There is atherosclerotic calcification of the cavernous carotid and vertebral arteries. The internal carotid arteries are patent at the skull base. There is focal high-grade stenosis with near complete occlusion of the left cavernous carotid artery as seen on axial image #78. The anterior and middle cerebral arteries are patent bilaterally. The vertebrobasilar system is patent. There is focal moderate stenosis of the intracranial left vertebral artery at the skull base seen on image #22. There is focal high-grade stenosis of the P1 segment of the left posterior cerebral artery seen on image #99. The left posterior cerebral arteries otherwise patent. There is occlusion of the proximal right posterior cerebral artery as seen on image #99. The majority of the right posterior cerebral artery is patent, and likely supplied via the anterior circulation. The vertebral arteries are codominant. No aneurysm is identified. Jugular veins: Patent bilaterally. Dural sinuses: Patent. Lung apices: Partially visualized upper lobe lung parenchyma appears clear. Soft tissues: The visualized pharyngeal soft tissues are normal in appearance noting angiographic phase technique. The oropharyngeal airway appears widely patent. The salivary and thyroid glands are normal in appearance. No cervical lymphadenopathy is seen. Skeletal structures: The skeletal structures are osteopenic. The calvarium appears intact. The cervical spine is maintained noting advanced multilevel spondylosis. No lytic or blastic lesion is seen. A left shoulder arthroplasty is in place. Sinuses and mastoids: The paranasal sinuses are clear. The mastoid air cells are well pneumatized. IMPRESSION: 1. There is no hemorrhage, mass effect, or evidence of acute territorial ischemia by CT criteria. 2. 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 Note that this places the patient at risk for steal phenomenon. 3. There is a short segment of high-grade stenosis with near complete occlusion involving the left cavernous carotid artery. Trace flow is maintained. 4. There is age indeterminant occlusion at the origin of the right posterior cerebral artery. The majority of the right posterior cerebral artery is patent and supplied via the anterior circulation. 5. There is focal moderate stenosis of the intracranial left vertebral artery at the skull base. 6. There is focal high-grade stenosis of the P1 segment of the left posterior cerebral artery. 7. 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 8. Additional findings as above. ACT 112: Negative or not required by law. Electronically signed by: aFcundo Barillas M.D. 09/02/2019 6:08 PM Dictated: 09/02/191750 Transcribed: 09/02/191750 CT SCAN OF THE ABDOMEN AND PELVIS WITH IV CONTRAST CLINICAL HISTORY: Lower abdominal pain. COMPARISON STUDY: Abdominal CT dated 12/13/2014. TECHNIQUE: Following the IV administration of 119 cc of Optiray 320, CT scan of the abdomen and pelvis is performed from the lung bases to the proximal femora. Images are reviewed in the axial, sagittal, and coronal planes. IV contrast was administered without complication. A dose lowering technique was utilized adhering to the principles of ALARA. The examination is degraded by streak artifact from the right arm which could not be elevated above the abdomen as well as motion artifact. FINDINGS: Lung bases: The heart is enlarged and without pericardial effusion. The lung bases are clear noting dependent atelectasis. A small hiatal hernia is noted. Liver: The contrast-enhanced liver is normal in size, contour, and attenuation. There is no intrahepatic biliary ductal dilatation. The hepatic veins and portal veins are patent. Scattered hepatic cysts measure up to 1.6 cm. Gallbladder: The gallbladder is distended but otherwise grossly unremarkable. Spleen: Normal in size and attenuation. Pancreas: Grossly unremarkable but not well evaluated. Adrenal glands: Unremarkable. Kidneys: The contrast enhanced kidneys are normal in size and without hydronephrosis. The kidneys enhance symmetrically. A subcentimeter cortical hypodensity in the left lower pole likely represents a cyst but is too small for definitive characterization. Cortical scarring is noted in the left lower pole. Abdominal vasculature: The abdominal aorta is normal in course and caliber noting moderate to advanced atherosclerotic calcification. Bowel: There is no bowel obstruction. Moderate fecal retention is noted throughout the colon. Mucosal thickening is noted throughout the colon with associated hyperemia. There are also mildly thick-walled and hyperemic appearing loops of small bowel in the pelvis. There is minimal surrounding inflammatory change. There is no pneumatosis intestinalis or portal venous gas. There is mild colonic diverticulosis without clear CT evidence of acute diverticulitis. The appendix is not identified. Peritoneum: No intra-axial free air is seen. There is trace free fluid in the pelvis. Surgical clips are noted in the right lower quadrant. Lymphadenopathy: None. Pelvic viscera: The bladder is distended. There is a 2.0 cm enhancing nodular lesion along the left posterior wall of the bladder seen on image #304. The uterus is surgically absent. Findings suggest pelvic floor prolapse. A vaginal pessary is in place. No adnexal lesion is identified. Skeletal structures: The skeletal structures are osteopenic. There is advanced lumbosacral spondylosis and scoliosis. No lytic or blastic lesions are seen. IMPRESSION: 1. Streak and motion degraded examination. 2. There is a 2.0 cm irregular and enhancing nodule along the posterior left wall of the bladder. This should be considered bladder cancer until proven otherwise, and follow-up with urology is recommended 3. Findings suggest a nonspecific enterocolitis, likely on an infectious or inflammatory basis. Clinical correlation will be required. 4. Moderate constipation. 5. Trace free fluid in the pelvis is nonspecific and likely on a reactive basis. 6. Additional findings as above. ACT 112: Negative or not required by law. Electronically signed by: Facundo Barillas M.D. 09/02/2019 6:39 PM Dictated: 09/02/191829 Transcribed: 09/02/191829 Cardiac monitoring: An order was placed for continuous cardiac monitoring. The monitor shows a rate of 61 with sinus rhythm. MDM: Patient did present with abdominal pain as well as left-sided weakness. I spoke to Dr. Pandey at 1730. Patient's initial blood glucose was detected at 50s the repeats were done which showed 90 and 80. I did talk to the pharmacist in order to discuss mixing TPA. The patient was to be seen by Dr. Spann via the stroke cart. Did talk to the son shortly thereafter stated he was the POA if the patient was incapacitated. He does relate that the patient has no prior history of brain bleed or stroke. He states she does have difficulty with movement of her left side secondary to the chronic left knee infection as well as for shoulder replacement. Dr. Spann did evaluate the patient does not believe the patient requires TPA at this time. 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 The anterior circulation is otherwise patent. I do not believe that the patient's findings on CT would fully explain her left-sided weakness and are likely chronic. Patient CT abdomen pelvis shows moderate constipation. She may have an enterocolitis and a possible bladder wall cancer. I did speak with the on-call hospitalist who agreed to further evaluate treat the patient. Patient was admitted the medicine service. I did speak with the on-call tele-stroke neurologist a second time and went over her CT angios results. Does not believe the patient requires intervention. I did convey this to the hospitalist and the patient was admitted. Past Med/Surg History Medical History Arthritis, septic, knee (Inactive) Atrial flutter (Resolved) History of Clostridium difficile colitis (Resolved) History of pyelonephritis Hx of atrial tachycardia (Resolved) Hx of esophageal spasm (Resolved) Hx of hypokalemia (Resolved) Hx of pyelonephritis (Resolved) Hx of syncope (Resolved) Hx of vertigo (Resolved) Infected prosthetic knee joint (Resolved) Pes anserine bursitis (Inactive) Rheumatoid arthritis (Chronic) Stenosis of left subclavian artery (Resolved) SVT (supraventricular tachycardia) (Resolved) Traumatic wound (Acute) V-tach (Resolved) Wound dehiscence (Resolved) Surgical History H/O left knee surgery (Resolved) History of hysterectomy (Resolved) Hx of appendectomy (Resolved) S/P cataract surgery (Resolved) S/P colonoscopy (Resolved) S/P eye surgery (Resolved) Status post total shoulder arthroplasty (Resolved) Family History Father Cardiomegaly Emphysema lung Mother Stroke Other Cancer Diabetes Heart disease Hypertension Hypothyroidism No significant family history Psoriasis Social History Preferred Language: Icelandic Communication Ability: Effective Visual Impairment: Severely Limited Hearing Ability: Normal Pharmaceutical Botanist Required: No Beliefs That Will Affect Care: None marital status: / Current Living Situation: Alone Current Living Situation Comment: has caregiver that comes daily current occupational status: retired Other Information That Helps Us Care for You: No Feels Safe at Home: Yes Safety Concerns: Feels Safe At This Time Smoking Status: Never smoker Hx Alcohol Use: No Hx Substance Use: No Sunscreen Use: Yes Allergies Allergies Allergy/AdvReac Type Severity Reaction Status Date / Time chlorpromazine Allergy Severe JAW LOCKS Verified 09/02/19 19:35 levofloxacin [From Levaquin] Allergy Severe Vomiting Verified 09/02/19 19:35 pineapple Allergy Severe HIVES IN Verified 09/02/19 19:35 HER MOUTH prochlorperazine Allergy Severe MOTOR Verified 09/02/19 19:35 SEIZURES-ARMS SPASTIC shellfish derived Allergy Severe VERY SICK Verified 09/02/19 19:35 FOR SEVERAL DAYS/HIVES IN HER MOUTH strawberry Allergy Severe HIVES IN Verified 09/02/19 19:35 HER MOUTH tomato Allergy Severe HIVES IN Verified 09/02/19 19:35 MOUTH walnut Allergy Severe HIVES IN Verified 09/02/19 19:35 HER MOUTH nickel Allergy Intermediate RASH Verified 09/02/19 19:35 soy Allergy Intermediate "SOY" Verified 09/02/19 19:35 ALLERGY-GI UPSET ABD PAIN cephalexin AdvReac Severe NAUSEA AND Verified 08/26/19 12:23 VOMITING procaine AdvReac Intermediate 'makes Verified 08/26/19 12:23 muscle weakness worse' Home Meds Home Medications Medication Instructions Recorded Confirmed albuterol sulfate 90 mcg/actuation 90 mcg INH Q4H PRN 11/09/18 09/02/19 breath activated powder inhaler celecoxib 200 mg capsule 200 mg PO DAILY cap 11/09/18 09/02/19 Lactobacillus acidophilus 1 1,000 mmu cells PO DAILY tab 01/03/19 09/02/19 billion cell tablet cetirizine 10 mg tablet 10 mg PO DAILY tab 01/03/19 09/02/19 cyanocobalamin (vitamin B-12) 1,000 mcg PO DAILY cap 01/03/19 09/02/19 1,000 mcg capsule diphenhydramine HCl 25 mg tablet 25 mg PO DAILY tab 01/03/19 09/02/19 lysine 500 mg tablet 500 mg PO DAILY tab 01/03/19 09/02/19 meclizine 12.5 mg tablet 12.5 mg PO TID PRN #30 tab 01/03/19 09/02/19 omeprazole 20 mg PO DAILY 02/04/19 09/02/19 fluconazole 200 mg tablet 400 mg PO DAILY tab 08/26/19 09/02/19 Citramax 1 tab PO DAILY 09/02/19 09/02/19 bupropion HCl [Wellbutrin XL] 300 mg PO DAILY 09/02/19 09/02/19 levothyroxine 75 mcg PO DAILY 09/02/19 09/02/19 lidocaine 1 appln TOP UD 09/02/19 09/02/19 oxycodone-acetaminophen 1 tab PO Q6H PRN 09/02/19 09/02/19 prednisone 3 mg PO DAILY 09/02/19 09/02/19 Previous Rx's Medication Instructions Recorded methyltestosterone 10 mg tablet 2.5 mg PO .COMPLEX #30 tab 03/17/19 valacyclovir 500 mg tablet See Rx Instructions .ROUTE 03/23/19 .COMPLEX #30 tablet ondansetron HCl 4 mg tablet 4 mg PO QID PRN #60 tab 03/29/19 estradiol acetate 0.05 mg/24 hr 1 vag ring PV Q3MO #1 ea 04/05/19 vaginal ring cyclobenzaprine 10 mg tablet 10 mg PO TID PRN #60 tab 04/29/19 Results & Data (ED) Vital Signs Vital Signs - 24 hr 09/02/19 17:02 09/02/19 17:03 09/02/19 17:53 Temperature 36.6 C Temperature Source Oral Pulse Rate 85 61 87 Pulse Rate [Right Finger] Pulse Rhythm [Right Finger] Pulse Strength [Right Finger] Respiratory Rate 18 18 20 Respiratory Effort / Characteristics Non-Labored Respiratory Depth Normal Blood Pressure 114/59 L 114/59 L Blood Pressure [Right Arm] Blood Pressure Mean 66 77 Blood Pressure Mean [Right Arm] Blood Pressure Position [Right Arm] Pulse Oximetry 100 Oxygen Delivery Method Room Air Room Air Room Air Sepsis Recent Fever Within 48 Hours No Sepsis New/Unexplained Change in Mental Status No Sepsis Action Taken by Nursing No Action Required 09/02/19 18:00 09/02/19 18:04 09/02/19 18:15 Temperature Temperature Source Pulse Rate 82 80 82 Pulse Rate [Right Finger] Pulse Rhythm [Right Finger] Pulse Strength [Right Finger] Respiratory Rate 22 20 20 Respiratory Effort / Characteristics Respiratory Depth Blood Pressure 141/78 H 146/79 H Blood Pressure [Right Arm] Blood Pressure Mean 91 100 Blood Pressure Mean [Right Arm] Blood Pressure Position [Right Arm] Pulse Oximetry Oxygen Delivery Method Room Air Sepsis Recent Fever Within 48 Hours Sepsis New/Unexplained Change in Mental Status Sepsis Action Taken by Nursing 09/02/19 18:30 09/02/19 18:46 09/02/19 19:45 Temperature Temperature Source Pulse Rate 83 85 Pulse Rate [Right Finger] 81 Pulse Rhythm [Right Finger] Pulse Strength [Right Finger] Respiratory Rate 17 20 18 Respiratory Effort / Characteristics Respiratory Depth Normal Blood Pressure 149/104 H 163/92 H Blood Pressure [Right Arm] 145/81 H Blood Pressure Mean 120 127 Blood Pressure Mean [Right Arm] 102 Blood Pressure Position [Right Arm] Pulse Oximetry 94 100 Oxygen Delivery Method Sepsis Recent Fever Within 48 Hours Sepsis New/Unexplained Change in Mental Status Sepsis Action Taken by Nursing 09/02/19 21:31 09/02/19 23:00 Temperature Temperature Source Pulse Rate Pulse Rate [Right Finger] 82 92 H Pulse Rhythm [Right Finger] Regular Regular Pulse Strength [Right Finger] Normal Normal Respiratory Rate 20 20 Respiratory Effort / Characteristics Non-Labored Spontaneous Respiratory Depth Normal Normal Blood Pressure Blood Pressure [Right Arm] 130/71 131/59 L Blood Pressure Mean Blood Pressure Mean [Right Arm] 90 83 Blood Pressure Position [Right Arm] Sitting Pulse Oximetry 100 95 Oxygen Delivery Method Room Air Room Air Sepsis Recent Fever Within 48 Hours Sepsis New/Unexplained Change in Mental Status Sepsis Action Taken by Shelter Medications Current Medication List: was personally reviewed by me Laboratory Data Attestation: I reviewed the patient's lab results. Result diagrams: 09/02/19 17:32 09/02/19 17:32 Lab Results 09/02/19 09/02/19 09/02/19 Range/Units 17:30 17:32 17:32 WBC 8.25 (4.8-10.8) K/uL RBC 5.24 (4.2-5.4) M/uL Hgb 12.6 (12.0-16.0) g/dL Hct 41.0 (37-47) % MCV 78.2 L (80-100) fL MCH 24.0 L (25-34) pg MCHC 30.7 L (32-36) g/dL RDW Std Deviation 56.7 H (36.4-46.3) fL RDW Coeff of Ema 19.8 H (11.5-14.5) % Plt Count 283 (130-400) K/uL MPV 9.9 (7.4-10.4) fL Immature Gran % (Auto) 0.2 % Neut % (Auto) 83.2 % Lymph % (Auto) 5.7 % Clay % (Auto) 10.2 % Eos % (Auto) 0.6 % Baso % (Auto) 0.1 % Immature Gran # (Auto) 0.02 (0.00-0.02) K/uL Neut # (Auto) 6.86 H (1.4-6.5) K/uL Lymph # (Auto) 0.47 L (1.2-3.4) K/uL Clay # (Auto) 0.84 H (0.11-0.59) K/uL Eos # (Auto) 0.05 (0-0.5) K/uL Baso # (Auto) 0.01 (0-0.2) K/uL Sodium 141 (136-145) mmol/L Potassium 4.3 (3.5-5.1) mmol/L Chloride 106 (98-107) mmol/L Carbon Dioxide 26 (21-32) mmol/L Anion Gap 8.0 (3-11) BUN 43 H (7-18) mg/dl Creatinine 0.76 (0.6-1.2) mg/dl Est Cr Clr Drug Dosing 45.2 ml/min Est GFR ( Amer) 88.3 Est GFR (Non-Af Amer) 76.2 BUN/Creatinine Ratio 56.9 H (10-20) Glucose 99 (70-99) mg/dl POC Glucose 51 L* (70-99) mg/dl Calcium 9.1 (8.5-10.1) mg/dl Total Bilirubin 0.4 (0.2-1) mg/dl AST 25 (15-37) U/L ALT 28 (12-78) U/L Alkaline Phosphatase 71 (45-117) U/L Total Protein 7.2 (6.4-8.2) gm/dl Albumin 3.5 (3.4-5.0) gm/dl Globulin 3.7 (2.5-4.0) gm/dl Albumin/Globulin Ratio 0.9 (0.9-2) Lipase 68 L (73-393) U/L Urine Color Urine Appearance (Clear) Urine pH (4.5-7.5) Ur Specific [place] (1.000-1.030) Urine Protein (Negative) Urine Glucose (UA) (Negative) Urine Ketones (Negative) Urine Blood (Negative) Urine Nitrite (Negative) Urine Bilirubin (Negative) Urine Urobilinogen (Negative) Ur Leukocyte Esterase (Negative) 09/02/19 09/02/19 09/02/19 Range/Units 17:32 17:34 18:55 WBC (4.8-10.8) K/uL RBC (4.2-5.4) M/uL Hgb (12.0-16.0) g/dL Hct (37-47) % MCV (80-100) fL MCH (25-34) pg MCHC (32-36) g/dL RDW Std Deviation (36.4-46.3) fL RDW Coeff of Ema (11.5-14.5) % Plt Count (130-400) K/uL MPV (7.4-10.4) fL Immature Gran % (Auto) % Neut % (Auto) % Lymph % (Auto) % Clay % (Auto) % Eos % (Auto) % Baso % (Auto) % Immature Gran # (Auto) (0.00-0.02) K/uL Neut # (Auto) (1.4-6.5) K/uL Lymph # (Auto) (1.2-3.4) K/uL Clay # (Auto) (0.11-0.59) K/uL Eos # (Auto) (0-0.5) K/uL Baso # (Auto) (0-0.2) K/uL Sodium (136-145) mmol/L Potassium (3.5-5.1) mmol/L Chloride (98-107) mmol/L Carbon Dioxide (21-32) mmol/L Anion Gap (3-11) BUN (7-18) mg/dl Creatinine (0.6-1.2) mg/dl Est Cr Clr Drug Dosing ml/min Est GFR ( Amer) Est GFR (Non-Af Amer) BUN/Creatinine Ratio (10-20) Glucose (70-99) mg/dl POC Glucose 94 83 (70-99) mg/dl Calcium (8.5-10.1) mg/dl Total Bilirubin (0.2-1) mg/dl AST (15-37) U/L ALT (12-78) U/L Alkaline Phosphatase (45-117) U/L Total Protein (6.4-8.2) gm/dl Albumin (3.4-5.0) gm/dl Globulin (2.5-4.0) gm/dl Albumin/Globulin Ratio (0.9-2) Lipase (73-393) U/L Urine Color Yellow Urine Appearance Clear (Clear) Urine pH 7.5 (4.5-7.5) Ur Specific [place] > 1.045 H (1.000-1.030) Urine Protein Negative (Negative) Urine Glucose (UA) Negative (Negative) Urine Ketones Trace H (Negative) Urine Blood Negative (Negative) Urine Nitrite Negative (Negative) Urine Bilirubin Negative (Negative) Urine Urobilinogen Negative (Negative) Ur Leukocyte Esterase Negative (Negative) Administered Medications Enoxaparin Sodium (Lovenox) 40 mg SQ QAM BRIAN Stop: 10/03/19 08:59 Last Admin: 09/03/19 09:46 Dose: 40 mg Documented by: [id number] Metronidazole (Flagyl) 500 mg in 100 mls @ 100 mls/hr IV Q8H [facility] Stop: 09/13/19 04:59 Last Infusion: 09/03/19 14:05 Dose: 0 mls/hr Documented by: [id number] Admin: 09/03/19 13:01 Dose: 100 mls/hr Documented by: [id number] Infusion: 09/03/19 07:21 Dose: 0 mls/hr Documented by: [id number] Admin: 09/03/19 05:45 Dose: 100 mls/hr Documented by: [id number] Sodium Chloride (Nss 1000ml) 1,000 mls @ 125 mls/hr IV .Q8H [facility] Stop: 10/03/19 09:44 Last Admin: 09/03/19 09:46 Dose: 125 mls/hr Documented by: [id number] Ciprofloxacin (Cipro) 400 mg in 200 mls @ 100 mls/hr IV Q12H BRIAN; Protocol Stop: 09/13/19 09:59 Last Infusion: 09/03/19 12:41 Dose: 0 mls/hr Documented by: [id number] Admin: 09/03/19 10:37 Dose: 100 mls/hr Documented by: [id number] Pantoprazole Sodium 40 mg/ (Syringe) 10 mls @ 5 mls/min IV DAILY@1100 BRIAN Stop: 10/03/19 10:59 Last Admin: 09/03/19 10:38 Dose: 5 mls/min Documented by: [id number] Hydrocortisone Sodium (Succinate 50 mg/ Syringe) 1 mls @ 4 mls/min IV Q8H [facility] Stop: 09/04/19 08:01 Last Admin: 09/03/19 15:54 Dose: 4 mls/min Documented by: [id number] Ioversol (Optiray 320 125ml) 119 ml IV ONCE PRN PRN Reason: Interaction Checking Stop: 09/06/19 17:42 Last Admin: 09/02/19 17:44 Dose: 119 ml Documented by: [id number] Morphine Sulfate (Morphine Sulfate) 2 mg IV Q4 PRN PRN Reason: Pain Stop: 09/17/19 09:35 Last Admin: 09/03/19 14:29 Dose: 2 mg Documented by: [id number] Admin: 09/03/19 09:45 Dose: 2 mg Documented by: [id number] Ondansetron HCl (Zofran) 4 mg IV Q6H PRN PRN Reason: Nausea Stop: 10/03/19 09:35 Last Admin: 09/03/19 15:48 Dose: 4 mg Documented by: [id number] Admin: 09/03/19 09:45 Dose: 4 mg Documented by: [id number] Discontinued Medications Aspirin (Aspirin) 324 mg PO NOW STA Stop: 09/02/19 20:05 Last Admin: 09/02/19 20:12 Dose: 324 mg Documented by: [id number] Sodium Chloride (Nss) 500 mls @ 999 mls/hr IV .Q31M [facility] Stop: 09/02/19 18:00 Last Infusion: 09/02/19 18:34 Dose: 0 mls/hr Documented by: [id number] Admin: 09/02/19 18:04 Dose: 999 mls/hr Documented by: [id number] Sodium Chloride (Nss 1000ml) 1,000 mls @ 80 mls/hr IV .[id number] [facility] Stop: 10/03/19 09:58 Last Admin: 09/03/19 10:16 Dose: Not Given Documented by: [id number] Morphine Sulfate (Morphine Sulfate) 1 mg IV Q1H PRN PRN Reason: Abdominal Pain (scale 6-10) Stop: 09/17/19 05:13 Last Admin: 09/03/19 05:45 Dose: 1 mg Documented by: [id number] Ondansetron HCl (Zofran) Confirm Administered Dose 4 mg .ROUTE .STK-MED ONE Stop: 09/02/19 20:58 Last Admin: 09/02/19 21:01 Dose: Not Given Documented by: [id number] Ondansetron HCl (Zofran) 4 mg IV NOW STA Stop: 09/02/19 21:01 Last Admin: 09/02/19 21:01 Dose: 4 mg Documented by: [id number] Ondansetron HCl (Zofran) 4 mg IV NOW STA Stop: 09/02/19 22:16 Last Admin: 09/02/19 22:36 Dose: 4 mg Documented by: [id number] Discharge Plan Visit Data *Final* Discharge Date/Time: 09/03/19 00:29 Chief Complaint: Abdominal Pain Stated Complaint: AB DISCOMFORT, WEAKNESS ED Provider: Renny Santacruz Discharge Problem: Weakness, Dehydration, Mass of bladder Patient Disposition: Admitted As Inpatient Discharge Instructions Interventions: ED Discharge Assessment Last Done: 09/03/19 00:29
[2019-09-02] MEDS ORDERED: OPTIRAY 320 125ml IV PRN (17:43)
--- NOTE | 2019-09-02 17:48 | CT Scan Report ---
CT SCAN OF THE BRAIN WITHOUT IV CONTRAST CLINICAL HISTORY: Strokelike symptoms. Left-sided weakness. COMPARISON STUDY: CT of the brain dated 02/25/2018. TECHNIQUE: Unenhanced axial CT scan of the brain is performed from the vertex to the skull base. A do se lowering technique was utilized adhering to the principles of ALARA. FINDINGS: Brain parenchyma: There are age-related involutional changes noting mild subcortical and periventric ular microangiopathic change. There is no hemorrhage, mass effect, or evidence of acute territorial i schemia by CT criteria. Goodrich-white matter differentiation is preserved. No extra-axial fluid collecti on is seen. Ventricles, sulci, cisterns: Prominent secondary to involutional change. Intracranial vasculature: There is atherosclerotic calcification of the cavernous carotid and vertebr al arteries. Calvarium: Unremarkable. Sinuses and mastoids: The visualized paranasal sinuses are clear. The mastoid air cells are well pneu matized. Orbits: The bony orbits are grossly intact. The ocular globes are enlarged. There has been banding on the left. There are bilateral ocular lens implants. IMPRESSION: There is no hemorrhage, mass effect, or evidence of acute territorial ischemia by CT maryt pastora. ACT 112: Negative or not required by law. Electronically signed by: Facundo Barillas M.D. 09/02/2019 5:46 PM
[2019-09-02 18:00] LABS: Albumin Level 3.5 gm/dl (3.4-5.0); BUN Creatinine Ratio 56.9 (10-20); Calcium 9.1 mg/dl (8.5-10.1); Creatinine Clr Calc Pharmacy 45.2 ml/min; Est GFR (African American) 88.3; Est GFR (Non-African American) 76.2; Potassium 4.3 mmol/L (3.5-5.1)
[2019-09-02 18:01] LABS: Basophils # (auto) 0.01 K/uL (0-0.2); Basophils % (auto) 0.1 %; Eosinophils # (auto) 0.05 K/uL (0-0.5); Eosinophils % (auto) 0.6 %; Hemoglobin 12.6 g/dL (12.0-16.0); Immature Granulocytes # (auto) 0.02 K/uL (0.00-0.02); Immature Granulocytes % (auto) 0.2 %; Lymphocytes # (auto) 0.47 K/uL (1.2-3.4); Lymphocytes % (auto) 5.7 %; Mean Corpuscular Hgb Conc 30.7 g/dL (32-36); Mean Corpuscular Volume 78.2 fL (80-100); Mean Platelet Volume 9.9 fL (7.4-10.4); Monocytes # (auto) 0.84 K/uL (0.11-0.59); Monocytes % (auto) 10.2 %; Neutrophils # (auto) 6.86 K/uL (1.4-6.5); Neutrophils % (auto) 83.2 %; Platelet Count 283 K/uL (130-400); RDW Coefficient of Variation 19.8 % (11.5-14.5); RDW Standard Deviation 56.7 fL (36.4-46.3); Red Blood Count 5.24 M/uL (4.2-5.4); White Blood Count 8.25 K/uL (4.8-10.8)
[2019-09-02 18:03] LABS: Albumin Globulin Ratio 0.9 (0.9-2); Bilirubin,Total 0.4 mg/dl (0.2-1); Globulin 3.7 gm/dl (2.5-4.0); Total Protein 7.2 gm/dl (6.4-8.2)
--- NOTE | 2019-09-02 18:10 | CT Scan Report ---
CT ANGIOGRAM OF THE BRAIN; CT ANGIOGRAM OF THE NECK CLINICAL HISTORY: Left-sided weakness. COMPARISON STUDY: Unenhanced CT of the brain performed concurrently on 09/02/2019. TECHNIQUE: Following the IV administration of 119 of Optiray 320, CT angiogram of the head and neck w as performed from the aortic arch to the vertex. Images are reviewed in the axial, sagittal, and solitario nal planes. 3-D MIPS images are created and assessed. IV contrast was administered without complicati on. All measurements were calculated based on NASCET criteria. A dose lowering technique was utilize d adhering to the principles of ALARA. FINDINGS: Brain parenchyma: There is age-related involutional change noting mild subcortical and periventricula r microangiopathic disease. There is no hemorrhage, mass effect, or evidence of acute territorial isc hemia by CT criteria. There is no evidence of enhancing mass lesion on the angiogram phase images. Th e ventricles, sulci, and cisterns are prominent secondary to involutional change. Goodrich-white matter d ifferentiation is preserved. No extra-axial fluid collection is seen. Thoracic aorta: There is atherosclerotic calcification of the thoracic aorta. Visualized portions of the thoracic aorta are normal in caliber. The aortic arch demonstrates bovine variant anatomy. Right carotid arterial system: The right common carotid artery is widely patent, as are the right int ernal and external carotid arteries. Mild plaque is noted in the carotid bulb. Left carotid arterial system: The left common carotid artery is widely patent, as are the left process engineering intern al and external carotid arteries. Mild calcified plaque is seen in the carotid bulb. Vertebral arteries: The vertebral arteries are patent and codominant. 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 This is reconstituted at the thoracic outlet. The right subclavian artery is patent. Intracranial vasculature: There is atherosclerotic calcification of the cavernous carotid and vertebr al arteries. The internal carotid arteries are patent at the skull base. There is focal high-grade st enosis with near complete occlusion of the left cavernous carotid artery as seen on axial image #78. The anterior and middle cerebral arteries are patent bilaterally. The vertebrobasilar system is paten t. There is focal moderate stenosis of the intracranial left vertebral artery at the skull base seen on image #22. There is focal high-grade stenosis of the P1 segment of the left posterior cerebral art monae seen on image #99. The left posterior cerebral arteries otherwise patent. There is occlusion of t he proximal right posterior cerebral artery as seen on image #99. The majority of the right posterior cerebral artery is patent, and likely supplied via the anterior circulation. The vertebral arteries are codominant. No aneurysm is identified. Jugular veins: Patent bilaterally. Dural sinuses: Patent. Lung apices: Partially visualized upper lobe lung parenchyma appears clear. Soft tissues: The visualized pharyngeal soft tissues are normal in appearance noting angiographic pha se technique. The oropharyngeal airway appears widely patent. The salivary and thyroid glands are nor mal in appearance. No cervical lymphadenopathy is seen. Skeletal structures: The skeletal structures are osteopenic. The calvarium appears intact. The cervic al spine is maintained noting advanced multilevel spondylosis. No lytic or blastic lesion is seen. A left shoulder arthroplasty is in place. Sinuses and mastoids: The paranasal sinuses are clear. The mastoid air cells are well pneumatized. IMPRESSION: 1. There is no hemorrhage, mass effect, or evidence of acute territorial ischemia by CT criteria. 2. 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 Note that this places the patient at risk for steal phenomenon. 3. There is a short segment of high-grade stenosis with near complete occlusion involving the left ca vernous carotid artery. Trace flow is maintained. 4. There is age indeterminant occlusion at the origin of the right posterior cerebral artery. The malik ority of the right posterior cerebral artery is patent and supplied via the anterior circulation. 5. There is focal moderate stenosis of the intracranial left vertebral artery at the skull base. 6. There is focal high-grade stenosis of the P1 segment of the left posterior cerebral artery. 7. 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 8. Additional findings as above. ACT 112: Negative or not required by law. Electronically signed by: Facundo Barillas M.D. 09/02/2019 6:08 PM
--- NOTE | 2019-09-02 18:40 | CT Scan Report ---
CT SCAN OF THE ABDOMEN AND PELVIS WITH IV CONTRAST CLINICAL HISTORY: Lower abdominal pain. COMPARISON STUDY: Abdominal CT dated 12/13/2014. TECHNIQUE: Following the IV administration of 119 cc of Optiray 320, CT scan of the abdomen and pelv is is performed from the lung bases to the proximal femora. Images are reviewed in the axial, sagitta l, and coronal planes. IV contrast was administered without complication. A dose lowering technique w as utilized adhering to the principles of ALARA. The examination is degraded by streak artifact from the right arm which could not be elevated above the abdomen as well as motion artifact. FINDINGS: Lung bases: The heart is enlarged and without pericardial effusion. The lung bases are clear noting d ependent atelectasis. A small hiatal hernia is noted. Liver: The contrast-enhanced liver is normal in size, contour, and attenuation. There is no intrahepa tic biliary ductal dilatation. The hepatic veins and portal veins are patent. Scattered hepatic cysts measure up to 1.6 cm. Gallbladder: The gallbladder is distended but otherwise grossly unremarkable. Spleen: Normal in size and attenuation. Pancreas: Grossly unremarkable but not well evaluated. Adrenal glands: Unremarkable. Kidneys: The contrast enhanced kidneys are normal in size and without hydronephrosis. The kidneys enh ance symmetrically. A subcentimeter cortical hypodensity in the left lower pole likely represents a c yst but is too small for definitive characterization. Cortical scarring is noted in the left lower po le. Abdominal vasculature: The abdominal aorta is normal in course and caliber noting moderate to advance d atherosclerotic calcification. Bowel: There is no bowel obstruction. Moderate fecal retention is noted throughout the colon. Mucosal thickening is noted throughout the colon with associated hyperemia. There are also mildly thick-wall ed and hyperemic appearing loops of small bowel in the pelvis. There is minimal surrounding inflammat ory change. There is no pneumatosis intestinalis or portal venous gas. There is mild colonic divertic ulosis without clear CT evidence of acute diverticulitis. The appendix is not identified. Peritoneum: No intra-axial free air is seen. There is trace free fluid in the pelvis. Surgical clips are noted in the right lower quadrant. Lymphadenopathy: None. Pelvic viscera: The bladder is distended. There is a 2.0 cm enhancing nodular lesion along the left p osterior wall of the bladder seen on image #304. The uterus is surgically absent. Findings suggest pe lvic floor prolapse. A vaginal pessary is in place. No adnexal lesion is identified. Skeletal structures: The skeletal structures are osteopenic. There is advanced lumbosacral spondylosi s and scoliosis. No lytic or blastic lesions are seen. IMPRESSION: 1. Streak and motion degraded examination. 2. There is a 2.0 cm irregular and enhancing nodule along the posterior left wall of the bladder. Thi s should be considered bladder cancer until proven otherwise, and follow-up with urology is recommend ed 3. Findings suggest a nonspecific enterocolitis, likely on an infectious or inflammatory basis. Clini nancy correlation will be required. 4. Moderate constipation. 5. Trace free fluid in the pelvis is nonspecific and likely on a reactive basis. 6. Additional findings as above. ACT 112: Negative or not required by law. Electronically signed by: Facundo Barillas M.D. 09/02/2019 6:39 PM
[2019-09-02 19:12] LABS: Appearance Urine Clear (Clear); Bilirubin Urine Negative (Negative); Blood Urine Negative (Negative); Color Urine Yellow; Glucose Urine UA Negative (Negative); Ketones Urine Trace (Negative); Leukocyte Esterase Urine Negative (Negative); Nitrite Urine Negative (Negative); Protein Urine Negative (Negative); Specific Gravity Urine > 1.045 (1.000-1.030); Urobilinogen Urine Negative (Negative); pH Urine 7.5 (4.5-7.5)
[2019-09-02] MEDS ORDERED: ASPIRIN CHEW 324 MG PO STA (20:04)
[2019-09-02] MEDS ORDERED: ONDANSETRON INJ 2 MG/ML 2 ML VIAL ONE (20:57)
[2019-09-02] MEDS ORDERED: ONDANSETRON INJ 2 MG/ML 2 ML VIAL IV STA ×2 (21:00→22:15)
--- NOTE | 2019-09-02 21:46 | Ultrasound Report ---
DOPPLER ULTRASOUND OF THE MESENTERIC VASCULATURE CLINICAL HISTORY: Generalized abdominal pain. COMPARISON STUDY: Abdominal CT performed on the same day 09/02/2019. FINDINGS: Real-time, grayscale, and color Doppler sonography of the mesenteric vasculature is perform ed. The upper abdominal aorta is patent noting atherosclerotic plaque and irregularity. Velocities wi thin the abdominal aorta measure up to 46 cm/s. The celiac trunk is patent with velocities measuring up to 187 cm/s. Normal arterial waveforms are preserved. The proximal and mid portions of the superio r mesenteric artery are patent with velocities measuring up to 278 cm/s. These vessels are much andres r assessed on today's abdominal CT scan and are widely patent. IMPRESSION: Mildly elevated velocities within the superior mesenteric artery are likely artifactual. The superior mesenteric artery and celiac trunk are widely patent as seen on today's abdominal CT sca n. Dictated: 09/02/2019 9:29 PM Transcribed: 09/02/2019 9:43 PM Maura [id number] [email or web address] Electronically signed by: Facundo Barillas M.D. 09/02/2019 9:45 PM
--- NOTE | 2019-09-02 22:51 | History & Physical Report ---
Date of Service September 02, 2019 Assessment & Plan (1) Weakness: Mayra Dobson is a 74-year-old female with past medical history significant for legal blindness, asthma, peripheral artery disease, paroxysmal ventricular tachycardia, and degenerative joint disease; presented to the emergency depart ment following continued concern for crampy abdominal pain that is been present over the last 24 to 36 hours. Weakness: - ?relation to decreased oral intake - CT Head: no hemorrhage, mass effect, or evidence of acute territorial ischemia by CT criteria. - CTA Head/Neck: per report 1. There is no hemorrhage, mass effect, or evidence of acute territorial ischemia by CT criteria. 2. 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 Note that this places the patient at risk for steal phenomenon. 3. There is a short segment of high-grade stenosis with near complete occlusion involving the left cavernous carotid artery. Trace flow is maintained. 4. There is age indeterminant occlusion at the origin of the right posterior cerebral artery. The majority of the right posterior cerebral artery is patent and supplied via the anterior circulation. 5. There is focal moderate stenosis of the intracranial left vertebral artery at the skull base. 6. There is focal high-grade stenosis of the P1 segment of the left posterior cerebral artery. 7. 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 - interventional neurosurgeon consulted by ED, determined that patient did not require TPA or neurovascular intervention at this time Enterocolitis: - significant abdominal pain of all quadrants of abdomen, pain out of proportion to exam findings - CT abd/pelvis: findings suggest a nonspecific enterocolitis, likely on an i nfectious or inflammatory basis - Mesenteric US: Mildly elevated velocities within the superior mesenteric artery are likely artifactual. The superior mesenteric artery and celiac trunk are widely patent as seen on today's abdominal CT scan - started on Zosyn - given significant abdominal pain and presence of bladder mass, morphine PRN available Mass of bladder: - CT abd/pelvis: There is a 2.0 cm irregular and enhancing nodule along the posterior left wall of the bladder - Urology consulted Diet: NPO DVT ppx: Lovenox Code status: DNR/DNI (2) Mass of bladder: (3) Enterocolitis: History of Present Illness Primary Care Provider: Jack Mayers MD Mayra Dobson is a 74-year-old female with past medical history significant for legal blindness, asthma, peripheral artery disease, paroxysmal ventricular tachycardia, and degenerative joint disease; presented to the emergency department following continued concern for crampy abdominal pain that is been present over the last 24 to 36 hours. This pain had come and gone over this timeframe, had some associated nausea which did improve after taking some Zofran prior to arrival. Per EMS report patient at that time exhibited some left upper extremity weakness, at that time patient's caregiver was called and stated that the last known time she was seen while was at 3 PM; patient does have a history of left-sided weakness following septic arthropathy. Since starting to develop this crampy abdominal pain patient has avoided eating, previously has been told to have not to do this when seen by physician at [facility], however she felt like this would help make her better faster and elected to not eat since onset of pain. Allergies Allergy/AdvReac Type Severity Reaction Status Date / Time chlorpromazine Allergy Severe JAW LOCKS Verified 09/02/19 19:35 levofloxacin [From Levaquin] Allergy Severe Vomiting Verified 09/02/19 19:35 pineapple Allergy Severe HIVES IN Verified 09/02/19 19:35 HER MOUTH prochlorperazine Allergy Severe MOTOR Verified 09/02/19 19:35 SEIZURES-ARMS SPASTIC shellfish derived Allergy Severe VERY SICK Verified 09/02/19 19:35 FOR SEVERAL DAYS/HIVES IN HER MOUTH strawberry Allergy Severe HIVES IN Verified 09/02/19 19:35 HER MOUTH tomato Allergy Severe HIVES IN Verified 09/02/19 19:35 MOUTH walnut Allergy Severe HIVES IN Verified 09/02/19 19:35 HER MOUTH nickel Allergy Intermediate RASH Verified 09/02/19 19:35 soy Allergy Intermediate "SOY" Verified 09/02/19 19:35 ALLERGY-GI UPSET ABD PAIN cephalexin AdvReac Severe NAUSEA AND Verified 08/26/19 12:23 VOMITING procaine AdvReac Intermediate 'makes Verified 08/26/19 12:23 muscle weakness worse' Home Medications Home Medications Medication Instructions Recorded Confirmed Type albuterol sulfate 90 mcg/actuation 90 mcg INH Q4H PRN 11/09/18 09/02/19 History breath activated powder inhaler celecoxib 200 mg capsule 200 mg PO DAILY cap 11/09/18 09/02/19 History Lactobacillus acidophilus 1 1,000 mmu cells PO DAILY tab 01/03/19 09/02/19 History billion cell tablet cetirizine 10 mg tablet 10 mg PO DAILY tab 01/03/19 09/02/19 History cyanocobalamin (vitamin B-12) 1,000 mcg PO DAILY cap 01/03/19 09/02/19 History 1,000 mcg capsule diphenhydramine HCl 25 mg tablet 25 mg PO DAILY tab 01/03/19 09/02/19 History lysine 500 mg tablet 500 mg PO DAILY tab 01/03/19 09/02/19 History meclizine 12.5 mg tablet 12.5 mg PO TID PRN #30 tab 01/03/19 09/02/19 History omeprazole 20 mg PO DAILY 02/04/19 09/02/19 History methyltestosterone 10 mg tablet 2.5 mg PO .COMPLEX #30 tab 03/17/19 09/02/19 Rx valacyclovir 500 mg tablet See Rx Instructions .ROUTE 03/23/19 09/02/19 Rx .COMPLEX #30 tablet ondansetron HCl 4 mg tablet 4 mg PO QID PRN #60 tab 03/29/19 09/02/19 Rx estradiol acetate 0.05 mg/24 hr 1 vag ring PV Q3MO #1 ea 04/05/19 09/02/19 Rx vaginal ring cyclobenzaprine 10 mg tablet 10 mg PO TID PRN #60 tab 04/29/19 09/02/19 Rx fluconazole 200 mg tablet 400 mg PO DAILY tab 08/26/19 09/02/19 History Citramax 1 tab PO DAILY 09/02/19 09/02/19 History bupropion HCl [Wellbutrin XL] 300 mg PO DAILY 09/02/19 09/02/19 History levothyroxine 75 mcg PO DAILY 09/02/19 09/02/19 History lidocaine 1 appln TOP UD 09/02/19 09/02/19 History oxycodone-acetaminophen 1 tab PO Q6H PRN 09/02/19 09/02/19 History prednisone 3 mg PO DAILY 09/02/19 09/02/19 History Past Med/Surg History Medical History Arthritis, septic, knee (Inactive) Atrial flutter (Resolved) History of Clostridium difficile colitis (Resolved) History of pyelonephritis Hx of atrial tachycardia (Resolved) Hx of esophageal spasm (Resolved) Hx of hypokalemia (Resolved) Hx of pyelonephritis (Resolved) Hx of syncope (Resolved) Hx of vertigo (Resolved) Infected prosthetic knee joint (Resolved) Pes anserine bursitis (Inactive) Rheumatoid arthritis (Chronic) Stenosis of left subclavian artery (Resolved) SVT (supraventricular tachycardia) (Resolved) Traumatic wound (Acute) V-tach (Resolved) Wound dehiscence (Resolved) Surgical History H/O left knee surgery (Resolved) History of hysterectomy (Resolved) Hx of appendectomy (Resolved) S/P cataract surgery (Resolved) S/P colonoscopy (Resolved) S/P eye surgery (Resolved) Status post total shoulder arthroplasty (Resolved) Family History Father Cardiomegaly Emphysema lung Mother Stroke Other Cancer Diabetes Heart disease Hypertension Hypothyroidism No significant family history Psoriasis Social History Preferred Language: Estonian Communication Ability: Effective Visual Impairment: Severely Limited Hearing Ability: Normal Reconciliation Analyst Required: No Beliefs That Will Affect Care: None marital status: / Current Living Situation: Alone Current Living Situation Comment: has caregiver that comes daily current occupational status: retired Other Information That Helps Us Care for You: No Feels Safe at Home: Yes Safety Concerns: Feels Safe At This Time Smoking Status: Never smoker Hx Alcohol Use: No Hx Substance Use: No Sunscreen Use: Yes Review of Systems Review of Systems: All systems reviewed & are unremarkable except as noted in HPI & below Physical Exam Constitutional: WD/WN, vitals as above Eyes: + anicteric sclerae; no conjunctival abnormality, no scleral abnormality and no corneal abnormality ENMT: external ear and nose normal, oropharynx normal Neck: normal visual inspection Respiratory: normal respiratory effort, lungs clear to auscultation Cardiovascular: Rate/Rhythm: regular rate and regular rhythm Heart Sounds: normal S1 and normal S2; no gallop, no murmur and no cardiac rub Vessels: + carotid bruit (right); no JVD Gastrointestinal (Abdomen): Inspection/Auscultation: normal bowel sounds; abdomen not distended Percussion/Palpation: + abdomen tender, + guarding and + abdomen rigid Musculoskeletal: no cyanosis or clubbing, extremities motor strength 5/5 Skin: no rashes, warm and dry Neurologic: moves all extremities Psychiatric: A+Ox3, euthymic affect Lymphatic: no cervical or axillary lymphadenopathy Results & Data Results & [facility] ([facility]) Vital Signs (Past 12 Hours) Vital Signs Temp Pulse Pulse Resp BP BP Pulse Ox 09/02/19 21:31 82 20 130/71 100 09/02/19 19:45 81 18 145/81 H 100 09/02/19 18:46 85 20 163/92 H 09/02/19 18:30 83 17 149/104 H 94 09/02/19 18:15 82 20 146/79 H 09/02/19 18:04 80 20 141/78 H 09/02/19 18:00 82 22 09/02/19 17:53 87 20 09/02/19 17:03 36.6 C 61 18 114/59 L 100 09/02/19 17:02 85 18 114/59 L Laboratory Results 09/02/19 09/02/19 09/02/19 Range/Units 18:55 17:34 17:32 WBC (4.8-10.8) K/uL RBC (4.2-5.4) M/uL Hgb (12.0-16.0) g/dL Hct (37-47) % MCV (80-100) fL MCH (25-34) pg MCHC (32-36) g/dL RDW Std Deviation (36.4-46.3) fL RDW Coeff of Ema (11.5-14.5) % Plt Count (130-400) K/uL MPV (7.4-10.4) fL Immature Gran % (Auto) % Neut % (Auto) % Lymph % (Auto) % [place] % (Auto) % Eos % (Auto) % Baso % (Auto) % Immature Gran # (Auto) (0.00-0.02) K/uL Neut # (Auto) (1.4-6.5) K/uL Lymph # (Auto) (1.2-3.4) K/uL [place] # (Auto) (0.11-0.59) K/uL Eos # (Auto) (0-0.5) K/uL Baso # (Auto) (0-0.2) K/uL Sodium (136-145) mmol/L Potassium (3.5-5.1) mmol/L Chloride (98-107) mmol/L Carbon Dioxide (21-32) mmol/L Anion Gap (3-11) BUN (7-18) mg/dl Creatinine (0.6-1.2) mg/dl Est Cr Clr Drug Dosing ml/min Est GFR ( Amer) Est GFR (Non-Af Amer) BUN/Creatinine Ratio (10-20) Glucose (70-99) mg/dl POC Glucose 83 94 (70-99) mg/dl Calcium (8.5-10.1) mg/dl Total Bilirubin (0.2-1) mg/dl AST (15-37) U/L ALT (12-78) U/L Alkaline Phosphatase (45-117) U/L Total Protein (6.4-8.2) gm/dl Albumin (3.4-5.0) gm/dl Globulin (2.5-4.0) gm/dl Albumin/Globulin Ratio (0.9-2) Lipase (73-393) U/L Urine Color Yellow Urine Appearance Clear (Clear) Urine pH 7.5 (4.5-7.5) Ur Specific [place] > 1.045 H (1.000-1.030) Urine Protein Negative (Negative) Urine Glucose (UA) Negative (Negative) Urine Ketones Trace H (Negative) Urine Blood Negative (Negative) Urine Nitrite Negative (Negative) Urine Bilirubin Negative (Negative) Urine Urobilinogen Negative (Negative) Ur Leukocyte Esterase Negative (Negative) 09/02/19 09/02/19 09/02/19 Range/Units 17:32 17:32 17:30 WBC 8.25 (4.8-10.8) K/uL RBC 5.24 (4.2-5.4) M/uL Hgb 12.6 (12.0-16.0) g/dL Hct 41.0 (37-47) % MCV 78.2 L (80-100) fL MCH 24.0 L (25-34) pg MCHC 30.7 L (32-36) g/dL RDW Std Deviation 56.7 H (36.4-46.3) fL RDW Coeff of Ema 19.8 H (11.5-14.5) % Plt Count 283 (130-400) K/uL MPV 9.9 (7.4-10.4) fL Immature Gran % (Auto) 0.2 % Neut % (Auto) 83.2 % Lymph % (Auto) 5.7 % [place] % (Auto) 10.2 % Eos % (Auto) 0.6 % Baso % (Auto) 0.1 % Immature Gran # (Auto) 0.02 (0.00-0.02) K/uL Neut # (Auto) 6.86 H (1.4-6.5) K/uL Lymph # (Auto) 0.47 L (1.2-3.4) K/uL [place] # (Auto) 0.84 H (0.11-0.59) K/uL Eos # (Auto) 0.05 (0-0.5) K/uL Baso # (Auto) 0.01 (0-0.2) K/uL Sodium 141 (136-145) mmol/L Potassium 4.3 (3.5-5.1) mmol/L Chloride 106 (98-107) mmol/L Carbon Dioxide 26 (21-32) mmol/L Anion Gap 8.0 (3-11) BUN 43 H (7-18) mg/dl Creatinine 0.76 (0.6-1.2) mg/dl Est Cr Clr Drug Dosing 45.2 ml/min Est GFR ( Amer) 88.3 Est GFR (Non-Af Amer) 76.2 BUN/Creatinine Ratio 56.9 H (10-20) Glucose 99 (70-99) mg/dl POC Glucose 51 L* (70-99) mg/dl Calcium 9.1 (8.5-10.1) mg/dl Total Bilirubin 0.4 (0.2-1) mg/dl AST 25 (15-37) U/L ALT 28 (12-78) U/L Alkaline Phosphatase 71 (45-117) U/L Total Protein 7.2 (6.4-8.2) gm/dl Albumin 3.5 (3.4-5.0) gm/dl Globulin 3.7 (2.5-4.0) gm/dl Albumin/Globulin Ratio 0.9 (0.9-2) Lipase 68 L (73-393) U/L Urine Color Urine Appearance (Clear) Urine pH (4.5-7.5) Ur Specific [place] (1.000-1.030) Urine Protein (Negative) Urine Glucose (UA) (Negative) Urine Ketones (Negative) Urine Blood (Negative) Urine Nitrite (Negative) Urine Bilirubin (Negative) Urine Urobilinogen (Negative) Ur Leukocyte Esterase (Negative) Medications Administered Current Inpatient Medications Ioversol (Optiray 320 125ml) 119 ml IV ONCE PRN PRN Reason: Interaction Checking Stop: 09/06/19 17:42 Last Admin: 09/02/19 17:44 Dose: 119 ml Documented by: Supervising Physician Co-Signing Physician Notes Attending addendum: I have physically seen this patient, have supervised the medical residents activities, and agree with the H&P unless as otherwise noted. Assessment and Plan: Enterocolitis/presenting symptom of abdominal pain- CT suggested infection/ inflammatory cause, however, because of severe vascular disease noted, mesenteric ultrasound was ordered to rule out ischemic bowel and/or mesenteric thrombosis, both of which were negative. Order stool studies, stool for culture and stool for C. difficile. Generalized weakness- Work-up in ED includes the following imaging: CT head without contrast was negative. CTA head and neck showed multiple areas of focal moderate to high-grade stenoses. This case was discussed with neuro interventional at [facility], and the determination was patient did not need intervention. Patient will be started on an aspirin 81 mg daily, after getting a full loading dose 324 mg tonight in the ED. Modification of secondary risk factors, including checking hemoglobin A1c and fasting lipid panel. Consult neurology for their opinion. Remainder of orders and notations as noted. Resident Activity Tracking Resident Involvement: Resident Care Provided Care Provided: Adult Hospital Medicine
[2019-09-03] MEDS ORDERED: MoRPHine SULFATE 2 MG/ML CARP IV PRN ×2 (05:14→09:59)
[2019-09-03] MEDS: metroNIDAZOLE 500 MG/100 ML BAG IV SCH ×3 (05:45→20:13)
[2019-09-03] MEDS: ONDANSETRON INJ 2 MG/ML 2 ML VIAL IV PRN ×2 (09:45→15:48)
[2019-09-03] MEDS: MoRPHine SULFATE 2 MG/ML CARP IV PRN ×3 (09:45→20:07)
[2019-09-03] MEDS: ENOXAPARIN INJ 40 MG/0.4 ML SYR SQ SCH (09:46)
[2019-09-03] MEDS: SODIUM CHLORIDE 0.9% 1000ML 1,000 ML IV SCH ×2 (09:46→18:24)
[2019-09-03] MEDS ORDERED: metroNIDAZOLE 500 MG/100 ML BAG IV SCH (09:59)
[2019-09-03] MEDS ORDERED: SODIUM CHLORIDE 0.9% 1000ML 1,000 ML IV SCH (09:59)
[2019-09-03] MEDS: CIPROFLOXACIN / D5W 400 MG/200 ML BAG IV SCH ×2 (10:37→22:13)
[2019-09-03] MEDS: PANTOprazole 40 MG in SYRINGE 0 ML IV SCH (10:38)
--- NOTE | 2019-09-03 15:10 | Hospitalist Progress Note ---
Date of Service September 03, 2019 Assessment & Plan (1) Enterocolitis: pt wtih enterocolitis seen on CT scan and associated abdominal pain and bloating Pt is on cipro and flagyl IV will send stool cultures to rule out c diff and infectous diarrhea CT abdomen and pelvis 09/02/19 IMPRESSION: There is a 2.0 cm irregular and enhancing nodule along the posterior left wall of the bladder. This should be considered bladder cancer until proven otherwise, and follow-up with urology is recommended Findings suggest a nonspecific enterocolitis, likely on an infectious or inflammatory basis. Clinical correlation will be required. Moderate constipation. Mesenteric doppler 09/02/19IMPRESSION: Mildly elevated velocities within the superior mesenteric artery are likely artifactual. The superior mesenteric artery and celiac trunk are widely patent as seen on today's abdominal CT scan. (2) History of CREST syndrome: Pt states she was on prednisone for many years and has been self tapering will give stress coverage of steroids for 24 hours to avoid addisons crisis (3) Hypertension: since pt is npo except meds, will use hydralazine if needed IV (4) Hypothyroidism: continue synthroid 75 mcg daily (5) Paroxysmal atrial fibrillation: pt has a history of this, she is not on typical anticoagulation nor rate controlling meds (6) Cerebrovascular disease: multiple concerns from vessel abnormalities, as noted on CT angiogram below: however these, although dramatic, are likely not directly affecting her presenting illness, is on a full dose aspirin, once recovers from gi illness may consider neurolgy evaluation CTA head/neck 09/02/19 IMPRESSION: 1. There is no hemorrhage, mass effect, or evidence of acute territorial ischemia by CT criteria. 2. 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 Note that this places the patient at risk for steal phenomenon. 3. There is a short segment of high-grade stenosis with near complete occlusion involving the left cavernous carotid artery. Trace flow is maintained. 4. There is age indeterminant occlusion at the origin of the right posterior cerebral artery. The majority of the right posterior cerebral artery is patent and supplied via the anterior circulation. 5. There is focal moderate stenosis of the intracranial left vertebral artery at the skull base. 6. There is focal high-grade stenosis of the P1 segment of the left posterior cerebral artery. 7. 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 (7) Mass of bladder: Mass of bladder noted on Ct abdomen and pelvis as noted above, will have urine cytology and will have urology follow up as an outpt unless we have issues with bladder outlet issues (8) DVT prophylaxis: heparin sc (9) Depression: typically takes wellbutrin Admission and Anticipated Discharge Date Admission Date: September 02, 2019 Results & Data Results & Data ([facility]) Vital Signs (Past 12 Hours) Vital Signs Temp Pulse Resp BP Pulse Ox 09/03/19 07:25 98.2 F 98 H 16 125/74 93 PG Care Time/CCT Total # of Minutes Spent Total Time Spent with Patient: Total time spent is greater than 50% in coordination of care (as documented) at patient's floor/unit and/or counseling patient: Coding Level of Care Code 90392 Subseq Hosp Care Lvl 3 Diagnoses Enterocolitis K52.9 History of CREST syndrome Z87.39 Hypertension I10 Hypothyroidism E03.9 Paroxysmal atrial fibrillation I48.0 Cerebrovascular disease I67.9 Mass of bladder N32.89 DVT prophylaxis Z29.9 Depression F32.9
[2019-09-03] MEDS: HYDROCORTISONE SOD 50 MG in SYRINGE 0 ML IV SCH (15:54)
--- NOTE | 2019-09-03 20:31 | Billing Data ---
Date of Service September 03, 2019 Coding Level of Care Code 84243 Initial Inpt Care Lvl 3
[2019-09-03] MEDS ORDERED: SODIUM CHLORIDE 0.9% 1000ML 1,000 ML IV ONE (23:06)
[2019-09-04] MEDS: HYDROCORTISONE SOD 50 MG in SYRINGE 0 ML IV SCH (01:41)
[2019-09-04] MEDS: SODIUM CHLORIDE 0.9% 1000ML 1,000 ML IV SCH ×3 (02:18→18:22)
[2019-09-04] MEDS ORDERED: METOPROLOL TARTRATE 1 MG/ML VIAL IV ONE (02:59)
[2019-09-04] MEDS ORDERED: SODIUM CHLORIDE 0.9% 1000ML 1,000 ML IV ONE ×2 (03:03→22:40)
[2019-09-04] MEDS ORDERED: ALBUMIN 25% 50 ML IV ONE ×2 (03:08→22:00)
[2019-09-04] MEDS ORDERED: MAGNESIUM SULFATE / D5W 1 GM/100 ML BAG IV ONE (03:15)
[2019-09-04 03:27] LABS: Hemoglobin 10.6 g/dL (12.0-16.0); Mean Corpuscular Hgb Conc 31.2 g/dL (32-36); Mean Corpuscular Volume 77.1 fL (80-100); Mean Platelet Volume 9.9 fL (7.4-10.4); Platelet Count 219 K/uL (130-400); RDW Coefficient of Variation 20.2 % (11.5-14.5); Red Blood Count 4.41 M/uL (4.2-5.4); White Blood Count 8.72 K/uL (4.8-10.8)
[2019-09-04 03:50] LABS: Basophils # (auto) 0.02 K/uL (0-0.2); Basophils % (auto) 0.2 %; Dohle Bodies 1+; Echinocytes 2+; Immature Granulocytes # (auto) 0.14 K/uL (0.00-0.02); Immature Granulocytes % (auto) 1.6 %; Lymphocytes # (auto) 0.29 K/uL (1.2-3.4); Lymphocytes % (auto) 3.3 %; Monocytes # (auto) 0.45 K/uL (0.11-0.59); Monocytes % (auto) 5.2 %; Neutrophils # (auto) 7.82 K/uL (1.4-6.5); Neutrophils % (auto) 89.7 %; Toxic Granulation 1+; Toxic Vacuolation 2+
[2019-09-04 04:00] LABS: Albumin Globulin Ratio 0.7 (0.9-2); Albumin Level 2.3 gm/dl (3.4-5.0); BUN Creatinine Ratio 54.8 (10-20); Bilirubin,Total 0.4 mg/dl (0.2-1); Calcium 7.5 mg/dl (8.5-10.1); Creatinine Clr Calc Pharmacy 52.9 ml/min; Est GFR (Non-African American) 86.2; Globulin 3.4 gm/dl (2.5-4.0); Magnesium 1.8 mg/dl (1.8-2.4); Phosphorus 2.1 mg/dl (2.5-4.9); Potassium 3.4 mmol/L (3.5-5.1); Total Protein 5.7 gm/dl (6.4-8.2)
[2019-09-04] MEDS ORDERED: POTASSIUM PHOS 3 MMOL/1 ML INFUSION IV STA ×2 (04:04→22:34)
[2019-09-04] MEDS: POTASSIUM CHLORIDE / WTR 10 MEQ/100 ML PLCT IV SCH ×6 (04:35→23:16)
--- NOTE | 2019-09-04 04:36 | Communication Note ---
Date of Service: September 04, 2019 Was called towards beginning of my shift that Ms. Dobson was exhibiting some altered mental status and progressive left sided weakness. I went to evaluate p atient and supposedly she was much improved but still was having some cognitive difficulties and would not follow instructions consistently during my neuro exam. She moved all four extremities equally, had good distal muscle strength but appears to have some left sided neglect and proximal muscle weakness asymmetrically when compared to right. She also notably had a nonreactive left pupil. stat non con head CT was ordered which showed right SUPERVISOR RECLAMATION territory infarct and right lacunar infarct. Since ct on 09/01. Could be secondary to acute SUPERVISOR RECLAMATION blockage or could be secondary to decreased perfusion from patient's severely diseased cerebral vessels. Bolused 1 L fluid ordered brain MRI and ordered neurology consult for morning. Called son and discussed findings with him. Patient not a candidate for TPA therapy Later on in the evening was called to patient's room again for heart rate in the 190's. Pressure remained WNL and patient was at her same level of responsiveness. Obtained ECG showing narrow complex SVT. Gave 5mg lopressor and she shortly thereafter returned to 70's sinus rhythm. Electrolytes rechecked and K, mag, phos repleted. Gave second liter fluid bolus. Patient resting comfortab ly currently
[2019-09-04] MEDS: metroNIDAZOLE 500 MG/100 ML BAG IV SCH ×3 (04:43→21:00)
[2019-09-04] MEDS: MAGNESIUM SULFATE / D5W 1 GM/100 ML BAG IV SCH ×5 (05:07→18:22)
[2019-09-04 05:22] LABS: Appearance Urine Cloudy (Clear); Blood Urine 1+ (Negative); Color Urine Dark Yellow; Epithelial Cell Urine Auto >30 /lpf (0-5); Glucose Urine UA Negative (Negative); Ketones Urine 1+ (Negative); Leukocyte Esterase Urine Trace (Negative); Nitrite Urine Positive (Negative); Protein Urine 1+ (Negative); RBC Urine Automated 0-4 /hpf (0-4); Specific Gravity Urine 1.026 (1.000-1.030); Urobilinogen Urine Negative (Negative)
[2019-09-04] MEDS: LEVOTHYROXINE SODIUM 75 MCG TABLET PO SCH (05:43)
[2019-09-04 05:47] LABS: Bilirubin Urine Negative (Negative); Ictotest Urine Negative (Negative)
[2019-09-04 05:51] LABS: Bacteria Urine Automated 1+ (Negative)
[2019-09-04 05:53] LABS: Amorphous Sediment Urine Present (None Prsent)
[2019-09-04 05:54] LABS: Mucus Urine Present (None Prsent)
[2019-09-04] MEDS: BuPROPion XL 300 MG TABCR PO SCH (07:13)
[2019-09-04] MEDS: ASPIRIN 81 MG ECTAB PO SCH (07:13)
[2019-09-04] MEDS: ENOXAPARIN INJ 40 MG/0.4 ML SYR SQ SCH (07:49)
[2019-09-04] MEDS ORDERED: HYDROCORTISONE SOD 100 MG in SYRINGE 0 ML IV SCH (08:00)
[2019-09-04] MEDS ORDERED: POTASSIUM PHOSPHATE 21 MMOL in SODIUM CHLORIDE 0.9% 500 ML IV ONE (08:00)
[2019-09-04] MEDS ORDERED: CLOPIDOGREL BISULFATE 75 MG TAB PO ONE (09:30)
--- NOTE | 2019-09-04 09:48 | CT Scan Report ---
CT OF THE HEAD WITHOUT CONTRAST CLINICAL HISTORY: Altered mental status. COMPARISON STUDY: Head CT and CTA of the head September 02, 2019. Head CT February 25, 2018. CT DOSE: 614.27 mGy.cm TECHNIQUE: Helical axial images of the head were obtained without IV contrast. Automated exposure con trol was utilized for the study. A dose lowering technique was utilized adhering to the principles o f ALARA. FINDINGS: No acute intracranial hemorrhage is present. There has been interval development of a 5.3 x 1.8 cm hypodensity within the right occipital lobe since head CT of September 02, 2019. A 1 cm apparent hy podensity within the right thalamus was not evident on prior exam. Ventricular system is stable. Basi lar cisterns are patent. There are no extra axial collections. No significant calvarial abnormalities are present. IMPRESSION: 1. Interval development of a 5.3 x 1.8 cm hypodensity within the right occipital lobe consistent with an acute right BUSINESS RISK CONSULTANT territory infarct. No hemorrhage. 2. Possible additional 1 cm acute infarct within the right thalamus. ACT 112: Negative or not required by law. Electronically signed by: Han Sylvester M.D. 09/04/2019 9:46 AM
--- NOTE | 2019-09-04 10:04 | Electrocardiogram Report ---
Test Reason : Blood Pressure : / mmHG Vent. Rate : 196 BPM Atrial Rate : 214 BPM P-R Int : 000 ms QRS Dur : 114 ms QT Int : 264 ms P-R-T Axes : 000 126 -85 degrees QTc Int : 476 ms Poor data quality, interpretation may be adversely affected Wide complex tachycardia Right bundle branch block with LPFB Morphology Abnormal ECG When compared with ECG of 25-FEB-2018 14:15, Significant changes have occurred Confirmed by Saeed Gerber ([id number]) on 09/04/2019 10:04:03 AM Referred By: REFERRED SELF Confirmed By:Saeed Gerber
[2019-09-04] MEDS: CIPROFLOXACIN / D5W 400 MG/200 ML BAG IV SCH (10:09)
[2019-09-04] MEDS: PANTOprazole 40 MG in SYRINGE 0 ML IV SCH (10:49)
--- NOTE | 2019-09-04 10:59 | Communication Note ---
Date of Service: September 04, 2019 Mayra is 74 years old is right-handed and I have been seeing her episodically for about 20 years. 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, has had multiple procedures done on her eyes over the years both at [facility] and in [place] where she resides part of the year usually and she has paroxysmal atrial fibrillation status post ablation years a go apparently with good subsequent control and without any anticoagulation, has peripheral vascular disease, Raynaud's phenomenon and in the past with Procardia but not now and has an ADHD type of picture related to her legal blindness and Gopi Bonnet type of hallucinations for which she takes Adderall to enable her to focus on reality more than the hallucinations She has a host of other medical issues all outlined on the chart and on an outpatient basis does take quite a bit of Excedrin for her pains and probably is getting a healthy dose of aspirin but does not take aspirin per se She presents now with enterocolitis and in the process was found to have a bladder mass but more importantly she presented with some left-sided weakness and the initial work-up 2 days ago included a negative CAT scan with the exception of some leukoencephalopathic changes which we knew about, and quite a number of issues with her intracranial circulation occurring in the setting of a relatively intact extracranial system save for a high-grade left subclavian stenosis/occlusion which would predispose her to a "steal phenomenon". Intracranial vessels were markedly abnormal with a high-grade nearly total occlusion of the cavernous portion of the left internal carotid, a total occlusion of the right posterior cerebral artery with reconstitution of its flow through the right internal carotid/MCA artery collaterals and a high to modest degree of stenosis of the left posterior cerebral artery and some lower grade stenoses of the proximal vertebral arteries. All of this is described in detail in a radio logic reports will not be repeated here Last night she had recurrent left arm weakness and confusion had a CAT scan that showed evidence for a completed infarction involving the right posterior cerebral distribution and a probable infarction of the right thalamus which would have been supplied by the same vessel. I was suspicious about an area in the right frontoparietal area but the radiologist apparently have else this was unremarkable. An MRI is pending. She has not had an echocardiogram but the only arrhythmia was apparently a sinus tachycardia that responded to beta blockade Medication list now includes 2 antibiotics in addition to her standard medications and aspirin was just added last night Exam reveals a blood pressure 121/66 pulse is 74 respirations are 20 she is afe brile O2 saturation is 95% on 2 L She appears quite ill is intermittently lethargic, complains about dryness of the mouth yet is oriented to her location but is a little vague about what precipitated her admission here and has trouble coming up with terms for her abdominal pain and general medical problems but recognizes me and was able to talk about her visual issues and her cardiac ablation but is quite vague about when all this occurred Cranial nerve examination reveals no functional vision, no head or eye deviation and obviously visual dumont were impossible to perform. Her speech may have a slightly dysarthric quality to it but her dryness of the mouth may have produced some of this she has a very subtle left upper motor neuron facial asymmetry which I have not noticed in the past. There is a drift of the left upper extremity and reduced facility rapid repetitive motions but she feels that the arm is normal yet will neglected with bilateral simultaneous cutaneous stimulation feeling of the stimuli only on the right. Reflexes are hypoactive throughout toe sign is indeterminate because of withdrawal there is no clear Sumeet sign muscle strength testing is difficult because of a lot of her pain and lack of full response. Sensory examination reveals intact primary sensation bilaterally and only the neglect phenomena but the reliability is questionable. I see no abnormal involuntary movements There has clearly been an infarction in the right posterior cerebral distribution likely extending into the thalamus. This will produce a left visual field cut in a individual whose anterior optic function would be intact but she with her legal blindness is unaware of this. I think the low-grade confusion sensory neglect and a mild hemiparesis are all reflective of the thalamic involvement and there may be some behavioral issues involved with infarctions in this nondominant hemispheric medial temporal/thalamic and posterior cortical infarction that have yet to emerge but fortunately she now is still oriented has no psychotic thinking and I am hopeful that some of this will be avoided My only suggestions now would be to add Plavix to the aspirin, avoid nonstero idal anti-inflammatory agents, watch carefully for gastrointestinal bleeding, continue the combines antiplatelet therapy for 21 days and then opt for either Plavix alone or aspirin alone depending on the clinical setting at that time, to get an echocardiogram to be sure there is no atrial thrombus that may have developed during recurrent paroxysmal atrial fibrillation and obviously to continue to monitor her for atrial fibrillation. I do not think this was an embolic stroke but rather a hypoperfusion issue or "watershed" variation that may have occurred during transient hypotension in an arterial distribution that is the most distal and relying on collateral flow. With this in mind then I would let her blood pressure run a little on the higher side with Starlix 1 4150 and diastolics 80-90 range I will check back with her by computer but at this point do not think we need to make regular visits on a daily basis unless things would change or recurrent vascular events occur or if she would have obviously a seizure I think she will need rehabilitation but this is something we will need to be decided within the upcoming days and of course the bladder mass which may well be a carcinoma will eventually have to be addressed Neurology will need to see her about 4 to 6 weeks after discharge from rehabilitation and a decision made regarding Plavix alone versus aspirin alone will have to have been made prior to that visit would invite her attending physician and primary care physician to contact me for advice between the time she is discharged and our follow-up visit Angel Mcghee MD
--- NOTE | 2019-09-04 15:11 | Hospitalist Progress Note ---
Date of Service September 04, 2019 Assessment & Plan (1) Cerebrovascular disease: Acute stroke was seen timeframe was unclear stroke consult was not undertaken. Initial angiogram of head and neck showed impressive multiple areas of stenotic vasculature placing the patient at significantly high risk Patient does have a baseline visual impairments difficult to assess whether this is worsened or not Pending echocardiogram to rule out embolic source CT scan 09/04/2019 IMPRESSION: 1. Interval development of a 5.3 x 1.8 cm hypodensity within the right occipital lobe consistent with an acute right ANIMAL NUTRITIONIST territory infarct. No hemorrhage. 2. Possible additional 1 cm acute infarct within the right thalamus. Patient had Plavix added to her aspirin therapy control of hypertension high potency statin will be offered (2) Atrial flutter: Has this by history (plus PSVT) was in sinus rhythm and he remains in sinus rhythm when not having this rapid tachycardia. It did resolve with 1 dose of metoprolol this may have been associated with her acute stroke event remains on aspirin. Did have her electrolytes repleted blood pressure remains 120s over 60s which is marginal to prevent initiation of more standard metoprolol dosing to allow for permissive hypertension (3) Enterocolitis: pt with enterocolitis seen on CT scan and associated abdominal pain and bloating Pt is on cipro and Flagyl IV will send stool cultures to rule out c diff and infectious diarrhea no results are back suggesting no additional diarrhea was produced Concern abdominal pain could be ischemic colitis from embolic source decreased bladder multiple CVAs and abdominal pain at the same time CT abdomen and pelvis 09/02/19 IMPRESSION: There is a 2.0 cm irregular and enhancing nodule along the posterior left wall of the bladder. This should be considered bladder cancer until proven otherwise, and follow-up with urology is recommended Findings suggest a nonspecific enterocolitis, likely on an infectious or inflammatory basis. Clinical correlation will be required. Moderate constipation. Mesenteric Doppler 09/02/19IMPRESSION: Mildly elevated velocities within the superior mesenteric artery are likely artifactual. The superior mesenteric artery and celiac trunk are widely patent as seen on today's abdominal CT scan. (4) Weakness: Patient has a history of crest syndrome and was typically on chronic daily steroids she could have a steroid myopathy however she has other metabolic diseases including her enterocolitis and stroke which could explain her overall general weakness (5) Mass of bladder: Mass of bladder noted on Ct abdomen and pelvis as noted above, will have urine cytology and will have urology follow up as an outpt unless we have issues with bladder outlet issues Admission and Anticipated Discharge Date Admission Date: September 02, 2019 Subjective Patient had acute events overnight including a narrow complex rapid tachycardia which could be recurrence of her atrial fibrillation but more concerning did have some focal neurological change in a stat CT scan revealed a new subtotal stroke which was changed from her presentation. She was at high risk for this given her vasculopathy that was seen on initial imaging with multiple stenotic areas within her cerebral vasculature. Subsequently the patient is placed on aspirin and Plavix supportive care was administered. Her supraventricular tachycardia broke after administration of intravenous metoprolol. Patient does have some movement limitations visual limitations and is currently being seen by neurology Review of Systems Review of Systems: Moderate distress and fatigue no headache, visual disturbance is seen no speech or swallowing issues no chest pain, pressure or palpitations no shortness of breath, cough or wheezes no abdominal pain, nausea or vomiting, diarrhea or constipation no dysuria, hematuria or frequency no focal joint pain or swelling no back pain, CVA tenderness or radicular pain no bruising, bleeding or rashes Focal he has some weakness and loss of vision Physical Exam Physical Exam: The patient appeared chronically ill thin and out with neurological limitations Vital signs as documented. Head exam is normocephalic atraumatic no scleral icterus Neck is without JVD, thyromegaly, or carotid bruits. Lungs are clear to auscultation, no focal loss of breath sounds Cardiac exam, Rhythm is regular.. No murmurs, rubs or gallops. Abdominal exam reveals normal bowel sounds, soft non tender, no masses Extremities are nonedematous and both pedal pulses are normal. Neurologic exam is alert and oriented, complains of having visual disturbance has some weakness upper upper extremities Skin is without bruises or rashes has skin changes consistent with chronic steroid use Results & Data Results & Data ([facility]) Vital Signs (Past 12 Hours) Vital Signs Temp Pulse Pulse Resp BP Pulse Ox 09/04/19 13:03 99.0 F 81 20 122/64 97 09/04/19 07:49 97.9 F 74 20 121/66 96 09/04/19 03:47 99.7 F H 74 22 117/67 100 09/04/19 03:03 194 H PG Care Time/CCT Total # of Minutes Spent Total Time Spent with Patient: Total time spent is greater than 50% in coordination of care (as documented) at patient's floor/unit and/or counseling patient: Coding Level of Care Code 12696 Subseq Hosp Care Lvl 3 Diagnoses Cerebrovascular disease I67.9 Atrial flutter I48.92 Enterocolitis K52.9 Weakness R53.1 Mass of bladder N32.89
[2019-09-04] MEDS: METOPROLOL TARTRATE 1 MG/ML VIAL IV PRN ×4 (15:47→21:44)
[2019-09-04] MEDS: MoRPHine SULFATE 2 MG/ML CARP IV PRN (15:53)
[2019-09-04] MEDS ORDERED: ADENOSINE IV SOLN 3 MG/ML 2 ML VIAL IV ONE ×4 (15:55→21:49)
[2019-09-04] MEDS ORDERED: dilTIAZem HCl 5 MG/ML 5 ML VIAL IV ONE ×2 (16:00→21:54)
[2019-09-04] MEDS ORDERED: carvediloL 3.125 MG TAB PO ONE (16:09)
[2019-09-04] MEDS: MoRPHine SULFATE 4 MG/ML 1 ML CARP\\VIAL IV PRN (21:11)
[2019-09-04] MEDS ORDERED: dilTIAZem HCl 5 MG/ML 5 ML VIAL IV STA ×2 (21:51→22:35)
[2019-09-04] MEDS ORDERED: MAGNESIUM SULFATE / D5W 1 GM/100 ML BAG IV SCH (22:00)
[2019-09-04] MEDS ORDERED: CALCIUM GLUCONATE 10% 2,000 MG in SODIUM CHLORIDE 0.9% 50 ML IV ONE (22:07)
[2019-09-04 22:13] LABS: BUN Creatinine Ratio 52.6 (10-20); Calcium 7.4 mg/dl (8.5-10.1); Creatinine Clr Calc Pharmacy 88.9 ml/min; Est GFR (African American) 115.4; Est GFR (Non-African American) 99.6; Potassium 3.6 mmol/L (3.5-5.1)
[2019-09-04 22:28] LABS: Phosphorus 1.5 mg/dl (2.5-4.9)
--- NOTE | 2019-09-04 22:32 | XRay Report ---
XR chest 1V portable CLINICAL HISTORY: Hypoxia COMPARISON STUDY: Chest radiograph February 25, 2018. FINDINGS: Left shoulder arthroplasty is incidentally noted. There is no pneumothorax. No definite ple ural effusion is noted. Left basilar opacity is noted. Mild right basilar opacity is noted. Cardiomed iastinal silhouette is stable. There is no evidence for pulmonary edema. Lung volumes are mildly dimi nished. IMPRESSION: Low lung volumes with bibasilar opacities which may reflect pneumonia or atelectasis. Ra diographic follow up is recommended. ACT 112: Negative or not required by law. Electronically signed by: Han Sylvester M.D. 09/04/2019 10:30 PM
[2019-09-04] MEDS ORDERED: SODIUM CHLORIDE 0.9% 1000ML 2,000 ML IV ONE (22:40)
[2019-09-04] MEDS ORDERED: POTASSIUM PHOSPHATE 40 MMOL in SODIUM CHLORIDE 0.9% 1000ML 1,000 ML IV ONE (22:45)
[2019-09-05] MEDS: POTASSIUM CHLORIDE / WTR 10 MEQ/100 ML PLCT IV SCH ×2 (00:18→01:12)
--- NOTE | 2019-09-05 00:54 | Communication Note ---
Date of Service: September 05, 2019 Called to evaluate Ms. Dobson for tachycardia rates in the 180's pressures maintained. Obtained ECG which appeared to be wide complex tachycardia. I think this is most likely SVT atrial flutter with conduction delay, Called son who expressed wish to use synchronized cardioversion if needed. Gave lopressor 5 mg x3 unsuccessfully, bolused 2 L, gave 10 mg diltiazem IV and patient returned to sinus rhythm in seventies. Checked electrolytes and will replenish K and phos. Starting patient on diltiazem 30 mg TID moving forward. Concerned for patient's prison prognosis given the three sustained tachyarrhythmias in the past 24 hours. Updated son. Will recheck K mag and phos in am.
[2019-09-05] MEDS: CIPROFLOXACIN / D5W 400 MG/200 ML BAG IV SCH ×3 (02:13→22:08)
[2019-09-05] MEDS: SODIUM CHLORIDE 0.9% 1000ML 1,000 ML IV SCH ×3 (02:19→23:54)
[2019-09-05] MEDS: MoRPHine SULFATE 4 MG/ML 1 ML CARP\\VIAL IV PRN ×2 (04:37→19:35)
[2019-09-05] MEDS: metroNIDAZOLE 500 MG/100 ML BAG IV SCH ×3 (04:38→22:08)
[2019-09-05] MEDS: LEVOTHYROXINE SODIUM 75 MCG TABLET PO SCH (06:28)
[2019-09-05 06:48] LABS: BUN Creatinine Ratio 39.6 (10-20); Calcium 7.4 mg/dl (8.5-10.1); Est GFR (African American) 114.5; Est GFR (Non-African American) 98.8; Magnesium 2.3 mg/dl (1.8-2.4); Potassium 4.6 mmol/L (3.5-5.1)
[2019-09-05] MEDS ORDERED: carvediloL 3.125 MG TAB PO SCH (09:00)
[2019-09-05] MEDS ORDERED: CLOPIDOGREL BISULFATE 75 MG TAB PO SCH (09:00)
[2019-09-05] MEDS ORDERED: ATORVASTATIN 40 MG TAB PO SCH (09:00)
[2019-09-05] MEDS ORDERED: predniSONE 1 MG TAB PO SCH (09:00)
[2019-09-05] MEDS ORDERED: dilTIAZem HCL 30 MG TAB PO SCH (09:00)
[2019-09-05 09:04] LABS: Basophils # (auto) 0.01 K/uL (0-0.2); Basophils % (auto) 0.1 %; Eosinophils # (auto) 0.07 K/uL (0-0.5); Eosinophils % (auto) 0.9 %; Hematocrit (blood only) 29.1 % (37-47); Hemoglobin 9.1 g/dL (12.0-16.0); Immature Granulocytes # (auto) 0.08 K/uL (0.00-0.02); Lymphocytes # (auto) 0.31 K/uL (1.2-3.4); Lymphocytes % (auto) 3.8 %; Mean Corpuscular Hemoglobin 24.1 pg (25-34); Mean Corpuscular Hgb Conc 31.3 g/dL (32-36); Mean Platelet Volume 9.8 fL (7.4-10.4); Monocytes # (auto) 0.34 K/uL (0.11-0.59); Monocytes % (auto) 4.2 %; Neutrophils # (auto) 7.33 K/uL (1.4-6.5); Platelet Count 189 K/uL (130-400); RDW Coefficient of Variation 20.8 % (11.5-14.5); RDW Standard Deviation 59.4 fL (36.4-46.3); Red Blood Count 3.78 M/uL (4.2-5.4); White Blood Count 8.14 K/uL (4.8-10.8)
[2019-09-05] MEDS ORDERED: ASPIRIN 300 MG SUPP PR ONE (09:05)
[2019-09-05] MEDS: BuPROPion XL 300 MG TABCR PO SCH (09:40)
[2019-09-05] MEDS: ASPIRIN 81 MG ECTAB PO SCH (09:41)
[2019-09-05] MEDS: ENOXAPARIN INJ 40 MG/0.4 ML SYR SQ SCH (09:46)
[2019-09-05 10:17] LABS: Anisocytosis Present; Dohle Bodies 1+; Echinocytes 2+; Toxic Granulation 1+
--- NOTE | 2019-09-05 10:37 | Communication Note ---
Date of Service: September 05, 2019 I saw Mayra very briefly today. She is declined overnight had another prolonged episode of supraventricular tachycardia/atrial flutter and is declining sign ificantly from a clinical point of view. She is arousable but is disoriented moves all extremities poorly particularly the left has roving eye movements at this point probably has had an extension of her infarction or another shower of emboli should the rhythm have been atrial flutter. The issue is academic I think she is going to be placed on comfort care if the family will agree to this and I will be happy to see her as needed but at this point do not think neurology is much more to offer and frankly I would stop the antiplatelet agents if she does become a DO NOT RESUSCITATE comfort care status Angel Mcghee MD
[2019-09-05] MEDS: PANTOprazole 40 MG in SYRINGE 0 ML IV SCH (10:39)
--- NOTE | 2019-09-05 11:29 | CT Scan Report ---
CT head/brain wo con CLINICAL HISTORY: 74 years-old Female presenting with stroke, deteriorating condition. TECHNIQUE: Multidetector CT imaging of the head was performed without the use of intravenous contrast . IV contrast: None. One or more dose lowering techniques were used consistent with the principles of ALARA (as low as reasonably achievable), including automatic exposure control, mA or kV adjustment t o individual patient size, and/or use of iterative reconstruction. COMPARISON: 09/03/2019. CT DOSE (mGy.cm): The estimated cumulative dose is 537.48 mGy.cm. FINDINGS: Motion Picture Projectionist Apprentice topogram: Unremarkable. Regional effacement of the occipital horn of the right lateral ventricle secondary to the acute to curtis bacute right paramedian occipital lobe infarct. No hemorrhage. Lacunar infarct in the right thalamus again noted, unchanged in appearance. Bilateral small lacunar infarcts in the cerebellar hemispheres, which are chronic appearing. No new acute territorial infarct. No mass effect or midline shift. No e xtra-axial fluid collection. Paranasal sinuses and mastoid air cells clear. Calvarium intact. Postsur gical changes of the left globe. IMPRESSION: 1. Stable appearance of the acute to subacute right occipital lobe infarct. No hemorrhagic transform ation. 2. Right thalamic lacunar infarct unchanged in appearance, age indeterminate. 3. No change from prior. ACT 112: Negative or not required by law. Electronically signed by: Alexey Ceja M.D. 09/05/2019 11:28 AM
[2019-09-05] MEDS: METOPROLOL TARTRATE 1 MG/ML VIAL IV SCH ×3 (12:09→19:27)
--- NOTE | 2019-09-05 12:15 | Cardiology Consultation ---
Date of Consultation Patient is currently noncommunicative. She is unable to give a history. The history is obtained from the nursing staff [facility] [place] service and the chart. Review of systems is unobtainable September 05, 2019 Assessment & Plan (1) Weakness: Mayra Dobson is a 74-year-old female with past medical history significant for legal blindness, asthma, peripheral artery disease, paroxysmal ventricular tachycardia, and degenerative joint disease; presented to the emergency department following continued concern for crampy abdominal pain that is been present over the last 24 to 36 hours. 1. Acute CVA - CTA Head/Neck: per report 1. There is no hemorrhage, mass effect, or evidence of acute territorial ischemia by CT criteria. 2. 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 Note that this places the patient at risk for steal phenomenon. 3. There is a short segment of high-grade stenosis with near complete occlusion involving the left cavernous carotid artery. Trace flow is maintained. 4. There is age indeterminant occlusion at the origin of the right posterior cerebral artery. The majority of the right posterior cerebral artery is patent and supplied via the anterior circulation. 5. There is focal moderate stenosis of the intracranial left vertebral artery at the skull base. 6. There is focal high-grade stenosis of the P1 segment of the left posterior cerebral artery. 7. 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 2. Recurrent wide-complex tachycardia. When she is in sinus rhythm she does have an IVCD. With her episodes of tachycardia she appears to have a typical right bundle branch block with appropriate progression of the R waves across the precordial leads. It does break with adenosine. last night initially 6 mg did not break with and then she received 12 mg and it broke back to sinus rhythm. If you look at the onset of the episodes they do appear to start with what appears to be a PAC. The above findings would suggest this is more likely to be an SVT with a rate related right bundle branch block rather than VT. She is currently a DNR/DNI. She cannot swallow. I would recommend discontinuing her alarm security or surveillance monitor. If she is made a hospice candidate then I would not add any additional medical therapy. If the plan is for her to go to a shelter then one could consider using amiodarone purely on a palliative basis to suppress the arrhythmias. If she is unable to take p.o. the long-term issue will be how to give her oral medications upon discharge. This was discussed with the nursing staff and Dr. Da Silva 3. Normal LV function Code status: DNR/DNI (2) Mass of bladder: (3) Enterocolitis: History of Present Illness Attending Physician: Broderick Da Silva, Allergies Allergy/AdvReac Type Severity Reaction Status Date / Time chlorpromazine Allergy Severe JAW LOCKS Verified 09/02/19 19:35 levofloxacin [From Levaquin] Allergy Severe Vomiting Verified 09/02/19 19:35 pineapple Allergy Severe HIVES IN Verified 09/02/19 19:35 HER MOUTH prochlorperazine Allergy Severe MOTOR Verified 09/02/19 19:35 SEIZURES-ARMS SPASTIC shellfish derived Allergy Severe VERY SICK Verified 09/02/19 19:35 FOR SEVERAL DAYS/HIVES IN HER MOUTH strawberry Allergy Severe HIVES IN Verified 09/02/19 19:35 HER MOUTH tomato Allergy Severe HIVES IN Verified 09/02/19 19:35 MOUTH walnut Allergy Severe HIVES IN Verified 09/02/19 19:35 HER MOUTH nickel Allergy Intermediate RASH Verified 09/02/19 19:35 soy Allergy Intermediate "SOY" Verified 09/02/19 19:35 ALLERGY-GI UPSET ABD PAIN cephalexin AdvReac Severe NAUSEA AND Verified 08/26/19 12:23 VOMITING procaine AdvReac Intermediate 'makes Verified 08/26/19 12:23 muscle weakness worse' Home Medications Home Medications Medication Instructions Recorded Confirmed Type albuterol sulfate 90 mcg/actuation 90 mcg INH Q4H PRN 11/09/18 09/02/19 History breath activated powder inhaler celecoxib 200 mg capsule 200 mg PO DAILY cap 11/09/18 09/02/19 History Lactobacillus acidophilus 1 1,000 mmu cells PO DAILY tab 01/03/19 09/02/19 History billion cell tablet cetirizine 10 mg tablet 10 mg PO DAILY tab 01/03/19 09/02/19 History cyanocobalamin (vitamin B-12) 1,000 mcg PO DAILY cap 01/03/19 09/02/19 History 1,000 mcg capsule diphenhydramine HCl 25 mg tablet 25 mg PO DAILY tab 01/03/19 09/02/19 History lysine 500 mg tablet 500 mg PO DAILY tab 01/03/19 09/02/19 History meclizine 12.5 mg tablet 12.5 mg PO TID PRN #30 tab 01/03/19 09/02/19 History omeprazole 20 mg PO DAILY 02/04/19 09/02/19 History methyltestosterone 10 mg tablet 2.5 mg PO .COMPLEX #30 tab 03/17/19 09/02/19 Rx valacyclovir 500 mg tablet See Rx Instructions .ROUTE 03/23/19 09/02/19 Rx .COMPLEX #30 tablet ondansetron HCl 4 mg tablet 4 mg PO QID PRN #60 tab 03/29/19 09/02/19 Rx estradiol acetate 0.05 mg/24 hr 1 vag ring PV Q3MO #1 ea 04/05/19 09/02/19 Rx vaginal ring cyclobenzaprine 10 mg tablet 10 mg PO TID PRN #60 tab 04/29/19 09/02/19 Rx fluconazole 200 mg tablet 400 mg PO DAILY tab 08/26/19 09/02/19 History Citramax 1 tab PO DAILY 09/02/19 09/02/19 History bupropion HCl [Wellbutrin XL] 300 mg PO DAILY 09/02/19 09/02/19 History levothyroxine 75 mcg PO DAILY 09/02/19 09/02/19 History lidocaine 1 appln TOP UD 09/02/19 09/02/19 History oxycodone-acetaminophen 1 tab PO Q6H PRN 09/02/19 09/02/19 History prednisone 3 mg PO DAILY 09/02/19 09/02/19 History Patient History Medical History Arthritis, septic, knee (Inactive) Atrial flutter (Resolved) History of Clostridium difficile colitis (Resolved) History of pyelonephritis Hx of atrial tachycardia (Resolved) Hx of esophageal spasm (Resolved) Hx of hypokalemia (Resolved) Hx of pyelonephritis (Resolved) Hx of syncope (Resolved) Hx of vertigo (Resolved) Infected prosthetic knee joint (Resolved) Pes anserine bursitis (Inactive) Rheumatoid arthritis (Chronic) Stenosis of left subclavian artery (Resolved) SVT (supraventricular tachycardia) (Resolved) Traumatic wound (Acute) V-tach (Resolved) Wound dehiscence (Resolved) Surgical History H/O left knee surgery (Resolved) History of hysterectomy (Resolved) Hx of appendectomy (Resolved) S/P cataract surgery (Resolved) S/P colonoscopy (Resolved) S/P eye surgery (Resolved) Status post total shoulder arthroplasty (Resolved) Family History Father Cardiomegaly Emphysema lung Mother Stroke Other Cancer Diabetes Heart disease Hypertension Hypothyroidism No significant family history Psoriasis Social History Preferred Language: Uzbek Communication Ability: Effective Visual Impairment: Severely Limited Hearing Ability: Normal 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 Required: No Beliefs That Will Affect Care: None marital status: / Current Living Situation: Alone Current Living Situation Comment: has caregiver that comes daily current occupational status: retired Other Information That Helps Us Care for You: No Feels Safe at Home: Yes Safety Concerns: Feels Safe At This Time Smoking Status: Never smoker Hx Alcohol Use: No Hx Substance Use: No Sunscreen Use: Yes Results & Data ([facility]) Vital Signs (Past 12 Hours) Vital Signs Temp Pulse Pulse Pulse Resp BP Pulse Ox 09/05/19 12:06 37.6 C H 86 22 139/69 96 09/05/19 08:00 71 09/05/19 07:43 38.0 C H 74 16 148/71 H 97 09/05/19 02:57 36.5 C 70 16 127/73 100 09/05/19 01:00 68 22 116/59 L 100 she is somnolent. Lungs: Clear to auscultation bilaterally no rales rhonchi or wheezing Heart regular rate and rhythm no appreciable murmurs rubs or gallops Abdomen soft and tenderness and a positive bowel sounds Extremities no clubbing cyanosis or edema Psychiatric and neurologic are unobtainable
--- NOTE | 2019-09-05 12:41 | Electrocardiogram Report ---
Test Reason : Blood Pressure : / mmHG Vent. Rate : 179 BPM Atrial Rate : 178 BPM P-R Int : 000 ms QRS Dur : 146 ms QT Int : 268 ms P-R-T Axes : 000 123 -71 degrees QTc Int : 462 ms Poor data quality, interpretation may be adversely affected Wide QRS tachycardia (RBBB and left anterior fascicular block) Possible VA conduction Abnormal ECG When compared with ECG of 04-SEP-2019 02:52, No significant change was found Confirmed by Saeed Gerber ([id number]) on 09/05/2019 12:41:08 PM Referred By: REFERRED SELF Confirmed By:Saeed Gerber
--- NOTE | 2019-09-05 13:00 | Electrocardiogram Report ---
Test Reason : Blood Pressure : / mmHG Vent. Rate : 167 BPM Atrial Rate : 167 BPM P-R Int : 000 ms QRS Dur : 138 ms QT Int : 268 ms P-R-T Axes : 000 121 -67 degrees QTc Int : 447 ms Poor data quality, interpretation may be adversely affected Wide QRS tachycardia (RBBB and left posterior fascicular block) Abnormal ECG When compared with ECG of 04-SEP-2019 15:53, (unconfirmed) No significant change was found Confirmed by Saeed Gerber ([id number]) on 09/05/2019 12:59:55 PM Referred By: REFERRED SELF Confirmed By:Saeed Gerber
[2019-09-05] MEDS ORDERED: IOVERSOL 100ml IV PRN (16:01)
--- NOTE | 2019-09-05 16:18 | CT Scan Report ---
CT abd pelvis IV con only CLINICAL HISTORY: 74 years-old Female presenting with Worsening abdominal pain, altered status. TECHNIQUE: Multidetector CT of the abdomen and pelvis was performed after the administration of intra venous contrast. IV contrast: 94 mL of Optiray 320. One or more dose lowering techniques were used co nsistent with the principles of ALARA (as low as reasonably achievable), including automatic exposure control, mA or kV adjustment to individual patient size, and/or use of iterative reconstruction. COMPARISON: 09/02/2019. CT DOSE (mGy.cm): The estimated cumulative dose is 625.67 mGy.cm. FINDINGS: Diplomatic Interpreter topogram: Surgical clips project over the right lower quadrant. Scoliosis. Motion artifact mildly degrades image quality and limits diagnostic sensitivity to a mild degree. Lung bases: Mild multichamber enlargement of the heart. Small to moderate bilateral pleural effusions . Extensive passive atelectasis in the lower lobes. Liver: Normal morphology. Well-defined hypodense lesions, likely hepatic cysts. Patent hepatic vascul ature. Biliary: No intrahepatic or extrahepatic biliary ductal dilatation. Gallbladder contains gallstones. The gallbladder is distended though without evidence of tension. No gallbladder wall thickening. Pancreas: Normal. Spleen: Normal. Adrenal glands: Normal. Kidneys and ureters: Subcentimeter cysts noted in the left kidney. Otherwise normal renal parenchyma. No nephrolithiasis or hydronephrosis. Ureters grossly nondistended though suboptimally evaluated giv en diffuse edema. Bladder: Decompressed with a Parsons catheter. Redemonstration of the enhancing focus along the left bl adder wall (series 3 image 345). Pelvic organs: Uterus surgically absent. Pessary in place within the vagina. Bowel: Diverticulosis of the distal sigmoid colon. Wall thickening of the colon to a mild degree is n ot limited to this region and diffusely affects the colon. The most focal colonic wall thickening is evident in the cecum and sigmoid. Mild diffuse distention of small bowel with abnormal volume of flui d in the distal ileum. No bowel obstruction. Mild wall thickening of the distal ileum suggested. Clip s in the right lower quadrant likely relate to prior appendectomy. Peritoneal cavity: Small volume free fluid in the abdomen and pelvis. There is suspected peritoneal e nhancement most evident in the right abdomen associated with the ascites. This may be loculated and m easures 9.1 x 2.0 cm. These findings are new from prior. Few foci of gas in this region, which are no t definitively within bowel. No large volume free intraperitoneal gas. Moderate mesenteric edema. Lymph nodes: No enlarged lymph nodes in the abdomen or pelvis. Vasculature: Atherosclerosis of the normal caliber abdominal aorta. IVC patent. Abdominal wall: Moderate body wall edema. Few foci of gas noted in the right anterior abdominal wall (series 3 image 256). This is immediately superficial to the concerning intra-abdominal fluid and gas . Musculoskeletal: Degenerative changes of the spine. Scoliotic curvature of the spine. IMPRESSION: Motion artifact mildly degrades image quality and limits diagnostic sensitivity to a mild degree. 1. Interval development of small volume ascites in the abdomen and pelvis with findings suspicious f or peritoneal enhancement and a few punctate foci of gas. Correlate if there has been interval parace ntesis or other instrumentation. These findings raise concern for peritonitis with or without perfora tion of a hollow viscus. Alternatively, peritonitis could occur with gas-forming organisms to account for the foci of gas. Surgical consultation advised. 2. Redemonstration of enterocolitis. This has worsened from prior. 3. Volume overload with cardiomegaly, bilateral pleural effusions, mesenteric edema, ascites, and Od di wall edema. 4. Enhancing focus along the left bladder wall suspicious for neoplasm. This should be followed as a n outpatient. The report will be called/faxed according to standard departmental protocol. ACT 112: Negative or not required by law. Electronically signed by: Alexey Ceja M.D. 09/05/2019 4:16 PM
--- NOTE | 2019-09-05 17:10 | Hospitalist Progress Note ---
Date of Service September 05, 2019 Assessment & Plan (1) Sepsis: developing sepsis due to peritonitis blood cultures drawn, continue IV fluids and Cipro/Flagyl grave prognosis (2) Peritonitis: worsening abdominal exam, rigid, tender, absent bowel sounds today no vomiting WBC normal but 90% PMN and procalcitonin 23 CT abdomen/pelvis on 09/04 with increased ascites, small areas of gas, evidence of peritonitis, could be perforated viscus vs gas forming organisms continue on Cipro/Flagyl, strict NPO, continue IV fluids at 125cc/hr BP is decreasing, at risk of developing sepsis and septic shock blood cultures drawn this morning when she had a fever discussed grave prognosis with patient's son Rian certainly she is not a surgical candidate due to acute stroke in past two days he agrees that he would not want her to be uncomfortable will continue fluids and antibiotics for time being two sons are driving to [facility] to see her this evening would likely lean towards making her comfort care either tonight or tomorrow, allow family time to see her (3) Cerebrovascular disease: Acute stroke was seen timeframe was unclear stroke consult was not undertaken. Initial angiogram of head and neck showed impressive multiple areas of stenotic vasculature placing the patient at significantly high risk Patient does have a baseline visual impairments difficult to assess whether this is worsened or not CT scan 09/04/2019 IMPRESSION: 1. Interval development of a 5.3 x 1.8 cm hypodensity within the right occipital lobe consistent with an acute right [employer] [place] territory infarct. No hemorrhage. 2. Possible additional 1 cm acute infarct within the right thalamus. unfortunately, patient is NOT safe to take PO at this time, gave aspirin PA this morning she ideally needs Plavix, statin, blood pressure control with her peritonitis she is not appropriate for any type of feeding tube grave prognosis, discussed comfort measures with her son Rian repeat CT head on 09/04 did NOT show any progression of the stroke, likely her worsening clinical status due to BP dropping, peritonitis (4) Atrial flutter: HR in the 180-190's yesterday afternoon and then over night continue on Lopressor 5mg IV q6, bolus PRN no episodes today (5) Enterocolitis: pt with enterocolitis seen on CT scan and associated abdominal pain and bloating Pt is on cipro and Flagyl IV Concern abdominal pain could be ischemic colitis from embolic source decreased bladder multiple CVAs and abdominal pain at the same time CT abdomen and pelvis 09/02/19 IMPRESSION: There is a 2.0 cm irregular and enhancing nodule along the posterior left wall of the bladder. This should be considered bladder cancer until proven otherwise, and follow-up with urology is recommended Findings suggest a nonspecific enterocolitis, likely on an infectious or inflammatory basis. Clinical correlation will be required. Moderate constipation. Mesenteric Doppler 09/02/19IMPRESSION: Mildly elevated velocities within the superior mesenteric artery are likely artifactual. The superior mesenteric artery and celiac trunk are widely patent as seen on today's abdominal CT scan. 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 Mcghee, he had concerns for extension of stroke, would lean toward comfort measures discussed with her son Rian, he certainly understood grave situation, would agree that he would want her comfortable but wanted to make sure she had a terminal issue repeated the CT of the brain, no increase in the size of the stroke, no increased edema, no midline shift on exam, the patient's abdomen very tender, some rigidity, hypoactive bowel s ounds reviewed the CT from admission, showed large stool burden, enterocolitis, no other acute findings repeated the CT today with IV contrast, now with increased fluid in abdomen, some pockets of air, concerns for peritonitis, possible perforated viscus called patient's son Rian again, discussed the peritonitis, that with a fresh stroke she is not a surgical candidate for laparotomy he agrees that he would not want her to be uncomfortable he and his brother are driving in to [facility], should be here around 8pm to see the patient reviewed chart today, reviewed labs, WBC normal but 90% PMN and procalcitonin quite high at 23 Cr stable, has metabolic acidosis cannot swallow at all, needs to be on beta liliya, Plavix d/w Dr. Gerber, consulted him for SVT, he recommends amiodarone for time being, stop once she is transitioned to comfort care Review of Systems Review of Systems: Unobtainable due to cognitive status (obvious pain in abdomen, no clear answers) Physical Exam Constitutional: + ill appearing, + altered mental status, + frail appearing and + in distress Eyes: PERRL; + abnormal visual field confrontation ENMT: Nose: + dry nasal mucous membranes Mouth: + dry oral mucous membranes Neck: trachea midline, no thyromegaly Respiratory: + labored breathing Auscultation: + diminished lung sounds (bases); no crackles, no rales and no wheezes Cardiovascular: RRR, no murmur, no edema Gastrointestinal (Abdomen): Inspection/Auscultation: + abdomen distended and + hypoactive bowel sounds (absent) Percussion/Palpation: + abdomen tender, + guarding and + abdomen rigid; + abdomen not soft Musculoskeletal: no cyanosis or clubbing, extremities motor strength 5/5 Skin: no rashes, warm and dry Neurologic: CN's II-XI intact bilaterally, moves all extremities and + obtunded Speech / Cognition: + abnormal speech and + expressive aphasia Psychiatric: Orientation: + not alert and + not oriented x 3 Lymphatic: no cervical or axillary lymphadenopathy Results & Data Results & Data ([facility]) Vital Signs (Past 12 Hours) Vital Signs Temp Pulse Pulse Pulse Resp BP BP 09/05/19 15:30 36.8 C 81 26 H 93/51 L 09/05/19 15:00 90 09/05/19 12:09 73 100/66 09/05/19 12:06 37.6 C H 86 22 139/69 09/05/19 08:00 71 09/05/19 07:43 38.0 C H 74 16 148/71 H Pulse Ox 09/05/19 15:30 96 09/05/19 15:00 09/05/19 12:09 09/05/19 12:06 96 09/05/19 08:00 09/05/19 07:43 97 Laboratory Results Laboratory Results - last 24 hr 09/04/19 09/04/19 09/05/19 21:39 21:46 05:25 WBC RBC Hgb Hct MCV MCH MCHC RDW Std Deviation RDW Coeff of Ema Plt Count MPV Immature Gran % (Auto) Neut % (Auto) Lymph % (Auto) Stanton % (Auto) Eos % (Auto) Baso % (Auto) Immature Gran # (Auto) Neut # (Auto) Lymph # (Auto) Stanton # (Auto) Eos # (Auto) Baso # (Auto) Toxic Granulation Dohle Bodies Anisocytosis Echinocytes Sodium 142 143 Potassium 3.6 4.6 D Chloride 114 H 117 H Carbon Dioxide 18 L 18 L Anion Gap 9.0 8.0 BUN 22 H 17 Creatinine 0.42 L 0.43 L Est Cr Clr Drug Dosing 88.9 88.0 Est GFR ( Amer) 115.4 114.5 Est GFR (Non-Af Amer) 99.6 98.8 BUN/Creatinine Ratio 52.6 H 39.6 H Glucose 108 H 81 POC Glucose 107 H Calcium 7.4 L 7.4 L Phosphorus 1.5 L* 3.0 D Magnesium 3.0 H 2.3 Procalcitonin 09/05/19 09/05/19 08:43 08:43 WBC 8.14 RBC 3.78 L Hgb 9.1 L Hct 29.1 L MCV 77.0 L MCH 24.1 L MCHC 31.3 L RDW Std Deviation 59.4 H RDW Coeff of Ema 20.8 H Plt Count 189 MPV 9.8 Immature Gran % (Auto) 1.0 Neut % (Auto) 90.0 Lymph % (Auto) 3.8 Stanton % (Auto) 4.2 Eos % (Auto) 0.9 Baso % (Auto) 0.1 Immature Gran # (Auto) 0.08 H Neut # (Auto) 7.33 H Lymph # (Auto) 0.31 L Stanton # (Auto) 0.34 Eos # (Auto) 0.07 Baso # (Auto) 0.01 Toxic Granulation 1+ Dohle Bodies 1+ Anisocytosis Present Echinocytes 2+ Sodium Potassium Chloride Carbon Dioxide Anion Gap BUN Creatinine Est Cr Clr Drug Dosing Est GFR ( Amer) Est GFR (Non-Af Amer) BUN/Creatinine Ratio Glucose POC Glucose Calcium Phosphorus Magnesium Procalcitonin 23.[address] head: IMPRESSION: 1. Stable appearance of the acute to subacute right occipital lobe infarct. No hemorrhagic transformation. 2. Right thalamic lacunar infarct unchanged in appearance, age indeterminate. 3. No change from prior. CT abdomen/pelvis with IV contrast IMPRESSION: Motion artifact mildly degrades image quality and limits diagnostic sensitivity to a mild degree. 1. Interval development of small volume ascites in the abdomen and pelvis with findings suspicious for peritoneal enhancement and a few punctate foci of gas. Correlate if there has been interval paracentesis or other instrumentation. These findings raise concern for peritonitis with or without perforation of a hollow viscus. Alternatively, peritonitis could occur with gas-forming organisms to account for the foci of gas. Surgical consultation advised. 2. Redemonstration of enterocolitis. This has worsened from prior. 3. Volume overload with cardiomegaly, bilateral pleural effusions, mesenteric edema, ascites, and Oddi wall edema. 4. Enhancing focus along the left bladder wall suspicious for neoplasm. This should be followed as an outpatient. Medications Administered Current Inpatient Medications Atorvastatin Calcium (Lipitor) 40 mg PO QAM [facility] Stop: 10/05/19 08:59 Last Admin: 09/05/19 09:39 Dose: Not Given Documented by: Bupropion HCl (Wellbutrin-Xl) 300 mg PO DAILY BRIAN Stop: 10/04/19 08:59 Last Admin: 09/05/19 09:40 Dose: Not Given Documented by: Carvedilol (Coreg) 3.125 mg PO BID BRIAN Stop: 10/05/19 08:59 Last Admin: 09/05/19 09:39 Dose: Not Given Documented by: Clopidogrel Bisulfate (Plavix) 75 mg PO QAM [facility] Stop: 10/05/19 08:59 Last Admin: 09/05/19 09:39 Dose: Not Given Documented by: Diltiazem HCl (Cardizem) 30 mg PO TID BRIAN Stop: 10/05/19 08:59 Last Admin: 09/05/19 09:39 Dose: Not Given Documented by: Enoxaparin Sodium (Lovenox) 40 mg SQ QAM [facility] Stop: 10/03/19 08:59 Last Admin: 09/05/19 09:46 Dose: 40 mg Documented by: Metronidazole (Flagyl) 500 mg in 100 mls @ 100 mls/hr IV Q8H BRIAN Stop: 09/13/19 04:59 Last Infusion: 09/05/19 14:04 Dose: Infused Documented by: Sodium Chloride (Nss 1000ml) 1,000 mls @ 125 mls/hr IV .Q8H [facility] Stop: 10/03/19 09:44 Last Admin: 09/05/19 09:47 Dose: 125 mls/hr Documented by: Ciprofloxacin (Cipro) 400 mg in 200 mls @ 100 mls/hr IV Q12H [facility]; Protocol Stop: 09/13/19 09:59 Last Infusion: 09/05/19 11:47 Dose: Infused Documented by: Pantoprazole Sodium 40 mg/ (Syringe) 10 mls @ 5 mls/min IV DAILY@1100 [facility] Stop: 10/03/19 10:59 Last Admin: 09/05/19 10:39 Dose: 5 mls/min Documented by: Ioversol (Optiray 320 125ml) 119 ml IV ONCE PRN PRN Reason: Interaction Checking Stop: 09/06/19 17:42 Last Admin: 09/02/19 17:44 Dose: 119 ml Documented by: Ioversol (Optiray 320 100ml) 94 ml IV ONCE PRN PRN Reason: Interaction Checking Stop: 09/09/19 16:00 Last Admin: 09/05/19 16:02 Dose: 94 ml Documented by: Levothyroxine Sodium (Synthroid) 75 mcg PO DAILYBB [facility] Stop: 10/04/19 06:29 Last Admin: 09/05/19 06:28 Dose: Not Given Documented by: Metoprolol Tartrate (Lopressor) 5 mg IV Q5M PRN PRN Reason: Tachycardia Stop: 10/04/19 21:31 Last Admin: 09/04/19 21:44 Dose: 5 mg Documented by: Metoprolol Tartrate (Lopressor) 5 mg IV Q6 [facility] Stop: 10/05/19 11:59 Last Admin: 09/05/19 12:09 Dose: 5 mg Documented by: Morphine Sulfate (Morphine Sulfate) 2 mg IV Q4 PRN PRN Reason: Pain Stop: 09/17/19 09:35 Last Admin: 09/04/19 15:53 Dose: 2 mg Documented by: Morphine Sulfate (Morphine Sulfate) 4 mg IV Q4 PRN PRN Reason: Pain Stop: 09/17/19 15:12 Last Admin: 09/05/19 04:37 Dose: 4 mg Documented by: Ondansetron HCl (Zofran) 4 mg IV Q6H PRN PRN Reason: Nausea Stop: 10/03/19 09:35 Last Admin: 09/03/19 15:48 Dose: 4 mg Documented by: Prednisone (Prednisone) 3 mg PO DAILY BRIAN Stop: 10/05/19 08:59 Last Admin: 09/05/19 09:40 Dose: Not Given Documented by: PG Care Time/CCT Total # of Minutes Spent Total Time Spent: 65 Total Time Spent with Patient: Total time spent is greater than 50% in coordination of care (as documented) at patient's floor/unit and/or counseling patient: Coding Level of Care Code 70161 Subseq Hosp Care Lvl 3 Diagnoses Sepsis A41.9 Peritonitis K65.9 Cerebrovascular disease I67.9 Atrial flutter I48.92 Enterocolitis K52.9 Weakness R53.1 Mass of bladder N32.89
[2019-09-05] MEDS ORDERED: STAT IV Infusion **Titration per Protocol STA (19:31)
[2019-09-05] MEDS ORDERED: AMIODARONE / D5W 150 MG/100 ML BAG IV STA (19:31)
[2019-09-05] MEDS ORDERED: AMIODARONE IV BOLUS & DRIP IV STA (19:31)
[2019-09-05] MEDS ORDERED: 0.2 MICRON FILTER SET 1 EA IV ONE (19:31)
[2019-09-05] MEDS ORDERED: AMIODARONE 450 MG in D5W 250ML IN *POLYOLEFIN BAG* 241 ML IV SCH (20:00)
[2019-09-05] MEDS ORDERED: ONDANSETRON 4 MG OD TAB SL PRN (22:58)
[2019-09-05] MEDS ORDERED: LORazepam 0.5 MG TAB PO PRN (22:58)
[2019-09-05] MEDS ORDERED: ONDANSETRON INJ 2 MG/ML 2 ML VIAL IV PRN (22:58)
[2019-09-05] MEDS ORDERED: SCOPOLAMINE 1.5 MG TDSY TD SCH (23:00)
[2019-09-06] MEDS: CHECK SCOPOLAMINE PATCH PLACEMENT SCH ×4 (00:28→23:33)
[2019-09-06] MEDS: METOPROLOL TARTRATE 1 MG/ML VIAL IV SCH ×2 (00:34→05:56)
[2019-09-06] MEDS ORDERED: AMIODARONE RATE CHANGE ONE (02:00)
[2019-09-06] MEDS: metroNIDAZOLE 500 MG/100 ML BAG IV SCH (05:49)
[2019-09-06] MEDS: MoRPHine SULFATE 2 MG/ML CARP IV PRN ×5 (06:08→20:57)
--- NOTE | 2019-09-06 07:50 | Communication Note ---
Date of Service: September 06, 2019 After discussion with Ms. Dobson's sons they made the decision to move Ms. Dobson to comfort care. We will continue antibiotics and beta liliya IV for her comfort. Vital signs blood draws discontinued.
[2019-09-06] MEDS: LORazepam 0.5 MG/1 ML VIAL IV PRN ×2 (12:57→23:29)
--- NOTE | 2019-09-06 16:28 | Hospitalist Progress Note ---
Date of Service September 06, 2019 Assessment & Plan (1) Palliative care status: see below for details of hospitalization leading up to comfort care patient has peritonitis, large stroke, severe atherosclerosis, sepsis, recurrent SVT comfort is goal, place on Morphine PRN, use drip if PRN pushes not enough Ativan, Atropine PRN sons updated at the bedside (2) Sepsis: developing sepsis due to peritonitis blood cultures drawn, stop antibiotics as they will only prolong suffering grave prognosis (3) Peritonitis: worsening abdominal exam, rigid, tender, absent bowel sounds on 09/04 no vomiting WBC normal but 90% PMN and procalcitonin 23 on 09/04 CT abdomen/pelvis on 09/04 with increased ascites, small areas of gas, evidence of peritonitis, could be perforated viscus vs gas forming organisms stop Cipro/Flagyl, strict NPO, stop fluids BP is decreasing, at risk of developing sepsis and septic shock blood cultures drawn discussed grave prognosis with patient's son Rian certainly she is not a surgical candidate due to acute stroke in past two days he agrees that he would not want her to be uncomfortable (4) Cerebrovascular disease: Acute stroke was seen timeframe was unclear stroke consult was not undertaken. Initial angiogram of head and neck showed impressive multiple areas of stenotic vasculature placing the patient at significantly high risk Patient does have a baseline visual impairments difficult to assess whether this is worsened or not CT scan 09/04/2019 IMPRESSION: 1. Interval development of a 5.3 x 1.8 cm hypodensity within the right occ ipital lobe consistent with an acute right [employer] territory infarct. No hemorrhage. 2. Possible additional 1 cm acute infarct within the right thalamus. unfortunately, patient is NOT safe to take PO at this time, gave aspirin IA on 09/04 she ideally needs Plavix, statin, blood pressure control with her peritonitis she is not appropriate for any type of feeding tube grave prognosis, discussed comfort measures with her son Rian repeat CT head on 09/04 did NOT show any progression of the stroke, likely her worsening clinical status due to BP dropping, peritonitis (5) Atrial flutter: HR in the 180-190's several times aggressive use of Morphine for comfort, transfer to medical floor (6) Enterocolitis: pt with enterocolitis seen on CT scan and associated abdominal pain and bloating Pt is on cipro and Flagyl IV Concern abdominal pain could be ischemic colitis from embolic source decreased bladder multiple CVAs and abdominal pain at the same time CT abdomen and pelvis 09/02/19 IMPRESSION: There is a 2.0 cm irregular and enhancing nodule along the posterior left wall of the bladder. This should be considered bladder cancer until proven otherwise, and follow-up with urology is recommended Findings suggest a nonspecific enterocolitis, likely on an infectious or inflammatory basis. Clinical correlation will be required. Moderate constipation. Mesenteric Doppler 09/02/19IMPRESSION: Mildly elevated velocities within the superior mesenteric artery are likely artifactual. The superior mesenteric juventino ry and celiac trunk are widely patent as seen on today's abdominal CT scan. 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 she could have a steroid myopathy however she has other metabolic diseases including her enterocolitis and stroke which could explain her overall general weakness (8) Mass of bladder: Mass of bladder noted on Ct abdomen and pelvis as noted above, will have urine cytology and will have urology follow up as an outpt unless we have issues with bladder outlet issues Admission and Anticipated Discharge Date Admission Date: September 02, 2019 Subjective patient transitioned to comfort care over night, went in HR in the 190's again sons at the bedside discussed use of antibiotics, I stopped them because I feel they could prolong suffering since she would need surgery for this issue they agreed, will use morphine PRN, change to drip if needed Review of Systems Review of Systems: Unobtainable due to cognitive status Physical Exam Constitutional: + ill appearing, + altered mental status and + frail appearing; not in distress Eyes: PERRL; + abnormal visual field confrontation ENMT: Nose: + dry nasal mucous membranes Mouth: + dry oral mucous membranes Neck: trachea midline, no thyromegaly Respiratory: + labored breathing Auscultation: + diminished lung sounds (bases); no crackles, no rales and no wheezes Cardiovascular: RRR, no murmur, no edema Gastrointestinal (Abdomen): Inspection/Auscultation: + abdomen distended and + hypoactive bowel sounds (absent) Percussion/Palpation: + abdomen tender, + guarding and + abdomen rigid; + abdomen not soft Musculoskeletal: no cyanosis or clubbing, extremities motor strength 5/5 Skin: no rashes, warm and dry Neurologic: CN's II-XI intact bilaterally, moves all extremities and + obtunded Speech / Cognition: + abnormal speech and + expressive aphasia Psychiatric: Orientation: + not alert and + not oriented x 3 Lymphatic: no cervical or axillary lymphadenopathy Results & Data Results & Data ([facility]) Vital Signs (Past 12 Hours) Vital Signs Pulse Pulse BP BP 09/06/19 06:35 66 140/83 09/06/19 05:56 67 149/66 H Medications Administered Current Inpatient Medications Atropine Sulfate (Atropine Sulfate 1% Oph Soln) 4 drops SL Q1H PRN PRN Reason: Secretions or Pulm Congestion Stop: 10/05/19 22:57 Lorazepam (Ativan) 0.5 mg in 1 mls @ 1 mls/min IV Q4H PRN PRN Reason: Anxiety/Agitation Stop: 10/05/19 22:57 Last Admin: 09/06/19 12:57 Dose: 1 mls/min Documented by: Miscellaneous (Check Scopolamine Patch Placement) 1 ea N/A QS BRIAN Stop: 10/06/19 00:00 Last Admin: 09/06/19 09:48 Dose: 1 ea Documented by: Sabracellaneous (Remove Transderm-Scop Patch) 1 ea N/A Q72H BRIAN Stop: 10/08/19 21:59 Morphine Sulfate (Morphine Sulfate) 4 mg IV Q4 PRN PRN Reason: Pain Stop: 09/17/19 15:12 Last Admin: 09/05/19 19:35 Dose: 4 mg Documented by: Morphine Sulfate (Morphine Sulfate) 2 mg IV Q1H PRN PRN Reason: Pain Stop: 09/17/19 09:35 Last Admin: 09/06/19 11:25 Dose: 2 mg Documented by: Ondansetron HCl (Zofran) 4 mg IV Q4H PRN PRN Reason: Nausea And Vomiting Stop: 10/05/19 22:57 Ondansetron HCl (Zofran Odt) 4 mg SL Q4H PRN PRN Reason: Nausea And Vomiting Stop: 10/05/19 22:57 Scopolamine (Transderm-Scop) 1.5 mg TD Q72H BRIAN Stop: 10/05/19 22:59 Last Admin: 09/06/19 00:26 Dose: 1.5 mg Documented by: PG Care Time/CCT Total # of Minutes Spent Total Time Spent with Patient: Total time spent is greater than 50% in coordination of care (as documented) at patient's floor/unit and/or counseling patient: Coding Level of Care Code 46523 Subseq Hosp Care Lvl 2 Diagnoses Palliative care status Z51.5 Sepsis A41.9 Peritonitis K65.9 Cerebrovascular disease I67.9 Atrial flutter I48.92 Enterocolitis K52.9 Weakness R53.1 Mass of bladder N32.89
[2019-09-06] MEDS: ATROPINE SULFATE 1% OP SOLN 2 ML BTL SL PRN ×2 (21:07→23:02)
[2019-09-07] MEDS: ATROPINE SULFATE 1% OP SOLN 2 ML BTL SL PRN ×4 (01:09→08:01)
[2019-09-07] MEDS: MoRPHine SULFATE 2 MG/ML CARP IV PRN ×5 (02:11→17:31)
[2019-09-07] MEDS: LORazepam 0.5 MG/1 ML VIAL IV PRN ×3 (04:32→17:50)
[2019-09-07] MEDS: CHECK SCOPOLAMINE PATCH PLACEMENT SCH ×2 (08:01→17:35)
--- NOTE | 2019-09-07 13:34 | Hospitalist Progress Note ---
Date of Service September 07, 2019 Assessment & Plan (1) Palliative care status: see below for details of hospitalization leading up to comfort care patient has peritonitis, large stroke, severe atherosclerosis, sepsis, recurrent SVT comfort is goal, place on Morphine PRN, use drip if PRN pushes not enough Ativan, Atropine PRN sons updated at the bedside patient comfortable today (2) Sepsis: developing sepsis due to peritonitis blood cultures drawn, stop antibiotics as they will only prolong suffering grave prognosis (3) Peritonitis: worsening abdominal exam, rigid, tender, absent bowel sounds on 09/04 no vomiting WBC normal but 90% PMN and procalcitonin 23 on 09/04 CT abdomen/pelvis on 09/04 with increased ascites, small areas of gas, evidence of peritonitis, could be perforated viscus vs gas forming organisms stop Cipro/Flagyl, strict NPO, stop fluids BP is decreasing, at risk of developing sepsis and septic shock blood cultures drawn discussed grave prognosis with patient's son Rian certainly she is not a surgical candidate due to acute stroke in past two days he agrees that he would not want her to be uncomfortable (4) Cerebrovascular disease: Acute stroke was seen timeframe was unclear stroke consult was not undertaken. Initial angiogram of head and neck showed impressive multiple areas of stenotic vasculature placing the patient at significantly high risk Patient does have a baseline visual impairments difficult to assess whether this is worsened or not CT scan 09/04/2019 IMPRESSION: 1. Interval development of a 5.3 x 1.8 cm hypodensity within the right occipital lobe consistent with an acute right [employer] territory infarct. No hemorrhage. 2. Possible additional 1 cm acute infarct within the right thalamus. unfortunately, patient is NOT safe to take PO at this time, gave aspirin OR on 09/04 she ideally needs Plavix, statin, blood pressure control with her peritonitis she is not appropriate for any type of feeding tube grave prognosis, discussed comfort measures with her son Rian repeat CT head on 09/04 did NOT show any progression of the stroke, likely her worsening clinical status due to BP dropping, peritonitis (5) Atrial flutter: HR in the 180-190's several times aggressive use of Morphine for comfort, transfer to medical floor (6) Enterocolitis: pt with enterocolitis seen on CT scan and associated abdominal pain and bloating Pt is on cipro and Flagyl IV Concern abdominal pain could be ischemic colitis from embolic source decreased bladder multiple CVAs and abdominal pain at the same time CT abdomen and pelvis 09/02/19 IMPRESSION: There is a 2.0 cm irregular and enhancing nodule along the posterior left wall of the bladder. This should be considered bladder cancer until proven otherwise, and follow-up with urology is recommended Findings suggest a nonspecific enterocolitis, likely on an infectious or inflammatory basis. Clinical correlation will be required. Moderate constipation. Mesenteric Doppler 09/02/19IMPRESSION: Mildly elevated velocities within the superior mesenteric artery are likely artifactual. The superior mesenteric artery and celiac trunk are widely patent as seen on today's abdominal CT scan. 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 she could have a steroid myopathy however she has other metabolic diseases including her enterocolitis and stroke which could explain her overall general weakness (8) Mass of bladder: Mass of bladder noted on Ct abdomen and pelvis as noted above, will have urine cytology and will have urology follow up as an outpt unless we have issues with bladder outlet issues Admission and Anticipated Discharge Date Admission Date: September 02, 2019 Subjective patient resting comfortably discussed with son at the bedside will keep here in the hospital for time being Review of Systems Review of Systems: Unobtainable due to cognitive status Physical Exam Constitutional: + ill appearing, + altered mental status and + frail appearing; not in distress Eyes: PERRL; + abnormal visual field confrontation ENMT: Nose: + dry nasal mucous membranes Mouth: + dry oral mucous membranes Neck: trachea midline, no thyromegaly Respiratory: Auscultation: + diminished lung sounds (bases); no crackles, no rales and no wheezes Cardiovascular: RRR, no murmur, no edema Gastrointestinal (Abdomen): Inspection/Auscultation: + abdomen distended and + hypoactive bowel sounds (absent) Percussion/Palpation: + abdomen rigid Musculoskeletal: no cyanosis or clubbing, extremities motor strength 5/5 Skin: no rashes, warm and dry Neurologic: CN's II-XI intact bilaterally, moves all extremities and + obtunded Speech / Cognition: + abnormal speech and + expressive aphasia Psychiatric: Orientation: + not alert and + not oriented x 3 Lymphatic: no cervical or axillary lymphadenopathy Results & Data Results & Data ([facility]) Medications Administered Current Inpatient Medications Atropine Sulfate (Atropine Sulfate 1% Oph Soln) 4 drops SL Q1H PRN PRN Reason: Secretions or Pulm Congestion Stop: 10/05/19 22:57 Last Admin: 09/07/19 08:01 Dose: 4 drops Documented by: Lorazepam (Ativan) 0.5 mg in 1 mls @ 1 mls/min IV Q4H PRN PRN Reason: Anxiety/Agitation Stop: 10/05/19 22:57 Last Admin: 09/07/19 10:50 Dose: 1 mls/min Documented by: Miscellaneous (Check Scopolamine Patch Placement) 1 ea N/A QS BRIAN Stop: 10/06/19 00:00 Last Admin: 09/07/19 08:01 Dose: 1 ea Documented by: Abad (Remove Transderm-Scop Patch) 1 ea N/A Q72H BRIAN Stop: 10/08/19 21:59 Morphine Sulfate (Morphine Sulfate) 4 mg IV Q4 PRN PRN Reason: Pain Stop: 09/17/19 15:12 Last Admin: 09/05/19 19:35 Dose: 4 mg Documented by: Morphine Sulfate (Morphine Sulfate) 2 mg IV Q1H PRN PRN Reason: Pain Stop: 09/17/19 09:35 Last Admin: 09/07/19 13:19 Dose: 2 mg Documented by: Ondansetron HCl (Zofran) 4 mg IV Q4H PRN PRN Reason: Nausea And Vomiting Stop: 10/05/19 22:57 Ondansetron HCl (Zofran Odt) 4 mg SL Q4H PRN PRN Reason: Nausea And Vomiting Stop: 10/05/19 22:57 Scopolamine (Transderm-Scop) 1.5 mg TD Q72H BRIAN Stop: 10/05/19 22:59 Last Admin: 09/06/19 00:26 Dose: 1.5 mg Documented by: PG Care Time/CCT Total # of Minutes Spent Total Time Spent with Patient: Total time spent is greater than 50% in coordination of care (as documented) at patient's floor/unit and/or counseling patient: Coding Level of Care Code 39075 Subseq Hosp Care Lvl 1 Diagnoses Palliative care status Z51.5 Sepsis A41.9 Peritonitis K65.9 Cerebrovascular disease I67.9 Atrial flutter I48.92 Enterocolitis K52.9 Weakness R53.1 Mass of bladder N32.89
[2019-09-07] MEDS: MoRPHine SULFATE 4 MG/ML 1 ML CARP\\VIAL IV PRN (20:04)
[2019-09-08] MEDS: CHECK SCOPOLAMINE PATCH PLACEMENT SCH (01:34)
--- NOTE | 2019-09-08 22:15 | Discharge Summary ---
Date of Service September 08, 2019 Admission HPI Per Admitting Provider Mayra Dobson is a 74-year-old female with past medical history significant for legal blindness, asthma, peripheral artery disease, paroxysmal ventricular tachycardia, and degenerative joint disease; presented to the emergency department following continued concern for crampy abdominal pain that is been present over the last 24 to 36 hours. This pain had come and gone over this timeframe, had some associated nausea which did improve after taking some Zofran prior to arrival. Per EMS report patient at that time exhibited some left upper extremity weakness, at that time patient's caregiver was called and stated that the last known time she was seen while was at 3 PM; patient does have a history of left-sided weakness following septic arthropathy. Since starting to develop this crampy abdominal pain patient has avoided eating, previously has been told to have not to do this when seen by physician at [facility], however she felt like this would help make her better faster and elected to not eat since onset of pain. Principal Diagnosis Peritonitis from suspected perforated viscous Discharge Exam no pulse, no heart sounds, not breathing, pupils fixed Discharge Data Allergies Allergy/AdvReac Type Severity Reaction Status Date / Time chlorpromazine Allergy Severe JAW LOCKS Verified 09/02/19 19:35 levofloxacin [From Levaquin] Allergy Severe Vomiting Verified 09/02/19 19:35 pineapple Allergy Severe HIVES IN Verified 09/02/19 19:35 HER MOUTH prochlorperazine Allergy Severe MOTOR Verified 09/02/19 19:35 SEIZURES-ARMS SPASTIC shellfish derived Allergy Severe VERY SICK Verified 09/02/19 19:35 FOR SEVERAL DAYS/HIVES IN HER MOUTH strawberry Allergy Severe HIVES IN Verified 09/02/19 19:35 HER MOUTH tomato Allergy Severe HIVES IN Verified 09/02/19 19:35 MOUTH walnut Allergy Severe HIVES IN Verified 09/02/19 19:35 HER MOUTH nickel Allergy Intermediate RASH Verified 09/02/19 19:35 soy Allergy Intermediate "SOY" Verified 09/02/19 19:35 ALLERGY-GI UPSET ABD PAIN cephalexin AdvReac Severe NAUSEA AND Verified 08/26/19 12:23 VOMITING procaine AdvReac Intermediate 'makes Verified 08/26/19 12:23 muscle weakness worse' Consultations 09/02/19 20:04 ED Decision to Admit Stat 09/05/19 22:58 Consult Case Management - Discharge Planning Routine 09/07/19 05:26 Consult Palliative Care Routine Ordered Studies 09/02/19 17:23 CT abd pelvis IV con only Stat CT angio head w con Stat CT angio neck with con Stat CT head/brain wo con Stat 09/02/19 20:04 US duplex mesenteric Stat 09/03/19 22:53 CT head/brain wo con Stat 09/05/19 11:02 CT head/brain wo con Urgent 09/05/19 15:30 CT abd pelvis IV con only Urgent Hospital Course (1) Palliative care status: see below for details of hospitalization leading up to comfort care patient has peritonitis, large stroke, severe atherosclerosis, sepsis, recurrent SVT comfort is goal, place on Morphine PRN, use drip if PRN pushes not enough Ativan, Atropine PRN sons updated at the bedside patient comfortable all day peacefully in 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 on 09/07 (2) Sepsis: developing sepsis due to peritonitis blood cultures drawn, stop antibiotics as they will only prolong suffering grave prognosis (3) Peritonitis: worsening abdominal exam, rigid, tender, absent bowel sounds on 09/04 no vomiting WBC normal but 90% PMN and procalcitonin 23 on 09/04 CT abdomen/pelvis on 09/04 with increased ascites, small areas of gas, evidence of peritonitis, could be perforated viscus vs gas forming organisms stop Cipro/Flagyl, strict NPO, stop fluids BP is decreasing, at risk of developing sepsis and septic shock blood cultures drawn discussed grave prognosis with patient's son Rian certainly she is not a surgical candidate due to acute stroke in past two days he agrees that he would not want her to be uncomfortable (4) Cerebrovascular disease: Acute stroke was seen timeframe was unclear stroke consult was not undertaken. Initial angiogram of head and neck showed impressive multiple areas of stenotic vasculature placing the patient at significantly high risk Patient does have a baseline visual impairments difficult to assess whether this is worsened or not CT scan 09/04/2019 IMPRESSION: 1. Interval development of a 5.3 x 1.8 cm hypodensity within the right occipital lobe consistent with an acute right [employer] territory infarct. No hemorrhage. 2. Possible additional 1 cm acute infarct within the right thalamus. unfortunately, patient is NOT safe to take PO at this time, gave aspirin VT on 09/04 she ideally needs Plavix, statin, blood pressure control with her peritonitis she is not appropriate for any type of feeding tube grave prognosis, discussed comfort measures with her son Rian repeat CT head on 09/04 did NOT show any progression of the stroke, likely her worsening clinical status due to BP dropping, peritonitis (5) Atrial flutter: HR in the 180-190's several times aggressive use of Morphine for comfort, transfer to medical floor (6) Enterocolitis: pt with enterocolitis seen on CT scan and associated abdominal pain and bloating Pt is on cipro and Flagyl IV Concern abdominal pain could be ischemic colitis from embolic source decreased bladder multiple CVAs and abdominal pain at the same time CT abdomen and pelvis 09/02/19 IMPRESSION: There is a 2.0 cm irregular and enhancing nodule along the posterior left wall of the bladder. This should be considered bladder cancer until proven otherwise, and follow-up with urology is recommended Findings suggest a nonspecific enterocolitis, likely on an infectious or inflammatory basis. Clinical correlation will be required. Moderate constipation. Mesenteric Doppler 09/02/19IMPRESSION: Mildly elevated velocities within the superior mesenteric artery are likely artifactual. The superior mesenteric artery and celiac trunk are widely patent as seen on today's abdominal CT scan. 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 she could have a steroid myopathy however she has other metabolic di seases including her enterocolitis and stroke which could explain her overall general weakness (8) Mass of bladder: Mass of bladder noted on Ct abdomen and pelvis as noted above, will have urine cytology and will have urology follow up as an outpt unless we have issues with bladder outlet issues Total Time Total Time Spent Total Time Spent (In Minutes): 10 minutes Total Time Includes: Examination of the Patient Discharge Plan Discharge Items Patient Disposition: Reason For Visit: LOWER ABDOMINAL PAIN Follow-up/Referrals: Jack Mayers MD [Primary Care Provider] - Admission Data Admit Date/Time: 09/02/19 23:43 Other DC Date/Time DO NOT enter until pt leaves facility: 09/08/19 00:20 Coding Level of Care Code D/C Day Management <30 mins Diagnoses Palliative care status Z51.5 Sepsis A41.9 Peritonitis K65.9 Cerebrovascular disease I67.9 Atrial flutter I48.92 Enterocolitis K52.9 Weakness R53.1 Mass of bladder N32.89
== END 2019-09-08 00:20 | disposition expired | DRG 391 ==
LOC: ED 16:45 → SUATTDRO 23:43 → 3E 23:43 → 2S 09-04 00:46 → 3E 09-05 21:48